=== PATIENT | male | born 1980 | race Caucasian/White ===

== ENCOUNTER 2022-07-20 20:45 | Emergency (ER) | payer OTHER ==
[2022-07-20 20:59] VITALS: RESP 16
[2022-07-20] MEDS ORDERED: MORPHINE SULFATE 4 MG/ML SYRINGE IVP STA (21:15)
--- NOTE | 2022-07-20 22:03 | XR ---
EXAMINATION TYPE: XR clavicle RT, XR shoulder limited RT, XR chest 1V DATE OF EXAM: 07/20/2022 9:46 PM INDICATION: Patient age:Male; 42 years old; Reason for study: Trauma, pain; COMPARISON: None TECHNIQUE: AP and cephalic tilt views were obtained of the right clavicle. Right shoulder frontal and scapular Y Frontal view of the chest FINDINGS: There is a superiorly displaced distal clavicle with respect to the acromion. The distal right clavic le is approximately 1.5 cm above the acromion. No evidence for right shoulder dislocation. No acute fracture visualized. No evidence of pneumothorax, pleural effusion or focal consolidation. The cardiomediastinal silhouett e is intact. IMPRESSION: 1. Right acromioclavicular joint dislocation. 2. Clavicle appears intact.
[2022-07-20 22:10] VITALS: PULSE 82
--- NOTE | 2022-07-20 22:33 | ED ---
General Adult HPI - General Chief complaint: Extremity Injury, Upper Stated complaint: fall, shoulder pain Time Seen by Provider: 07/20/22 20:55 Source: patient Mode of arrival: ambulatory Limitations: no limitations - History of Present Illness Initial comments: This is a 42-year-old male who presents emergency department after a fall and right shoulder pain. The patient stated that he slipped and fell on would stairs at his home, landing on concrete approximately 2 stairs Fahrenheit. The patient stated that he landed on his right shoulder and had immediate pain to the right collarbone. The patient did not his and did not lose consciousness. The patient did state he was treating alcohol earlier today however he was ANO 4 and able to answer all questions appropriate. The patient denied any other acute pain or complaints at this time. The patient did not have any numbness or tingling in the right upper extremity or any radiation of this pain. - Related Data Previous Rx's Medication Instructions Recorded Naproxen [Naprosyn] 500 mg PO BID #28 tab 07/20/22 methocarbamoL [Robaxin-750] 750 mg PO TID #52 tab 07/20/22 Allergies Allergy/AdvReac Type Severity Reaction Status Date / Time No Known Allergies Allergy Verified 07/20/22 20:51 Review of Systems ROS Statement: Those systems with pertinent positive or pertinent negative responses have been documented in the HPI. ROS Other: All systems not noted in ROS Statement are negative. Past Medical History Past Medical History: No Reported History History of Any Multi-Drug Resistant Organisms: None Reported Past Surgical History: No Surgical Hx Reported Past Psychological History: No Psychological Hx Reported Smoking Status: Current every day smoker Past Alcohol Use History: Occasional Past Drug Use History: None Reported General Exam Limitations: no limitations General appearance: alert, in no apparent distress Head exam: Present: atraumatic, normocephalic Eye exam: Present: normal appearance, PERRL Pupils: Present: normal accommodation ENT exam: Present: normal exam, normal oropharynx, mucous membranes moist Neck exam: Present: normal inspection, full ROM Respiratory exam: Present: normal lung sounds bilaterally Cardiovascular Exam: Present: regular rate, normal rhythm, normal heart sounds GI/Abdominal exam: Present: soft, normal bowel sounds Extremities exam: Present: other (Left upper extremity within normal limits, right upper extremity decreased range of motion secondary to pain in the right clavicle, deformities noted to the right clavicle without any neurovascular compromise noted.) Back exam: Present: normal inspection, full ROM Neurological exam: Present: alert, oriented X3, CN II-XII intact Psychiatric exam: Present: normal affect, normal mood Skin exam: Present: warm, dry Course Vital Signs 07/20/22 07/20/22 07/20/22 20:48 20:58 21:44 Temperature 97 F L Pulse Rate 100 104 H 80 Respiratory 20 16 16 Rate Blood Pressure 121/78 121/91 139/90 O2 Sat by Pulse 99 99 100 Oximetry 07/20/22 07/20/22 22:09 22:41 Temperature 98.2 F Pulse Rate 82 82 Respiratory 16 16 Rate Blood Pressure 133/94 126/87 O2 Sat by Pulse 99 100 Oximetry Medical Decision Making - Medical Decision Making The patient was seen and evaluated emergency department. Physical exam, the patient was resting in bed without any acute distress. The patient did have significant distress when the right upper extremity was moved. Vital signs admission were stable. Due to the nature the patient's complaints, an x-ray of the right shoulder, right clavicle and chest x-ray was obtained. X-rays were obtained and interpreted by myself showing right before meals joint dislocation. Due to this, the orthopedic surgeon on-call, Dr. Escoto was consult did and stated that the patient could be discharged home in a sling to follow-up in the office. The patient was given a prescription for naproxen as well as Robaxin to be taken at home and told to continue to monitor his symptoms and to report back to the emergency department if they became acutely worse including any numbness or tingling. The patient was agreeable to this and all his questions were answered. The patient was discharged home in stable condition. Disposition Clinical Impression: AC joint dislocation Disposition: HOME SELF-CARE Condition: Stable Instructions (If sedation given, give patient instructions): Acromioclavicular Separation (ED) Prescriptions: Naproxen [Naprosyn] 500 mg PO BID #28 tab methocarbamoL [Robaxin-750] 750 mg PO TID #52 tab Is patient prescribed a controlled substance at d/c from ED?: No Referrals: None,Stated [Primary Care Provider] - 1-2 days Deion Escoto MD [STAFF PHYSICIAN] - 07/26/22 Time of Disposition: 22:30
[2022-07-20 22:42] VITALS: BP 126/87; TEMP 98.2
== END 2022-07-20 22:45 | disposition home or self-care (01) ==
LOC: EC 20:45
DX: S43.101A Unspecified dislocation of right acromioclavicular joint, initial encounter (principal); F17.200 Nicotine dependence, unspecified, uncomplicated; W10.9XXA Fall (on) (from) unspecified stairs and steps, initial encounter
CPT/HCPCS: 73000; 73020; 71045; 99283; J2270; 96374

== ENCOUNTER 2022-07-24 10:57 | Emergency (ER) | payer OTHER ==
[2022-07-24] MEDS ORDERED: PANTOPRAZOLE 40 MG/10 ML VIAL IVP STA (11:05)
[2022-07-24] MEDS ORDERED: SODIUM CHLORIDE 0.9% 1,000 ML IV STA ×2 (11:05→11:09)
[2022-07-24] MEDS ORDERED: ONDANSETRON 4 MG/2 ML VIAL IVP STA (11:05)
[2022-07-24] MEDS ORDERED: LORazepam 2 MG/ML INJ IV STA (11:09)
[2022-07-24] MEDS ORDERED: OCTREOTIDE 500 MCG in SODIUM CHLORIDE 0.9% 250 ML IV ONE (11:09)
[2022-07-24] MEDS ORDERED: OCTREOTIDE 200 MCG/ML 5 ML VIAL IVP STA (11:09)
[2022-07-24] MEDS ORDERED: cefTRIAXone IN SWFI 1,000 MG/10 ML SYRINGE IVP STA (11:13)
[2022-07-24] MEDS ORDERED: OCTREOTIDE 100 MCG/ML INJ IVP STA (11:14)
--- NOTE | 2022-07-24 11:24 | ED ---
General Adult HPI - General Chief complaint: GI Bleed Stated complaint: GI Bleed Time Seen by Provider: 07/24/22 11:01 Source: patient, EMS, RN notes reviewed Mode of arrival: EMS Limitations: no limitations - History of Present Illness Initial comments: Patient is a pleasant 42-year-old male presenting to the emergency Department with vomiting. Onset of symptoms was last night. Patient states he feels terrible. Patient normally drinks a pint of alcohol daily. Vodka. EMS reported blood clots with emesis. Patient does have emesis at bedside con sistent with this. Patient still complains of nausea. Patient also is concerned he is going through withdrawal. - Related Data Previous Rx's Medication Instructions Recorded Naproxen [Naprosyn] 500 mg PO BID #28 tab 07/20/22 methocarbamoL [Robaxin-750] 750 mg PO TID #52 tab 07/20/22 Allergies Allergy/AdvReac Type Severity Reaction Status Date / Time No Known Allergies Allergy Verified 07/24/22 11:06 Review of Systems ROS Statement: Those systems with pertinent positive or pertinent negative responses have been documented in the HPI. ROS Other: All systems not noted in ROS Statement are negative. Constitutional: Denies: fever Eyes: Denies: eye pain ENT: Denies: ear pain Respiratory: Denies: cough Cardiovascular: Denies: chest pain Endocrine: Denies: fatigue Gastrointestinal: Reports: nausea, vomiting, hematemesis Musculoskeletal: Denies: back pain Skin: Denies: rash Neurological: Denies: weakness Past Medical History Past Medical History: Diabetes Mellitus, Hypertension History of Any Multi-Drug Resistant Organisms: None Reported Past Surgical History: No Surgical Hx Reported Past Psychological History: No Psychological Hx Reported Smoking Status: Current every day smoker Past Alcohol Use History: Abuse Past Drug Use History: None Reported General Exam Limitations: no limitations General appearance: alert Head exam: Present: normocephalic Eye exam: Present: other (Right pupil dilated, patient states chronic from previous injury) ENT exam: Present: normal oropharynx Neck exam: Present: normal inspection Respiratory exam: Present: normal lung sounds bilaterally Cardiovascular Exam: Present: tachycardia GI/Abdominal exam: Present: tenderness (Mild epigastric tenderness) Extremities exam: Present: normal inspection Neurological exam: Present: alert Psychiatric exam: Present: normal affect, normal mood Skin exam: Present: pallor Course Vital Signs 1207/24/22 07/24/22 10:59 11:23 11:30 Temperature 97.6 F Pulse Rate 135 H 124 H 121 H Respiratory 20 18 22 Rate Blood Pressure 91/48 73/42 73/42 O2 Sat by Pulse 100 100 100 Oximetry 07/24/22 07/24/22 11:40 11:50 Temperature Pulse Rate 109 H 118 H Respiratory 26 H 20 Rate Blood Pressure 104/44 103/55 O2 Sat by Pulse 100 100 Oximetry EKG Findings - EKG Results: EKG: interpreted by ERMD (Nonspecific ST-T), sinus rhythm, normal axis EKG shows: tachycardia Medical Decision Making - Medical Decision Making Case was discussed with Dr. Loki brantley at [facility], who will accept transfer. I did previously speak with on-call surgeon, Dr. Colvin who is not handle variceal bleeds and does recommend transfer. We do not have GI available Blood is currently pending and blood bank states around 20 minutes. Patient transfer will be delayed to receive blood prior to transfer. EMS has arty been notified for priority 1 transfer. Patient was reevaluated several times. Patient was updated on plan. Blood pressure has improved with several readings over 100 sbp now. Patient is going to receive the first unit at this time. - Lab Data Result diagrams: 07/24/22 11:19 07/24/22 11:19 Lab Results 07/24/22 07/24/22 07/24/22 Range/Units 11:15 11:19 11:19 WBC 13.4 H (3.8-10.6) k/uL RBC 1.89 L (4.30-5.90) m/uL Hgb 6.3 L* (13.0-17.5) gm/dL Hct 19.8 L* (39.0-53.0) % MCV 104.8 H (80.0-100.0) fL MCH 33.2 (25.0-35.0) pg MCHC 31.7 (31.0-37.0) g/dL RDW 15.8 H (11.5-15.5) % Plt Count 162 (150-450) k/uL MPV 12.8 Neutrophils % 81 % Lymphocytes % 13 % Monocytes % 4 % Eosinophils % 0 % Basophils % 0 % Neutrophils # 10.9 H (1.3-7.7) k/uL Lymphocytes # 1.8 (1.0-4.8) k/uL Monocytes # 0.5 (0-1.0) k/uL Eosinophils # 0.0 (0-0.7) k/uL Basophils # 0.0 (0-0.2) k/uL Manual Slide Review Performed Hypochromasia Slight Macrocytosis Moderate PT (9.0-12.0) sec INR (<1.2) APTT (22.0-30.0) sec Sodium (137-145) mmol/L Potassium (3.5-5.1) mmol/L Chloride (98-107) mmol/L Carbon Dioxide (22-30) mmol/L Anion Gap mmol/L BUN (9-20) mg/dL Creatinine (0.66-1.25) mg/dL Est GFR (CKD-EPI)AfAm (>60 ml/min/1.73 sqM) Est GFR (CKD-EPI)NonAf (>60 ml/min/1.73 sqM) Glucose (74-99) mg/dL Calcium (8.4-10.2) mg/dL Total Bilirubin (0.2-1.3) mg/dL AST (17-59) U/L ALT (4-49) U/L Alkaline Phosphatase (38-126) U/L Total Protein (6.3-8.2) g/dL Albumin (3.5-5.0) g/dL Lipase (23-300) U/L Gastric Occult Blood Positive (Negative) Blood Type Blood Type Confirm A Positive Blood Type Recheck Bld Type Recheck Status Antibody Screen Crossmatch Spec Expiration Date 07/24/22 07/24/22 07/24/22 Range/Units 11:19 11:19 11:19 WBC (3.8-10.6) k/uL RBC (4.30-5.90) m/uL Hgb (13.0-17.5) gm/dL Hct (39.0-53.0) % MCV (80.0-100.0) fL MCH (25.0-35.0) pg MCHC (31.0-37.0) g/dL RDW (11.5-15.5) % Plt Count (150-450) k/uL MPV Neutrophils % % Lymphocytes % % Monocytes % % Eosinophils % % Basophils % % Neutrophils # (1.3-7.7) k/uL Lymphocytes # (1.0-4.8) k/uL Monocytes # (0-1.0) k/uL Eosinophils # (0-0.7) k/uL Basophils # (0-0.2) k/uL Manual Slide Review Hypochromasia Macrocytosis PT 16.2 H (9.0-12.0) sec INR 1.6 H (<1.2) APTT 28.4 (22.0-30.0) sec Sodium 136 L (137-145) mmol/L Potassium 3.9 (3.5-5.1) mmol/L Chloride 98 (98-107) mmol/L Carbon Dioxide 11 L (22-30) mmol/L Anion Gap 27 mmol/L BUN 70 H (9-20) mg/dL Creatinine 1.77 H (0.66-1.25) mg/dL Est GFR (CKD-EPI)AfAm 54 (>60 ml/min/1.73 sqM) Est GFR (CKD-EPI)NonAf 47 (>60 ml/min/1.73 sqM) Glucose 159 H (74-99) mg/dL Calcium 8.0 L (8.4-10.2) mg/dL Total Bilirubin 1.9 H (0.2-1.3) mg/dL AST 150 H (17-59) U/L ALT 51 H (4-49) U/L Alkaline Phosphatase 128 H (38-126) U/L Total Protein 6.7 (6.3-8.2) g/dL Albumin 3.4 L (3.5-5.0) g/dL Lipase 33 (23-300) U/L Gastric Occult Blood (Negative) Blood Type A Positive Blood Type Confirm Blood Type Recheck No Previous Record Bld Type Recheck Status CABO Indicated Antibody Screen NEGATIVE Crossmatch See Detail Spec Expiration Date 07/27/20222318 Critical Care Time Critical Care Time: Yes Total Critical Care Time: 44 Disposition Clinical Impression: Upper gastrointestinal hemorrhage Disposition: OTHER INSTITUTION NOT DEFINED Condition: Critical Is patient prescribed a controlled substance at d/c from ED?: No Referrals: None,Stated [Primary Care Provider] - 1-2 days Time of Disposition: 11:58 - Out of Hospital Transfer - Req. Specs Out of Hospital Transfer - Requested Specifics: Other Emergency Center
[2022-07-24 11:44] LABS: Basophils % (A) 0 %; Eosinophils % (A) 0 %; Hypochromasia Slight; Lymphocytes # (A) 1.8 k/uL (1.0-4.8); Lymphocytes % (A) 13 %; MCH 33.2 pg (25.0-35.0); MCHC 31.7 g/dL (31.0-37.0); MCV 104.8 fL (80.0-100.0); Macrocytosis Moderate; Mean Platelet Volume 12.8; Monocytes # (A) 0.5 k/uL (0-1.0); Monocytes % (A) 4 %; Neutrophils # (A) 10.9 k/uL (1.3-7.7); Neutrophils % (A) 81 %; Platelet Count 162 k/uL (150-450); RBC 1.89 m/uL (4.30-5.90); RDW 15.8 % (11.5-15.5); WBC 13.4 k/uL (3.8-10.6)
[2022-07-24 11:47] LABS: HCT 19.8 % (39.0-53.0); HGB 6.3 gm/dL (13.0-17.5)
[2022-07-24 11:53] LABS: Albumin 3.4 g/dL (3.5-5.0); Potassium 3.9 mmol/L (3.5-5.1); Total Bilirubin 1.9 mg/dL (0.2-1.3); Total Protein 6.7 g/dL (6.3-8.2)
[2022-07-24 12:05] LABS: INR 1.6 (<1.2); Partial Thromboplastin Time 28.4 sec (22.0-30.0); Prothrombin Time 16.2 sec (9.0-12.0)
[2022-07-24 12:36] VITALS: PULSE 120; RESP 18
--- NOTE | 2022-07-24 12:36 | XR ---
EXAMINATION TYPE: XR chest 1V portable DATE OF EXAM: 07/24/2022 Comparison: 07/20/2022 Clinical History: 42-year-old male weakness, pain Findings: Heart upper limits of normal in size. Mild interstitial prominence is unchanged. No consolidation or pleural effusion. There is superior offset at the right AC joint redemonstrated by 1 shaft width. Impression: 1. Chronic changes without acute cardiopulmonary process. 2. Redemonstrated one shaft's width of superior displacement at the right AC joint. Correlate for und erlying AC joint separation.
[2022-07-24 13:05] VITALS: BP 112/65; TEMP 97.6
== END 2022-07-24 12:43 | disposition other institution (70) ==
LOC: EC 10:57
DX: K92.2 Gastrointestinal hemorrhage, unspecified (principal); E11.9 Type 2 diabetes mellitus without complications; I10 Essential (primary) hypertension; F17.200 Nicotine dependence, unspecified, uncomplicated
CPT/HCPCS: 36415; 93005; 86900; 86901; 80053; 83690; 85025; 85610; 85730; 86850; 86920; 82271; 71045; 99291; 96365; 96375 ×5; 36430; P9016; J2060; J2405; J2354 ×2; J0696; C9113

== ENCOUNTER 2022-08-17 09:57 | Emergency (ER) | payer OTHER ==
[2022-08-17] MEDS ORDERED: SODIUM CHLORIDE 0.9% 1,000 ML IV STA ×2 (10:08→12:23)
[2022-08-17] MEDS ORDERED: ONDANSETRON 4 MG/2 ML VIAL IVP STA (10:19)
[2022-08-17] MEDS ORDERED: MORPHINE SULFATE 4 MG/ML SYRINGE IVP STA (10:20)
--- NOTE | 2022-08-17 10:36 | ED ---
GI Bleed HPI - General Chief complaint: GI Bleed Stated complaint: GI Bleed Time Seen by Provider: 08/17/22 09:59 Source: patient, EMS Mode of arrival: EMS Limitations: no limitations - History of Present Illness Initial comments: Patient is a 42-year-old male who presents to the emergency department for GI bleed. Patient states while wiping after a bowel movement yesterday he noticed bright red blood on the toilet paper. This morning he woke up and felt very nauseous. He had 4 episodes blood streaked emesis. He is currently residing at [place]. His blood pressure was low and he was sent to the emergency department. Patient feels very nauseous with upper abdominal pain. He denies fever, chills, chest pain, shortness of breath. Does report lightheadedness. Denies blood thinner use. Of note, [facility]. Hemoglobin was found to be 6.3. He was given a unit of blood. He was transferred to [facility] due to lack of GI services. 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 Does admit to drinking alcohol after discharge up until August 07 when he arrived at [place]. - Related Data Home Medications Medication Instructions Recorded Confirmed Acetaminophen [Tylenol 8 Hour] 650 mg PO Q4H PRN 08/17/22 08/17/22 Calcium/Mag/Zinc/Karin D 1 tab PO TID PRN 08/17/22 08/17/22 Chlorpheniramine Maleate 4 mg PO Q4H PRN 08/17/22 08/17/22 [Chlor-Trimeton] Ferrous Sulfate [Iron] 325 mg PO BID 08/17/22 08/17/22 Folic Acid 1 mg PO DAILY 08/17/22 08/17/22 Furosemide [Lasix] 40 mg PO BID 08/17/22 08/17/22 Ibuprofen [Motrin Ib] 600 mg PO Q6H PRN 08/17/22 08/17/22 Lactulose 20 gm PO TID 08/17/22 08/17/22 Metoprolol Succinate (ER) [Toprol 25 mg PO DAILY 08/17/22 08/17/22 Xl] Multivitamins, Thera [Multivitamin 1 tab PO DAILY 08/17/22 08/17/22 (formulary)] Pantoprazole Sodium [Protonix] 40 mg PO BID 08/17/22 08/17/22 Spironolactone [Aldactone] 50 mg PO DAILY 08/17/22 08/17/22 Tamsulosin HCl [Flomax] 0.4 mg PO DAILY 08/17/22 08/17/22 Thiamine [Vitamin B-1] 100 mg PO DAILY 08/17/22 08/17/22 busPIRone HCl [Buspar] 10 mg PO TID 08/17/22 08/17/22 carvediloL [Coreg] 6.25 mg PO BID 08/17/22 08/17/22 gemfibroziL [Lopid] 600 mg PO BID 08/17/22 08/17/22 metFORMIN HCL [Glucophage] 500 mg PO BID 08/17/22 08/17/22 ondansetron HCL [Ondansetron HCl] 8 mg PO Q6H PRN 08/17/22 08/17/22 prednisoLONE ACETATE 1% OPHTH 1 drops RIGHT EYE QID 08/17/22 08/17/22 [Pred Forte 1%] traZODone HCL [Desyrel] 50 - 150 mg PO HS 08/17/22 08/17/22 Previous Rx's Medication Instructions Recorded Naproxen [Naprosyn] 500 mg PO BID #28 tab 07/20/22 Allergies Allergy/AdvReac Type Severity Reaction Status Date / Time No Known Allergies Allergy Verified 08/17/22 11:54 Review of Systems ROS Statement: Those systems with pertinent positive or pertinent negative responses have been documented in the HPI. ROS Other: All systems not noted in ROS Statement are negative. Past Medical History Past Medical History: Diabetes Mellitus, Hypertension Additional Past Medical History / Comment(s): Cirrohsis of liver History of Any Multi-Drug Resistant Organisms: None Reported Past Surgical History: No Surgical Hx Reported Past Psychological History: No Psychological Hx Reported Smoking Status: Current every day smoker Past Alcohol Use History: Abuse Past Drug Use History: Marijuana General Exam Limitations: no limitations Eye exam: Present: normal appearance, PERRL, EOMI. Absent: scleral icterus, conjunctival injection, periorbital swelling Respiratory exam: Present: normal lung sounds bilaterally. Absent: respiratory distress, wheezes, rales, rhonchi, stridor Cardiovascular Exam: Present: regular rate, normal rhythm, normal heart sounds. Absent: systolic murmur, diastolic murmur, rubs, gallop, clicks GI/Abdominal exam: Present: soft, tenderness (upper), normal bowel sounds. Absent: distended, guarding, rebound, rigid Neurological exam: Present: alert, oriented X3, CN II-XII intact Psychiatric exam: Present: normal affect, normal mood Skin exam: Present: warm, dry, intact, normal color. Absent: rash Course Vital Signs 08/17/22 08/17/22 08/17/22 09:59 11:06 11:31 Temperature 97.6 F Pulse Rate 64 76 Respiratory 18 20 Rate Blood Pressure 98/57 100/66 O2 Sat by Pulse 100 100 Oximetry 08/17/22 08/17/22 11:43 12:10 Temperature 97.8 F Pulse Rate 80 86 Respiratory 17 Rate Blood Pressure 99/62 O2 Sat by Pulse 99 Oximetry Medical Decision Making - Medical Decision Making Was pt. sent in by a medical professional or institution (, PA, FRANCHISE BUSINESS CONSULTANT, urgent care, hospital, or detention...) When possible be specific @ -[No] Did you speak to anyone other than the patient for history (EMS, parent, family, police, friend...)? What history was obtained from this source @ -[No] Did you review nursing and triage notes (agree or disagree)? Why? @ -[I reviewed and agree with nursing and triage notes] Were old charts reviewed (outside hosp., previous admission, EMS record, old EKG, old radiological studies, urgent care reports/EKG's, detention records)? Report findings @ -Yes, see HPI Differential Diagnosis (chest pain, altered mental status, abdominal pain women, abdominal pain men, vaginal bleeding, weakness, fever, dyspnea, syncope, headache, dizziness, GI bleed, back pain, seizure, CVA, palpatations, mental health)? @ -Differential GI Bleed: Esophageal varices, aortoenteric fistula, Digna-Coto, gastritis, peptic ulcer disease, diverticulosis, inflammatory bowel disease, hemorrhoids, fissure, colitis, malignancy, Meckels diverticulum, this is not meant to be an all- inclusive list. EKG interpreted by me (3pts min.). @ -Yes, sinus rhythm without ST segment or T-wave abnormality. Ventricular rate 68, KS interval 196, QRS duration 102, QTc 408 X-rays interpreted by me (1pt min.). @ -[None done] CT interpreted by me (1pt min.). @ -Yes, CT of the abdomen and pelvis without contrast is significant for fat stranding of the pancreatic head, trace retroperitoneal fluid, hepatic steatosis with possible cirrhosis, cholelithiasis U/S interpreted by me (1pt. min.). @ -[None done] What testing was considered but not performed or refused? (CT, X-rays, U/S, labs)? Why? @ -[None] What meds were considered but not given or refused? Why? @ -[None] Did you discuss the management of the patient with other professionals (professionals i.e. , PA, FRANCHISE BUSINESS CONSULTANT, lab, RT, psych nurse, geriatric social work professor, trimming cutter machine, teacher, police commanding officer, family independence case manager)? Give summary @ -[No] Was smoking cessation discussed for >3mins.? @ -[No] Was critical care preformed (if so, how long)? @ -[No] Were there social determinants of health that impacted care today? How? (Homelessness, low income, unemployed, alcoholism, drug addiction, transportation, low edu. Level, literacy, decrease access to med. care, half-way, rehab)? @ -[No] Was there de-escalation of care discussed even if they declined (Discuss DNR or withdrawal of care, Hospice)? DNR status @ -[No] What co-morbidities impacted this encounter? (DM, HTN, Smoking, COPD, CAD, Cancer, CVA, ARF, Chemo, Hep., AIDS, mental health diagnosis, sleep apnea, morbid obesity)? @ -Alcohol use Was patient admitted / discharged? Hospital course, mention meds given and route, prescriptions, significant lab abnormalities, going to OR and other pertinent info. @-This is a 42-year-old male presenting for GI bleed. Patient hypotensive at 98/57. He is resting comfortably in no apparent distress. Fluid bolus and protonix given. Laboratory studies obtained. Hemoglobin at 8.2. Hyperkalemia at 6.7. Patient denies history.. He does not take potassium supplementation however he does take spironolactone, metoprolol, Motrin, and naproxen daily. There is decreased kidney function, creatinine at 2.22, BUN at 88. Lipase within normal limits. Stool occult is positive. Hyperkalemia treatment initiated. CT of the abdomen and pelvis without contrast is significant for fat stranding of the pancreatic head, trace retroperitoneal fluid, hepatic steatosis with possible cirrhosis, cholelithiasis Patient did not have any further episodes of emesis or blood in stool in the ED. Blood pressure improved and remained stable. Results discussed with patient. Unfortunately we do not have GI services. Patient will be transferred to [facility], Dr. Cisneros accepts admission. Patient given octreotride bolus. transferred with IV fluids and octreotride infusion in stable condition. Undiagnosed new problem with uncertain prognosis? @ -[No] Drug Therapy requiring intensive monitoring for toxicity (Heparin, Nitro, Insulin, Cardizem)? @ -[No] Were any procedures done? @ -[No] Diagnosis/symptom? @ -GI bleed Acute, or Chronic, or Acute on Chronic? @ -acute Uncomplicated (without systemic symptoms) or Complicated (systemic symptoms)? @ -[default] Side effects of treatment? @ -[No] Exacerbation, Progression, or Severe Exacerbation? @ -[No] Poses a threat to life or bodily function? How? (Chest pain, USA, MD, pneumonia, PE, COPD, DKA, ARF, appy, cholecystitis, CVA, Diverticulitis, Homicidal, Suicidal, threat to staff... and all critical care pts) @ -[No] Dr. Brunson is my attending. - Lab Data Result diagrams: 08/17/22 10:15 08/17/22 11:20 Lab Results 08/17/22 08/17/22 08/17/22 Range/Units 10:15 10:15 10:15 WBC 6.8 (3.8-10.6) k/uL RBC 2.63 L (4.30-5.90) m/uL Hgb 8.2 L D (13.0-17.5) gm/dL Hct 26.2 L (39.0-53.0) % MCV 99.5 D (80.0-100.0) fL MCH 31.1 (25.0-35.0) pg MCHC 31.3 (31.0-37.0) g/dL RDW 22.7 H (11.5-15.5) % Plt Count 97 L (150-450) k/uL MPV 13.0 Neutrophils % 70 % Lymphocytes % 12 % Monocytes % 12 % Eosinophils % 3 % Basophils % 1 % Neutrophils # 4.8 (1.3-7.7) k/uL Lymphocytes # 0.8 L (1.0-4.8) k/uL Monocytes # 0.8 (0-1.0) k/uL Eosinophils # 0.2 (0-0.7) k/uL Basophils # 0.0 (0-0.2) k/uL Manual Slide Review Performed Hypochromasia Slight Anisocytosis Moderate Macrocytosis Marked A Rouleaux Present PT 11.9 (9.0-12.0) sec INR 1.2 H (<1.2) APTT 29.5 (22.0-30.0) sec Sodium (137-145) mmol/L Potassium (3.5-5.1) mmol/L Chloride (98-107) mmol/L Carbon Dioxide (22-30) mmol/L Anion Gap mmol/L BUN (9-20) mg/dL Creatinine (0.66-1.25) mg/dL Est GFR (CKD-EPI)AfAm (>60 ml/min/1.73 sqM) Est GFR (CKD-EPI)NonAf (>60 ml/min/1.73 sqM) Glucose (74-99) mg/dL POC Glucose (mg/dL) (70-110) mg/dL POC Glu Timber Supervisor ID Calcium (8.4-10.2) mg/dL Magnesium (1.6-2.3) mg/dL Total Bilirubin (0.2-1.3) mg/dL AST (17-59) U/L ALT (4-49) U/L Alkaline Phosphatase (38-126) U/L Total Protein (6.3-8.2) g/dL Albumin (3.5-5.0) g/dL Lipase (23-300) U/L Stool Occult Blood Positive (Negative) Blood Type Blood Type Recheck Bld Type Recheck Status Antibody Screen Spec Expiration Date 08/17/22 08/17/22 08/17/22 Range/Units 10:15 11:20 11:20 WBC (3.8-10.6) k/uL RBC (4.30-5.90) m/uL Hgb (13.0-17.5) gm/dL Hct (39.0-53.0) % MCV (80.0-100.0) fL MCH (25.0-35.0) pg MCHC (31.0-37.0) g/dL RDW (11.5-15.5) % Plt Count (150-450) k/uL MPV Neutrophils % % Lymphocytes % % Monocytes % % Eosinophils % % Basophils % % Neutrophils # (1.3-7.7) k/uL Lymphocytes # (1.0-4.8) k/uL Monocytes # (0-1.0) k/uL Eosinophils # (0-0.7) k/uL Basophils # (0-0.2) k/uL Manual Slide Review Hypochromasia Anisocytosis Macrocytosis Rouleaux PT (9.0-12.0) sec INR (<1.2) APTT (22.0-30.0) sec Sodium 133 L (137-145) mmol/L Potassium 6.7 H* 5.7 H (3.5-5.1) mmol/L Chloride 103 (98-107) mmol/L Carbon Dioxide 22 (22-30) mmol/L Anion Gap 8 mmol/L BUN 58 H (9-20) mg/dL Creatinine 2.22 H (0.66-1.25) mg/dL Est GFR (CKD-EPI)AfAm 41 (>60 ml/min/1.73 sqM) Est GFR (CKD-EPI)NonAf 36 (>60 ml/min/1.73 sqM) Glucose 182 H (74-99) mg/dL POC Glucose (mg/dL) (70-110) mg/dL POC Glu Timber Supervisor ID Calcium 8.8 (8.4-10.2) mg/dL Magnesium 2.4 H (1.6-2.3) mg/dL Total Bilirubin 1.1 (0.2-1.3) mg/dL AST 41 (17-59) U/L ALT 20 (4-49) U/L Alkaline Phosphatase 158 H (38-126) U/L Total Protein 7.4 (6.3-8.2) g/dL Albumin 3.7 (3.5-5.0) g/dL Lipase 156 (23-300) U/L Stool Occult Blood (Negative) Blood Type A Positive Blood Type Recheck A Pos Bld Type Recheck Status No Antibody Screen NEGATIVE Spec Expiration Date 08/20/2022 - 231908/17/22 Range/Units 11:28 WBC (3.8-10.6) k/uL RBC (4.30-5.90) m/uL Hgb (13.0-17.5) gm/dL Hct (39.0-53.0) % MCV (80.0-100.0) fL MCH (25.0-35.0) pg MCHC (31.0-37.0) g/dL RDW (11.5-15.5) % Plt Count (150-450) k/uL MPV Neutrophils % % Lymphocytes % % Monocytes % % Eosinophils % % Basophils % % Neutrophils # (1.3-7.7) k/uL Lymphocytes # (1.0-4.8) k/uL Monocytes # (0-1.0) k/uL Eosinophils # (0-0.7) k/uL Basophils # (0-0.2) k/uL Manual Slide Review Hypochromasia Anisocytosis Macrocytosis Rouleaux PT (9.0-12.0) sec INR (<1.2) APTT (22.0-30.0) sec Sodium (137-145) mmol/L Potassium (3.5-5.1) mmol/L Chloride (98-107) mmol/L Carbon Dioxide (22-30) mmol/L Anion Gap mmol/L BUN (9-20) mg/dL Creatinine (0.66-1.25) mg/dL Est GFR (CKD-EPI)AfAm (>60 ml/min/1.73 sqM) Est GFR (CKD-EPI)NonAf (>60 ml/min/1.73 sqM) Glucose (74-99) mg/dL POC Glucose (mg/dL) 151 H (70-110) mg/dL POC Glu Timber Supervisor ID Edmondson, Ady Calcium (8.4-10.2) mg/dL Magnesium (1.6-2.3) mg/dL Total Bilirubin (0.2-1.3) mg/dL AST (17-59) U/L ALT (4-49) U/L Alkaline Phosphatase (38-126) U/L Total Protein (6.3-8.2) g/dL Albumin (3.5-5.0) g/dL Lipase (23-300) U/L Stool Occult Blood (Negative) Blood Type Blood Type Recheck Bld Type Recheck Status Antibody Screen Spec Expiration Date Disposition Clinical Impression: GI (gastrointestinal bleed), Hyperkalemia Disposition: OTHER INSTITUTION NOT DEFINED Referrals: None,Stated [REFERRING] - 1-2 days - Out of Hospital Transfer - Req. Specs Out of Hospital Transfer - Requested Specifics: Other Emergency [facility] ([facility])
[2022-08-17 10:47] LABS: Albumin 3.7 g/dL (3.5-5.0); Calcium 8.8 mg/dL (8.4-10.2); INR 1.2 (<1.2); Magnesium 2.4 mg/dL (1.6-2.3); Partial Thromboplastin Time 29.5 sec (22.0-30.0); Prothrombin Time 11.9 sec (9.0-12.0); Total Bilirubin 1.1 mg/dL (0.2-1.3); Total Protein 7.4 g/dL (6.3-8.2)
[2022-08-17 10:57] LABS: Anisocytosis Moderate; Basophils % (A) 1 %; Eosinophils # (A) 0.2 k/uL (0-0.7); Eosinophils % (A) 3 %; HCT 26.2 % (39.0-53.0); Hypochromasia Slight; Lymphocytes # (A) 0.8 k/uL (1.0-4.8); Lymphocytes % (A) 12 %; MCH 31.1 pg (25.0-35.0); MCHC 31.3 g/dL (31.0-37.0); Macrocytosis Marked; Monocytes # (A) 0.8 k/uL (0-1.0); Monocytes % (A) 12 %; Neutrophils # (A) 4.8 k/uL (1.3-7.7); Neutrophils % (A) 70 %; RBC 2.63 m/uL (4.30-5.90); RDW 22.7 % (11.5-15.5); WBC 6.8 k/uL (3.8-10.6)
[2022-08-17 10:58] LABS: HGB 8.2 gm/dL (13.0-17.5); MCV 99.5 fL (80.0-100.0); Potassium 6.7 mmol/L (3.5-5.1)
[2022-08-17] MEDS ORDERED: ALBUTEROL NEB (CONC) 2.5 MG/0.5 ML INHALATION ONE (10:59)
[2022-08-17] MEDS ORDERED: SODIUM BICARB 8.4% 50 ML SYR (1 MEQ/ML) IV ONE (10:59)
[2022-08-17] MEDS ORDERED: INSULIN REGULAR 100 UNIT/ML VIAL (IV) IV ONE (10:59)
[2022-08-17] MEDS ORDERED: DEXTROSE 50% SYRINGE 50 ML IVP ONE (10:59)
[2022-08-17] MEDS ORDERED: CALCIUM GLUCONATE IN NACL 1 GM in SALINE 1 100ML.BAG IVPB ONE (11:00)
[2022-08-17 11:14] LABS: Platelet Count 97 k/uL (150-450)
[2022-08-17 11:18] LABS: Rouleaux Present
[2022-08-17 11:29] LABS: Glucose,Whole Blood 151 mg/dL (70-110)
--- NOTE | 2022-08-17 12:14 | CT ---
EXAMINATION TYPE: CT abdomen pelvis wo con CT DLP: 600.1 mGycm, Automated exposure control for dose reduction was used. DATE OF EXAM: 08/17/2022 11:22 AM COMPARISON: None CLINICAL INDICATION:Male, 42 years old with history of pain; abdominal pain TECHNIQUE: Standard CT of the abdomen and pelvis without IV or oral contrast. Lack of IV or oral co ntrast limits evaluation of solid and hollow organ viscera. Coronal and sagittal reformats were perfo rmed. FINDINGS: LOWER CHEST: Unremarkable ABDOMEN LIVER: Diffusely hypoattenuating parenchyma. Questionable subtle nodular contour. GALLBLADDER AND BILE DUCTS: Cholelithiasis without surrounding inflammatory changes. No biliary ducta l dilatation. PANCREAS: Unremarkable. SPLEEN: Mildly enlarged spleen measuring 15.7 cm in craniocaudal dimension. ADRENAL GLANDS: Unremarkable noncontrast appearance. KIDNEYS AND URETERS: No evidence of hydronephrosis. Nonobstructive bilateral renal calculi with large st in the inferior pole the left kidney measuring up to 3 mm. PELVIS BLADDER: Under distended, limiting evaluation. REPRODUCTIVE: Unremarkable. ABDOMEN & PELVIS STOMACH AND BOWEL: Stomach and duodenum are unremarkable. Scattered distal colonic diverticula withou t evidence for acute diverticulitis. No evidence of bowel obstruction. The appendix is within normal limits. PERITONEUM/RETROPERITONEUM: No evidence of pneumoperitoneum. Trace retroperitoneal fluid along the bi lateral paracolic gutters VASCULATURE: Mild atherosclerotic calcifications are present throughout the abdominal aorta and its b ranches. No evidence of aortic aneurysm. MUSCULOSKELETAL: No acute osseous abnormalities. Healing left posterior seventh rib fracture. LYMPH NODES: No gross evidence for lymphadenopathy. SOFT TISSUE/ABDOMINAL WALL: Tiny fat filled umbilical hernia. IMPRESSION: 1. Mild fat stranding involving the pancreatic head. This may represent acute pancreatitis. Correlat e with lipase levels. 2. Trace retroperitoneal fluid. This could be related to #1 or 3. 3. Hepatic steatosis with questionable subtle nodular contour. Correlate with liver function tests f or possibility of cirrhosis. 4. Mild splenomegaly. 5. Cholelithiasis. 6. Nonobstructive bilateral renal calculi. 7. Healing left posterior seventh rib fracture.
[2022-08-17] MEDS ORDERED: PANTOPRAZOLE 40 MG/10 ML VIAL IVP STA (12:23)
[2022-08-17] MEDS ORDERED: OCTREOTIDE 200 MCG/ML 5 ML VIAL IVP STA (13:33)
[2022-08-17] MEDS ORDERED: OCTREOTIDE 500 MCG in SODIUM CHLORIDE 0.9% 250 ML IV ONE (14:00)
[2022-08-17 14:01] VITALS: BP 121/80; PULSE 66; RESP 16; TEMP 98
== END 2022-08-17 14:35 | disposition other institution (70) ==
LOC: EC 09:57
DX: K92.2 Gastrointestinal hemorrhage, unspecified (principal); E87.5 Hyperkalemia; E11.9 Type 2 diabetes mellitus without complications; I10 Essential (primary) hypertension; F17.200 Nicotine dependence, unspecified, uncomplicated; F12.90 Cannabis use, unspecified, uncomplicated; Z79.84 Long term (current) use of oral hypoglycemic drugs; Z79.899 Other long term (current) drug therapy
CPT/HCPCS: 36415; 94640; 93005; 86900; 86901; 80053; 83690; 83735; 84132; 85025; 85610; 85730; 86850; 82272; 74176; 99285; 96365; 96375 ×5; 96376; 96367; 96361 ×3; J2270; J2405; J2354; J0611; C9113

== ENCOUNTER 2024-04-04 22:25 | Emergency (ER) | payer OTHER ==
[2024-04-04 22:30] VITALS: TEMP 98.6
[2024-04-04 22:32] LABS: Glucose,Whole Blood 545 mg/dL (70-110)
--- NOTE | 2024-04-04 22:41 | ED ---
Abdominal Pain HPI - General Source: patient, EMS, RN notes reviewed Mode of arrival: EMS Limitations: no limitations <Jojo Manning - Last Filed: 04/05/24 02:36> - General Source: patient, EMS, RN notes reviewed, old records reviewed Mode of arrival: EMS Limitations: no limitations - History of Present Illness MD Complaint: abdominal pain, other (Vomiting of blood) -: days(s) Location: periumbilical Radiation: epigastric Severity: severe Severity scale (1-10): 10 Quality: stabbing, aching Improves With: nothing Worsens With: nothing Associated Symptoms: nausea, vomiting Treatments Prior to Arrival: other (0) <Corey Jewell - Last Filed: 04/07/24 22:36> - General Chief Complaint: Abdominal Pain Stated Complaint: Abd Pain Time Seen by Provider: 04/04/24 22:40 - History of Present Illness Initial Comments: Quick [id number] male presents urgent department chief complaint of emesis and alcohol withdrawal. Patient states that this is likely focal he is also been experiencing pain emesis. Patient has a history of esophageal varices and states that they were banded in the past. States he is having epigastric abdominal pain. (Jojo Manning) This is a 44-year-old male to ER for evaluation of significant pain painful emesis with history of variceal bleeds, patient is severely intoxicated (Corey Jewell) - Related Data Home Medications Medication Instructions Recorded Confirmed Acetaminophen [Tylenol 8 Hour] 650 mg PO Q4H PRN 08/17/22 08/17/22 Calcium/Mag/Zinc/Karin D 1 tab PO TID PRN 08/17/22 08/17/22 Chlorpheniramine Maleate 4 mg PO Q4H PRN 08/17/22 08/17/22 [Chlor-Trimeton] Ferrous Sulfate [Iron] 325 mg PO BID 08/17/22 08/17/22 Folic Acid 1 mg PO DAILY 08/17/22 08/17/22 Furosemide [Lasix] 40 mg PO BID 08/17/22 08/17/22 Ibuprofen [Motrin Ib] 600 mg PO Q6H PRN 08/17/22 08/17/22 Lactulose 20 gm PO TID 08/17/22 08/17/22 Metoprolol Succinate (ER) [Toprol 25 mg PO DAILY 08/17/22 08/17/22 Xl] Multivitamins, Thera [Multivitamin 1 tab PO DAILY 08/17/22 08/17/22 (formulary)] Pantoprazole Sodium [Protonix] 40 mg PO BID 08/17/22 08/17/22 Spironolactone [Aldactone] 50 mg PO DAILY 08/17/22 08/17/22 Tamsulosin HCl [Flomax] 0.4 mg PO DAILY 08/17/22 08/17/22 Thiamine [Vitamin B-1] 100 mg PO DAILY 08/17/22 08/17/22 busPIRone HCl [Buspar] 10 mg PO TID 08/17/22 08/17/22 carvediloL [Coreg] 6.25 mg PO BID 08/17/22 08/17/22 gemfibroziL [Lopid] 600 mg PO BID 08/17/22 08/17/22 metFORMIN HCL [Glucophage] 500 mg PO BID 08/17/22 08/17/22 ondansetron HCL [Ondansetron HCl] 8 mg PO Q6H PRN 08/17/22 08/17/22 prednisoLONE ACETATE 1% OPHTH 1 drops RIGHT EYE QID 08/17/22 08/17/22 [Pred Forte 1%] traZODone HCL [Desyrel] 50 - 150 mg PO HS 08/17/22 08/17/22 Previous Rx's Medication Instructions Recorded Naproxen [Naprosyn] 500 mg PO BID #28 tab 07/20/22 Allergies Allergy/AdvReac Type Severity Reaction Status Date / Time No Known Allergies Allergy Verified 04/04/24 22:30 Review of Systems ROS Other: All systems not noted in ROS Statement are negative. <Jojo Manning - Last Filed: 04/05/24 02:36> ROS Other: All systems not noted in ROS Statement are negative. <Corey Jewell - Last Filed: 04/07/24 22:36> ROS Statement: Those systems with pertinent positive or pertinent negative responses have been documented in the HPI. Past Medical History Past Medical History: Diabetes Mellitus, Hypertension Additional Past Medical History / Comment(s): Cirrohsis of liver History of Any Multi-Drug Resistant Organisms: None Reported Past Surgical History: No Surgical Hx Reported Past Psychological History: No Psychological Hx Reported Smoking Status: Current every day smoker Past Alcohol Use History: Abuse Past Drug Use History: Marijuana <KerriJojo - Last Filed: 04/05/24 02:36> General Exam Limitations: no limitations <Prasanth Manningoe - Last Filed: 04/05/24 02:36> Limitations: no limitations, altered mental status, physical limitation General appearance: alert, in no apparent distress, anxious, in distress Head exam: Present: atraumatic, normocephalic, normal inspection Eye exam: Present: normal appearance, PERRL, EOMI. Absent: scleral icterus, conjunctival injection, periorbital swelling ENT exam: Present: normal exam, mucous membranes moist Neck exam: Present: normal inspection. Absent: tenderness, meningismus, lymphadenopathy Respiratory exam: Present: normal lung sounds bilaterally. Absent: respiratory distress, wheezes, rales, rhonchi, stridor Cardiovascular Exam: Present: tachycardia, normal heart sounds. Absent: systoli c murmur, diastolic murmur, rubs, gallop, clicks GI/Abdominal exam: Present: soft, normal bowel sounds. Absent: distended, tenderness, guarding, rebound, rigid Extremities exam: Present: normal inspection, full ROM, normal capillary refill. Absent: tenderness, pedal edema, joint swelling, calf tenderness Back exam: Present: normal inspection Neurological exam: Present: alert, oriented X3, CN II-XII intact Psychiatric exam: Present: normal affect, normal mood Skin exam: Present: warm, dry, intact, normal color. Absent: rash <Corey Jewell - Last Filed: 04/07/24 22:36> - General Exam Comments Initial Comments: Visual Physical Exam Vital signs reviewed General: Well-appearing, nontoxic, no acute distress. Head: Normocephalic, atraumatic Eyes: PERRLA, EOMI ENT: Airway patent Chest: Nonlabored breathing Skin: No visual rash, normal skin tone Neuro: Alert and oriented 3 Musculoskeletal: No gross abnormalities (Stieler,Jojo) Course <Corey Jewell - Last Filed: 04/07/24 22:36> Vital Signs 04/04/24 04/04/24 04/05/24 22:28 23:35 00:19 Temperature 98.6 F Pulse Rate 120 H 112 H 96 Respiratory 18 18 18 Rate Blood Pressure 144/87 151/104 156/106 O2 Sat by Pulse 98 100 100 Oximetry 04/05/24 04/05/24 04/05/24 00:31 01:19 01:50 Temperature Pulse Rate 104 H 98 98 Respiratory 18 16 16 Rate Blood Pressure 148/100 140/101 129/93 O2 Sat by Pulse 99 98 98 Oximetry 04/05/24 02:34 Temperature Pulse Rate 98 Respiratory 18 Rate Blood Pressure 123/94 O2 Sat by Pulse 98 Oximetry - Reevaluation(s) Reevaluation #1: 04/05/24 00:06 Medical records reviewed (Corey Jewell) Reevaluation #2: 04/05/24 00:06 Patient has active active upper GI bleeding, vomiting of coffee-ground emesis significant (Corey Jewell) Reevaluation #3: 04/05/24 00:06 Patient informed of results and questions answered (Corey Jewell) Reevaluation #4: Was pt. sent in by a medical professional or institution (, PA, ACUTE CARE NURSING ASSISTANT, urgent care, hospital, or shelter...) When possible be specific @ -no Did you speak to anyone other than the patient for history (EMS, parent, family, police, friend...)? What history was obtained from this source @ -no Did you review nursing and triage notes (agree or disagree)? Why? @ -agree Are old charts reviewed (outside hosp., previous admission, EMS record, old EKG, old radiological studies, urgent care reports/EKG's, shelter records)? Report findings @ -yes Differential Diagnosis (chest pain, altered mental status, abdominal pain women, abdominal pain men, vaginal bleeding, weakness, fever, dyspnea, syncope, headache, dizziness, GI bleed, back pain, seizure, CVA, palpatations, mental health, musculoskeletal)? @ -prior EKG interpreted by me (3pts min.). @ -yes X-rays interpreted by me (1pt min.). @ -no CT interpreted by me (1pt min.). @ -no U/S interpreted by me (1pt. min.). @ -no What testing was considered but not performed or refused? (CT, X-rays, U/S, labs)? Why? @ -none What meds were considered but not given or refused? Why? @ -none Did you discuss the management of the patient with other professionals (professionals i.e. , PA, ACUTE CARE NURSING ASSISTANT, lab, RT, psych nurse, social human services assistants, fermentologist, teacher, custody officer, mattress spring encaser)? Give summary @ -no Was smoking cessation discussed for >3mins.? @ -no Was critical care preformed (if so, how long)? @ -yes31 Were there social determinants of health that impacted care today? How? (Homelessness, low income, unemployed, alcoholism, drug addiction, transportation, low edu. Level, literacy, decrease access to med. care, half-way, re hab)? @ -none Was there de-escalation of care discussed even if they declined (Discuss DNR or withdrawal of care, Hospice)? DNR status @ -no What co-morbidities impacted this encounter? (DM, HTN, Smoking, COPD, CAD, Cancer, CVA, ARF, Chemo, Hep., AIDS, mental health diagnosis, sleep apnea, morbid obesity)? @ -none Was patient admitted / discharged? Hospital course, mention meds given and route, prescriptions, significant lab abnormalities, going to OR and other pertinent info. @ - 44 male to ER with acute and significant severe alcohol intoxication and active upper GI vomiting of blood coffee-ground emesis with history of variceal bleed Transfer to other facility, clear [place] Undiagnosed new problem with uncertain prognosis? @ -no Drug Therapy requiring intensive monitoring for toxicity (Heparin, Nitro, Insulin, Cardizem)? @ -no Were any procedures done? @ -no Diagnosis/symptom? @ -variceal upper GI bleed Acute, or Chronic, or Acute on Chronic? @ -Acute Uncomplicated (without systemic symptoms) or Complicated (systemic symptoms)? @ -Complicated Side effects of treatment? @ -no Exacerbation, Progression, or Severe Exacerbation? @ -exacerbation Poses a threat to life or bodily function? How? (Chest pain, [place], [place], pneumonia, PE, COPD, DKA, ARF, appy, cholecystitis, CVA, Diverticulitis, Homicidal, Suicidal, threat to staff... and all critical care pts) @ -yes bleed (Corey Jewell) Reevaluation #5: = Differential Abdominal Pain Men: Appendicitis, cholecystitis, diverticulosis, ischemic bowel, pancreatitis, hepatitis, UTI, gastroenteritis, AAA, incarcerated hernia, bowel obstruction, constipation, inflammatory bowel, hepatitis, peptic ulcer disease, splenic infarction, perforated viscus, testicular torsion, this is not meant to be an all-inclusive list (Corey Jewell) - Consultations Consultation #1: Spoke with Joan who agrees to admit this. (Corey Jewell) Medical Decision Making - Lab Data Result diagrams: 04/04/24 23:22 04/04/24 23:22 <Jojo Manning - Last Filed: 04/05/24 02:36> - Lab Data Result diagrams: 04/04/24 23:22 04/04/24 23:22 - EKG Data -: EKG Interpreted by Me <Corey Jewell - Last Filed: 04/07/24 22:36> - Medical Decision Making I completed the quick note portion of this chart signed Jojo Manning PA-C (Jojo Manning) 44 male to ER with acute and significant severe alcohol intoxication and active upper GI vomiting of blood coffee-ground emesis with history of variceal bleed (Corey Jewell) - Lab Data Lab Results 04/04/24 04/04/24 04/04/24 Range/Units 22:30 23:22 23:22 WBC 5.3 (3.8-10.6) k/uL RBC 3.96 L (4.30-5.90) m/uL Hgb 11.1 L (13.0-17.5) gm/dL Hct 35.1 L (39.0-53.0) % MCV 88.6 (80.0-100.0) fL MCH 28.0 (25.0-35.0) pg MCHC 31.6 (31.0-37.0) g/dL RDW 20.1 H (11.5-15.5) % Plt Count 154 (150-450) k/uL MPV 10.7 Neutrophils % 67 % Lymphocytes % 22 % Monocytes % 7 % Eosinophils % 1 % Basophils % 1 % Neutrophils # 3.6 (1.3-7.7) k/uL Lymphocytes # 1.2 (1.0-4.8) k/uL Monocytes # 0.4 (0-1.0) k/uL Eosinophils # 0.1 (0-0.7) k/uL Basophils # 0.0 (0-0.2) k/uL Manual Slide Review Performed Hypochromasia Moderate Anisocytosis Moderate PT 11.3 (10.0-12.5) sec INR 1.0 (<1.2) APTT 22.2 (22.0-30.0) sec Sodium (137-145) mmol/L Potassium (3.5-5.1) mmol/L Chloride (98-107) mmol/L Carbon Dioxide (22-30) mmol/L Anion Gap mmol/L BUN (9-20) mg/dL Creatinine (0.66-1.25) mg/dL Est GFR (CKD-EPI)AfAm (>60 ml/min/1.73 sqM) Est GFR (CKD-EPI)NonAf (>60 ml/min/1.73 sqM) Glucose (74-99) mg/dL POC Glucose (mg/dL) 545 H* (70-110) mg/dL POC Glu Drainage Design Coordinator ID Alvarez, Haley Calcium (8.4-10.2) mg/dL Phosphorus (2.5-4.5) mg/dL Magnesium (1.6-2.3) mg/dL Total Bilirubin (0.2-1.3) mg/dL AST (17-59) U/L ALT (4-49) U/L Alkaline Phosphatase (38-126) U/L Total Protein (6.3-8.2) g/dL Albumin (3.5-5.0) g/dL Amylase (30-110) U/L Lipase (23-300) U/L Serum Alcohol mg/dL 04/04/24 Range/Units 23:22 WBC (3.8-10.6) k/uL RBC (4.30-5.90) m/uL Hgb (13.0-17.5) gm/dL Hct (39.0-53.0) % MCV (80.0-100.0) fL MCH (25.0-35.0) pg MCHC (31.0-37.0) g/dL RDW (11.5-15.5) % Plt Count (150-450) k/uL MPV Neutrophils % % Lymphocytes % % Monocytes % % Eosinophils % % Basophils % % Neutrophils # (1.3-7.7) k/uL Lymphocytes # (1.0-4.8) k/uL Monocytes # (0-1.0) k/uL Eosinophils # (0-0.7) k/uL Basophils # (0-0.2) k/uL Manual Slide Review Hypochromasia Anisocytosis PT (10.0-12.5) sec INR (<1.2) APTT (22.0-30.0) sec Sodium 132 L (137-145) mmol/L Potassium 5.4 H (3.5-5.1) mmol/L Chloride 89 L (98-107) mmol/L Carbon Dioxide 16 L (22-30) mmol/L Anion Gap 27 mmol/L BUN 11 (9-20) mg/dL Creatinine 0.51 L (0.66-1.25) mg/dL Est GFR (CKD-EPI)AfAm >90 (>60 ml/min/1.73 sqM) Est GFR (CKD-EPI)NonAf >90 (>60 ml/min/1.73 sqM) Glucose 574 H* (74-99) mg/dL POC Glucose (mg/dL) (70-110) mg/dL POC Glu Drainage Design Coordinator ID Calcium 9.5 (8.4-10.2) mg/dL Phosphorus 3.4 (2.5-4.5) mg/dL Magnesium 1.4 L (1.6-2.3) mg/dL Total Bilirubin 1.5 H (0.2-1.3) mg/dL AST 75 H (17-59) U/L ALT 30 (4-49) U/L Alkaline Phosphatase 286 H (38-126) U/L Total Protein 8.1 (6.3-8.2) g/dL Albumin 5.1 H (3.5-5.0) g/dL Amylase 50 (30-110) U/L Lipase 71 (23-300) U/L Serum Alcohol 246 H* mg/dL Critical Care Time Critical Care Time: Yes Total Critical Care Time: 31 <Corey Jewell - Last Filed: 04/07/24 22:36> Disposition Is patient prescribed a controlled substance at d/c from ED?: No <Jojo Manning Last Filed: 04/05/24 02:36> Is patient prescribed a controlled substance at d/c from ED?: No Time of Disposition: 00:05 - Out of Hospital Transfer - Req. Specs Out of Hospital Transfer - Requested Specifics: Other Emergency Center ([facility]) <Corey Jewell - Last Filed: 04/07/24 22:36> Clinical Impression: Abdominal pain, Alcohol intoxication, Alcoholic ketoacidosis, Upper GI bleed Disposition: OTHER INSTITUTION NOT DEFINED Condition: Critical Referrals: Jessica Booker MD [Primary Care Provider] - 1-2 days
[2024-04-04] MEDS ORDERED: LORazepam 2 MG/ML INJ IV PRN ×3 (23:20)
[2024-04-04] MEDS ORDERED: LORazepam 0.5 MG TAB PO PRN (23:20)
[2024-04-04] MEDS ORDERED: LORazepam 1 MG TAB PO PRN ×4 (23:20)
[2024-04-04] MEDS: SODIUM CHLORIDE 0.9% 1,000 ML IV STA (23:32)
[2024-04-04] MEDS: SODIUM CHLORIDE 0.9% 500 ML 500 ML IV STA (23:33)
[2024-04-04 23:52] LABS: ALT 30 U/L (4-49); AST 75 U/L (17-59); African American GFR (CKD) >90 (>60 ml/min/1.73 sqM); Albumin 5.1 g/dL (3.5-5.0); Alkaline Phosphatase 286 U/L (38-126); Amylase 50 U/L (30-110); Anion Gap 27 mmol/L; Blood Urea Nitrogen 11 mg/dL (9-20); Calcium 9.5 mg/dL (8.4-10.2); Carbon Dioxide 16 mmol/L (22-30); Chloride 89 mmol/L (98-107); Lipase 71 U/L (23-300); Magnesium 1.4 mg/dL (1.6-2.3); Non-African American GFR(CKD) >90 (>60 ml/min/1.73 sqM); Phosphorus 3.4 mg/dL (2.5-4.5); Potassium 5.4 mmol/L (3.5-5.1); Sodium 132 mmol/L (137-145); Total Bilirubin 1.5 mg/dL (0.2-1.3); Total Protein 8.1 g/dL (6.3-8.2)
[2024-04-04 23:58] LABS: Alcohol 246 mg/dL; Anisocytosis Moderate; Basophils % (A) 1 %; Eosinophils # (A) 0.1 k/uL (0-0.7); Eosinophils % (A) 1 %; Glucose 574 mg/dL (74-99); HCT 35.1 % (39.0-53.0); HGB 11.1 gm/dL (13.0-17.5); Hypochromasia Moderate; Lymphocytes # (A) 1.2 k/uL (1.0-4.8); Lymphocytes % (A) 22 %; MCHC 31.6 g/dL (31.0-37.0); MCV 88.6 fL (80.0-100.0); Mean Platelet Volume 10.7; Monocytes # (A) 0.4 k/uL (0-1.0); Monocytes % (A) 7 %; Neutrophils # (A) 3.6 k/uL (1.3-7.7); Neutrophils % (A) 67 %; Platelet Count 154 k/uL (150-450); RBC 3.96 m/uL (4.30-5.90); RDW 20.1 % (11.5-15.5); WBC 5.3 k/uL (3.8-10.6)
[2024-04-05] MEDS: PANTOPRAZOLE 40 MG/10 ML VIAL IVP STA (00:09)
[2024-04-05 00:10] LABS: Partial Thromboplastin Time 22.2 sec (22.0-30.0); Prothrombin Time 11.3 sec (10.0-12.5)
[2024-04-05] MEDS: ONDANSETRON 4 MG/2 ML VIAL IVP STA (00:12)
[2024-04-05] MEDS: MAGNESIUM SULFATE-D5W PMX 1 GM in DEXTROSE/WATER 1 100ML.BAG IVPB SCH (00:13)
[2024-04-05] MEDS: OCTREOTIDE 100 MCG/ML INJ IVP STA (00:16)
[2024-04-05] MEDS: HYDROmorphone 1 MG/ML 1 ML SYRINGE IVP STA (00:24)
[2024-04-05] MEDS: SODIUM CHLORIDE 0.9% 1,000 ML IV SCH (00:28)
[2024-04-05 01:19] VITALS: PULSE 98
[2024-04-05 02:35] VITALS: BP 123/94; RESP 18
[2024-04-05] MEDS ORDERED: MULTIVITAMINS, THERA 1 EACH TAB PO SCH (09:00)
[2024-04-05] MEDS ORDERED: FOLIC ACID 1 MG TAB PO SCH (09:00)
== END 2024-04-05 02:40 | disposition other institution (70) ==
LOC: EC 22:25
CPT/HCPCS: 36415; 80053; 80320; 82150; 83690; 83735; 84100; 85025; 85610; 85730; 96361; 96365; 96366; 96375; 99291

== ENCOUNTER 2024-05-22 15:15 | Observation (INO) | payer OTHER ==
[2024-05-22] MEDS ORDERED: LORazepam 2 MG/ML INJ IV PRN ×2 (16:18)
--- NOTE | 2024-05-22 16:35 | ED ---
Alcohol HPI - General Chief Complaint: Alcohol Stated Complaint: ETOH,Hypoglycemia Time Seen by Provider: 05/22/24 16:33 Source: patient, RN notes reviewed Mode of arrival: ambulatory Limitations: no limitations - History of Present Illness Initial Comments: 44-year-old male presenting to the ER for evaluation of alcohol intoxication and detox. Patient states he typically drinks a 1/5 to a 1/5 and a half a day. States today he drank 1/5 approximately 2 hours prior to arrival. He does report a history of seizures with withdrawal. Denies any other drug use. Patient is complaining of generalized abdominal pain. Patient states he would like to get help with drinking. He denies any fevers, cough, congestion, nausea, vomiting, chest pain, shortness of breath, urinary complaints or peripheral edema. - Related Data Home Medications Medication Instructions Recorded Confirmed Pantoprazole Sodium [Protonix] 40 mg PO BID 08/17/22 05/22/24 Baclofen [Lioresal] 10 mg PO BID 05/22/24 05/22/24 Folic Acid 1 mg PO DAILY 05/22/24 05/22/24 Insulin Glargine,Hum.rec.anlog 35 units SQ HS 05/22/24 05/22/24 [Lantus Solostar Pen] Insulin Lispro [humaLOG Kwikpen] See Protocol SQ AC-TID 05/22/24 05/22/24 Mirtazapine [Remeron] 15 mg PO HS PRN 05/22/24 05/22/24 Nicotine 21Mg/24Hr Patch [Habitrol] 1 patch TRANSDERM DAILY 05/22/24 05/22/24 Pioglitazone [Actos] 15 mg PO DAILY 05/22/24 05/22/24 Propranolol [Inderal] 10 mg PO BID 05/22/24 05/22/24 QUEtiapine [SEROquel] 50 mg PO DAILY 05/22/24 05/22/24 amLODIPine [Norvasc] 2.5 mg PO DAILY 05/22/24 05/22/24 Allergies Allergy/AdvReac Type Severity Reaction Status Date / Time No Known Allergies Allergy Verified 05/22/24 18:08 Review of Systems ROS Statement: Those systems with pertinent positive or pertinent negative responses have been documented in the HPI. ROS Other: All systems not noted in ROS Statement are negative. Past Medical History Past Medical History: Diabetes Mellitus, Hypertension Additional Past Medical History / Comment(s): Cirrohsis of liver History of Any Multi-Drug Resistant Organisms: None Reported Past Surgical History: No Surgical Hx Reported Past Psychological History: No Psychological Hx Reported Smoking Status: Current every day smoker Past Alcohol Use History: Abuse Past Drug Use History: Marijuana General Exam Limitations: no limitations General appearance: alert, appears intoxicated Head exam: Present: atraumatic, normocephalic, normal inspection Eye exam: Present: normal appearance, PERRL, EOMI. Absent: scleral icterus, conjunctival injection, periorbital swelling Pupils: Present: normal accommodation ENT exam: Present: normal exam, mucous membranes moist Respiratory exam: Present: normal lung sounds bilaterally. Absent: respiratory distress, wheezes, rales, rhonchi, stridor Cardiovascular Exam: Present: regular rate, normal rhythm, normal heart sounds. Absent: systolic murmur, diastolic murmur, rubs, gallop, clicks GI/Abdominal exam: Present: soft, tenderness (Epigastric), normal bowel sounds Extremities exam: Present: normal inspection, full ROM, normal capillary refill. Absent: tenderness, pedal edema, joint swelling, calf tenderness Neurological exam: Present: alert Skin exam: Present: warm, dry, intact, normal color. Absent: rash Course Vital Signs 05/22/24 05/22/24 05/22/24 15:24 17:30 18:30 Temperature 98.3 F Pulse Rate 107 H 87 88 Respiratory 20 22 20 Rate Blood Pressure 95/62 96/52 108/77 O2 Sat by Pulse 98 98 98 Oximetry 05/22/24 19:31 Temperature Pulse Rate 93 Respiratory 18 Rate Blood Pressure 104/73 O2 Sat by Pulse 95 Oximetry - Reevaluation(s) Reevaluation #1: 05/22/24 21:01 Case discussed with Paris Rodriguez NP, for admission. Medical Decision Making - Medical Decision Making Was pt. sent in by a medical professional or institution (, [facility], [employer], urgent care, hospital, or long term...) When possible be specific @ -No Did you speak to anyone other than the patient for history (EMS, parent, family, police, friend...)? What history was obtained from this source @ -No Did you review nursing and triage notes (agree or disagree)? Why? @ -I reviewed and agree with nursing and triage notes Were old charts reviewed (outside hosp., previous admission, EMS record, old EKG, old radiological studies, urgent care reports/EKG's, long term records)? Report findings @ -No old charts were reviewed Differential Diagnosis (chest pain, altered mental status, abdominal pain women, abdominal pain men, vaginal bleeding, weakness, fever, dyspnea, syncope, headache, dizziness, GI bleed, back pain, seizure, CVA, palpatations, mental health, musculoskeletal)? @ -EtOH, seizure, intracranial hemorrhage, drug intoxication, electrolyte abnormality... This is not meant to be all-inclusive EKG interpreted by me (3pts min.). @ -None done X-rays interpreted by me (1pt min.). @ -Right shoulder x-ray interpreted by me negative for acute process. CT interpreted by me (1pt min.). @ -CT brain negative for acute intracranial process. There is left-sided scalp edema. U/S interpreted by me (1pt. min.). @ -None done What testing was considered but not performed or refused? (CT, X-rays, U/S, labs)? Why? @ -None What meds were considered but not given or refused? Why? @ -None Did you discuss the management of the patient with other professionals (professionals i.e. , [facility], [employer], lab, RT, psych nurse, criminal justice social worker, mark up designer, teacher, us customs and border officer, skilled nursing case manager)? Give summary @ -Yes, case discussed with Paris Rodriguez NP, for admission. Was smoking cessation discussed for >3mins.? @ -No Was critical care preformed (if so, how long)? @ -No Were there social determinants of health that impacted care today? How? (Homelessness, low income, unemployed, alcoholism, drug addiction, transportation, low edu. Level, literacy, decrease access to med. care, retirement, rehab)? @ -No Was there de-escalation of care discussed even if they declined (Discuss DNR or withdrawal of care, Hospice)? DNR status @ -No What co-morbidities impacted this encounter? (DM, HTN, Smoking, COPD, CAD, Cancer, CVA, ARF, Chemo, Hep., AIDS, mental health diagnosis, sleep apnea, morbid obesity)? @ -Alcoholism, diabetes, hypertension Was patient admitted / discharged? Hospital course, mention meds given and route, prescriptions, significant lab abnormalities, going to OR and other pertinent info. @ -Admitted. 44-year-old male presenting to the ER for evaluation of alcohol intoxication and withdrawal. Patient typically drinks 1/5-1/5 and a half a day. Does report a history of seizures. History and physical exam completed. Vitals upon arrival samuel for temperature 98.3, heart rate 107, respirate 20, blood pressure 95/62, oxygen saturation 98% on room air. Upon rooming, patient had a fall when ambulating from wheelchair to bed. Patient reported right shoulder pain post fall. He is unsure if he hit his head. He denies any other injuries. No acute neurological findings on exam. Patient is intoxicated. GCS 15. Bilateral upper and lower extremities neurovascular intact. Laboratory studies, CT and right shoulder x-ray will be obtained, patient is agreeable. Laboratory studies obtained showing a chronic anemia hemoglobin 9.5, sodium 129, potassium 5.0, chloride 97, carbon dioxide 15. Serum alcohol 464. Patient is diabetic glucose 387. CT brain negative for acute intracranial process. Left scalp edema. No overlying laceration or wound. Right shoulder x-ray negative. Patient started on CIWA and Ativan protocol. Pt given 1L IV fluids in ER. Admission considered and discussed with paris Rodriguez, for alcohol intoxication with impending withdrawal. Patient is agreeable. Case discussed with the attending, Dr. Jewell. Undiagnosed new problem with uncertain prognosis? @ -No Drug Therapy requiring intensive monitoring for toxicity (Heparin, Nitro, Insulin, Cardizem)? @ -No Were any procedures done? @ -No Diagnosis/symptom? @ -Alcohol intoxication/fall Acute, or Chronic, or Acute on Chronic? @ -Acute Uncomplicated (without systemic symptoms) or Complicated (systemic symptoms)? @ -Complicated Side effects of treatment? @ -No Exacerbation, Progression, or Severe Exacerbation? @ -No Poses a threat to life or bodily function? How? (Chest pain, [place], [place], pneumonia, PE, COPD, DKA, ARF, appy, cholecystitis, CVA, Diverticulitis, Homicidal, Suicidal, threat to staff... and all critical care pts) @ -Yes, alcohol withdrawal can lead to seizures. - Lab Data Result diagrams: 05/22/24 16:45 05/22/24 16:45 Lab Results 05/22/24 05/22/24 Range/Units 16:45 16:45 WBC 7.2 (3.8-10.6) k/uL RBC 3.78 L (4.30-5.90) m/uL Hgb 9.5 L D (13.0-17.5) gm/dL Hct 31.5 L (39.0-53.0) % MCV 83.3 D (80.0-100.0) fL MCH 25.1 (25.0-35.0) pg MCHC 30.1 L (31.0-37.0) g/dL RDW 21.4 H (11.5-15.5) % Plt Count 99 L (150-450) k/uL MPV 12.4 Neutrophils % 71 % Lymphocytes % 16 % Monocytes % 8 % Eosinophils % 0 % Basophils % 0 % Neutrophils # 5.1 (1.3-7.7) k/uL Lymphocytes # 1.1 (1.0-4.8) k/uL Monocytes # 0.6 (0-1.0) k/uL Eosinophils # 0.0 (0-0.7) k/uL Basophils # 0.0 (0-0.2) k/uL Manual Slide Review Performed Large Platelets Present Hypochromasia Marked Poikilocytosis Slight Anisocytosis Moderate Microcytosis Slight Sodium 129 L (137-145) mmol/L Potassium 5.0 (3.5-5.1) mmol/L Chloride 97 L (98-107) mmol/L Carbon Dioxide 15 L (22-30) mmol/L Anion Gap 17 mmol/L BUN 18 (9-20) mg/dL Creatinine 0.80 (0.66-1.25) mg/dL Est GFR (CKD-EPI)AfAm >90 (>60 ml/min/1.73 sqM) Est GFR (CKD-EPI)NonAf >90 (>60 ml/min/1.73 sqM) Glucose 387 H (74-99) mg/dL Calcium 8.3 L (8.4-10.2) mg/dL Phosphorus 5.0 H (2.5-4.5) mg/dL Magnesium 1.6 (1.6-2.3) mg/dL Total Bilirubin 1.3 (0.2-1.3) mg/dL AST 86 H (17-59) U/L ALT 23 (4-49) U/L Alkaline Phosphatase 250 H (38-126) U/L Total Protein 7.4 (6.3-8.2) g/dL Albumin 4.2 (3.5-5.0) g/dL Amylase 37 (30-110) U/L Lipase 132 (23-300) U/L Serum Alcohol 464 H* mg/dL - Radiology Data Radiology results: report reviewed, image reviewed Disposition Clinical Impression: Alcohol intoxication, Fall Disposition: ADMITTED IP TO THIS [facility] Condition: Stable Time of Disposition: 21:02
[2024-05-22] MEDS: THIAMINE 100 MG/ML 2 ML VIAL IM STA (16:52)
[2024-05-22] MEDS: SODIUM CHLORIDE 0.9% 1,000 ML IV STA (16:54)
[2024-05-22 17:06] LABS: Anisocytosis Moderate; Basophils % (A) 0 %; Eosinophils % (A) 0 %; HCT 31.5 % (39.0-53.0); Hypochromasia Marked; Lymphocytes # (A) 1.1 k/uL (1.0-4.8); Lymphocytes % (A) 16 %; MCH 25.1 pg (25.0-35.0); MCHC 30.1 g/dL (31.0-37.0); MCV 83.3 fL (80.0-100.0); Mean Platelet Volume 12.4; Microcytosis Slight; Monocytes # (A) 0.6 k/uL (0-1.0); Monocytes % (A) 8 %; Neutrophils # (A) 5.1 k/uL (1.3-7.7); Neutrophils % (A) 71 %; Poikilocytosis Slight; RBC 3.78 m/uL (4.30-5.90); RDW 21.4 % (11.5-15.5); WBC 7.2 k/uL (3.8-10.6)
[2024-05-22 17:17] LABS: ALT 23 U/L (4-49); African American GFR (CKD) >90 (>60 ml/min/1.73 sqM); Amylase 37 U/L (30-110); Anion Gap 17 mmol/L; Blood Urea Nitrogen 18 mg/dL (9-20); Calcium 8.3 mg/dL (8.4-10.2); Carbon Dioxide 15 mmol/L (22-30); Chloride 97 mmol/L (98-107); Glucose 387 mg/dL (74-99); Lipase 132 U/L (23-300); Non-African American GFR(CKD) >90 (>60 ml/min/1.73 sqM); Sodium 129 mmol/L (137-145); Total Bilirubin 1.3 mg/dL (0.2-1.3)
[2024-05-22 17:19] LABS: AST 86 U/L (17-59); Alkaline Phosphatase 250 U/L (38-126)
[2024-05-22 17:20] LABS: Albumin 4.2 g/dL (3.5-5.0); Magnesium 1.6 mg/dL (1.6-2.3); Total Protein 7.4 g/dL (6.3-8.2)
[2024-05-22 17:29] LABS: HGB 9.5 gm/dL (13.0-17.5)
[2024-05-22 17:32] LABS: Alcohol 464 mg/dL
[2024-05-22 17:39] LABS: Platelet Count 99 k/uL (150-450)
[2024-05-22 17:40] LABS: Large Platelets Present
--- NOTE | 2024-05-22 18:01 | XR ---
EXAMINATION TYPE: XR shoulder complete RT DATE OF EXAM: 05/22/2024 5:48 PM CLINICAL INDICATION: Male, 44 years old with history of fall etoh; COMPARISON: 07/20/2022 TECHNIQUE: XR shoulder complete RT; examined in AP, internally rotated and scapular Y projections. FINDINGS: No evidence of acute osseous pathology, joint dislocation, or soft tissue swelling. The remaining po rtions of the visualized chest are unremarkable. The right distal clavicle elevated compared to the a cromion similar to 2021 study. IMPRESSION: 1. No acute osseous pathology. 2. Similar elevated right distal clavicle compared to the acromion correlate for prior AC joint sepa ration.. [facility], , 05/22/2024 5:59 PM
--- NOTE | 2024-05-22 18:05 | CT ---
EXAMINATION TYPE: CT brain wo con CT DLP: 1146.8 mGycm, Automated exposure control for dose reduction was used. DATE OF EXAM: 05/22/2024 5:47 PM COMPARISON: None. CLINICAL INDICATION: Male, 44 years old with history of fall etoh, Fall etoh TECHNIQUE: Brain: Axial CT images of the brain were obtained with coronal and sagittal reformats created and rev iewed. Contrast used: None. Oral contrast used: None. FINDINGS: Brain: Extra-axial spaces: No abnormal extra-axial fluid collections. Ventricular system: Within normal limits Cerebral parenchyma: No acute intraparenchymal hemorrhage or mass effect. The cobb-white junction is well differentiated. Cerebellum: Unremarkable. Mass effect: No evidence of midline shift. Intracranial vasculature: unremarkable Soft tissues: Left posterior streaky edema. Calvarium/osseous structures: No depressed skull fracture. Paranasal sinuses and mastoid air cells: Mild scattered paranasal sinus disease. Visualized orbits: Right aphakia. IMPRESSION: 1. No acute intracranial process. 2. Left posterior scalp edema without evidence of fracture. [facility], , 05/22/2024 6:03 PM
[2024-05-22] MEDS ORDERED: IBUPROFEN 400 MG TAB PO PRN (18:20)
[2024-05-22] MEDS ORDERED: NALOXONE 0.4 MG/ML 1 ML VIAL IV PRN (18:20)
[2024-05-22] MEDS ORDERED: ONDANSETRON 4 MG/2 ML VIAL IVP PRN (18:20)
[2024-05-22] MEDS ORDERED: MIRTAZAPINE 15 MG TAB PO PRN (21:01)
[2024-05-22] MEDS ORDERED: DEXTROSE 50% SYRINGE 50 ML IVP PRN ×2 (21:04)
[2024-05-22] MEDS ORDERED: THIAMINE 100 MG TAB PO SCH (21:15)
--- NOTE | 2024-05-22 21:29 | P.HPIM ---
History of Present Illness H&P Date: 05/22/24 History of present illness; Dayron Tavares 44-year-old male with diabetes mellitus type 2, hypertension, anxiety depression, liver cirrhosis presents for alcohol use disorder with withdrawal. Patient states his last drink was this afternoon. He states he drinks 1/5-1/5+1/2 of vodka daily. He states he has been drinking alcohol regularly for the last 25 years. He also states he has a history of delirium tremens and alcohol withdrawal seizures. Since visiting the ER he states he has had auditory hallucinations of people constantly calling his name. He has not described visual hallucinations today. He also states that everything in his body is hurting, predominantly his abdomen and he is worried he will have another episode of pancreatitis. He states he would like to quit drinking alcohol. Currently, he reports absence of fever, chills, chest pain, palpitations, shortness of breath, nausea, vomiting, weakness, dysuria. Initial lab work done in the ER showed WBC 7.2, hemoglobin 9.5, MCV 83.3, platelets 99, sodium 129, potassium 5.0, chloride 97, bicarb 15, anion gap 17, BUN 18, creatinine 0.80, glucose 387, calcium 8.3, phosphorus 5.0, magnesium 1.6, AST 86, ALT 23, alkaline phosphatase 250, amylase 37, lipase 132, serum alcohol 464. CT head independently interpreted showed no acute intracranial process Shoulder x-ray shows no acute osseous pathology Patient admitted to internal medicine service for treatment of alcoholic use disorder with withdrawal. REVIEW OF SYSTEMS: All Systems reviewed, pertinent positives and negatives noted in HPI. All other symptoms are negative. PHYSICAL EXAMINATION: Vitals reviewed GENERAL: The patient is alert and oriented x3, moderate distress. Well developed, well nourished. HEENT: Pupils are round and equally reacting to light. EOMI. No scleral icterus. No conjunctival pallor. Normocephalic, atraumatic. No pharyngeal erythema. No thyromegaly. CARDIOVASCULAR: S1 and S2 present. No murmurs, rubs, or gallops. PULMONARY: Right lower lung wheezing, otherwise normal ABDOMEN: Soft, generalized tenderness on palpation most prominent in right lower quadrant, nondistended, normoactive bowel sounds. No palpable organomegaly. MUSCULOSKELETAL: No apparent joint swelling and deformities. EXTREMITIES: No apparent cyanosis, clubbing, or pedal edema. NEUROLOGICAL: Gross neurological examination did not reveal any focal deficits. SKIN: Multiple areas of small scabs on lower extremities. Labs reviewed Imaging reviewed Assessment and plan Dayron Tavares 44-year-old male with diabetes mellitus type 2, hypertension, anxiety depression, liver cirrhosis presents for alcohol use disorder with withdrawal. #Alcohol dependence with withdrawal # History of delirium tremens #History of alcohol withdrawal seizures -Alcohol 464, last drink afternoon of 05/22/2024 -[facility] protocol -give Ativan per protocol -Give daily thiamine and folic acid -seizure precautions -monitor daily electrolytes -cardiac monitoring -social work supervisor consult -Start Librium 25 mg PO QID #Hyponatremia with hypochloremia, likely dehydration Begin IV NS 75 mL/h Monitor CMP #Hypocalcemia and hyperphosphatemia IV fluids as above Monitor CMP # Bicytopenia - Likely due to ongoing alcohol abuse No signs of acute bleed Monitor CBC # Isolated elevated alkaline phosphatase Will continue to monitor # Hyperglycemia with diabetes mellitus, type 2 Initial glucose 387 Holding oral medications Begin Accu-Cheks and low-dose sliding scale Initiate Levemir 15 U qhs (patient takes Lantus 35 U qhs at home) for now Pending HbA1c Chronic Medical Conditions # Essential hypertension - Holding home medications, BP WNL # Depression/anxiety Resume home Remeron 15 mg nightly as needed # Chronic muscle pain Resume home baclofen 10 mg p.o. twice daily # Insomnia Resume home Seroquel 50 mg daily F: IV NS 75 mL/h E: Replete as needed N: Consistent carb E: None DVT ppx: Subq Lovenox Code status: Full code Anticipated discharge place: Home Anticipated discharge time: 05/26 Monitor vital signs, CBC, CMP Continue with symptomatic treatment. Dictation was produced using [employer] dictation software. Please excuse any grammatical, word or spelling errors. Past Medical History Past Medical History: Diabetes Mellitus, Hypertension Additional Past Medical History / Comment(s): Cirrohsis of liver History of Any Multi-Drug Resistant Organisms: None Reported Past Surgical History: No Surgical Hx Reported Past Psychological History: No Psychological Hx Reported Smoking Status: Current every day smoker Past Alcohol Use History: Abuse Past Drug Use History: Marijuana Medications and Allergies Home Medications Medication Instructions Recorded Confirmed Type Pantoprazole Sodium [Protonix] 40 mg PO BID 08/17/22 05/22/24 History Baclofen [Lioresal] 10 mg PO BID 05/22/24 05/22/24 History Folic Acid 1 mg PO DAILY 05/22/24 05/22/24 History Insulin Glargine,Hum.rec.anlog 35 units SQ HS 05/22/24 05/22/24 History [Lantus Solostar Pen] Insulin Lispro [humaLOG Kwikpen] See Protocol SQ AC-TID 05/22/24 05/22/24 History Mirtazapine [Remeron] 15 mg PO HS PRN 05/22/24 05/22/24 History Nicotine 21Mg/24Hr Patch [Habitrol] 1 patch TRANSDERM DAILY 05/22/24 05/22/24 History Pioglitazone [Actos] 15 mg PO DAILY 05/22/24 05/22/24 History Propranolol [Inderal] 10 mg PO BID 05/22/24 05/22/24 History QUEtiapine [SEROquel] 50 mg PO DAILY 05/22/24 05/22/24 History amLODIPine [Norvasc] 2.5 mg PO DAILY 05/22/24 05/22/24 History Allergies Allergy/AdvReac Type Severity Reaction Status Date / Time No Known Allergies Allergy Verified 05/22/24 18:08 Physical Exam Vitals: Vital Signs Temp Pulse Resp BP Pulse Ox 05/22/24 19:31 93 18 104/73 95 05/22/24 18:30 88 20 108/77 98 05/22/24 17:30 87 22 96/52 98 05/22/24 15:24 98.3 F 107 H 20 95/62 98 Intake and Output 05/22/24 05/22/24 05/22/24 06:59 14:59 22:59 Other: Weight 81.647 kg Results CBC & Chem 7: 05/22/24 16:45 05/22/24 16:45 Labs: Abnormal Lab Results - Last 24 Hours (Table) 05/22/24 05/22/24 Range/Units 16:45 16:45 RBC 3.78 L (4.30-5.90) m/uL Hgb 9.5 L D (13.0-17.5) gm/dL Hct 31.5 L (39.0-53.0) % MCHC 30.1 L (31.0-37.0) g/dL RDW 21.4 H (11.5-15.5) % Plt Count 99 L (150-450) k/uL Sodium 129 L (137-145) mmol/L Chloride 97 L (98-107) mmol/L Carbon Dioxide 15 L (22-30) mmol/L Glucose 387 H (74-99) mg/dL Calcium 8.3 L (8.4-10.2) mg/dL Phosphorus 5.0 H (2.5-4.5) mg/dL AST 86 H (17-59) U/L Alkaline Phosphatase 250 H (38-126) U/L Serum Alcohol 464 H* mg/dL
[2024-05-22] MEDS: ACETAMINOPHEN TAB 325 MG TAB PO PRN (22:09)
[2024-05-22] MEDS: FOLIC ACID 1 MG TAB PO SCH (22:09)
[2024-05-22] MEDS: PANTOPRAZOLE 40 MG TABLET PO SCH (22:09)
[2024-05-22] MEDS: QUEtiapine 50 MG TAB PO SCH (22:09)
[2024-05-22] MEDS: BACLOFEN 10 MG TAB PO SCH (22:09)
[2024-05-22] MEDS: SODIUM CHLORIDE 0.9% 1,000 ML IV SCH (22:52)
[2024-05-22 23:21] LABS: Glucose,Whole Blood 395 mg/dL (70-110)
[2024-05-22] MEDS: INSULIN DETEMIR (LEVEMIR) 100 UNIT/ML SYR SQ SCH (23:36)
[2024-05-23] MEDS: MELATONIN 3 MG TABLET PO STA (00:21)
[2024-05-23] MEDS: chlordiazePOXIDE 25 MG CAP PO SCH (00:22)
[2024-05-23 01:21] LABS: Amphetamine Screen,Urine Not Detected (NotDetected); Barbiturate Screen,Urine Not Detected (NotDetected); Benzodiazepines Screen,Urine Detected (NotDetected); Cocaine Screen,Urine Not Detected (NotDetected); Methadone Screen, Urine Not Detected (NotDetected); Opiate Screen,Urine Not Detected (NotDetected); Oxycodone Screen, Urine Not Detected (NotDetected); Phencyclidine Screen,Urine Not Detected (NotDetected); Tricyclic Antidepressant,Urine Not Detected (NotDetected); Urn Cannabinoid Scrn Detected (NotDetected)
[2024-05-23 06:04] LABS: Glucose,Whole Blood 304 mg/dL (70-110)
[2024-05-23] MEDS: INSULIN ASPART (NovoLOG) 100 UNIT/ML VIAL SQ SCH (06:11)
[2024-05-23] MEDS: ENOXAPARIN 40 MG/0.4 ML SYRINGE SQ SCH (07:53)
[2024-05-23] MEDS: THIAMINE 100 MG TAB PO SCH (07:53)
[2024-05-23 08:43] LABS: ALT 19 U/L (10-49); AST 42 U/L (14-35); Albumin 3.9 g/dL (3.8-4.9); Albumin/Globulin Ratio 1.34 Ratio (1.60-3.17); Alkaline Phosphatase 293 U/L (41-126); Calcium 8.4 mg/dL (8.7-10.3); Chloride 100 mmol/L (96-109); Globulin 2.9 g/dL (1.6-3.3); Glucose 256 mg/dL (70-110); Potassium 3.4 mmol/L (3.5-5.5); Sodium 135 mmol/L (135-145); Total Bilirubin 0.4 mg/dL (0.3-1.2); Total Protein 6.8 g/dL (6.2-8.2)
[2024-05-23 09:02] LABS: Basophils # (A) 0.04 X 10*3/uL (0.00-0.10); Eosinophils # (A) 0.07 X 10*3/uL (0.04-0.35); Eosinophils % (A) 1.8 %; HCT 28.3 % (39.6-50.0); HGB 8.3 g/dL (13.0-17.0); Immature Platelet Fraction 13.7 % (1.1-6.1); Lymphocytes # (A) 1.07 X 10*3/uL (0.90-5.00); Lymphocytes % (A) 27.7 %; MCH 24.3 pg (27.0-32.0); MCHC 29.3 g/dL (32.0-37.0); Monocytes # (A) 0.49 X 10*3/uL (0.20-1.00); Monocytes % (A) 12.7 %; NRBC Per 100 WBC 0 X 10*3/uL (0.00-0.01); Neutrophils # (A) 2.16 X 10*3/uL (1.80-7.70); Platelet Count 65 X 10*3/uL (140-440); RBC 3.41 X 10*6/uL (4.40-5.60); RDW 22.4 % (11.5-14.5); WBC 3.86 X 10*3/uL (4.50-10.00)
[2024-05-23] MEDS: POTASSIUM CHLORIDE ER 20 MEQ TAB.ER PO STA (10:55)
[2024-05-23 12:22] LABS: INR 1.1 (<1.2); Prothrombin Time 11.5 sec (10.0-12.5)
[2024-05-23 12:28] LABS: Glucose,Whole Blood 365 mg/dL (70-110)
--- NOTE | 2024-05-23 15:18 | US ---
EXAMINATION TYPE: US abdomen limited DATE OF EXAM: 05/23/2024 COMPARISON: CT 08/17/2022 CLINICAL INDICATION: Male, 44 years old with history of Liver cirrhosis eval; Cirrhosis TECHNIQUE: Grayscale and color Doppler imaging of the right upper quadrant. FINDINGS: EXAM MEASUREMENTS: Liver Length: 21.53 cm Gallbladder Wall: 0.28 cm CBD: 0.60 cm Right Kidney: 12.2 x 6.7 x 4.9 cm MARKETING REP NOTES: *Exam is limited due to gas. Pancreas: Most of the pancreas is visualized and shows no gross abnormality. Tail is not visualized Liver: Enlarged but with overall homogeneous appearance. No focal lesion. Gallbladder: *2 hyperechoic foci with posterior shadowing seen within, larger area = 1.5 x 0.8 x 0.5 cm. No abnormal distention, wall thickening, or surrounding fluid. Evidence for sonographic Escoto's sign: No CBD: *Measures upper limits. Right Kidney: No hydronephrosis or masses seen IMPRESSION: 1. Hepatomegaly at 21.5 cm. No sonographic evidence for hepatoma. 2. A couple gallstones, largest measuring 1.5 cm. No gallbladder hydrops or ancillary findings of acu te cholecystitis. 3. Bile duct upper limits of normal in caliber at 6 mm probably chronic for the patient. Correlate wi th alkaline phosphatase and bilirubin levels. [facility], , 05/23/2024 3:16 PM
[2024-05-23 17:07] LABS: Glucose,Whole Blood 258 mg/dL (70-110)
--- NOTE | 2024-05-23 18:20 | P.PN ---
Subjective Progress Note Date: 05/23/24 Hospital course: Dayron Tavares 44-year-old male with diabetes mellitus type 2, hypertension, anxiety depression, liver cirrhosis presents for alcohol use disorder with withdrawal. Initial lab work done in the ER showed WBC 7.2, hemoglobin 9.5, MCV 83.3, platelets 99, sodium 129, potassium 5.0, chloride 97, bicarb 15, anion gap 17, BUN 18, creatinine 0.80, glucose 387, calcium 8.3, phosphorus 5.0, magnesium 1.6, AST 86, ALT 23, alkaline phosphatase 250, amylase 37, lipase 132, serum alcohol 464. CT head showed no acute intracranial process. Shoulder x-ray shows no acute osseous pathology. Subjective: Patient seen and examined at the bedside. Patient was complaining of mild diffuse abdominal pain since treatment specialist. Associated with mild nausea but no vomiting. All Systems reviewed and pertinent positives and negatives noted in HPI, all other symptoms are negative Objective: Vital signs reviewed. GENERAL: The patient is alert and oriented x3, moderate distress. Well develope d, well nourished. HEENT: Pupils are round and equally reacting to light. EOMI. No scleral icterus. No conjunctival pallor. Normocephalic, atraumatic. No pharyngeal erythema. No thyromegaly. CARDIOVASCULAR: S1 and S2 present. No murmurs, rubs, or gallops. PULMONARY: Right lower lung wheezing, otherwise normal ABDOMEN: Soft, generalized tenderness on palpation most prominent in right lower quadrant, nondistended, normoactive bowel sounds. No palpable organomegaly. MUSCULOSKELETAL: No apparent joint swelling and deformities. EXTREMITIES: No apparent cyanosis, clubbing, or pedal edema. NEUROLOGICAL: Gross neurological examination did not reveal any focal deficits. SKIN: Multiple areas of small scabs on lower extremities. Data reviewed today: Labs: WBC 3.86, hemoglobin 8.3, MCV 83.0, platelet count 65, PT 11.5, INR 1.1, sodium 135, potassium 3.4, bicarb 18 chloride 100, BUN 14, creatinine 0.7, glucose 256, HbA1c 8.9, calcium 8.4, AST 42, ALT 19, alkaline phosphatase 293. Images: Abdominal ultrasound shows hepatomegaly and cholelithiasis Assessment and Plan: 44-year-old male with diabetes mellitus type 2, hypertension, anxiety depression, liver cirrhosis presents for alcohol use disorder with withdrawal. #Alcohol dependence with withdrawal #History of delirium tremens #History of alcohol withdrawal seizures -Alcohol 464 on admission, last drink afternoon of 05/22/2024 -[facility] protocol -Ativan per protocol -Continue with daily thiamine and folic acid -seizure precautions -monitor daily electrolytes -cardiac monitoring -social work therapist consult -Discontinue Librium 25 mg PO QID #Anion gap metabolic acidosis Alcohol versus diabetic ketoacidosis versus alcoholic ketoacidosis sodium 135, potassium 3.4, bicarb 18 chloride 100, anion gap 17 Order serum acetone and serum lactate #Hypokalemia Potassium 3.4 Order KCl 40 mEq Continue monitor potassium level #Hyponatremia with hypochloremia, resolved #Hypocalcemia and hyperphosphatemia Monitor CMP # Normocytic anemia and thrombocytopenia, secondary to history of alcohol abuse disorder and hemodilution Hemoglobin 8.3 and platelet count 65 No signs of acute bleed Monitor CBC Order iron studies, reticulocyte count Decrease IV fluids to 30 cc/h # Isolated elevated alkaline phosphatase Will continue to monitor # Hyperglycemia with diabetes mellitus, type 2 Glucose 256 Continue to hold oral medications Accu-Cheks and low-dose sliding scale ACHS, monitor for hypoglycemia Levemir 15 U qhs (patient takes Lantus 35 U qhs at home) for now HbA1c 8.9 Chronic Medical Conditions # Essential hypertension - Holding home medications, BP WNL # Depression/anxiety Resume home Remeron 15 mg nightly as needed # Chronic muscle pain Resume home baclofen 10 mg p.o. twice daily # Insomnia Resume home Seroquel 50 mg daily F: IV NS 30 mL/h E: Replete as needed N: Consistent carb E: None DVT ppx: Subq Lovenox Code status: Full code Anticipated discharge place: Home Anticipated discharge time: Pending clinical course I have seen and evaluated the patient today. Discussed with the resident and agree with the residents finding and plan as documented in the resident's note. Changes highlighted in blue font. Objective - Vital Signs Vital signs: Vital Signs Temp 97.9 F 05/23/24 14:15 Pulse 82 05/23/24 14:15 Resp 17 05/23/24 14:15 BP 158/95 05/23/24 14:15 Pulse Ox 100 05/23/24 14:15 FiO2 Intake & Output 05/22/24 05/23/24 05/23/24 18:59 06:59 18:59 Intake Total 708 Output Total 1000 400 Balance -1000 308 Weight 81.647 kg 81.647 kg Intake: Oral 708 Output: Urine 600 400 Stool 400 - Labs CBC & Chem 7: 05/23/24 04:45 05/23/24 04:45 Labs: Abnormal Lab Results - Last 24 Hours (Table) 05/22/24 05/22/24 05/23/24 Range/Units 23:19 23:50 04:45 WBC (4.50-10.00) X 10*3/uL RBC (4.40-5.60) X 10*6/uL Hgb (13.0-17.0) g/dL Hct (39.6-50.0) % MCH (27.0-32.0) pg MCHC (32.0-37.0) g/dL RDW (11.5-14.5) % Plt Count (140-440) X 10*3/uL Immature Plt Fraction (1.1-6.1) % Potassium (3.5-5.5) mmol/L Carbon Dioxide (21.6-31.8) mmol/L Anion Gap (4.00-12.00) mmol/L Glucose (70-110) mg/dL POC Glucose (mg/dL) 395 H (70-110) mg/dL Hemoglobin A1c 8.9 H (<=6.0) % Calcium (8.7-10.3) mg/dL AST (14-35) U/L Alkaline Phosphatase (41-126) U/L Albumin/Globulin Ratio (1.60-3.17) Ratio U Benzodiazepines Scrn Detected H (NotDetected) U Marijuana (THC) Screen Detected H (NotDetected) 05/23/24 05/23/24 05/23/24 Range/Units 04:45 04:45 05:56 WBC 3.86 L (4.50-10.00) X 10*3/uL RBC 3.41 L (4.40-5.60) X 10*6/uL Hgb 8.3 L (13.0-17.0) g/dL Hct 28.3 L (39.6-50.0) % MCH 24.3 L (27.0-32.0) pg MCHC 29.3 L (32.0-37.0) g/dL RDW 22.4 H (11.5-14.5) % Plt Count 65 L (140-440) X 10*3/uL Immature Plt Fraction 13.7 H (1.1-6.1) % Potassium 3.4 L (3.5-5.5) mmol/L Carbon Dioxide 18.0 L (21.6-31.8) mmol/L Anion Gap 17.00 H (4.00-12.00) mmol/L Glucose 256 H (70-110) mg/dL POC Glucose (mg/dL) 304 H (70-110) mg/dL Hemoglobin A1c (<=6.0) % Calcium 8.4 L (8.7-10.3) mg/dL AST 42 H (14-35) U/L Alkaline Phosphatase 293 H (41-126) U/L Albumin/Globulin Ratio 1.34 L (1.60-3.17) Ratio U Benzodiazepines Scrn (NotDetected) U Marijuana (THC) Screen (NotDetected) 05/23/24 05/23/24 Range/Units 12:26 17:06 WBC (4.50-10.00) X 10*3/uL RBC (4.40-5.60) X 10*6/uL Hgb (13.0-17.0) g/dL Hct (39.6-50.0) % MCH (27.0-32.0) pg MCHC (32.0-37.0) g/dL RDW (11.5-14.5) % Plt Count (140-440) X 10*3/uL Immature Plt Fraction (1.1-6.1) % Potassium (3.5-5.5) mmol/L Carbon Dioxide (21.6-31.8) mmol/L Anion Gap (4.00-12.00) mmol/L Glucose (70-110) mg/dL POC Glucose (mg/dL) 365 H 258 H (70-110) mg/dL Hemoglobin A1c (<=6.0) % Calcium (8.7-10.3) mg/dL AST (14-35) U/L Alkaline Phosphatase (41-126) U/L Albumin/Globulin Ratio (1.60-3.17) Ratio U Benzodiazepines Scrn (NotDetected) U Marijuana (THC) Screen (NotDetected)
[2024-05-23 20:09] LABS: Glucose,Whole Blood 301 mg/dL (70-110)
[2024-05-23] MEDS: MELATONIN 5 MG TABLET PO PRN (21:01)
[2024-05-24 05:55] LABS: Glucose,Whole Blood 279 mg/dL (70-110)
[2024-05-24 07:23] LABS: ALT 24 U/L (4-49); AST 53 U/L (17-59); African American GFR (CKD) >90 (>60 ml/min/1.73 sqM); Albumin 3.9 g/dL (3.5-5.0); Albumin/Globulin Ratio 1.2; Alkaline Phosphatase 292 U/L (38-126); Anion Gap 8 mmol/L; Blood Urea Nitrogen 14 mg/dL (9-20); Calcium 8.7 mg/dL (8.4-10.2); Carbon Dioxide 21 mmol/L (22-30); Chloride 105 mmol/L (98-107); Globulin 3.3 g/dL; Glucose 275 mg/dL (74-99); Magnesium 1.5 mg/dL (1.6-2.3); Non-African American GFR(CKD) >90 (>60 ml/min/1.73 sqM); Potassium 4.2 mmol/L (3.5-5.1); Sodium 134 mmol/L (137-145); Total Bilirubin 0.8 mg/dL (0.2-1.3); Total Protein 7.2 g/dL (6.3-8.2)
[2024-05-24 08:09] LABS: Anisocytosis Moderate; Basophils % (A) 0 %; Eosinophils # (A) 0.1 k/uL (0-0.7); Eosinophils % (A) 4 %; HCT 29.7 % (39.0-53.0); HGB 8.7 gm/dL (13.0-17.5); Hypochromasia Marked; Lymphocytes # (A) 0.7 k/uL (1.0-4.8); Lymphocytes % (A) 22 %; MCH 24.5 pg (25.0-35.0); MCHC 29.3 g/dL (31.0-37.0); MCV 83.7 fL (80.0-100.0); Mean Platelet Volume 11.1; Microcytosis Slight; Monocytes # (A) 0.2 k/uL (0-1.0); Monocytes % (A) 6 %; Neutrophils # (A) 2.1 k/uL (1.3-7.7); Neutrophils % (A) 65 %; Poikilocytosis Slight; RBC 3.55 m/uL (4.30-5.90); RDW 20.8 % (11.5-15.5); Reticulocyte % 2.6 % (0.5-2.0); WBC 3.3 k/uL (3.8-10.6)
[2024-05-24 08:10] LABS: Platelet Count 61 k/uL (150-450)
[2024-05-24] MEDS: LORazepam 2 MG/ML INJ IV PRN (08:17)
[2024-05-24 09:21] VITALS: BP 129/92; PULSE 106; RESP 18; TEMP 97.9
[2024-05-24 10:53] LABS: % Iron Saturation 2.32 (15.00-50.00); Iron 13 UG/DL (65-175); Total Iron Binding Capacity 560 UG/DL (228-460)
[2024-05-24] MEDS: MAGNESIUM OXIDE 400 MG TAB PO STA (11:42)
[2024-05-24 12:00] LABS: Glucose,Whole Blood 321 mg/dL (70-110)
--- NOTE | 2024-05-24 12:37 | P.DS ---
Providers Date of admission: 05/22/24 18:13 Expected date of discharge: 05/24/24 Attending physician: Nancy Gipson MD Primary care physician: Jessica Booker Hospital Course: Discharge Diagnosis: Alcohol intoxication Alcohol dependence #Anion gap metabolic acidosis #Hypokalemia #Hyponatremia with hypochloremia #Hypocalcemia and hyperphosphatemia # Normocytic anemia and thrombocytopenia, secondary to history of alcohol abuse disorder and hemodilution # Isolated elevated alkaline phosphatase # Hyperglycemia with diabetes mellitus, type 2 # Essential hypertension # Depression/anxiety # Chronic muscle pain # Insomnia Hospital Course: Dayron Tavares 44-year-old male with diabetes mellitus type 2, hypertension, anxiety depression, liver cirrhosis presents for alcohol use disorder with withdrawal. Initial lab work done in the ER showed WBC 7.2, hemoglobin 9.5, MCV 83.3, platelets 99, sodium 129, potassium 5.0, chloride 97, bicarb 15, anion gap 17, BUN 18, creatinine 0.80, glucose 387, calcium 8.3, phosphorus 5.0, magnesium 1.6, AST 86, ALT 23, alkaline phosphatase 250, amylase 37, lipase 132, serum alcohol 464. CT head showed no acute intracranial process. Shoulder x-ray shows no acute osseous pathology. Patient also complained about mild abdominal pain and ultrasound was performed which showed mild hepatomegaly and cholelithiasis. Patient has gotten progressively better and has not complaining of dizziness, lightheadedness, shortness of breath or chest pain numbness or tingling in upper or lower extremities. Patient was observed for alcohol intoxication. Patient is medically optimized to be discharged. Patient will be discharged to [facility] for alcoholic rehabitation. Discharge instructions: Patient is advised to follow-up with PCP in 1 to 2 days Patient is provided with instruction/handout for alcohol intoxication and diabetic hyperglycemia Patient is advised to continue with his regular home medications as directed. Additionally prescription sent in for thiamine 100 mg p.o. daily. Vital signs reviewed. Gen: in no apparent distress, resting comfortably in bed Eyes: PERRL, no scleral injection or icterus HENT: normocephalic, atraumatic, good hearing acuity, moist mucous membranes Neck: full range of motion Resp: CTAB, no rales, rhonchi, or wheezes CVS: normal S1 and S2, no murmurs, rubs or gallops, no edema GI: soft, NTTP, ND, no hepatosplenomegaly : no suprapubic tenderness, no CVAT, reza catheter is not present MSK: no clubbing, no cyanosis, no noted contractures of extremities Skin: no noted rashes, petechiae; temperature of skin is appropriate Neuro: moving all extremities without signs of weakness, CN II-XII intact Psych: cooperative, euthymic mood, insight and judgment intact A total of 33 minutes of time were spent preparing this complex discharge summary. Patient was discharged on 05/24/24 at 1000. I have seen and evaluated the patient today. Discussed with the resident and agree with the residents finding and plan as documented in the resident's note. Changes highlighted in blue font. Patient Condition at Discharge: Stable Plan - Discharge Summary New Discharge Prescriptions: New Thiamine [Vitamin B-1] 100 mg PO DAILY #30 tab Continue Mirtazapine [Remeron] 15 mg PO HS PRN PRN Reason: depression/anxiety amLODIPine [Norvasc] 2.5 mg PO DAILY QUEtiapine [SEROquel] 50 mg PO DAILY Pioglitazone [Actos] 15 mg PO DAILY Insulin Lispro [humaLOG Kwikpen] See Protocol SQ AC-TID Insulin Glargine,Hum.rec.anlog [Lantus Solostar Pen] 35 units SQ HS Folic Acid 1 mg PO DAILY Pantoprazole Sodium [Protonix] 40 mg PO BID Propranolol [Inderal] 10 mg PO BID Baclofen [Lioresal] 10 mg PO BID Nicotine 21Mg/24Hr Patch [Habitrol] 1 patch TRANSDERM DAILY Discharge Medication List Pantoprazole Sodium [Protonix] 40 mg PO BID 08/17/22 [History] Baclofen [Lioresal] 10 mg PO BID 05/22/24 [History] Folic Acid 1 mg PO DAILY 05/22/24 [History] Insulin Glargine,Hum.rec.anlog [Lantus Solostar Pen] 35 units SQ HS 05/22/24 [History] Insulin Lispro [humaLOG Kwikpen] See Protocol SQ AC-TID 05/22/24 [History] Mirtazapine [Remeron] 15 mg PO HS PRN 05/22/24 [History] Nicotine 21Mg/24Hr Patch [Habitrol] 1 patch TRANSDERM DAILY 05/22/24 [History] Pioglitazone [Actos] 15 mg PO DAILY 05/22/24 [History] Propranolol [Inderal] 10 mg PO BID 05/22/24 [History] QUEtiapine [SEROquel] 50 mg PO DAILY 05/22/24 [History] amLODIPine [Norvasc] 2.5 mg PO DAILY 05/22/24 [History] Thiamine [Vitamin B-1] 100 mg PO DAILY #30 tab 05/24/24 [Rx] Follow up Appointment(s)/Referral(s): Jessica Booker MD [Primary Care Provider] - 1-2 days Patient Instructions/Handouts: Alcohol Intoxication (DC), Diabetic Hyperglycemia (DC) Discharge/Stand Alone Forms: AA Meetings & - [facility], AA Meetings [place], Who Do I Call?, Community Resources, Outpatient Counseling, Inp Substance Abuse Facilities Discharge Disposition: HOME SELF-CARE
[2024-05-29 22:37] LABS: LD Isoenzymes 1 25 % (18-32); LD Isoenzymes 2 36 % (29-42); LD Isoenzymes 3 15 % (14-30); LD Isoenzymes 4 7 % (6-13); LD Isoenzymes 5 17 % (5-18); Lactacte Dehydrogenase(LD) ISO 140 U/L (100-220)
== END 2024-05-24 13:44 | disposition home or self-care (01) ==
LOC: EC 15:15 → 6NMEDSUR 18:13
PROVIDERS: ADMIT Internal Medicine; ATTEND Internal Medicine
DX: F10.239 Alcohol dependence with withdrawal, unspecified (principal); F10.229 Alcohol dependence with intoxication, unspecified; D64.9 Anemia, unspecified; D69.6 Thrombocytopenia, unspecified; D69.59 Other secondary thrombocytopenia; E11.65 Type 2 diabetes mellitus with hyperglycemia; E83.39 Other disorders of phosphorus metabolism; E83.51 Hypocalcemia; E87.1 Hypo-osmolality and hyponatremia; E87.29 Other acidosis; E87.6 Hypokalemia; E87.8 Other disorders of electrolyte and fluid balance, not elsewhere classified; F17.200 Nicotine dependence, unspecified, uncomplicated; G47.00 Insomnia, unspecified; F32.A Depression, unspecified; F41.9 Anxiety disorder, unspecified; G89.29 Other chronic pain; I10 Essential (primary) hypertension; K74.60 Unspecified cirrhosis of liver; Z79.4 Long term (current) use of insulin; Z79.84 Long term (current) use of oral hypoglycemic drugs; Z79.899 Other long term (current) drug therapy; Y90.8 Blood alcohol level of 240 mg/100 ml or more
CPT/HCPCS: 96372 ×3; 96374; 96361; 99285; 36415; 80053 ×3; 82150; 83540; 83550; 82009; 83625; 83690; 83735 ×2; 84100; 85025 ×3; 85610; 85045; 84466; 80306; 83036; 73030; 76705; 70450; G0378 ×3; G0480; J2060; J3411; J1650 ×2; 80320

== ENCOUNTER 2024-06-12 18:27 | Observation (INO) | payer OTHER ==
[2024-06-12 18:36] LABS: Glucose,Whole Blood 385 mg/dL (70-110)
[2024-06-12 19:04] LABS: Anisocytosis Moderate; Basophils % (A) 1 %; Eosinophils # (A) 0.2 k/uL (0-0.7); Eosinophils % (A) 2 %; HCT 29.1 % (39.0-53.0); HGB 8.6 gm/dL (13.0-17.5); Hypochromasia Marked; Lymphocytes % (A) 13 %; MCH 24.1 pg (25.0-35.0); MCHC 29.7 g/dL (31.0-37.0); MCV 81.3 fL (80.0-100.0); Mean Platelet Volume 10.5; Microcytosis Slight; Monocytes # (A) 0.5 k/uL (0-1.0); Monocytes % (A) 7 %; Neutrophils # (A) 5.7 k/uL (1.3-7.7); Neutrophils % (A) 75 %; RBC 3.58 m/uL (4.30-5.90); RDW 20.2 % (11.5-15.5); WBC 7.6 k/uL (3.8-10.6)
[2024-06-12 19:15] LABS: ALT 28 U/L (4-49); AST 47 U/L (17-59); African American GFR (CKD) >90 (>60 ml/min/1.73 sqM); Albumin 4.1 g/dL (3.5-5.0); Alkaline Phosphatase 320 U/L (38-126); Anion Gap 9 mmol/L; Blood Urea Nitrogen 29 mg/dL (9-20); Carbon Dioxide 18 mmol/L (22-30); Chloride 107 mmol/L (98-107); Glucose 343 mg/dL (74-99); Lipase 170 U/L (23-300); Magnesium 1.8 mg/dL (1.6-2.3); Non-African American GFR(CKD) >90 (>60 ml/min/1.73 sqM); Potassium 4.4 mmol/L (3.5-5.1); Sodium 134 mmol/L (137-145); Total Bilirubin 0.8 mg/dL (0.2-1.3); Total Protein 7.5 g/dL (6.3-8.2)
--- NOTE | 2024-06-12 19:15 | XR ---
EXAMINATION TYPE: XR chest 2V DATE OF EXAM: 06/12/2024 6:59 PM COMPARISON: Chest radiographs from 07/24/2022 CLINICAL INDICATION: Male, 44 years old with history of Chest Pain; TECHNIQUE: XR chest 2V Frontal and lateral views of the chest. FINDINGS: Lungs/Pleura: There is no evidence of pleural effusion, focal consolidation, or pneumothorax. Pulmonary vascularity: Unremarkable. Heart/mediastinum: Cardiomediastinal silhouette is unremarkable. Musculoskeletal: No acute osseous pathology. IMPRESSION: No acute cardiopulmonary disease/process. [facility] Lemus, , 06/12/2024 7:13 PM
[2024-06-12 19:23] LABS: Partial Thromboplastin Time 25.2 sec (22.0-30.0); Prothrombin Time 10.7 sec (10.0-12.5)
[2024-06-12 19:32] LABS: Platelet Count 111 k/uL (150-450)
--- NOTE | 2024-06-12 20:18 | ED ---
General Adult HPI - General Chief complaint: Chest Pain Stated complaint: Chest Pain Time Seen by Provider: 06/12/24 18:35 Source: patient, EMS Mode of arrival: EMS Limitations: no limitations - History of Present Illness Initial comments: 44-year-old male with past medical history of diabetes, high blood pressure, high cholesterol, liver cirrhosis who presents emergency department from [facility]. Patient reports that he has not felt well all day starting at 4 PM. He went up to his room via a flight of stairs and states that when he got to the top he felt extremely winded. He tried to lay down in bed and started having left-sided chest pain. He felt nauseated. No vomiting. States that he tried to wait it out however was not feeling any better. He went to the nurse and found that his glucose was 400. They did give him 10 units of insulin and 2 tablets of Tylenol. They recommended that the patient be transferred to the hospital. He was administered 324 of aspirin and he states that his chest pain resolved after that. He refused nitro. He states that his glucose has been uncontrolled since he has been admitted at [facility] due to poor food choices. He denies history of coronary disease. He does family history of cardiac disease. He denies fevers, chills or cough. No history of DVT or PE. No calf pain or swelling. No other alleviating, precipitating modifying factors - Related Data Home Medications Medication Instructions Recorded Confirmed Pantoprazole Sodium [Protonix] 40 mg PO BID 08/17/22 06/19/24 Folic Acid 1 mg PO DAILY 05/22/24 06/19/24 Insulin Glargine,Hum.rec.anlog 75 units SQ HS 05/22/24 06/19/24 [Lantus Solostar Pen] Mirtazapine [Remeron] 15 mg PO HS 05/22/24 06/19/24 Pioglitazone [Actos] 15 mg PO DAILY 05/22/24 06/19/24 Propranolol [Inderal] 10 mg PO BID 05/22/24 06/19/24 QUEtiapine [SEROquel] 50 mg PO HS 05/22/24 06/19/24 amLODIPine [Norvasc] 2.5 mg PO DAILY 05/22/24 06/19/24 Acetaminophen Tab [Tylenol] 650 mg PO Q4H PRN MDD 2,600mg 06/12/24 06/19/24 Calcium/Magnesium/Zinc/Vitamin D 1 tab PO TID PRN 06/12/24 06/19/24 334/134/5mg Chlorpheniramine Maleate 4 mg PO Q4H PRN 06/12/24 06/19/24 [Chlor-Trimeton] Ibuprofen [Motrin Ib] 600 mg PO Q6H PRN 06/12/24 06/19/24 Insulin Regular, Human [NovoLIN R] See Protocol SQ TID-W/MEALS 06/12/24 06/19/24 Multivitamins, Thera [Multivitamin 1 tab PO DAILY 06/12/24 06/19/24 (formulary)] busPIRone HCl [Buspar] 10 mg PO TID 06/12/24 06/19/24 cloNIDine HCL [Catapres] 0.1 - 0.3 mg PO Q4H PRN 06/12/24 06/19/24 ondansetron HCL [Zofran] 8 mg PO Q6H PRN 06/12/24 06/19/24 Insulin Regular, Human [NovoLIN R] 10 unit SQ TID-W/MEALS 06/19/24 06/19/24 Nicotine 14Mg/24Hr Patch [Habitrol 1 patch TRANSDERM DAILY 06/19/24 06/19/24 14Mg/24Hr Patch] metFORMIN HCL 1,000 mg PO BID 06/19/24 06/19/24 Previous Rx's Medication Instructions Recorded Thiamine [Vitamin B-1] 100 mg PO DAILY #30 tab 05/24/24 Allergies Allergy/AdvReac Type Severity Reaction Status Date / Time No Known Allergies Allergy Verified 06/19/24 15:07 Review of Systems ROS Statement: Those systems with pertinent positive or pertinent negative responses have been documented in the HPI. ROS Other: All systems not noted in ROS Statement are negative. 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 History of Any Multi-Drug Resistant Organisms: None Reported Past Surgical History: No Surgical Hx Reported Additional Past Surgical History / Comment(s): 3 eye surgeries Past Psychological History: Anxiety Smoking Status: Current every day smoker Past Alcohol Use History: Abuse Past Drug Use History: Marijuana - Past Family History Father Family Medical History: Diabetes Mellitus Mother Family Medical History: No Reported History General Exam Limitations: no limitations General appearance: alert, in no apparent distress Head exam: Present: atraumatic, normocephalic, normal inspection Eye exam: Present: normal appearance, PERRL, EOMI. Absent: scleral icterus, conjunctival injection, periorbital swelling ENT exam: Present: normal exam, mucous membranes moist Neck exam: Present: normal inspection. Absent: tenderness, meningismus, lymphadenopathy Respiratory exam: Present: normal lung sounds bilaterally. Absent: respiratory distress, wheezes, rales, rhonchi, stridor Cardiovascular Exam: Present: regular rate, normal rhythm, normal heart sounds. Absent: systolic murmur, diastolic murmur, rubs, gallop, clicks GI/Abdominal exam: Present: soft, normal bowel sounds. Absent: distended, tenderness, guarding, rebound, rigid Extremities exam: Present: normal inspection, full ROM, normal capillary refill. Absent: tenderness, pedal edema, joint swelling, calf tenderness Back exam: Present: normal inspection Neurological exam: Present: alert, oriented X3, CN II-XII intact Psychiatric exam: Present: normal affect, normal mood Skin exam: Present: warm, dry, intact, normal color. Absent: rash Course Vital Signs 06/12/24 06/12/24 06/12/24 18:31 18:52 20:10 Temperature 98.4 F 98.1 F Pulse Rate 84 87 Pulse Rate [ 82 Knot Borer ] Respiratory 16 19 Rate Blood Pressure 136/98 138/95 O2 Sat by Pulse 100 Oximetry 06/12/24 22:18 Temperature 97.8 F Pulse Rate 91 Pulse Rate [ Knot Borer ] Respiratory 18 Rate Blood Pressure 130/77 O2 Sat by Pulse 99 Oximetry Medical Decision Making - Medical Decision Making Was pt. sent in by a medical professional or institution (, PA, SOFTWARE TEST AUTOMATION ENGINEER, urgent care, hospital, or prison...) When possible be specific @ -[facility] Did you speak to anyone other than the patient for history (EMS, parent, family, police, friend...)? What history was obtained from this source @ -EMS Did you review nursing and triage notes (agree or disagree)? Why? @ -I reviewed and agree with nursing and triage notes Were old charts reviewed (outside hosp., previous admission, EMS record, old EKG, old radiological studies, urgent care reports/EKG's, prison records)? Report findings @I reviewed the paperwork that came with the patient from [facility] Differential Diagnosis (chest pain, altered mental status, abdominal pain women, abdominal pain men, vaginal bleeding, weakness, fever, dyspnea, syncope, he adache, dizziness, GI bleed, back pain, seizure, CVA, palpatations, mental health, musculoskeletal)? @ -Differential Chest Pain: Stable Angina, Unstable Angina, STEMI, NSTEMI Aortic Dissection, Pneumothorax, Musculoskeletal, Esophageal Spasm GERD, Cholecystitis, Pancreatitis, Zoster, this is not meant to be an all-inclusive list. EKG interpreted by me (3pts min.). @ -Yes and demonstrates sinus rhythm with a rate of 83. Parable 189. QRS 96. QTc of 406. No acute ST segment elevations. Q wave in lead III X-rays interpreted by me (1pt min.). @ -Yes and demonstrates no acute process CT interpreted by me (1pt min.). @ -None done U/S interpreted by me (1pt. min.). @ -None done What testing was considered but not performed or refused? (CT, X-rays, U/S, labs)? Why? @ -None What meds were considered but not given or refused? Why? @ -None Did you discuss the management of the patient with other professionals (professionals i.e. , PA, SOFTWARE TEST AUTOMATION ENGINEER, lab, RT, psych nurse, delinquency prevention social worker, electric locomotive crane operator, teacher, commissioned police officer, case work aide)? Give summary @ -Spoke with sound for admission Was smoking cessation discussed for >3mins.? @ -No Was critical care preformed (if so, how long)? @ -No Were there social determinants of health that impacted care today? How? (Homelessness, low income, unemployed, alcoholism, drug addiction, transportation, low edu. Level, literacy, decrease access to med. care, skilled nursing, rehab)? @ -Patient is currently in rehab Was there de-escalation of care discussed even if they declined (Discuss DNR or withdrawal of care, Hospice)? DNR status @ -No What co-morbidities impacted this encounter? (DM, HTN, Smoking, COPD, CAD, Cancer, CVA, ARF, Chemo, Hep., AIDS, mental health diagnosis, sleep apnea, morbid obesity)? @ -None Was patient admitted / discharged? Hospital course, mention meds given and route, prescriptions, significant lab abnormalities, going to OR and other pertinent info. @ -Upon arrival patient seen and evaluated in bed 10. Thorough history and physical exam was performed. IV access was established. Laboratory studies are conducted. Chest x-ray was performed. Results are discussed with patient. Recommended admission for which patient was agreeable. Spoke with sound for admission Undiagnosed new problem with uncertain prognosis? @ -No Drug Therapy requiring intensive monitoring for toxicity (Heparin, Nitro, Insulin, Cardizem)? @ -No Were any procedures done? @ -No Diagnosis/symptom? @ -Acute chest pain, possible ACS Acute, or Chronic, or Acute on Chronic? @ -Acute Uncomplicated (without systemic symptoms) or Complicated (systemic symptoms)? @ -Complicated Side effects of treatment? @ -No Exacerbation, Progression, or Severe Exacerbation? @ -No Poses a threat to life or bodily function? How? (Chest pain, USA, IA, pneumonia, PE, COPD, DKA, ARF, appy, cholecystitis, CVA, Diverticulitis, Homicidal, Suicidal, threat to staff... and all critical care pts) @ -No - Lab Data Result diagrams: 06/13/24 04:30 06/13/24 04:30 Lab Results 06/12/24 06/12/24 06/12/24 Range/Units 18:34 18:49 18:49 WBC 7.6 (3.8-10.6) k/uL RBC 3.58 L (4.30-5.90) m/uL Hgb 8.6 L (13.0-17.5) gm/dL Hct 29.1 L (39.0-53.0) % MCV 81.3 (80.0-100.0) fL MCH 24.1 L (25.0-35.0) pg MCHC 29.7 L (31.0-37.0) g/dL RDW 20.2 H (11.5-15.5) % Plt Count 111 L D (150-450) k/uL MPV 10.5 Neutrophils % 75 % Lymphocytes % 13 % Monocytes % 7 % Eosinophils % 2 % Basophils % 1 % Neutrophils # 5.7 (1.3-7.7) k/uL Lymphocytes # 1.0 (1.0-4.8) k/uL Monocytes # 0.5 (0-1.0) k/uL Eosinophils # 0.2 (0-0.7) k/uL Basophils # 0.0 (0-0.2) k/uL Hypochromasia Marked Anisocytosis Moderate Microcytosis Slight PT 10.7 (10.0-12.5) sec INR 1.0 (<1.2) APTT 25.2 (22.0-30.0) sec D-Dimer <0.17 (<0.60) mg/L FEU Sodium (137-145) mmol/L Potassium (3.5-5.1) mmol/L Chloride (98-107) mmol/L Carbon Dioxide (22-30) mmol/L Anion Gap mmol/L BUN (9-20) mg/dL Creatinine (0.66-1.25) mg/dL Est GFR (CKD-EPI)AfAm (>60 ml/min/1.73 sqM) Est GFR (CKD-EPI)NonAf (>60 ml/min/1.73 sqM) Glucose (74-99) mg/dL POC Glucose (mg/dL) 385 H (70-110) mg/dL POC Glu Infection Control Rn ID Chetan Maryam Calcium (8.4-10.2) mg/dL Magnesium (1.6-2.3) mg/dL Total Bilirubin (0.2-1.3) mg/dL AST (17-59) U/L ALT (4-49) U/L Alkaline Phosphatase (38-126) U/L Troponin I (0.000-0.034) ng/mL Total Protein (6.3-8.2) g/dL Albumin (3.5-5.0) g/dL Lipase (23-300) U/L 06/12/24 06/12/24 06/12/24 Range/Units 18:49 18:49 20:21 WBC (3.8-10.6) k/uL RBC (4.30-5.90) m/uL Hgb (13.0-17.5) gm/dL Hct (39.0-53.0) % MCV (80.0-100.0) fL MCH (25.0-35.0) pg MCHC (31.0-37.0) g/dL RDW (11.5-15.5) % Plt Count (150-450) k/uL MPV Neutrophils % % Lymphocytes % % Monocytes % % Eosinophils % % Basophils % % Neutrophils # (1.3-7.7) k/uL Lymphocytes # (1.0-4.8) k/uL Monocytes # (0-1.0) k/uL Eosinophils # (0-0.7) k/uL Basophils # (0-0.2) k/uL Hypochromasia Anisocytosis Microcytosis PT (10.0-12.5) sec INR (<1.2) APTT (22.0-30.0) sec D-Dimer (<0.60) mg/L FEU Sodium 134 L (137-145) mmol/L Potassium 4.4 (3.5-5.1) mmol/L Chloride 107 (98-107) mmol/L Carbon Dioxide 18 L (22-30) mmol/L Anion Gap 9 mmol/L BUN 29 H (9-20) mg/dL Creatinine 0.61 L (0.66-1.25) mg/dL Est GFR (CKD-EPI)AfAm >90 (>60 ml/min/1.73 sqM) Est GFR (CKD-EPI)NonAf >90 (>60 ml/min/1.73 sqM) Glucose 343 H (74-99) mg/dL POC Glucose (mg/dL) 267 H (70-110) mg/dL POC Glu Infection Control Rn ID Adria Longoria Calcium 9.0 (8.4-10.2) mg/dL Magnesium 1.8 (1.6-2.3) mg/dL Total Bilirubin 0.8 (0.2-1.3) mg/dL AST 47 (17-59) U/L ALT 28 (4-49) U/L Alkaline Phosphatase 320 H (38-126) U/L Troponin I <0.012 (0.000-0.034) ng/mL Total Protein 7.5 (6.3-8.2) g/dL Albumin 4.1 (3.5-5.0) g/dL Lipase 170 (23-300) U/L Disposition Clinical Impression: Chest pain Disposition: ADMITTED IP TO THIS HOSP Condition: Stable Is patient prescribed a controlled substance at d/c from ED?: No Time of Disposition: 20:48 Decision to Admit Reason: Admit from EC Decision Date: 06/12/24 Decision Time: 20:49
[2024-06-12 20:23] LABS: Glucose,Whole Blood 267 mg/dL (70-110)
[2024-06-12] MEDS ORDERED: NALOXONE 0.4 MG/ML 1 ML VIAL IV PRN (20:49)
[2024-06-12] MEDS ORDERED: DEXTROSE 50% SYRINGE 50 ML IVP PRN ×2 (20:51)
[2024-06-12 21:00] LABS: Glucose,Whole Blood 302 mg/dL (70-110)
[2024-06-12] MEDS: INSULIN REGULAR 100 UNIT/ML VIAL (IM/SQ) SQ ONE (21:01)
[2024-06-12] MEDS: INSULIN ASPART (NovoLOG) 100 UNIT/ML VIAL SQ SCH (21:09)
[2024-06-12] MEDS: busPIRone HCl 10 MG TAB PO SCH (22:18)
--- NOTE | 2024-06-12 22:32 | P.HPIM ---
History of Present Illness H&P Date: 06/12/24 Chief Complaint: Chest pain History of present illness; 44-year-old man with uncoltrolled diabetes, hypertension and liver cirrhosis presents to the emergency department from [place]. Patient reports that he started to not feel well around 4 PM. He notes that he went up to his bedroom, and when he got to the top of the stairs he felt extrem isai winded. At that time he tried to lie down in bed, and started having left- sided chest pain. He describes the pain as having been sharp that radiated from the left side of his chest across to the right side of his chest and he rates it as a 6/10. Additionally, he notes that he noticed seeing some yellow spots prior to the episode beginning. He notes feeling nauseous, however no vomiting. He states he tried to then waited out, however he noted that he was not feeling any better. He notes that the nurse checked his glucose and at that time it was 400, he was given 10 units of insulin and 2 tablets of Tylenol. He was administered 324 mg aspirin and states that his chest pain resolved following that. Patient refused nitroglycerin. He states that he is glucose has been uncontrolled since being at [facility] due to poor choices of food. He denies any history of coronary artery disease however states he does have a family history of cardiac disease. He denies fever, chills, cough. No history of DVT or PE. He currently has no acute complaints, stating that the pain is not c urrently bothering him. Imaging: -Chest x-ray done in the ER showed no acute cardiopulmonary disease/process. -EKG done in the ER showed heart rate of 83, sinus rhythm. QTc 406. Vitals: -Blood pressure 138/95, heart rate 87, respiratory rate 19, SpO2 100% on room air Patient admitted to internal medicine service REVIEW OF SYSTEMS: CONSTITUTIONAL: No fever, no malaise, no fatigue. HEENT: No recent visual problems or hearing problems. Denied any sore throat. CARDIOVASCULAR: No chest pain, orthopnea, PND, no palpitations, no syncope. PULMONARY: No shortness of breath, no cough, no hemoptysis. GASTROINTESTINAL: No diarrhea, no nausea, no vomiting, no abdominal pain. NEUROLOGICAL: No headaches, no weakness, no numbness. HEMATOLOGICAL: Denies any bleeding or petechiae. GENITOURINARY: Denies any burning micturition, frequency, or urgency. MUSCULOSKELETAL/RHEUMATOLOGICAL: Denies any joint pain, swelling, or any muscle pain. ENDOCRINE: Denies any polyuria or polydipsia. The rest of the 14-point review of systems is negative. PHYSICAL EXAMINATION: GENERAL: The patient is alert and oriented x3, not in any acute distress. Well developed, well nourished. HEENT: No scleral icterus. No conjunctival pallor. Normocephalic, atraumatic. CARDIOVASCULAR: S1 and S2 present. No murmurs, rubs, or gallops. PULMONARY: Chest is clear to auscultation, no wheezing or crackles. ABDOMEN: Soft, nontender, nondistended, normoactive bowel sounds. No palpable organomegaly. MUSCULOSKELETAL: No joint swelling or deformity. EXTREMITIES: No cyanosis, clubbing, or pedal edema. NEUROLOGICAL: Gross neurological examination did not reveal any focal deficits. SKIN: No rashes. Assessment and plan 44-year-old man with PMH of diabetes, hypertension, hyperlipidemia and liver cirrhosis presents to the emergency department from [facility] following an episode of shortness of breath and left sided chest pain. The patient has been admitted for observation and further assesment of his atypical chest pain and cardiology consultation. Anticipated length of stay of 1-2 days. #Atypical chest pain r/o ACS -Trend troponins; first troponin <0.012, second troponin <0.012 -Cardiac monitoring -Started Aspirin 81 mg daily -Started Lipitor 40 mg daily -D-dimer <0.17 -EKG showed: EKG done in the ER showed heart rate of 83, sinus rhythm. QTc 406. -Lipid panel ordered -TSH ordered -Cardiology consulted #Uncontrolled diabetes mellitus -Glucose on admission 302, patient given 4 units of Insulin -Patient started on NovoLog sliding scale -Patient on 40 units Lantus nightly; started on Levemir 20 units HS, will monitor and adjust as needed -Continue pioglitazone 15 mg daily -Blood glucose monitoring ACHS -On carbohydrate consistent diet -Hemoglobin A1c pending #Controlled hypertension -Continue home 2.5 mg daily Norvasc -Continue homr Inderal 10 mg BID -Continue to monitor vital signs #History of Hyperlipidemia -Previously had taken Atorvastatin, not renewed by PCP -Will follow up with PCP upon discharge #Chronic tobacco dependence -Continue 21 mg per 24-hour nicotine patch #Cirrhotic Liver secondary to history of alcohol abuse #Chronic Thrombocytopenia #Chronic anemia -Continue homr Thiamine 100 mg daily -Continue home Folate 1 mg daily -Continue to monitor CBC -Hgb 8.6 on arrival today -Reports no current bleeding/dark stools -If Hgb <7 blood transfusion Code Status: Full Code GI prohylaxis: Continue home Protonix 40 mg twice daily DVT prophylaxis: Lovenox 40 mg sq daily Dictation was produced using [employer] dictation software. please excuse any grammatical, word or spelling errors. I have seen and evaluated the patient today. I Discussed the case with the resident and agree with the resident's findings I edited the assessment and plan as necessary as documented in the resident's note. 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 History of Any Multi-Drug Resistant Organisms: None Reported Past Surgical History: No Surgical Hx Reported Additional Past Surgical History / Comment(s): 3 eye surgeries Past Psychological History: Anxiety Smoking Status: Current every day smoker Past Alcohol Use History: Abuse Past Drug Use History: Marijuana Medications and Allergies Home Medications Medication Instructions Recorded Confirmed Type Pantoprazole Sodium [Protonix] 40 mg PO BID 08/17/22 06/12/24 History Folic Acid 1 mg PO DAILY 05/22/24 06/12/24 History Insulin Glargine,Hum.rec.anlog 40 units SQ HS 05/22/24 06/12/24 History [Lantus Solostar Pen] Mirtazapine [Remeron] 15 mg PO HS 05/22/24 06/12/24 History Nicotine 21Mg/24Hr Patch [Habitrol] 1 patch TRANSDERM DAILY 05/22/24 06/12/24 History Pioglitazone [Actos] 15 mg PO DAILY 05/22/24 06/12/24 History Propranolol [Inderal] 10 mg PO BID 05/22/24 06/12/24 History QUEtiapine [SEROquel] 50 mg PO HS 05/22/24 06/12/24 History amLODIPine [Norvasc] 2.5 mg PO DAILY 05/22/24 06/12/24 History Thiamine [Vitamin B-1] 100 mg PO DAILY #30 tab 05/24/24 06/12/24 Rx Acetaminophen Tab [Tylenol] 650 mg PO Q4H 06/12/24 06/12/24 History Amoxic-Pot Clav 875-125Mg 1 tab PO BID 06/12/24 06/12/24 History [Augmentin 875-125] Calcium/Magnesium/Zinc/Vitamin D 1 tab PO TID PRN 06/12/24 06/12/24 History 334/134/5mg Chlorpheniramine Maleate 4 mg PO Q4H PRN 06/12/24 06/12/24 History [Chlor-Trimeton] Ibuprofen [Motrin Ib] 600 mg PO Q6H PRN 06/12/24 06/12/24 History Insulin Regular, Human [NovoLIN R] See Protocol SQ ACHS 06/12/24 06/12/24 History Multivitamins, Thera [Multivitamin 1 tab PO DAILY 06/12/24 06/12/24 History (formulary)] busPIRone HCl [Buspar] 10 mg PO TID 06/12/24 06/12/24 History cloNIDine HCL [Catapres] 0.1 - 0.3 mg PO Q4H PRN 06/12/24 06/12/24 History ondansetron HCL [Zofran] 8 mg PO Q6H PRN 06/12/24 06/12/24 History Allergies Allergy/AdvReac Type Severity Reaction Status Date / Time No Known Allergies Allergy Verified 06/12/24 20:49 Physical Exam Vitals: Vital Signs Temp Pulse Pulse Resp BP Pulse Ox 06/12/24 20:10 98.1 F 87 19 138/95 06/12/24 18:52 82 06/12/24 18:31 98.4 F 84 16 136/98 100 Intake and Output 06/12/24 06/12/24 06/12/24 06:59 14:59 22:59 Other: Weight 79.379 kg Results CBC & Chem 7: 06/12/24 18:49 06/12/24 18:49 Labs: Abnormal Lab Results - Last 24 Hours (Table) 06/12/24 06/12/24 06/12/24 Range/Units 18:34 18:49 18:49 RBC 3.58 L (4.30-5.90) m/uL Hgb 8.6 L (13.0-17.5) gm/dL Hct 29.1 L (39.0-53.0) % MCH 24.1 L (25.0-35.0) pg MCHC 29.7 L (31.0-37.0) g/dL RDW 20.2 H (11.5-15.5) % Plt Count 111 L D (150-450) k/uL Sodium 134 L (137-145) mmol/L Carbon Dioxide 18 L (22-30) mmol/L BUN 29 H (9-20) mg/dL Creatinine 0.61 L (0.66-1.25) mg/dL Glucose 343 H (74-99) mg/dL POC Glucose (mg/dL) 385 H (70-110) mg/dL Alkaline Phosphatase 320 H (38-126) U/L 06/12/24 06/12/24 Range/Units 20:21 20:56 RBC (4.30-5.90) m/uL Hgb (13.0-17.5) gm/dL Hct (39.0-53.0) % MCH (25.0-35.0) pg MCHC (31.0-37.0) g/dL RDW (11.5-15.5) % Plt Count (150-450) k/uL Sodium (137-145) mmol/L Carbon Dioxide (22-30) mmol/L BUN (9-20) mg/dL Creatinine (0.66-1.25) mg/dL Glucose (74-99) mg/dL POC Glucose (mg/dL) 267 H 302 H (70-110) mg/dL Alkaline Phosphatase (38-126) U/L
[2024-06-12] MEDS: MIRTAZAPINE 15 MG TAB PO SCH (23:46)
[2024-06-12] MEDS: QUEtiapine 50 MG TAB PO SCH (23:46)
[2024-06-12] MEDS: INSULIN DETEMIR (LEVEMIR) 100 UNIT/ML SYR SQ SCH (23:48)
[2024-06-12] MEDS: ATORVASTATIN 40 MG TAB PO SCH (23:49)
[2024-06-13 02:24] LABS: Glucose,Whole Blood 269 mg/dL (70-110)
[2024-06-13 06:01] LABS: Glucose,Whole Blood 260 mg/dL (70-110)
[2024-06-13] MEDS: BENZOCAINE/MENTHOL LOZENG 1 EACH LOZENGE MUCOUS MEM PRN (06:47)
[2024-06-13 08:00] VITALS: RESP 16
--- NOTE | 2024-06-13 08:19 | P.CRDCN ---
History of Present Illness Consult date: 06/13/24 Consult reason: chest pain History of present illness: This is a 44-year-old male with past medical history of diabetes, hypertension, hyperlipidemia, tobacco use and dependence, alcohol abuse. Patient arrived here from [place] due to chest pain and shortness of breath that started yesterday. He states the pain went from his chest and around to his back and he had shortness of breath at the same time. Pain became worse when he lay down on his bed. The pain is also between his shoulder blades. He has no chest pain at this time. His last alcohol intake was on 06/06. He is an active smoker and cut down to less than a pack a day. He is agreeable that he can walk on a treadmill and is normally quite active. EKG: Sinus rhythm with no acute findings Chest x-ray: No acute findings Laboratory studies: Troponin negative x 3. WBC 7.6, hemoglobin 8.6, platelet count 111. Sodium 134, potassium 4.4, CO2 18, BUN 29 creatinine 0.61, blood sugar 343. Alkaline phosphatase 320. Home cardiac medications: Review Of Systems: At the time of my exam: CONSTITUTIONAL: Denies fever or chills. HEENT: Denies blurred vision, vision changes, or eye pain. Denies hemoptysis CARDIOVASCULAR: Denies chest pain. Denies orthopnea. Denies PND. Denies palpitations RESPIRATORY: Denies shortness of breath. GASTROINTESTINAL: Denies abdominal pain. Denies nausea or vomiting. HEMATOLOGIC: Denies bleeding disorders. GENITOURINARY: Denies any blood in urine. SKIN: Denies puritis. Denies rash. Physical examination: Gen: This is a 44-year-old male in no acute distress VS: reviewed HEENT: Head is atraumatic, normocephalic. Pupils equal, round. Sclerae is anicteric. NECK: Supple. No JVD. LUNGS: Clear to auscultation. No wheezes or rhonchi. No intercostal retractions. HEART: Regular rate and rhythm. No murmur. ABDOMEN: Soft No tenderness. EXTREMITIES: No pedal edema. No calf tenderness. NEUROLOGICAL: Patient is awake, alert and oriented x3. Assessment: Atypical chest pain, acute coronary syndrome ruled out Diabetes Hypertension Hyperlipidemia Tobacco use and dependence Alcohol abuse Plan: Resume patient's home cardiac medications Schedule patient for stress echocardiogram today Obtain 2-D echocardiogram and Doppler study to assess cardiac structure and function If testing is unremarkable, patient is cleared for discharge from cardiology and may return to [place]. Thank you kindly for this consultation. Nurse practitioner note has been reviewed, I agree with documented findings and plan of care. Patient was seen and examined. 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 last drink was 06/06/24. currently at [facility] admitted on 06/07/24. will return upon d/c. Then go back to a detention in [place]. Past Drug Use History: Marijuana - Past Family History Father Family Medical History: Diabetes Mellitus Mother Family Medical History: No Reported History Medications and Allergies Home Medications Medication Instructions Recorded Confirmed Type Pantoprazole Sodium [Protonix] 40 mg PO BID 08/17/22 06/12/24 History Folic Acid 1 mg PO DAILY 05/22/24 06/12/24 History Insulin Glargine,Hum.rec.anlog 40 units SQ HS 05/22/24 06/12/24 History [Lantus Solostar Pen] Mirtazapine [Remeron] 15 mg PO HS 05/22/24 06/12/24 History Nicotine 21Mg/24Hr Patch [Habitrol] 1 patch TRANSDERM DAILY 05/22/24 06/12/24 H istory Pioglitazone [Actos] 15 mg PO DAILY 05/22/24 06/12/24 History Propranolol [Inderal] 10 mg PO BID 05/22/24 06/12/24 History QUEtiapine [SEROquel] 50 mg PO HS 05/22/24 06/12/24 History amLODIPine [Norvasc] 2.5 mg PO DAILY 05/22/24 06/12/24 History Thiamine [Vitamin B-1] 100 mg PO DAILY #30 tab 05/24/24 06/12/24 Rx Acetaminophen Tab [Tylenol] 650 mg PO Q4H 06/12/24 06/12/24 History Amoxic-Pot Clav 875-125Mg 1 tab PO BID 06/12/24 06/12/24 History [Augmentin 875-125] Calcium/Magnesium/Zinc/Vitamin D 1 tab PO TID PRN 06/12/24 06/12/24 History 334/134/5mg Chlorpheniramine Maleate 4 mg PO Q4H PRN 06/12/24 06/12/24 History [Chlor-Trimeton] Ibuprofen [Motrin Ib] 600 mg PO Q6H PRN 06/12/24 06/12/24 History Insulin Regular, Human [NovoLIN R] See Protocol SQ ACHS 06/12/24 06/12/24 History Multivitamins, Thera [Multivitamin 1 tab PO DAILY 06/12/24 06/12/24 History (formulary)] busPIRone HCl [Buspar] 10 mg PO TID 06/12/24 06/12/24 History cloNIDine HCL [Catapres] 0.1 - 0.3 mg PO Q4H PRN 06/12/24 06/12/24 History ondansetron HCL [Zofran] 8 mg PO Q6H PRN 06/12/24 06/12/24 History Allergies Allergy/AdvReac Type Severity Reaction Status Date / Time No Known Allergies Allergy Verified 06/12/24 20:49 Physical Exam Vitals: Vital Signs Temp Pulse Pulse Resp BP BP Pulse Ox 06/13/24 02:24 98.0 F 91 18 103/68 99 06/12/24 23:19 98.3 F 86 17 151/95 100 06/12/24 22:18 97.8 F 91 18 130/77 99 06/12/24 20:10 98.1 F 87 19 138/95 06/12/24 18:52 82 06/12/24 18:31 98.4 F 84 16 136/98 100 Intake and Output 06/12/24 06/13/24 06/13/24 22:59 06:59 14:59 Other: # Voids 2 1 Weight 79.379 kg 79.379 kg Results 06/12/24 18:49 06/12/24 18:49 Cardiac Enzymes 06/12/24 06/12/24 06/12/24 Range/Units 18:49 18:49 21:16 AST 47 (17-59) U/L Troponin I <0.012 <0.012 (0.000-0.034) ng/mL 06/12/24 Range/Units 23:35 AST (17-59) U/L Troponin I <0.012 (0.000-0.034) ng/mL Coagulation 06/12/24 Range/Units 18:49 PT 10.7 (10.0-12.5) sec APTT 25.2 (22.0-30.0) sec CBC 06/12/24 Range/Units 18:49 WBC 7.6 (3.8-10.6) k/uL RBC 3.58 L (4.30-5.90) m/uL Hgb 8.6 L (13.0-17.5) gm/dL Hct 29.1 L (39.0-53.0) % Plt Count 111 L D (150-450) k/uL Comprehensive Metabolic Panel 06/12/24 Range/Units 18:49 Sodium 134 L (137-145) mmol/L Potassium 4.4 (3.5-5.1) mmol/L Chloride 107 (98-107) mmol/L Carbon Dioxide 18 L (22-30) mmol/L BUN 29 H (9-20) mg/dL Creatinine 0.61 L (0.66-1.25) mg/dL Glucose 343 H (74-99) mg/dL Calcium 9.0 (8.4-10.2) mg/dL AST 47 (17-59) U/L ALT 28 (4-49) U/L Alkaline Phosphatase 320 H (38-126) U/L Total Protein 7.5 (6.3-8.2) g/dL Albumin 4.1 (3.5-5.0) g/dL Current Medications Generic Name Dose Route Start Last Admin Trade Name Freq PRN Reason Stop Dose Admin Amlodipine Besylate 2.5 mg 06/13/24 09:00 Amlodipine 2.5 Mg Tab PO DAILY [facility] Aspirin 81 mg 06/13/24 09:00 Aspirin 81 Mg PO DAILY [facility] Atorvastatin Calcium 40 mg 06/12/24 23:15 06/12/24 23:49 Atorvastatin 40 Mg Tab PO 40 mg HS MARGUERITE Administration Benzocaine/Menthol 1 each 06/13/24 06:31 06/13/24 06:47 Benzocaine/Menthol Lozeng 1 Each Lozenge MUCOUS MEM 1 each Q4HR PRN Administration Sore Throat Buspirone HCl 10 mg 06/12/24 22:00 06/12/24 22:18 Buspirone Hcl 10 Mg Tab PO 10 mg TID MARGUERITE Administration Dextrose/Water 25 ml 06/12/24 20:51 Dextrose 50% Syringe 50 Ml IVP PER PROTOCOL PRN Hypoglycemia Protocol Dextrose/Water 50 ml 06/12/24 20:51 Dextrose 50% Syringe 50 Ml IVP PER PROTOCOL PRN Hypoglycemia Protocol Enoxaparin Sodium 40 mg 06/13/24 09:00 Enoxaparin 40 Mg/0.4 Ml Syringe SQ DAILY MARGUERITE Folic Acid 1 mg 06/13/24 09:00 Folic Acid 1 Mg Tab PO DAILY MARGUERITE Insulin Aspart 0 unit 06/12/24 21:00 06/13/24 06:18 Insulin Aspart (Novolog) 100 Unit/Ml Vial SQ 9 unit ACHS MARGUERITE Administration Protocol Insulin Detemir 40 unit 06/12/24 23:15 06/12/24 23:48 Insulin Detemir (Levemir) 100 Unit/Ml Syr SQ 40 unit HS MARGUERITE Administration Mirtazapine 15 mg 06/12/24 23:00 06/12/24 23:46 Mirtazapine 15 Mg Tab PO 15 mg HS MARGUERITE Administration Naloxone HCl 0.2 mg 06/12/24 20:49 Naloxone 0.4 Mg/Ml 1 Ml Vial IV Q2M PRN Opioid Reversal Nicotine 1 patch 06/13/24 09:00 Nicotine 21mg/24hr Patch TRANSDERM DAILY MARGUERITE Pantoprazole Sodium 40 mg 06/13/24 09:00 Pantoprazole 40 Mg Tablet PO BID MARGUERITE Pioglitazone HCl 15 mg 06/13/24 09:00 Pioglitazone 15 Mg Tab PO DAILY MARGUERITE Propranolol HCl 10 mg 06/13/24 09:00 Propranolol 10 Mg Tab PO BID MARGUERITE Quetiapine Fumarate 50 mg 06/12/24 23:00 06/12/24 23:46 Quetiapine 50 Mg Tab PO 50 mg HS MARGUERITE Administration Thiamine HCl 100 mg 06/13/24 09:00 Thiamine 100 Mg Tab PO DAILY MARGUERITE Intake and Output 11/12/24 11/13/24 11/13/24 22:59 06:59 14:59 Other: # Voids 2 1 Weight 79.379 kg 79.379 kg 06/12/24 18:49 06/12/24 18:49
[2024-06-13 08:44] LABS: Basophils # (A) 0.07 X 10*3/uL (0.00-0.10); Eosinophils # (A) 0.23 X 10*3/uL (0.04-0.35); Eosinophils % (A) 3.2 %; HCT 30.3 % (39.6-50.0); HGB 8.5 g/dL (13.0-17.0); Lymphocytes # (A) 0.64 X 10*3/uL (0.90-5.00); MCH 22.6 pg (27.0-32.0); MCHC 28.1 g/dL (32.0-37.0); MCV 80.6 FL (80.0-97.0); Monocytes # (A) 0.85 X 10*3/uL (0.20-1.00); NRBC Per 100 WBC 0 X 10*3/uL (0.00-0.01); Neutrophils # (A) 5.28 X 10*3/uL (1.80-7.70); Neutrophils % (A) 74.2 %; Platelet Count 99 X 10*3/uL (140-440); RBC 3.76 X 10*6/uL (4.40-5.60); RDW 21.2 % (11.5-14.5); WBC 7.11 X 10*3/uL (4.50-10.00)
[2024-06-13] MEDS: ENOXAPARIN 40 MG/0.4 ML SYRINGE SQ SCH (08:55)
[2024-06-13] MEDS: amLODIPine 2.5 MG TAB PO SCH (08:55)
[2024-06-13] MEDS: ASPIRIN 81 MG PO SCH (08:55)
[2024-06-13] MEDS: PANTOPRAZOLE 40 MG TABLET PO SCH (08:55)
[2024-06-13] MEDS: NICOTINE 21MG/24HR PATCH TRANSDERM SCH (08:55)
[2024-06-13] MEDS: FOLIC ACID 1 MG TAB PO SCH (08:55)
[2024-06-13 09:00] LABS: BUN/Creat Ratio 31.86 Ratio (12.00-20.00); Blood Urea Nitrogen 22.3 mg/dL (9.0-27.0); Calcium 8.7 mg/dL (8.7-10.3); Carbon Dioxide 20.7 mmol/L (21.6-31.8); Chloride 104 mmol/L (96-109); Chol/HDL Ratio 3.63 Ratio; Glucose 263 mg/dL (70-110); Potassium 4.1 mmol/L (3.5-5.5); Sodium 137 mmol/L (135-145)
--- NOTE | 2024-06-13 11:24 | P.PN ---
Subjective Progress Note Date: 06/13/24 Hospital course: 44-year-old male with uncontrolled IDDM, hypertension and liver cirrhosis presented to the ER from [place] with a chief complaint of chest pain. Initial evaluation in the ER shows WBC 7.6, hemoglobin 8.6, MCV 81.3, platelet count 111, sodium 134, potassium 4.4, chloride 107, bicarb 18, BUN 29, creatinine 0.61, glucose 343, ALP 320, lipase 170, AST 47 and ALT 28. EKG in the ER showed sinus rhythm with heart rate of 83 and QTc of 4 6. Chest x-ray in the ER shows no acute cardiopulmonary process. Cardiac troponin levels have been trending negative. Cardiology was consulted. Patient to undergo stress echocardiogram. Subjective: Patient was seen and examined at the bedside. Patient is not complaining of any more chest pain. Denies any shortness of breath, nausea and vomiting. All Systems reviewed and pertinent positives and negatives noted in HPI, all other symptoms are negative Objective: Vital signs reviewed. General: non toxic, no distress, appears at stated age, normal weight Derm: no unusual rashes/lesions, warm HEENT: NC/AT, PERRLA, normal EOMI, no tracheal deviation. Mouth: no lip lesion, mucus membranes moist Cardiovascular: S1S2 reg, no murmur, positive dorsalis pedis pulse bilateral, no edema Lungs: CTA bilateral, no rhonchi, no rales, no accessory muscle use Abdominal: soft, nontender to palpation, no guarding Ext: muscle strength 5 out of 5 in all 4 extremities grossly, no gross muscle atrophy, no contractures, Psych: Alert, oriented, appropriate affect Data reviewed today: Pertinent Labs: WBC 7.1, hemoglobin 8.5, platelet count 99, sodium 137, potassium 4.1, bicarb 20.7, chloride 104, creatinine 0.7, glucose 160 HbA1c 10.4, triglyceride 158, LDL 106, TSH 1.64 Images: No new imaging Assessment and Plan: 44-year-old man with PMH of diabetes, hypertension, hyperlipidemia and liver cirrhosis presents to the emergency department from [place] following an episode of shortness of breath and left sided chest pain. The patient has been admitted for observation and further assesment of his atypical chest pain and cardiology consultation. Anticipated length of stay of 1-2 days. # Atypical chest pain, ACS ruled out Troponin trend: Negative Continue with aspirin 81 mg p.o. daily and Lipitor 40 mg p.o. daily Cardiology consulted, note reviewed, recs as below Stress echocardiogram this afternoon 2D echocardiogram for cardiac structure evaluation EKG and chest x-ray done in the ER are unremarkable Lipid panel: LDL 106, triglyceride 158 TSH: 1.64 #Uncontrolled IDDM Glucose on admission 302, patient given 4 units of Insulin Accu-Cheks and sliding scale insulin, monitor for hypoglycemia Continue with long-acting Levemir 40 units SQ at bedtime Hold oral glycemic medications Continue with carbohydrate consistent diet HbA1c 10.1 Outpatient diabetes management with PCP #Controlled hypertension -Continue home 2.5 mg daily Norvasc -Continue home Inderal 10 mg BID -Continue to monitor vital signs #Outpatient diagnosis of right periodontal pain/abscess Resume Augmentin 875-125 mg p.o. twice daily Outpatient follow-up with dental #Anion gap metabolic acidosis in the setting of cirrhotic liver disease Sodium 137, potassium 4.1, chloride 104,, bicarb 20.7, anion gap 12.3, Monitor BMP #History of Hyperlipidemia -Continue statin #Chronic tobacco dependence -Continue 21 mg per 24-hour nicotine patch #Cirrhotic Liver secondary to history of alcohol abuse #Chronic Thrombocytopenia #Chronic anemia -Continue home Thiamine 100 mg daily -Continue home Folate 1 mg daily -Continue to monitor CBC -Hgb 8.6 on arrival today -Reports no current bleeding/dark stools -If Hgb <7 blood transfusion F: P.o. E: Replete as needed N: Consistent carbohydrate A: Ambulatory without assist DVT ppx: Lovenox 40 mg subcu daily Code Status: Full code Anticipated discharge place: [place] [facility] Anticipated discharge date: Pending clinical course I have seen and evaluated the patient today. Discussed with the resident and agree with the residents finding and plan as documented in the resident's note. Changes highlighted in blue font. Objective - Vital Signs Vital signs: Vital Signs Temp 98.3 F 06/13/24 07:35 Pulse 91 06/13/24 07:35 Resp 16 06/13/24 07:35 BP 133/84 06/13/24 07:35 Pulse Ox 98 06/13/24 07:35 FiO2 Intake & Output 06/12/24 06/13/24 06/13/24 18:59 06:59 18:59 Weight 79.379 kg 79.379 kg Other: # Voids 1 - Labs CBC & Chem 7: 06/13/24 04:30 06/13/24 04:30 Labs: Abnormal Lab Results - Last 24 Hours (Table) 06/12/24 06/12/24 06/12/24 Range/Units 18:34 18:49 18:49 RBC 3.58 L (4.30-5.90) m/uL Hgb 8.6 L (13.0-17.5) gm/dL Hct 29.1 L (39.0-53.0) % MCH 24.1 L (25.0-35.0) pg MCHC 29.7 L (31.0-37.0) g/dL RDW 20.2 H (11.5-15.5) % Plt Count 111 L D (150-450) k/uL Lymphocytes # (0.90-5.00) X 10*3/uL Sodium 134 L (137-145) mmol/L Carbon Dioxide 18 L (22-30) mmol/L Anion Gap (4.00-12.00) mmol/L BUN 29 H (9-20) mg/dL Creatinine 0.61 L (0.66-1.25) mg/dL BUN/Creatinine Ratio (12.00-20.00) Ratio Glucose 343 H (74-99) mg/dL POC Glucose (mg/dL) 385 H (70-110) mg/dL Hemoglobin A1c (<=6.0) % Alkaline Phosphatase 320 H (38-126) U/L Triglycerides (0.00-149.00) mg/dL 06/12/24 06/12/24 06/13/24 Range/Units 20:21 20:56 02:21 RBC (4.30-5.90) m/uL Hgb (13.0-17.5) gm/dL Hct (39.0-53.0) % MCH (25.0-35.0) pg MCHC (31.0-37.0) g/dL RDW (11.5-15.5) % Plt Count (150-450) k/uL Lymphocytes # (0.90-5.00) X 10*3/uL Sodium (137-145) mmol/L Carbon Dioxide (22-30) mmol/L Anion Gap (4.00-12.00) mmol/L BUN (9-20) mg/dL Creatinine (0.66-1.25) mg/dL BUN/Creatinine Ratio (12.00-20.00) Ratio Glucose (74-99) mg/dL POC Glucose (mg/dL) 267 H 302 H 269 H (70-110) mg/dL Hemoglobin A1c (<=6.0) % Alkaline Phosphatase (38-126) U/L Triglycerides (0.00-149.00) mg/dL 06/13/24 06/13/24 06/13/24 Range/Units 04:30 04:30 04:30 RBC 3.76 L (4.30-5.90) m/uL Hgb 8.5 L (13.0-17.5) gm/dL Hct 30.3 L (39.0-53.0) % MCH 22.6 L (25.0-35.0) pg MCHC 28.1 L (31.0-37.0) g/dL RDW 21.2 H (11.5-15.5) % Plt Count 99 L (150-450) k/uL Lymphocytes # 0.64 L (0.90-5.00) X 10*3/uL Sodium (137-145) mmol/L Carbon Dioxide 20.7 L (22-30) mmol/L Anion Gap 12.30 H (4.00-12.00) mmol/L BUN (9-20) mg/dL Creatinine (0.66-1.25) mg/dL BUN/Creatinine Ratio 31.86 H (12.00-20.00) Ratio Glucose 263 H (74-99) mg/dL POC Glucose (mg/dL) (70-110) mg/dL Hemoglobin A1c 10.4 H (<=6.0) % Alkaline Phosphatase (38-126) U/L Triglycerides 158.00 H (0.00-149.00) mg/dL 06/13/24 Range/Units 06:00 RBC (4.30-5.90) m/uL Hgb (13.0-17.5) gm/dL Hct (39.0-53.0) % MCH (25.0-35.0) pg MCHC (31.0-37.0) g/dL RDW (11.5-15.5) % Plt Count (150-450) k/uL Lymphocytes # (0.90-5.00) X 10*3/uL Sodium (137-145) mmol/L Carbon Dioxide (22-30) mmol/L Anion Gap (4.00-12.00) mmol/L BUN (9-20) mg/dL Creatinine (0.66-1.25) mg/dL BUN/Creatinine Ratio (12.00-20.00) Ratio Glucose (74-99) mg/dL POC Glucose (mg/dL) 260 H (70-110) mg/dL Hemoglobin A1c (<=6.0) % Alkaline Phosphatase (38-126) U/L Triglycerides (0.00-149.00) mg/dL
[2024-06-13 12:28] LABS: Glucose,Whole Blood 147 mg/dL (70-110)
[2024-06-13] MEDS: PROPRANOLOL 10 MG TAB PO SCH (12:58)
[2024-06-13] MEDS: AMOXIC-POT CLAV 875-125MG 1 EACH TAB PO SCH (12:58)
[2024-06-13] MEDS: THIAMINE 100 MG TAB PO SCH (12:58)
[2024-06-13] MEDS: ACETAMINOPHEN TAB 325 MG TAB PO PRN (13:44)
--- NOTE | 2024-06-13 14:03 | CA ---
Stress Echo Report Dayron Tavares Age: 44 Gender: M : 1980 Exam Date: 06/13/2024 12:20 Exam Location: [facility] Ht (in): 67 Wt (lb): 175 Ordering Physician: Chelsea Berry Referring Physician: [id number] Lumber Marker: Emily Baires RDCS Technologist Procedure CPT: Indication: Chest Pain ICD-9 Codes: Rhythm: Patient History: Chest pain and Shortness of breath Cardiac Medications: Medications in past 24 hours: Contrast: Definity Stress Results Protocol: Tito Total dose(mL): 2 Exercise Duration (min:sec): 6:[address] Depression (mm): Angina Score: Burciaga Score: METS: 7.3 Resting HR: 97 Resting BP: 124 / 76 Peak HR: 143 Peak BP: 192 / 75 Max Predicted HR: 177 81 % Max Predicted HR Target HR: 150 Double Product: 32982 Stress Summary: BP Response: Reason for Termination: Maximal effort/unable to continue Cardiac Symptoms: Dyspnea ECG Analysis Resting ECG: Stress ECG: Arrhythmia: Echo Analysis Resting Echo: Peak Echo Analysis: MEASUREMENTS (Male/Female) Normal Values CONCLUSIONS The good exercise tolerance The patient achieved only 81% of maximum predicted heart rate Normal electrocardiogram and echocardiogram in response to exercise up to 81% of maximum predicted heart Dr. Ab Gomez MD (Electronically Signed) Final Date: 13 June 2024 14:02
--- NOTE | 2024-06-13 14:05 | CA ---
Transthoracic Echo Report Name: Dayron Tavares Age: 44 Gender: M : 1980 Exam Date: 06/13/2024 12:48 Exam Location: [facility] Ht (in): 67 Wt (lb): 165 Ordering Physician: Chelsea Berry Attending/Referring Phys: [id number], Kristi Content Architect Emily Baires RDCS Procedure CPT: Indications: LVF Cardiac Hx: Technical Quality: Fair Contrast 1: Total Dose (mL): Contrast 2: Total Dose (mL): MEASUREMENTS (Male / Female) Normal Values 2D ECHO LV Diastolic Diameter PLAX 4.3 cm 4.2 - 5.9 / 3.9 - 5.3 cm LV Systolic Diameter PLAX 3.5 cm IVS Diastolic Thickness 1.2 cm 0.6 - 1.0 / 0.6 - 0.9 cm LVPW Diastolic Thickness 1.2 cm 0.6 - 1.0 / 0.6 - 0.9 cm LV Relative Wall Thickness 0.5 RV Internal Dim ED PLAX 2.1 cm LA Systolic Diameter LX 3.5 cm 3.0 - 4.0 / 2.7 - 3.8 cm LV Diastolic Volume MOD BP 70.6 cm??? 67 - 155 / 56 - 104 cm??? LV Systolic Volume MOD BP 23.4 cm??? 22 - 58 / 19 - 49 cm??? LV Ejection Fraction MOD BP 66.9 % >= 55 % LV Cardiac Index MOD BP 2543.9 cm???/min???m??? LV Diastolic Volume MOD 4C 57.5 cm??? LV Systolic Volume MOD 4C 21.1 cm??? LV Ejection Fraction MOD 4C 63.3 % LV Cardiac Index MOD 4C 1961.2 cm???/min???m??? LV Diastolic Length 4C 7.9 cm LV Systolic Length 4C 6.8 cm LV Diastolic Volume MOD 2C 84.4 cm??? LV Systolic Volume MOD 2C 24.2 cm??? LV Ejection Fraction MOD 2C 71.3 % LV Cardiac Index MOD 2C 3243.3 cm???/min???m??? LV Diastolic Length 2C 7.6 cm LV Systolic Length 2C 6.2 cm LA Volume 43.8 cm??? 18 - 58 / 22 - 52 cm??? LA Volume Index 23.1 cm???/m??? 16 - 28 cm???/m??? M-MODE Aortic Root Diameter MM 3.0 cm LA Systolic Diameter MM 3.5 cm LA Ao Ratio MM 1.2 AV Cusp Separation MM 1.6 cm FINDINGS Left Ventricle Left ventricular ejection fraction is estimated at 60-65 %. Mildly increased septal wall thickness. Normal left ventricular systolic function with no obvious regional wall motion abnormalities. Left ventricular cavity size normal. Right Ventricle Normal right ventricular size and function. Right ventricular systolic pressure within normal limits. Right Atrium Normal right atrial size. Left Atrium Normal left atrial size. Mitral Valve Structurally normal mitral valve. Trace mitral regurgitation. No mitral stenosis. Aortic Valve Trileaflet aortic valve. Focal thickening of the aortic valve cusps. No aortic regurgitation. Tricuspid Valve Structurally normal tricuspid valve. Mild tricuspid regurgitation. No tricuspid stenosis. Pulmonic Valve Structurally normal pulmonic valve. No pulmonic stenosis. Trace pulmonic regurgitation. Pericardium No pericardial or pleural effusion. Aorta Normal size aortic root and proximal ascending aorta. CONCLUSIONS Normal biventricular systolic function No significant valvular abnormalities Normal pulmonary artery systolic pressure No pericardial effusion Previewed by: Dr. Ab Gomez MD (Electronically Signed) Final Date: 13 June 2024 14:04
[2024-06-13] MEDS: PIOGLITAZONE 15 MG TAB PO SCH (14:43)
[2024-06-13 15:50] VITALS: BP 131/80; PULSE 95; TEMP 99.5
--- NOTE | 2024-06-13 16:29 | P.DS ---
Providers Date of admission: 06/12/24 20:50 Expected date of discharge: 06/13/24 Attending physician: Adarsh Dee MD Consults: 06/12/24 20:49 Consult Physician Urgent Consulting Provider: [facility] Consult Reason/Comments: acute chest pain Do you want consulting provider notified?: Yes Primary care physician: Jessica [facility] Course: Discharge Diagnosis: Atypical chest pain Uncontrolled type 2 diabetes Hypertension High anion gap metabolic acidosis Liver cirrhosis Nicotine dependence Chronic thrombocytopenia and anemia Hospital Course: 44-year-old male with uncontrolled IDDM, hypertension and liver cirrhosis presented to the ER from [place] with a chief complaint of chest pain. Initial evaluation in the ER shows WBC 7.6, hemoglobin 8.6, MCV 81.3, platelet count 111, sodium 134, potassium 4.4, chloride 107, bicarb 18, BUN 29, creatinine 0.61, glucose 343, ALP 320, lipase 170, AST 47 and ALT 28. EKG in the ER showed sinus rhythm with heart rate of 83 and QTc of 4 6. Chest x-ray in the ER shows no acute cardiopulmonary process. Cardiac troponin levels have been trending negative. Cardiology was consulted. Stress echocardiogram was negative for ischemia. Normal biventricular systolic function. Patient being discharged back to [place]. Chest pain resolved. Patient seen and examined at bedside. Vital signs reviewed and stable. General: Nontoxic, no distress, appears at stated age Derm: Warm, dry Head: Atraumatic, normocephalic, symmetric Eyes: EOMI, no lid lag, anicteric sclera Mouth: No lip lesion, mucus membranes moist Cardiovascular: S1S2 reg, no murmur Lungs: CTA bilateral, no rhonchi, no rales, no accessory muscle use Abdominal: Soft, nontender to palpation, no guarding, no appreciable organomegaly Ext: No gross muscle atrophy, no edema, no contractures Neuro: CN II-XI grossly intact, no focal neuro deficits Psych: Alert, oriented, appropriate affect A total of 36 minutes of time were spent preparing this complex discharge summary. Patient was discharged on 06/13/2024 at 1626. Patient Condition at Discharge: Stable Plan - Discharge Summary Discharge Rx Participant: No New Discharge Prescriptions: Continue Mirtazapine [Remeron] 15 mg PO HS amLODIPine [Norvasc] 2.5 mg PO DAILY QUEtiapine [SEROquel] 50 mg PO HS Pioglitazone [Actos] 15 mg PO DAILY Insulin Glargine,Hum.rec.anlog [Lantus Solostar Pen] 40 units SQ HS Folic Acid 1 mg PO DAILY Calcium/Magnesium/Zinc/Vitamin D 334/134/5mg 1 tab PO TID PRN PRN Reason: muscle cramps Acetaminophen Tab [Tylenol] 650 mg PO Q4H busPIRone HCl [Buspar] 10 mg PO TID Pantoprazole Sodium [Protonix] 40 mg PO BID Propranolol [Inderal] 10 mg PO BID Nicotine 21Mg/24Hr Patch [Habitrol] 1 patch TRANSDERM DAILY Thiamine [Vitamin B-1] 100 mg PO DAILY #30 tab ondansetron HCL [Zofran] 8 mg PO Q6H PRN PRN Reason: Nausea And Vomiting Amoxic-Pot Clav 875-125Mg [Augmentin 875-125] 1 tab PO BID Insulin Regular, Human [NovoLIN R] See Protocol SQ ACHS Multivitamins, Thera [Multivitamin (formulary)] 1 tab PO DAILY Ibuprofen [Motrin Ib] 600 mg PO Q6H PRN PRN Reason: Pain cloNIDine HCL [Catapres] 0.1 - 0.3 mg PO Q4H PRN PRN Reason: bp greater than 160/100 Chlorpheniramine Maleate [Chlor-Trimeton] 4 mg PO Q4H PRN PRN Reason: Allergy Symptoms Discharge Medication List Pantoprazole Sodium [Protonix] 40 mg PO BID 08/17/22 [History] Folic Acid 1 mg PO DAILY 05/22/24 [History] Insulin Glargine,Hum.rec.anlog [Lantus Solostar Pen] 40 units SQ HS 05/22/24 [History] Mirtazapine [Remeron] 15 mg PO HS 05/22/24 [History] Nicotine 21Mg/24Hr Patch [Habitrol] 1 patch TRANSDERM DAILY 05/22/24 [History] Pioglitazone [Actos] 15 mg PO DAILY 05/22/24 [History] Propranolol [Inderal] 10 mg PO BID 05/22/24 [History] QUEtiapine [SEROquel] 50 mg PO HS 05/22/24 [History] amLODIPine [Norvasc] 2.5 mg PO DAILY 05/22/24 [History] Thiamine [Vitamin B-1] 100 mg PO DAILY #30 tab 05/24/24 [Rx] Acetaminophen Tab [Tylenol] 650 mg PO Q4H 06/12/24 [History] Amoxic-Pot Clav 875-125Mg [Augmentin 875-125] 1 tab PO BID 06/12/24 [History] Calcium/Magnesium/Zinc/Vitamin D 334/134/5mg 1 tab PO TID PRN 06/12/24 [History] Chlorpheniramine Maleate [Chlor-Trimeton] 4 mg PO Q4H PRN 06/12/24 [History] Ibuprofen [Motrin Ib] 600 mg PO Q6H PRN 06/12/24 [History] Insulin Regular, Human [NovoLIN R] See Protocol SQ ACHS 06/12/24 [History] Multivitamins, Thera [Multivitamin (formulary)] 1 tab PO DAILY 06/12/24 [History] busPIRone HCl [Buspar] 10 mg PO TID 06/12/24 [History] cloNIDine HCL [Catapres] 0.1 - 0.3 mg PO Q4H PRN 06/12/24 [History] ondansetron HCL [Zofran] 8 mg PO Q6H PRN 06/12/24 [History] Follow up Appointment(s)/Referral(s): Jessica Booker MD [Primary Care Provider] - 1-2 days Patient Instructions/Handouts: Noncardiac Chest Pain (DC) Discharge Disposition: OTHER INSTITUTION NOT DEFINED
[2024-06-13] MEDS ORDERED: MIRTAZAPINE 15 MG TAB PO SCH (21:00)
[2024-06-13] MEDS ORDERED: QUEtiapine 50 MG TAB PO SCH (21:00)
== END 2024-06-13 17:15 | disposition other institution (70) ==
LOC: SUPCPDRO 18:27 → EC 18:27 → 6NMEDSUR 20:50
PROVIDERS: ADMIT Internal Medicine; ATTEND Internal Medicine
DX: R07.89 Other chest pain (principal); E87.29 Other acidosis; D69.6 Thrombocytopenia, unspecified; D64.9 Anemia, unspecified; F17.210 Nicotine dependence, cigarettes, uncomplicated; E78.5 Hyperlipidemia, unspecified; E11.65 Type 2 diabetes mellitus with hyperglycemia; F10.10 Alcohol abuse, uncomplicated; K05.219 Aggressive periodontitis, localized, unspecified severity; K70.30 Alcoholic cirrhosis of liver without ascites; F41.9 Anxiety disorder, unspecified; H54.61 Unqualified visual loss, right eye, normal vision left eye; I10 Essential (primary) hypertension; Z79.4 Long term (current) use of insulin; Z79.899 Other long term (current) drug therapy; Z79.84 Long term (current) use of oral hypoglycemic drugs; Z82.49 Family history of ischemic heart disease and other diseases of the circulatory system
CPT/HCPCS: 96372; 99285; 36415; 93005; 93306; 85379; 80061; 80053; 80048; 84443; 83690; 83735; 84484; 85025 ×2; 85610; 85730; 83036; 71046; G0378 ×2; C8930; S4990; J1650; Q9957; 93351

== ENCOUNTER 2024-06-19 14:14 | Emergency (ER) | payer OTHER ==
--- NOTE | 2024-06-19 14:28 | ED ---
General Adult HPI - General Stated complaint: Hyperglycemia Time Seen by Provider: 06/19/24 14:16 Source: patient, EMS, RN notes reviewed, old records reviewed Mode of arrival: EMS Limitations: no limitations - History of Present Illness Initial comments: 44-year-old male presents emergency department with chief complaint of hyperglycemia. Patient was sent in from [facility] for hyperglycemia. Patient states that he has been in the 3-500 blood glucose range over the last s everal days states he is at [facility] for alcohol rehab. Patient states he has diabetic on injection does not have current insulin pump. Patient states he believes his blood sugars elevated secondary to dietary reasons. Patient denies any fevers chills cough or cold-like symptoms does mention some nausea he states has been trying to increase his fluid intake. - Related Data Home Medications Medication Instructions Recorded Confirmed Pantoprazole Sodium [Protonix] 40 mg PO BID 08/17/22 06/19/24 Folic Acid 1 mg PO DAILY 05/22/24 06/19/24 Insulin Glargine,Hum.rec.anlog 75 units SQ HS 05/22/24 06/19/24 [Lantus Solostar Pen] Mirtazapine [Remeron] 15 mg PO HS 05/22/24 06/19/24 Pioglitazone [Actos] 15 mg PO DAILY 05/22/24 06/19/24 Propranolol [Inderal] 10 mg PO BID 05/22/24 06/19/24 QUEtiapine [SEROquel] 50 mg PO HS 05/22/24 06/19/24 amLODIPine [Norvasc] 2.5 mg PO DAILY 05/22/24 06/19/24 Acetaminophen Tab [Tylenol] 650 mg PO Q4H PRN MDD 2,600mg 06/12/24 06/19/24 Calcium/Magnesium/Zinc/Vitamin D 1 tab PO TID PRN 06/12/24 06/19/24 334/134/5mg Chlorpheniramine Maleate 4 mg PO Q4H PRN 06/12/24 06/19/24 [Chlor-Trimeton] Ibuprofen [Motrin Ib] 600 mg PO Q6H PRN 06/12/24 06/19/24 Insulin Regular, Human [NovoLIN R] See Protocol SQ TID-W/MEALS 06/12/24 06/19/24 Multivitamins, Thera [Multivitamin 1 tab PO DAILY 06/12/24 06/19/24 (formulary)] busPIRone HCl [Buspar] 10 mg PO TID 06/12/24 06/19/24 cloNIDine HCL [Catapres] 0.1 - 0.3 mg PO Q4H PRN 06/12/24 06/19/24 ondansetron HCL [Zofran] 8 mg PO Q6H PRN 06/12/24 06/19/24 Insulin Regular, Human [NovoLIN R] 10 unit SQ TID-W/MEALS 06/19/24 06/19/24 Nicotine 14Mg/24Hr Patch [Habitrol 1 patch TRANSDERM DAILY 06/19/24 06/19/24 14Mg/24Hr Patch] metFORMIN HCL 1,000 mg PO BID 06/19/24 06/19/24 Previous Rx's Medication Instructions Recorded Thiamine [Vitamin B-1] 100 mg PO DAILY #30 tab 05/24/24 Allergies Allergy/AdvReac Type Severity Reaction Status Date / Time No Known Allergies Allergy Verified 06/19/24 15:07 Review of Systems ROS Statement: Those systems with pertinent positive or pertinent negative responses have been documented in the HPI. ROS Other: All systems not noted in ROS Statement are negative. 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 last drink was 06/06/24. currently at [facility] admitted on 06/07/24. will return upon d/c. Then go back to a detention in [facility]. Past Drug Use History: Marijuana - Past Family History Father Family Medical History: Diabetes Mellitus Mother Family Medical History: No Reported History General Exam Limitations: no limitations General appearance: alert, in no apparent distress Head exam: Present: atraumatic, normocephalic, normal inspection Eye exam: Present: normal appearance, PERRL, EOMI. Absent: scleral icterus, conjunctival injection, periorbital swelling ENT exam: Present: normal exam, normal oropharynx, mucous membranes moist Neck exam: Present: normal inspection, full ROM. Absent: tenderness, meningismus, lymphadenopathy Respiratory exam: Present: normal lung sounds bilaterally. Absent: respiratory distress, wheezes, rales, rhonchi, stridor Cardiovascular Exam: Present: regular rate, normal rhythm, normal heart sounds. Absent: systolic murmur, diastolic murmur, rubs, gallop, clicks GI/Abdominal exam: Present: soft, normal bowel sounds. Absent: distended, tenderness, guarding, rebound, rigid Neurological exam: Present: alert, oriented X3, CN II-XII intact Skin exam: Present: warm, dry, intact, normal color. Absent: rash Course Vital Signs 06/19/24 14:36 Temperature 99.1 F Pulse Rate 90 Respiratory 18 Rate Blood Pressure 149/92 O2 Sat by Pulse 98 Oximetry EKG Findings - EKG Comments: EKG Findings:: EKG performed at 14: 28 sinus rhythm rate of 87 MA 185 QRS 105 QT/QTc 358/4 3 - EKG Results: EKG: interpreted by [facility] Medical Decision Making - Medical Decision Making Was pt. sent in by a medical professional or institution ([facility]AT[facility] Matias, SLIP OPERATOR, urgent care, hospital, or [place] health care facility...) When possible be specific @ -[facility] Did you speak to anyone other than the patient for history (EMS, parent, family, police, friend...)? What history was obtained from this source @ -No Did you review nursing and triage notes (agree or disagree)? Why? @ -I reviewed and agree with nursing and triage notes Were old charts reviewed (outside hosp., previous admission, EMS record, old EKG, old radiological studies, urgent care reports/EKG's, [place] health care facility records)? Report findings @ -No old charts were reviewed Differential Diagnosis (chest pain, altered mental status, abdominal pain women, abdominal pain men, vaginal bleeding, weakness, fever, dyspnea, syncope, headache, dizziness, GI bleed, back pain, seizure, CVA, palpatations, mental health, musculoskeletal)? @ -DKA, HHS, hyperglycemia EKG interpreted by me (3pts min.). @ -As above X-rays interpreted by me (1pt min.). @ -None done CT interpreted by me (1pt min.). @ -None done U/S interpreted by me (1pt. min.). @ -None done What testing was considered but not performed or refused? (CT, X-rays, U/S, labs)? Why? @ -None What meds were considered but not given or refused? Why? @ -None Did you discuss the management of the patient with other professionals (professionals i.e. , PA, SLIP OPERATOR, lab, RT, psych nurse, social service assistant, computer operations analyst, teacher, executive officer special warfare team, supervisor case loading)? Give summary @ -No Was smoking cessation discussed for >3mins.? @ -No Was critical care preformed (if so, how long)? @ -No Were there social determinants of health that impacted care today? How? (Homelessness, low income, unemployed, alcoholism, drug addiction, transportation, low edu. Level, literacy, decrease access to med. care, halfway, rehab)? @ -No Was there de-escalation of care discussed even if they declined (Discuss DNR or withdrawal of care, Hospice)? DNR status @ -No What co-morbidities impacted this encounter? (DM, HTN, Smoking, COPD, CAD, Cancer, CVA, ARF, Chemo, Hep., AIDS, mental health diagnosis, sleep apnea, morbid obesity)? @ -Diabetes Was patient admitted / discharged? Hospital course, mention meds given and route, prescriptions, significant lab abnormalities, going to OR and other pertinent info. @ -Discharge patient laboratory studies not reveal any evidence of DKA. Patient does have hyperglycemia is improved this time was given 2 L of fluid, 10 units of regular insulin. Patient was discharged in stable condition we discussed modifying his diet at [facility]. Undiagnosed new problem with uncertain prognosis? @ -No Drug Therapy requiring intensive monitoring for toxicity (Heparin, Nitro, Insulin, Cardizem)? @ -No Were any procedures done? @ -No Diagnosis/symptom? @ -Hyperglycemia Acute, or Chronic, or Acute on Chronic? @ -Acute Uncomplicated (without systemic symptoms) or Complicated (systemic symptoms)? @ -Uncomplicated Side effects of treatment? @ -No Exacerbation, Progression, or Severe Exacerbation? @ -No Poses a threat to life or bodily function? How? (Chest pain, [place], [place], pneumonia, PE, COPD, DKA, ARF, appy, cholecystitis, CVA, Diverticulitis, Homicidal, Suicidal, threat to staff... and all critical care pts) @ -No - Lab Data Result diagrams: 06/19/24 14:54 06/19/24 14:54 Lab Results 06/19/24 06/19/24 06/19/24 Range/Units 14:54 14:54 14:54 WBC 9.2 (3.8-10.6) k/uL RBC 3.52 L (4.30-5.90) m/uL Hgb 8.5 L (13.0-17.5) gm/dL Hct 28.3 L (39.0-53.0) % MCV 80.4 (80.0-100.0) fL MCH 24.0 L (25.0-35.0) pg MCHC 29.9 L (31.0-37.0) g/dL RDW 20.8 H (11.5-15.5) % Plt Count 145 L (150-450) k/uL MPV 12.0 Neutrophils % 76 % Lymphocytes % 12 % Monocytes % 6 % Eosinophils % 3 % Basophils % 1 % Neutrophils # 7.0 (1.3-7.7) k/uL Lymphocytes # 1.1 (1.0-4.8) k/uL Monocytes # 0.6 (0-1.0) k/uL Eosinophils # 0.2 (0-0.7) k/uL Basophils # 0.1 (0-0.2) k/uL Large Platelets Present Polychromasia Present Hypochromasia Marked Anisocytosis Moderate Anisocytosis (manual) Present Microcytosis Slight Target Cells Present VBG pH (7.31-7.41) VBG pCO2 (37-51) mmHg VBG HCO3 (24-28) mmol/L Sodium 132 L (137-145) mmol/L Potassium 4.6 (3.5-5.1) mmol/L Chloride 102 (98-107) mmol/L Carbon Dioxide 23 (22-30) mmol/L Anion Gap 7 mmol/L BUN 22 H (9-20) mg/dL Creatinine 0.77 (0.66-1.25) mg/dL Est GFR (CKD-EPI)AfAm >90 (>60 ml/min/1.73 sqM) Est GFR (CKD-EPI)NonAf >90 (>60 ml/min/1.73 sqM) Glucose 409 H (74-99) mg/dL POC Glucose (mg/dL) (70-110) mg/dL POC Glu [employer] ID Plasma Lactic Acid Zeferino (0.7-2.0) mmol/L Calcium 8.9 (8.4-10.2) mg/dL Magnesium 1.9 (1.6-2.3) mg/dL Total Bilirubin 0.9 (0.2-1.3) mg/dL AST 42 (17-59) U/L ALT 33 (4-49) U/L Alkaline Phosphatase 432 H (38-126) U/L Total Protein 7.3 (6.3-8.2) g/dL Albumin 3.9 (3.5-5.0) g/dL Urine Color Colorless Urine Appearance Clear (Clear) Urine pH 6.5 (5.0-8.0) Ur Specific [place] 1.020 (1.001-1.035) Urine Protein Negative (Negative) Urine Glucose (UA) 4+ H (Negative) Urine Ketones Negative (Negative) Urine Blood Negative (Negative) Urine Nitrite Negative (Negative) Urine Bilirubin Negative (Negative) Urine Urobilinogen <2.0 (<2.0) mg/dL Ur Leukocyte Esterase Negative (Negative) Serum Alcohol <10 mg/dL 06/19/24 06/19/24 06/19/24 Range/Units 14:54 14:54 16:11 WBC (3.8-10.6) k/uL RBC (4.30-5.90) m/uL Hgb (13.0-17.5) gm/dL Hct (39.0-53.0) % MCV (80.0-100.0) fL MCH (25.0-35.0) pg MCHC (31.0-37.0) g/dL RDW (11.5-15.5) % Plt Count (150-450) k/uL MPV Neutrophils % % Lymphocytes % % Monocytes % % Eosinophils % % Basophils % % Neutrophils # (1.3-7.7) k/uL Lymphocytes # (1.0-4.8) k/uL Monocytes # (0-1.0) k/uL Eosinophils # (0-0.7) k/uL Basophils # (0-0.2) k/uL Large Platelets Polychromasia Hypochromasia Anisocytosis Anisocytosis (manual) Microcytosis Target Cells VBG pH 7.38 (7.31-7.41) VBG pCO2 43 (37-51) mmHg VBG HCO3 25 (24-28) mmol/L Sodium (137-145) mmol/L Potassium (3.5-5.1) mmol/L Chloride (98-107) mmol/L Carbon Dioxide (22-30) mmol/L Anion Gap mmol/L BUN (9-20) mg/dL Creatinine (0.66-1.25) mg/dL Est GFR (CKD-EPI)AfAm (>60 ml/min/1.73 sqM) Est GFR (CKD-EPI)NonAf (>60 ml/min/1.73 sqM) Glucose (74-99) mg/dL POC Glucose (mg/dL) 330 H (70-110) mg/dL POC Glu [employer] ID Genevieve Wong Plasma Lactic Acid Zeferino 1.4 (0.7-2.0) mmol/L Calcium (8.4-10.2) mg/dL Magnesium (1.6-2.3) mg/dL Total Bilirubin (0.2-1.3) mg/dL AST (17-59) U/L ALT (4-49) U/L Alkaline Phosphatase (38-126) U/L Total Protein (6.3-8.2) g/dL Albumin (3.5-5.0) g/dL Urine Color Urine Appearance (Clear) Urine pH (5.0-8.0) Ur Specific [place] (1.001-1.035) Urine Protein (Negative) Urine Glucose (UA) (Negative) Urine Ketones (Negative) Urine Blood (Negative) Urine Nitrite (Negative) Urine Bilirubin (Negative) Urine Urobilinogen (<2.0) mg/dL Ur Leukocyte Esterase (Negative) Serum Alcohol mg/dL Disposition Clinical Impression: Hyperglycemia Disposition: HOME SELF-CARE Condition: Stable Instructions (If sedation given, give patient instructions): Diabetic Hyperglycemia (ED) Additional Instructions: Please return to the Emergency Department if symptoms worsen or any other concerns. Is patient prescribed a controlled substance at d/c from ED?: No Referrals: Jessica Booker MD [Primary Care Provider] - 1-2 days Time of Disposition: 16:14
[2024-06-19 14:44] VITALS: RESP 18
[2024-06-19 15:02] LABS: VBG PH 7.38 (7.31-7.41)
[2024-06-19 15:03] LABS: Anisocytosis Moderate; Basophils # (A) 0.1 k/uL (0-0.2); Basophils % (A) 1 %; Eosinophils # (A) 0.2 k/uL (0-0.7); Eosinophils % (A) 3 %; HCT 28.3 % (39.0-53.0); HGB 8.5 gm/dL (13.0-17.5); Hypochromasia Marked; Lymphocytes # (A) 1.1 k/uL (1.0-4.8); Lymphocytes % (A) 12 %; MCHC 29.9 g/dL (31.0-37.0); MCV 80.4 fL (80.0-100.0); Microcytosis Slight; Monocytes # (A) 0.6 k/uL (0-1.0); Monocytes % (A) 6 %; Neutrophils % (A) 76 %; Platelet Count 145 k/uL (150-450); RBC 3.52 m/uL (4.30-5.90); RDW 20.8 % (11.5-15.5); WBC 9.2 k/uL (3.8-10.6)
[2024-06-19 15:05] LABS: Appearance,Urine Clear (Clear); Bilirubin,Urine Negative (Negative); Blood,Urine Negative (Negative); Color,Urine Colorless; Glucose,Urine (UA) 4+ (Negative); Ketones,Urine Negative (Negative); Leukocyte Esterase,Urine Negative (Negative); Nitrite,Urine Negative (Negative); PH, Urine 6.5 (5.0-8.0); Protein,Urine Negative (Negative); Urobilinogen,Urine <2.0 mg/dL (<2.0)
[2024-06-19] MEDS: SODIUM CHLORIDE 0.9% 2,000 ML IV ONE (15:11)
[2024-06-19 15:32] LABS: ALT 33 U/L (4-49); AST 42 U/L (17-59); African American GFR (CKD) >90 (>60 ml/min/1.73 sqM); Albumin 3.9 g/dL (3.5-5.0); Alcohol <10 mg/dL; Alkaline Phosphatase 432 U/L (38-126); Anion Gap 7 mmol/L; Blood Urea Nitrogen 22 mg/dL (9-20); Calcium 8.9 mg/dL (8.4-10.2); Carbon Dioxide 23 mmol/L (22-30); Chloride 102 mmol/L (98-107); Glucose 409 mg/dL (74-99); Magnesium 1.9 mg/dL (1.6-2.3); Non-African American GFR(CKD) >90 (>60 ml/min/1.73 sqM); Potassium 4.6 mmol/L (3.5-5.1); Sodium 132 mmol/L (137-145); Total Bilirubin 0.9 mg/dL (0.2-1.3); Total Protein 7.3 g/dL (6.3-8.2)
[2024-06-19 15:34] LABS: Anisocytosis (M) Present; Large Platelets Present; Polychromasia Present; Target Cells Present
[2024-06-19 16:14] LABS: Glucose,Whole Blood 330 mg/dL (70-110)
[2024-06-19] MEDS: INSULIN REGULAR 100 UNIT/ML VIAL (IV) IV ONE (16:20)
[2024-06-19 16:43] VITALS: BP 145/84; PULSE 96; TEMP 97.6
== END 2024-06-19 16:43 | disposition home or self-care (01) ==
LOC: EC 14:14
DX: E11.65 Type 2 diabetes mellitus with hyperglycemia (principal); F17.200 Nicotine dependence, unspecified, uncomplicated; Z79.4 Long term (current) use of insulin; Z79.84 Long term (current) use of oral hypoglycemic drugs
CPT/HCPCS: 36415; 93005; 80053; 82803; 83605; 83735; 85025; 81003; 99285; 96360; G0480; 80320

== ENCOUNTER 2024-09-30 23:24 | Inpatient (IN) | payer OTHER ==
[2024-09-30 23:44] LABS: Glucose,Whole Blood 503 mg/dL (70-110)
[2024-09-30] MEDS: ONDANSETRON 4 MG/2 ML VIAL IVP STA (23:46)
[2024-09-30] MEDS: MORPHINE SULFATE 4 MG/ML SYRINGE IV STA (23:46)
[2024-09-30] MEDS: SODIUM CHLORIDE 0.9% 2,000 ML IV ONE (23:49)
[2024-09-30] MEDS: PANTOPRAZOLE 40 MG/10 ML VIAL IVP ONE (23:50)
[2024-10-01] LABS: Anisocytosis Slight; Basophils # (A) 0.1 k/uL (0-0.2); Basophils % (A) 0 %; Eosinophils % (A) 0 %; HCT 45.7 % (39.0-53.0); HGB 12.5 gm/dL (13.0-17.5); Hypochromasia Marked; Lymphocytes # (A) 2.1 k/uL (1.0-4.8); Lymphocytes % (A) 13 %; MCH 26.4 pg (25.0-35.0); MCHC 27.4 g/dL (31.0-37.0); MCV 96.4 fL (80.0-100.0); Macrocytosis Slight; Mean Platelet Volume 9.5; Monocytes # (A) 0.7 k/uL (0-1.0); Monocytes % (A) 4 %; Neutrophils # (A) 13.7 k/uL (1.3-7.7); Neutrophils % (A) 82 %; Platelet Count 269 k/uL (150-450); RBC 4.74 m/uL (4.30-5.90); WBC 16.8 k/uL (3.8-10.6)
--- NOTE | 2024-10-01 00:02 | ED ---
General Adult HPI - General Chief complaint: Chest Pain Stated complaint: Chest Pain Time Seen by Provider: 09/30/24 23:37 Source: patient, EMS Mode of arrival: EMS Limitations: no limitations - History of Present Illness Initial comments: Patient is a 44-year-old male past medical history of alcoholism, diabetes, smoking today presenting today for chest pain. Patient states he was eating dinner and he began having sharp chest pain nausea and emesis. He vomited 4 times. First episode of emesis was clear in the next 3 contained bright red blood. Patient endorses associated shortness of breath. Patient received 324 mg of aspirin and 2 sublingual nitroglycerin from EMS without improvement of his pain. Patient also states that he drinks a pint of vodka a day last drink was Tuesday night. 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 Denies illicit drug use. Patient's father did have heart attack, patient is unsure at what age. Patient has no history of ACS or prior CVA. He denies fevers. Patient denies auditory hallucinations, tactile disturbances or headache. Endorses feeling "uncomfortable". Hx is limited by pain. - Related Data Home Medications Medication Instructions Recorded Confirmed Pantoprazole Sodium [Protonix] 40 mg PO BID 08/17/22 10/01/24 Folic Acid 1 mg PO DAILY 05/22/24 10/01/24 Insulin Glargine,Hum.rec.anlog 65 units SQ HS 05/22/24 10/01/24 [Lantus Solostar Pen] Mirtazapine [Remeron] 15 mg PO HS 05/22/24 10/01/24 Propranolol [Inderal] 10 mg PO BID 05/22/24 10/01/24 amLODIPine [Norvasc] 2.5 mg PO DAILY 05/22/24 10/01/24 Calcium/Magnesium/Zinc/Vitamin D 1 tab PO DAILY 06/12/24 10/01/24 334/134/5mg busPIRone HCl [Buspar] 10 mg PO TID 06/12/24 10/01/24 Ascorbic Acid [Vitamin C] 500 mg PO DAILY 10/01/24 10/01/24 Aspirin EC [Ecotrin Low Dose] 81 mg PO DAILY 10/01/24 10/01/24 Cholecalciferol (Vitamin D3) 1,250 mcg PO WEEKLY 10/01/24 10/01/24 [Vitamin D3 (1250 Mcg = 50,000 Iu)] Ferrous Sulfate [Feosol] 325 mg PO DAILY 10/01/24 10/01/24 Insulin Aspart [NovoLOG Flexpen] See Protocol SQ AC-TID 10/01/24 10/01/24 QUEtiapine [SEROquel] 100 mg PO HS 10/01/24 10/01/24 icosapent ethyL [Icosapent Ethyl] 2 gm PO DIRECTED 10/01/24 10/01/24 lisinopriL [Zestril] 2.5 mg PO DAILY 10/01/24 10/01/24 Previous Rx's Medication Instructions Recorded Thiamine [Vitamin B-1] 100 mg PO DAILY #30 tab 05/24/24 Allergies Allergy/AdvReac Type Severity Reaction Status Date / Time No Known Allergies Allergy Verified 10/01/24 11:09 Review of Systems ROS Statement: Those systems with pertinent positive or pertinent negative responses have been documented in the HPI. ROS Other: All systems not noted in ROS Statement are negative. 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, upper GIB esophageal varices, etoh abuse History of Any Multi-Drug Resistant Organisms: None Reported Past Surgical History: No Surgical Hx Reported Additional Past Surgical History / Comment(s): 3 eye surgeries, esophageal varices banded x3-4 Past Anesthesia/Blood Transfusion Reactions: No Reported Reaction Past Psychological History: Anxiety Smoking Status: Current every day smoker Past Alcohol Use History: Abuse, Heavy Past Drug Use History: None Reported - Past Family History Father Family Medical History: Diabetes Mellitus Mother Family Medical History: No Reported History General Exam - General Exam Comments Initial Comments: PE: CONSTITUTIONAL: In mild distress, ill-appearing, generalized pallor, painful appearing, nontoxic SKIN: Warm, dry, no jaundice, hives or petechiae EYES: Pupils are equally round, extraocular movements intact without nystagmus, clear conjunctiva, non-icteric sclera HENT: Normocephalic, atraumatic, exquisitely dry mucus membranes, oropharynx clear without exudates NECK: , Full range of motion, normal appearance PULMONARY: Clear to auscultation without wheezes, rhonchi, or rales, normal excu rsion, no accessory muscle use and no stridor, though exam is limited as patient moans frequently during exam despite redirection CARDIOVASCULAR: Tachycardia, regular rate, rhythm, normal S1 and S2. No appreciated murmurs, rubs or gallops. Strong radial pulses with intact distal perfusion. No lower extremity edema GASTROINTESTINAL: Soft, active bowel sounds throughout, diffusely tender, especially in the epigastrium, guarding with palpation of the abdomen non- distended, no palpable masses, guarding. No hepatosplenomegaly GENITOURINARY: MUSCULOSKELETAL: Extremities have no gross deformity, no edema, redness, or swelling. No calf swelling NEUROLOGIC:_a/o x 3, GCS 15, normal mentation and speech. Moves all extremities x 4 without motor or sensory deficit,no visible tremors no tongue fasciculations PSYCHIATRIC: Anxious mood and affect, restless, thought process is clear and linear Limitations: no limitations Course Vital Signs 09/30/24 09/30/24 10/01/24 23:27 23:39 00:00 Temperature 97.6 F Pulse Rate 125 H 112 H Pulse Rate [ 120 H Pulse Oximetery ] Respiratory 28 H 24 Rate Blood Pressure 142/109 171/108 O2 Sat by Pulse 100 100 Oximetry 10/01/24 10/01/24 10/01/24 01:00 01:30 02:00 Temperature Pulse Rate 116 H 118 H 122 H Pulse Rate [ Pulse Oximetery ] Respiratory 26 H 18 21 Rate Blood Pressure 163/113 158/130 173/121 O2 Sat by Pulse 100 100 100 Oximetry 10/01/24 10/01/24 10/01/24 02:30 03:00 03:30 Temperature Pulse Rate 125 H 126 H 126 H Pulse Rate [ Pulse Oximetery ] Respiratory 24 24 19 Rate Blood Pressure 168/102 149/110 139/94 O2 Sat by Pulse 100 100 100 Oximetry 10/01/24 10/01/24 10/01/24 04:00 04:30 05:00 Temperature Pulse Rate 125 H 123 H 126 H Pulse Rate [ Pulse Oximetery ] Respiratory 18 16 16 Rate Blood Pressure 143/97 131/91 126/90 O2 Sat by Pulse 100 98 98 Oximetry 10/01/24 10/01/24 10/01/24 05:30 06:00 07:47 Temperature 98.1 F Pulse Rate 123 H 123 H 117 H Pulse Rate [ Pulse Oximetery ] Respiratory 16 24 16 Rate Blood Pressure 128/97 127/92 124/90 O2 Sat by Pulse 99 100 97 Oximetry 10/01/24 10/01/24 10/01/24 08:47 09:34 10:31 Temperature Pulse Rate 114 H 118 H 78 Pulse Rate [ Pulse Oximetery ] Respiratory 16 16 18 Rate Blood Pressure 135/96 133/95 125/59 O2 Sat by Pulse 96 99 96 Oximetry 10/01/24 10/01/24 10/01/24 11:10 12:28 14:18 Temperature 99.0 F Pulse Rate 113 H 115 H 103 H Pulse Rate [ Pulse Oximetery ] Respiratory 16 16 14 Rate Blood Pressure 122/98 114/88 120/88 O2 Sat by Pulse 96 96 Oximetry 10/01/24 16:55 Temperature 98.9 F Pulse Rate 100 Pulse Rate [ Pulse Oximetery ] Respiratory 17 Rate Blood Pressure 113/85 O2 Sat by Pulse 98 Oximetry - Reevaluation(s) Reevaluation #1: We were called regarding critical labs, pH of 6.86,pCO2 24, bicarb 4, potassium 5.8 with slight hemolysis, lipase 3010. Pt will be started on DKA protocol, an amp of bicarb will be given due to severity of acidosis pH < 7. 10/01/24 00:40 10/01/24 00:40 10/01/24 00:40 EKG Findings - EKG Comments: EKG Findings:: Sinus tachycardia with first-degree AV block, SD interval 225 ms, rate 125 ms QT/QTc 352/426 ms, normal axis, peaked T waves present throughout, no clear ST elevations, no STEMI T wave inversions lead aVR. Repeat EKG obtained due to artifact on first EKG, shows sinus tachycardia, rate 111 bpm SD interval 212, prolonged SD interval, QT/QTc 376/442, normal axis, T waves do appear enlarged but less peaked than initial EKG, T wave inversion lead aVR and lead V2, no new ST elevations or depressions no STEMI Medical Decision Making - Medical Decision Making Was pt. sent in by a medical professional or institution (, PA, TINSMITH HELPER, urgent care, hospital, or custodial...) When possible be specific @ -No Did you speak to anyone other than the patient for history (EMS, parent, family, police, friend...)? What history was obtained from this source @ -No Did you review nursing and triage notes (agree or disagree)? Why? @ -I reviewed nursing and triage notes-States that patient presents for sternal chest pain nonradiating x 30 minutes, no alcohol for 48 hours, typically drinks a day insulin-dependent type 2 diabetic I agree with triage note Were old charts reviewed (outside hosp., previous admission, EMS record, old EKG, old radiological studies, urgent care reports/EKG's, custodial records)? Report findings @ -Medical records reviewed-patient was last here for hyperglycemia in June 2024,Stress test performed on 06/13/2024, apparently showed normal EKG changes and normal echo response Differential Diagnosis (chest pain, altered mental status, abdominal pain women, abdominal pain men, vaginal bleeding, weakness, fever, dyspnea, syncope, headache, dizziness, GI bleed, back pain, seizure, CVA, palpatations, mental health, musculoskeletal)? @Differential Chest Pain: Stable Angina, Unstable Angina, STEMI, NSTEMI Aortic Dissection, pericarditis, pleurisy, chostochondirits, Pneumothorax, Musculoskeletal, Esophageal Spasm GERD, Cholecystitis, Pancreatitis, Zoster, this is not meant to be an all- inclusive list. Additionally, and concern for DKA versus HHS, uncontrolled diabetes, Boerhaave syndrome, bleeding esophageal varices, peptic ulcer disease, Digna-Coto tear, and alcohol withdrawal syndrome EKG interpreted by me (3pts min.). @ -As above X-rays interpreted by me (1pt min.). @ -I personally reviewed chest x-ray, I see no evidence of cardiomegaly, consolidations, pleural effusions, pneumothorax, no free air under the diaphragm, no pneumomediastinum CT interpreted by me (1pt min.). @ -I personally reviewed CT chest abdomen pelvis, I do not see free air within the chest to indicate pneumomediastinum or signs of esophageal tear, the stomach does appear fluid-filled but no signs of bowel obstruction, pancreas does appear to have some fat stranding consistent with pancreatitis, I agree with radiologist interpretation U/S interpreted by me (1pt. min.). @ -None done What testing was considered but not performed or refused? (CT, X-rays, U/S, labs)? Why? @ -None What meds were considered but not given or refused? Why? @ -None Did you discuss the management of the patient with other professionals (professionals i.e. , PA, TINSMITH HELPER, lab, RT, psych nurse, social insurance administrator, lead mobile developer, teacher, investigation officer, high risk case manager)? Give summary @ -No Was smoking cessation discussed for >3mins.? @ -No Was critical care preformed (if so, how long)? @Yes, 45 minutes Were there social determinants of health that impacted care today? How? (Homelessness, low income, unemployed, alcoholism, drug addiction, transportation, low edu. Level, literacy, decrease access to med. care, long term, rehab)? @ -Alcohol abuse, decreased access to medical care/difficulty affording medications Was there de-escalation of care discussed even if they declined (Discuss DNR or withdrawal of care, Hospice)? @ -No What co-morbidities impacted this encounter? (DM, HTN, Smoking, COPD, CAD, Cancer, CVA, ARF, Chemo, Hep., AIDS, mental health diagnosis, sleep apnea, morbid obesity)? Alcoholism, smoking, type 2 diabetes Was patient admitted / discharged? Hospital course, mention meds given and route, prescriptions, significant lab abnormalities, going to OR and other pertinent info. Admission-this is a 44-year-old gent with a complicated past medical history, alcoholism, type 2 diabetes, current cigarette smoker presenting today for sharp substernal chest pain as well as 3 episodes of hematemesis. Also of note last drink was Tuesday night so appears to have a component of alcohol drawl to his symptoms as well. Patient seen and assessed on arrival. On my assessment he is ill-appearing, uncomfortable , moaning in pain. Sinus tachycardia on monitor, abdomen is diffusely tender but especially in the epigastrium. He has exquisitely dry mucous membranes. EKG was reviewed and does appear to show peaked T waves. Differential diagnosis as above however top considerations include bleeding esophageal varices, Boerhaave syndrome, Digna-Coto tear, in addition to ACS, alcohol withdrawal, DKA/HHS. Therefore patient will be treated with morphine and Zofran for pain control, Rocephin, liters IV fluids, Protonix, thiamine, 5 mg IV Valium comprehensive labs, stat portable chest x-ray to evaluate for pneumomediastinum and then CT chest abdomen pelvis. Anticipate admission for this patient. Mild leukocytosis white blood count 16.8, acetone positive. Currently pending CMP prior to initiating insulin drip.Hemoglobin is 12.5, on 08/23/2024's was 10.8, previously has been around 8. On reassessment patient's tachycardia has improved, he appears to be resting comfortably. CMP is remarkable for a potassium of 5.8 with slight hemolysis, and undetectable carbon dioxide level, glucose 507, lipase of 3010, troponin undetectable, lactic of 4.4 pH 6.86. DKA protocol was ordered, as well as an additional amp of bicarb given pH of less than 7. Case discussed with Amor White, kindly accepts pt for admission. Case discussed w/ Kaushik, FAIZAN with critical care, due to DKA. Of note while pt boarding in ER pending bed placement was persistently hyperte nsive and tachycardic, his pain appears controlled, and CIWA is rather low (5). Pt does take propranolol, will trial dose 10 mg propranolol and 2 mg additional ativan, as RN noted pt appeared to benefit from ativan. This seemed to marginally help with patient however I was then alerted that patient began hallucinating so 10 mg IV Valium was ordered as well with resultant improvement of symptoms, patient again sleeping comfortably, no longer hypotensive. Undiagnosed new problem with uncertain prognosis? @ -No Drug Therapy requiring intensive monitoring for toxicity (Heparin, Nitro, Insulin, Cardizem)? @ -No Were any procedures done? @ -No Diagnosis/symptom? @Alcohol withdrawal, DKA, pancreatitis Acute, or Chronic, or Acute on Chronic? Acute Uncomplicated (without systemic symptoms) or Complicated (systemic symptoms)? @Complicated Side effects of treatment? @ -No Exacerbation, Progression, or Severe Exacerbation? @ -No Poses a threat to life or bodily function? How? (Chest pain, USA, [place], pneumonia, PE, COPD, DKA, ARF, appy, cholecystitis, CVA, Diverticulitis, Homicidal, Suicidal, threat to staff... and all critical care pts) @Yes, all 3 of the above are potentially life-threatening, it alcohol withdrawal left untreated could lead to delirium tremens which is life-threatening - Lab Data Result diagrams: 10/01/24 12:02 10/01/24 12:02 Lab Results 09/30/24 09/30/24 09/30/24 Range/Units 23:42 23:42 23:42 WBC 16.8 H (3.8-10.6) k/uL RBC 4.74 (4.30-5.90) m/uL Hgb 12.5 L (13.0-17.5) gm/dL Hct 45.7 (39.0-53.0) % MCV 96.4 (80.0-100.0) fL MCH 26.4 (25.0-35.0) pg MCHC 27.4 L (31.0-37.0) g/dL RDW 19.0 H (11.5-15.5) % Plt Count 269 (150-450) k/uL MPV 9.5 Neutrophils % 82 % Lymphocytes % 13 % Monocytes % 4 % Eosinophils % 0 % Basophils % 0 % Neutrophils # 13.7 H (1.3-7.7) k/uL Lymphocytes # 2.1 (1.0-4.8) k/uL Monocytes # 0.7 (0-1.0) k/uL Eosinophils # 0.0 (0-0.7) k/uL Basophils # 0.1 (0-0.2) k/uL Hypochromasia Marked Anisocytosis Slight Macrocytosis Slight PT 11.3 (10.0-12.5) sec INR 1.0 (<1.2) APTT 27.6 (22.0-30.0) sec VBG pH (7.31-7.41) VBG pCO2 (37-51) mmHg VBG HCO3 (24-28) mmol/L Sodium 139 (137-145) mmol/L Potassium 5.8 H (3.5-5.1) mmol/L Chloride 100 (98-107) mmol/L Carbon Dioxide <5 L* (22-30) mmol/L Anion Gap mmol/L BUN 8 L (9-20) mg/dL Creatinine 0.92 (0.66-1.25) mg/dL Est GFR (CKD-EPI)AfAm >90 (>60 ml/min/1.73 sqM) Est GFR (CKD-EPI)NonAf >90 (>60 ml/min/1.73 sqM) Glucose 507 H* (74-99) mg/dL POC Glucose (mg/dL) (70-110) mg/dL POC Glu Paper Spooler ID Plasma Lactic Acid Zeferino (0.7-2.0) mmol/L Calcium 9.5 (8.4-10.2) mg/dL Phosphorus 7.4 H (2.5-4.5) mg/dL Magnesium 1.7 (1.6-2.3) mg/dL Total Bilirubin 1.7 H (0.2-1.3) mg/dL AST 46 (17-59) U/L ALT 30 (4-49) U/L Alkaline Phosphatase 430 H (38-126) U/L Troponin I (0.000-0.034) ng/mL NT-Pro-B Natriuret Pep 119 pg/mL Total Protein 9.7 H (6.3-8.2) g/dL Albumin 5.2 H (3.5-5.0) g/dL Amylase (30-110) U/L Lipase 3010 H (23-300) U/L Urine Color Urine Appearance (Clear) Urine pH (5.0-8.0) Ur Specific Erlanger (1.001-1.035) Urine Protein (Negative) Urine Glucose (UA) (Negative) Urine Ketones (Negative) Urine Blood (Negative) Urine Nitrite (Negative) Urine Bilirubin (Negative) Urine Urobilinogen (<2.0) mg/dL Ur Leukocyte Esterase (Negative) Urine RBC (0-5) /hpf Urine WBC (0-5) /hpf Hyaline Casts (0-2) /lpf Serum Alcohol <10 mg/dL Acetone, Qual (Negative) 09/30/24 09/30/24 09/30/24 Range/Units 23:42 23:42 23:42 WBC (3.8-10.6) k/uL RBC (4.30-5.90) m/uL Hgb (13.0-17.5) gm/dL Hct (39.0-53.0) % MCV (80.0-100.0) fL MCH (25.0-35.0) pg MCHC (31.0-37.0) g/dL RDW (11.5-15.5) % Plt Count (150-450) k/uL MPV Neutrophils % % Lymphocytes % % Monocytes % % Eosinophils % % Basophils % % Neutrophils # (1.3-7.7) k/uL Lymphocytes # (1.0-4.8) k/uL Monocytes # (0-1.0) k/uL Eosinophils # (0-0.7) k/uL Basophils # (0-0.2) k/uL Hypochromasia Anisocytosis Macrocytosis PT (10.0-12.5) sec INR (<1.2) APTT (22.0-30.0) sec VBG pH (7.31-7.41) VBG pCO2 (37-51) mmHg VBG HCO3 (24-28) mmol/L Sodium (137-145) mmol/L Potassium (3.5-5.1) mmol/L Chloride (98-107) mmol/L Carbon Dioxide (22-30) mmol/L Anion Gap mmol/L BUN (9-20) mg/dL Creatinine (0.66-1.25) mg/dL Est GFR (CKD-EPI)AfAm (>60 ml/min/1.73 sqM) Est GFR (CKD-EPI)NonAf (>60 ml/min/1.73 sqM) Glucose (74-99) mg/dL POC Glucose (mg/dL) 503 H* (70-110) mg/dL POC Glu Paper Spooler ID Jose Schwartz Plasma Lactic Acid Zeferino (0.7-2.0) mmol/L Calcium (8.4-10.2) mg/dL Phosphorus (2.5-4.5) mg/dL Magnesium (1.6-2.3) mg/dL Total Bilirubin (0.2-1.3) mg/dL AST (17-59) U/L ALT (4-49) U/L Alkaline Phosphatase (38-126) U/L Troponin I <0.012 (0.000-0.034) ng/mL NT-Pro-B Natriuret Pep pg/mL Total Protein (6.3-8.2) g/dL Albumin (3.5-5.0) g/dL Amylase (30-110) U/L Lipase (23-300) U/L Urine Color Urine Appearance (Clear) Urine pH (5.0-8.0) Ur Specific Erlanger (1.001-1.035) Urine Protein (Negative) Urine Glucose (UA) (Negative) Urine Ketones (Negative) Urine Blood (Negative) Urine Nitrite (Negative) Urine Bilirubin (Negative) Urine Urobilinogen (<2.0) mg/dL Ur Leukocyte Esterase (Negative) Urine RBC (0-5) /hpf Urine WBC (0-5) /hpf Hyaline Casts (0-2) /lpf Serum Alcohol mg/dL Acetone, Qual Positive (Negative) 09/30/24 10/01/24 10/01/24 Range/Units 23:42 00:04 00:15 WBC (3.8-10.6) k/uL RBC (4.30-5.90) m/uL Hgb (13.0-17.5) gm/dL Hct (39.0-53.0) % MCV (80.0-100.0) fL MCH (25.0-35.0) pg MCHC (31.0-37.0) g/dL RDW (11.5-15.5) % Plt Count (150-450) k/uL MPV Neutrophils % % Lymphocytes % % Monocytes % % Eosinophils % % Basophils % % Neutrophils # (1.3-7.7) k/uL Lymphocytes # (1.0-4.8) k/uL Monocytes # (0-1.0) k/uL Eosinophils # (0-0.7) k/uL Basophils # (0-0.2) k/uL Hypochromasia Anisocytosis Macrocytosis PT (10.0-12.5) sec INR (<1.2) APTT (22.0-30.0) sec VBG pH 6.86 L* (7.31-7.41) VBG pCO2 24 L (37-51) mmHg VBG HCO3 4 L* (24-28) mmol/L Sodium (137-145) mmol/L Potassium (3.5-5.1) mmol/L Chloride (98-107) mmol/L Carbon Dioxide (22-30) mmol/L Anion Gap mmol/L BUN (9-20) mg/dL Creatinine (0.66-1.25) mg/dL Est GFR (CKD-EPI)AfAm (>60 ml/min/1.73 sqM) Est GFR (CKD-EPI)NonAf (>60 ml/min/1.73 sqM) Glucose (74-99) mg/dL POC Glucose (mg/dL) (70-110) mg/dL POC Glu Paper Spooler ID Plasma Lactic Acid Zeferino 4.4 H* (0.7-2.0) mmol/L Calcium (8.4-10.2) mg/dL Phosphorus (2.5-4.5) mg/dL Magnesium (1.6-2.3) mg/dL Total Bilirubin (0.2-1.3) mg/dL AST (17-59) U/L ALT (4-49) U/L Alkaline Phosphatase (38-126) U/L Troponin I (0.000-0.034) ng/mL NT-Pro-B Natriuret Pep pg/mL Total Protein (6.3-8.2) g/dL Albumin (3.5-5.0) g/dL Amylase 200 H (30-110) U/L Lipase (23-300) U/L Urine Color Urine Appearance (Clear) Urine pH (5.0-8.0) Ur Specific Erlanger (1.001-1.035) Urine Protein (Negative) Urine Glucose (UA) (Negative) Urine Ketones (Negative) Urine Blood (Negative) Urine Nitrite (Negative) Urine Bilirubin (Negative) Urine Urobilinogen (<2.0) mg/dL Ur Leukocyte Esterase (Negative) Urine RBC (0-5) /hpf Urine WBC (0-5) /hpf Hyaline Casts (0-2) /lpf Serum Alcohol mg/dL Acetone, Qual (Negative) 10/01/24 Range/Units 00:33 WBC (3.8-10.6) k/uL RBC (4.30-5.90) m/uL Hgb (13.0-17.5) gm/dL Hct (39.0-53.0) % MCV (80.0-100.0) fL MCH (25.0-35.0) pg MCHC (31.0-37.0) g/dL RDW (11.5-15.5) % Plt Count (150-450) k/uL MPV Neutrophils % % Lymphocytes % % Monocytes % % Eosinophils % % Basophils % % Neutrophils # (1.3-7.7) k/uL Lymphocytes # (1.0-4.8) k/uL Monocytes # (0-1.0) k/uL Eosinophils # (0-0.7) k/uL Basophils # (0-0.2) k/uL Hypochromasia Anisocytosis Macrocytosis PT (10.0-12.5) sec INR (<1.2) APTT (22.0-30.0) sec VBG pH (7.31-7.41) VBG pCO2 (37-51) mmHg VBG HCO3 (24-28) mmol/L Sodium (137-145) mmol/L Potassium (3.5-5.1) mmol/L Chloride (98-107) mmol/L Carbon Dioxide (22-30) mmol/L Anion Gap mmol/L BUN (9-20) mg/dL Creatinine (0.66-1.25) mg/dL Est GFR (CKD-EPI)AfAm (>60 ml/min/1.73 sqM) Est GFR (CKD-EPI)NonAf (>60 ml/min/1.73 sqM) Glucose (74-99) mg/dL POC Glucose (mg/dL) (70-110) mg/dL POC Glu Paper Spooler ID Plasma Lactic Acid Zeferino (0.7-2.0) mmol/L Calcium (8.4-10.2) mg/dL Phosphorus (2.5-4.5) mg/dL Magnesium (1.6-2.3) mg/dL Total Bilirubin (0.2-1.3) mg/dL AST (17-59) U/L ALT (4-49) U/L Alkaline Phosphatase (38-126) U/L Troponin I (0.000-0.034) ng/mL NT-Pro-B Natriuret Pep pg/mL Total Protein (6.3-8.2) g/dL Albumin (3.5-5.0) g/dL Amylase (30-110) U/L Lipase (23-300) U/L Urine Color Colorless Urine Appearance Clear (Clear) Urine pH 6.0 (5.0-8.0) Ur Specific Erlanger 1.022 (1.001-1.035) Urine Protein 3+ H (Negative) Urine Glucose (UA) 4+ H (Negative) Urine Ketones 4+ H (Negative) Urine Blood Small H (Negative) Urine Nitrite Negative (Negative) Urine Bilirubin Negative (Negative) Urine Urobilinogen <2.0 (<2.0) mg/dL Ur Leukocyte Esterase Negative (Negative) Urine RBC 1 (0-5) /hpf Urine WBC <1 (0-5) /hpf Hyaline Casts 3 H (0-2) /lpf Serum Alcohol mg/dL Acetone, Qual (Negative) Disposition Clinical Impression: Pancreatitis, DKA (diabetic ketoacidosis), Alcohol withdrawal Disposition: ADMITTED IP TO THIS HOSP Condition: Stable
[2024-10-01] MEDS: THIAMINE 100 MG/ML 2 ML VIAL IM STA (00:04)
[2024-10-01] MEDS: cefTRIAXone IN SWFI 1,000 MG/10 ML SYRINGE IVP STA (00:05)
[2024-10-01 00:15] LABS: ALT 30 U/L (4-49); African American GFR (CKD) >90 (>60 ml/min/1.73 sqM); Albumin 5.2 g/dL (3.5-5.0); Alcohol <10 mg/dL; Blood Urea Nitrogen 8 mg/dL (9-20); Calcium 9.5 mg/dL (8.4-10.2); Chloride 100 mmol/L (98-107); Non-African American GFR(CKD) >90 (>60 ml/min/1.73 sqM); Sodium 139 mmol/L (137-145); Total Bilirubin 1.7 mg/dL (0.2-1.3); Total Protein 9.7 g/dL (6.3-8.2)
[2024-10-01 00:23] LABS: NT-Pro-B-Type Natriuretic Pept 119 pg/mL; Partial Thromboplastin Time 27.6 sec (22.0-30.0); Prothrombin Time 11.3 sec (10.0-12.5)
[2024-10-01 00:29] LABS: VBG PH 6.86 (7.31-7.41)
[2024-10-01 00:36] LABS: Glucose 507 mg/dL (74-99)
[2024-10-01 00:37] LABS: AST 46 U/L (17-59); Carbon Dioxide <5 mmol/L (22-30); Magnesium 1.7 mg/dL (1.6-2.3); Phosphorus 7.4 mg/dL (2.5-4.5); Potassium 5.8 mmol/L (3.5-5.1)
[2024-10-01 00:38] LABS: Alkaline Phosphatase 430 U/L (38-126); Lipase 3010 U/L (23-300)
[2024-10-01] MEDS ORDERED: LORazepam 2 MG/ML INJ IV PRN (00:53)
--- NOTE | 2024-10-01 00:53 | XR ---
EXAM: XR Chest, 1 View CLINICAL HISTORY: Sharp chest pain, began after vomit. esoph varices TECHNIQUE: Frontal view of the chest. COMPARISON: 06/12/2024. FINDINGS: Lungs: No infiltrate. No atelectasis. No CHF. Pleural space: No pleural effusion. No pneumothorax. Heart: Unremarkable. No cardiomegaly. Mediastinum: Unremarkable. Normal mediastinal contour. Bones/joints: Unremarkable. No acute fracture. IMPRESSION: No acute abnormality.
[2024-10-01 01:05] LABS: Appearance,Urine Clear (Clear); Bilirubin,Urine Negative (Negative); Blood,Urine Small (Negative); Color,Urine Colorless; Glucose,Urine (UA) 4+ (Negative); Hyaline Casts,Urine 3 /lpf (0-2); Leukocyte Esterase,Urine Negative (Negative); Nitrite,Urine Negative (Negative); Protein,Urine 3+ (Negative); RBC,Urine 1 /hpf (0-5); Specific Gravity,Urine 1.022 (1.001-1.035); Urobilinogen,Urine <2.0 mg/dL (<2.0); WBC,Urine <1 /hpf (0-5)
[2024-10-01] MEDS: INSULIN REGULAR BOLUS (FROM DRIP BAG) IV ONE (01:15)
[2024-10-01] MEDS: SODIUM CHLORIDE 0.9% 1,000 ML IV SCH (01:16)
[2024-10-01] MEDS: SODIUM BICARB 8.4% 50 ML SYR (1 MEQ/ML) IV STA ×3 (01:16→14:46)
[2024-10-01] MEDS: INSULIN REGULAR 100 UNIT in SODIUM CHLORIDE 0.9% 100 ML IV SCH (01:16)
[2024-10-01 01:18] LABS: Glucose,Whole Blood 456 mg/dL (70-110)
[2024-10-01] MEDS: LORazepam 2 MG/ML INJ IV PRN ×2 (01:23→14:58)
[2024-10-01 01:24] LABS: Ketones,Urine 4+ (Negative)
[2024-10-01] MEDS: D5-0.45% NACL WITH KCL 20MEQ/L 1,000 ML IV SCH ×2 (01:26→02:39)
[2024-10-01 02:26] LABS: Glucose,Whole Blood 261 mg/dL (70-110)
[2024-10-01] MEDS: LORazepam 2 MG/ML INJ IV STA (02:34)
[2024-10-01] MEDS: PROPRANOLOL 10 MG TAB PO STA (02:34)
--- NOTE | 2024-10-01 02:35 | CT ---
EXAM: CT Chest With Intravenous Contrast CLINICAL HISTORY: Chest/epigastric ab pain w/ hematemesis TECHNIQUE: Axial computed tomography images of the chest with intravenous contrast. CTDI is 8.5 mGy and DLP is 666 mGy-cm. This CT exam was performed using one or more of the following dose reduction techniques: automated exposure control, adjustment of the mA and/or kV according to patient size, and/or use of iterative reconstruction technique. COMPARISON: No relevant prior studies available. FINDINGS: Lungs: Unremarkable. No mass. No consolidation. Pleural space: Unremarkable. No pneumothorax. No pleural effusion. Heart: Unremarkable. No cardiomegaly. No significant pericardial effusion. Coronary artery calcifications. Bones/joints: Unremarkable. No acute fracture. Soft tissues: Distal thoracic esophageal wall thickening. No identifiable varicosities. Vasculature: Unremarkable. No thoracic aortic aneurysm. Lymph nodes: Unremarkable. No enlarged lymph nodes. IMPRESSION: Nonspecific mild distal thoracic esophageal wall thickening. EXAM: CT Abdomen and Pelvis With Intravenous Contrast CLINICAL HISTORY: Chest/epigastric ab pain w/ hematemesis TECHNIQUE: Axial computed tomography images of the abdomen and pelvis with intravenous contrast. CTDI is 10.1 mGy and DLP is 356.7 mGy-cm. This CT exam was performed using one or more of the following dose reduction techniques: automated exposure control, adjustment of the mA and/or kV according to patient size, and/or use of iterative reconstruction technique. COMPARISON: No relevant prior studies available. FINDINGS: ABDOMEN: Liver: Enlarged 20.7 cm length. Hypodense/fatty perilobular margins consistent with cirrhosis. Recannulated periumbilical vein consistent with portal hypertension. Portal vein appears patent. No mass. Gallbladder and bile ducts: Small gallstones within the partially contracted gallbladder with nonspecific wall thickening. No ductal dilation. Pancreas: Minimal amount of peripancreatic infiltration. Pancreas otherwise unremarkable. No mass. No ductal dilation. Spleen: Unremarkable. No splenomegaly. Adrenals: Unremarkable. No mass. Kidneys and ureters: Punctate nonobstructing calculus in the lower pole of the left kidney. No obstructing renal or ureteral calculi. No hydronephrosis or hydroureter. Stomach and bowel: No obstruction or ileus. Nonspecific diffuse colonic wall thickening greatest from the right through left colon. No evidence for diverticulitis. PELVIS: Appendix: No findings to suggest acute appendicitis. Bladder: Unremarkable. No mass. Reproductive: Unremarkable as visualized. ABDOMEN and PELVIS: Intraperitoneal space: No free air. No free fluid. Bones/joints: No acute fracture. Soft tissues: Unremarkable. Vasculature: Atherosclerotic vascular calcifications. No abdominal aortic aneurysm. Lymph nodes: Unremarkable. No enlarged lymph nodes. IMPRESSION: Cirrhotic appearing liver. Small varicosities consistent with portal hypertension. Small amount of peripancreatic infiltration suggesting pancreatitis. Pancreas is otherwise unremarkable. Cholelithiasis. No evidence for acute cholecystitis or biliary obstruction. Nonspecific diffuse colonic wall thickening/colitis involving the right through left colon.
--- NOTE | 2024-10-01 02:57 | P.CNPUL ---
History of Present Illness Consult date: 10/01/24 Requesting physician: Kimberly Gauthier Reason for consult: other (Diabetic ketoacidosis) Chief complaint: Nausea, vomiting, elevated blood sugars History of present illness: Patient is a 44-year-old male with past medical history significant for diabetes mellitus, hypertension, hyperlipidemia, alcohol abuse, GI bleed and esophageal varices, and everyday tobacco smoker. Patient presented to emergency department late last night, reportedly developed severe epigastric pain followed by nausea and vomiting after eating dinner earlier yesterday evening. Four reported episodes of emesis with bright red blood. Patient does have history of alcohol abuse, drinks approximately 1/5/day. His last drink was on Tuesday. Serum alcohol was less than 10 on arrival. Reportedly, has history of esophageal varices and alcohol withdrawal seizures. Also, reports history of pancreatitis. Lipase was elevated at 3010 and amylase of 200. Workup in the emergency department consistent with diabetic ketoacidosis with a blood glucose of 503, serum bicarb less than 5, anion gap unmeasurable, as well as ketone and acetone positive. Patient states that he has not been taking his diabetic medications for the last several days. Patient was started on DKA protocol in the ED. CBC: WBC count of 16.8, hemoglobin 12.5, hematocrit 45.7, platelets 269. CMP: Sodium 139, potassium 5.8, chloride 100, serum bicarb less than 5, anion gap unmeasurable, BUN 8, creatinine 0.92, g most recent blood glucose 456. Lactic was 4.4. AST 46, ALT 30, ALP 430, total bilirubin 1.7. UA unremarkable for infection. Troponin less than 0.012. NT proBNP 119. EKG: Sinus tachycardia, rate 125 bpm. No obvious acute ischemic pattern. Chest x-ray did not show any acute cardiopulmonary process. Patient currently being evaluated the emergency department. Insulin is currently infusing per protocol. Normal saline continu es at 200 mL/h. Patient also received a 2 L fluid bolus with normal saline earlier. Currently, patient is lethargic, but does wake up and answer questions appropriately. Kussmaul breathing pattern. Continues to have epigastric discomfort. Described as severe and stabbing, rated 10 on a [address] scale[address] A [address] of the chest, abdomen and pelvis is ordered. Has an elevated lipase to amylase ratio. Denies history of gallstones. No further nausea or vomiting or hematemesis. Unclear if the patient has had previous EGD. Patient denies any melena or hematochezia. Unclear if the patient is currently taking any NSAIDs. CIWA scores are being monitored. Current vital signs: Temperature 97.6 F, heart rate 112 bpm, blood pressure 171/108 mmHg, tachypneic, SpO2 is 100% on room air. Review of Systems Constitutional: Reports poor appetite, Reports weakness, Denies chills, Denies fatigue, Denies fever, Denies sweats Ears, nose, mouth and throat: Reports headache, Denies nasal congestion, Denies nasal discharge, Denies post-nasal drip, Denies sinus pressure, Denies sore throat Cardiovascular: Denies chest pain, Denies leg edema, Denies lightheadedness, Denies orthopnea, Denies palpitations, Denies paroxysmal nocturnal dyspnea, Denies shortness of breath Respiratory: Denies congestion, Denies cough, Denies dyspnea, Denies respiratory infections Gastrointestinal: Reports as per HPI Genitourinary: Denies dysuria Musculoskeletal: Denies limitation of motion Integumentary: Denies rash, Denies sores Neurological: Denies seizures, Denies syncope Psychiatric: Denies anxiety, Denies depression 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, upper GIB esophageal varices, etoh abuse History of Any Multi-Drug Resistant Organisms: None Reported Past Surgical History: No Surgical Hx Reported Additional Past Surgical History / Comment(s): 3 eye surgeries, esophageal varices banded x3-4 Past Anesthesia/Blood Transfusion Reactions: No Reported Reaction Past Psychological History: Anxiety Smoking Status: Current every day smoker Past Alcohol Use History: Abuse, Heavy Past Drug Use History: None Reported - Past Family History Father Family Medical History: Diabetes Mellitus Mother Family Medical History: No Reported History Medications and Allergies Home Medications Medication Instructions Recorded Confirmed Type Pantoprazole Sodium [Protonix] 40 mg PO BID 08/17/22 06/19/24 History Folic Acid 1 mg PO DAILY 05/22/24 06/19/24 History Insulin Glargine,Hum.rec.anlog 75 units SQ HS 05/22/24 06/19/24 History [Lantus Solostar Pen] Mirtazapine [Remeron] 15 mg PO HS 05/22/24 06/19/24 History Pioglitazone [Actos] 15 mg PO DAILY 05/22/24 06/19/24 History Propranolol [Inderal] 10 mg PO BID 05/22/24 06/19/24 History QUEtiapine [SEROquel] 50 mg PO HS 05/22/24 06/19/24 History amLODIPine [Norvasc] 2.5 mg PO DAILY 05/22/24 06/19/24 History Thiamine [Vitamin B-1] 100 mg PO DAILY #30 tab 05/24/24 06/19/24 Rx Acetaminophen Tab [Tylenol] 650 mg PO Q4H PRN MDD 2,600mg 06/12/24 06/19/24 History Calcium/Magnesium/Zinc/Vitamin D 1 tab PO TID PRN 06/12/24 06/19/24 History 334/134/5mg Chlorpheniramine Maleate 4 mg PO Q4H PRN 06/12/24 06/19/24 History [Chlor-Trimeton] Ibuprofen [Motrin Ib] 600 mg PO Q6H PRN 06/12/24 06/19/24 History Insulin Regular, Human [NovoLIN R] See Protocol SQ TID-W/MEALS 06/12/24 06/19/24 History Multivitamins, Thera [Multivitamin 1 tab PO DAILY 06/12/24 06/19/24 History (formulary)] busPIRone HCl [Buspar] 10 mg PO TID 06/12/24 06/19/24 History cloNIDine HCL [Catapres] 0.1 - 0.3 mg PO Q4H PRN 06/12/24 06/19/24 History ondansetron HCL [Zofran] 8 mg PO Q6H PRN 06/12/24 06/19/24 History Insulin Regular, Human [NovoLIN R] 10 unit SQ TID-W/MEALS 06/19/24 06/19/24 History Nicotine 14Mg/24Hr Patch [Habitrol 1 patch TRANSDERM DAILY 06/19/24 06/19/24 History 14Mg/24Hr Patch] metFORMIN HCL 1,000 mg PO BID 06/19/24 06/19/24 History Allergies Allergy/AdvReac Type Severity Reaction Status Date / Time No Known Allergies Allergy Verified 09/30/24 23:26 Physical Exam Vitals: Vital Signs Temp Pulse Pulse Resp BP Pulse Ox 10/01/24 02:00 122 H 21 173/121 100 10/01/24 01:30 118 H 18 158/130 100 10/01/24 01:00 116 H 26 H 163/113 100 10/01/24 00:00 112 H 24 171/108 100 09/30/24 23:39 120 H 09/30/24 23:27 97.6 F 125 H 28 H 142/109 100 Intake and Output 09/30/24 09/30/24 10/01/24 14:59 22:59 06:59 Intake Total 2000 Output Total 350 Balance 1650 Intake: IV 2000 Sodium Chloride 0.9% 2, 2000 000 ml @ 999 mls/hr IV . Q2H1M ONE Rx#:[id number] Output: Urine 350 Other: Weight 74.843 kg GENERAL EXAM: Lethargic, 44-year-old male, awakens and answers questions appropriately. HEAD: Normocephalic and atraumatic EYES: Normal reaction of pupils, equal size. NOSE: Clear with pink turbinates. THROAT: No erythema or exudates. Dry mucous membranes. NECK: No masses, no JVD. CHEST: No chest wall deformity. LUNGS: Equal air entry with no crackles, wheeze, rhonchi or dullness. On room air. No conversational dyspnea or accessory muscle use.. CVS: S1 and S2 normal with no audible murmur, regular rhythm. No extra heart sounds. Tachycardic. ABDOMEN: Abdomen is flat, is soft, guarding with palpation of the epigastric area, no hepatosplenomegaly. No periumbilical or flank bruising. No further episodes of emesis so far. SPINE: No scoliosis or deformity SKIN: No rashes CENTRAL NERVOUS SYSTEM: No focal deficits, tone is normal in all 4 extremities. EXTREMITIES: There is no peripheral edema, clubbing, or cyanosis. Peripheral pu lses are intact. Results - Laboratory Findings CBC and BMP: 09/30/24 23:42 09/30/24 23:42 PT/INR, D-dimer PT 11.3 sec (10.0-12.5) 09/30/24 23:42 INR 1.0 (<1.2) 09/30/24 23:42 Abnormal lab findings: Abnormal Labs 09/30/24 09/30/24 09/30/24 23:42 23:42 23:42 WBC 16.8 H Hgb 12.5 L MCHC 27.4 L RDW 19.0 H Neutrophils # 13.7 H VBG pH VBG pCO2 VBG HCO3 Potassium 5.8 H Carbon Dioxide <5 L* BUN 8 L Glucose 507 H* POC Glucose (mg/dL) 503 H* Plasma Lactic Acid Zeferino Phosphorus 7.4 H Total Bilirubin 1.7 H Alkaline Phosphatase 430 H Total Protein 9.7 H Albumin 5.2 H Amylase Lipase 3010 H Urine Protein Urine Glucose (UA) Urine Ketones Urine Blood Hyaline Casts 09/30/24 10/01/24 10/01/24 23:42 00:04 00:15 WBC Hgb MCHC RDW Neutrophils # VBG pH 6.86 L* VBG pCO2 24 L VBG HCO3 4 L* Potassium Carbon Dioxide BUN Glucose POC Glucose (mg/dL) Plasma Lactic Acid Zeferino 4.4 H* Phosphorus Total Bilirubin Alkaline Phosphatase Total Protein Albumin Amylase 200 H Lipase Urine Protein Urine Glucose (UA) Urine Ketones Urine Blood Hyaline Casts 10/01/24 10/01/24 00:33 01:17 WBC Hgb MCHC RDW Neutrophils # VBG pH VBG pCO2 VBG HCO3 Potassium Carbon Dioxide BUN Glucose POC Glucose (mg/dL) 456 H Plasma Lactic Acid Zeferino Phosphorus Total Bilirubin Alkaline Phosphatase Total Protein Albumin Amylase Lipase Urine Protein 3+ H Urine Glucose (UA) 4+ H Urine Ketones 4+ H Urine Blood Small H Hyaline Casts 3 H - Diagnostic Findings Chest x-ray: image reviewed Assessment and Plan Assessment: Acute diabetic ketoacidosis, secondary to medication noncompliance; blood glucose of 503, serum bicarb less than 5, anion gap unmeasurable, as well as, ketone and acetone positive. Severe anion gap metabolic acidosis, secondary to above and lactic acidosis Acute pancreatitis; lipase 3010, amylase 200 Chronic alcohol abuse, reportedly drinks 1/5 of liquor per day, last drink approximately 48-72 hours ago Hematemesis, no further episodes while in the ED Acute leukocytosis, possibly reactive Hyperkalemia, potassium 5.8 mmol/L Hypertension History of hyperlipidemia Current ongoing tobacco dependence Plan: Patient's medications, labs, chest x-ray reviewed Patient continues on DKA protocol Monitor electrolytes every 4 hours Continue aggressive IV fluid resuscitation, currently normal saline infusing at 200 mL/h PRN analgesics ordered Consult GI; CT of the chest/abdomen/pelvis pending Monitor for alcohol withdrawal symptoms and continue with CIWA protocol GI prophylaxis: Protonix Patient will be admitted to the intensive care unit once bed available I have personally seen and examined the patient, performed the documentation and the assessment and plan as written. Number of minutes spent on the visit:20 This dictation was produced using [employer] dictation software please excuse grammatical errors Time with Patient: Greater than 30
[2024-10-01 03:02] LABS: Glucose,Whole Blood 267 mg/dL (70-110)
[2024-10-01 03:36] LABS: Glucose,Whole Blood 272 mg/dL (70-110)
--- NOTE | 2024-10-01 03:49 | P.HPIM ---
History of Present Illness H&P Date: 10/01/24 Chief Complaint: Abdominal pain 44-year-old male with diabetes mellitus on insulin, alcohol abuse, history of esophageal varices Patient provides very limited history due to his clinical status, chart review done in the ED and case discussed with ED doctor Patient reports couple days of not taking his insulin as he ran out he presented to the ED last night due to severe abdominal pain associated with nausea and vomiting with bright red blood. He does admit to history of GI bleed and heavy alcohol consumption No further history is obtainable at this time, it is not clear if the patient is taking any NSAIDs, or blood thinners. Patient is not answering when was his last drink Patient has not had any episodes of GI bleed while in the ED In the ED patient was found hyperglycemic with diabetic ketoacidosis. In addition to elevated lipase suspicious of underlying pancreatitis Patient was initiated on DKA protocol with insulin drip and IV fluid hydration and was admitted to the ICU Review of systems Limited due to patient mental status secondary to underlying DKA on exam Constitutional: Patient is lethargic arousable but drifts back to sleep quickly Eyes: Anicteric sclerae, moist conjunctiva, Pupils unequal with right pupil blown, left pupil round reactive to light, patient explains being blind on the right eye ENMT: NC/AT Oropharynx clear, no erythema, or exudates Lungs: Clear to auscultation Clear to percussion Normal respiratory effort, no accessory muscle use Cardiovascular: Heart regular in rate and rhythm, No murmurs, gallops, or rubs No peripheral edema Abdominal: Soft Tender diffusely and to deep palpation in the epigastric region , no guarding, rebound or rigidity Abdomen moving with respiration Normoactive bowel sounds Extremities: No digital cyanosis No clubbing Pedal pulses intact and symmetrical Radial pulses intact and symmetrical No calf tenderness Psychiatric: Patient lethargic arousable follows simple commands drifts back to sleep quickly oriented to self and place Neuro Limited patient did not cooperate with neuroexam however he is moving all 4 extremities spontaneously and purposefully 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, upper GIB esophageal varices, etoh abuse History of Any Multi-Drug Resistant Organisms: None Reported Past Surgical History: No Surgical Hx Reported Additional Past Surgical History / Comment(s): 3 eye surgeries, esophageal varices banded x3-4 Past Anesthesia/Blood Transfusion Reactions: No Reported Reaction Past Psychological History: Anxiety Smoking Status: Current every day smoker Past Alcohol Use History: Abuse, Heavy Past Drug Use History: None Reported - Past Family History Father Family Medical History: Diabetes Mellitus Mother Family Medical History: No Reported History Medications and Allergies Home Medications Medication Instructions Recorded Confirmed Type Pantoprazole Sodium [Protonix] 40 mg PO BID 08/17/22 06/19/24 History Folic Acid 1 mg PO DAILY 05/22/24 06/19/24 History Insulin Glargine,Hum.rec.anlog 75 units SQ HS 05/22/24 06/19/24 History [Lantus Solostar Pen] Mirtazapine [Remeron] 15 mg PO HS 05/22/24 06/19/24 History Pioglitazone [Actos] 15 mg PO DAILY 05/22/24 06/19/24 History Propranolol [Inderal] 10 mg PO BID 05/22/24 06/19/24 History QUEtiapine [SEROquel] 50 mg PO HS 05/22/24 06/19/24 History amLODIPine [Norvasc] 2.5 mg PO DAILY 05/22/24 06/19/24 History Thiamine [Vitamin B-1] 100 mg PO DAILY #30 tab 05/24/24 06/19/24 Rx Acetaminophen Tab [Tylenol] 650 mg PO Q4H PRN MDD 2,600mg 06/12/24 06/19/24 History Calcium/Magnesium/Zinc/Vitamin D 1 tab PO TID PRN 06/12/24 06/19/24 History 334/134/5mg Chlorpheniramine Maleate 4 mg PO Q4H PRN 06/12/24 06/19/24 History [Chlor-Trimeton] Ibuprofen [Motrin Ib] 600 mg PO Q6H PRN 06/12/24 06/19/24 History Insulin Regular, Human [NovoLIN R] See Protocol SQ TID-W/MEALS 06/12/24 06/19/24 History Multivitamins, Thera [Multivitamin 1 tab PO DAILY 06/12/24 06/19/24 History (formulary)] busPIRone HCl [Buspar] 10 mg PO TID 06/12/24 06/19/24 History cloNIDine HCL [Catapres] 0.1 - 0.3 mg PO Q4H PRN 06/12/24 06/19/24 History ondansetron HCL [Zofran] 8 mg PO Q6H PRN 06/12/24 06/19/24 History Insulin Regular, Human [NovoLIN R] 10 unit SQ TID-W/MEALS 06/19/24 06/19/24 History Nicotine 14Mg/24Hr Patch [Habitrol 1 patch TRANSDERM DAILY 06/19/24 06/19/24 History 14Mg/24Hr Patch] metFORMIN HCL 1,000 mg PO BID 06/19/24 06/19/24 History Allergies Allergy/AdvReac Type Severity Reaction Status Date / Time No Known Allergies Allergy Verified 09/30/24 23:26 Physical Exam Vitals: Vital Signs Temp Pulse Pulse Resp BP Pulse Ox 10/01/24 03:30 126 H 19 139/94 100 10/01/24 03:00 126 H 24 149/110 100 10/01/24 02:30 125 H 24 168/102 100 10/01/24 02:00 122 H 21 173/121 100 10/01/24 01:30 118 H 18 158/130 100 10/01/24 01:00 116 H 26 H 163/113 100 10/01/24 00:00 112 H 24 171/108 100 09/30/24 23:39 120 H 09/30/24 23:27 97.6 F 125 H 28 H 142/109 100 Intake and Output 09/30/24 09/30/24 10/01/24 14:59 22:59 06:59 Intake Total 2150 Output Total 850 Balance 1300 Intake: IV 2150 D5-0.45% NaCl with KCl 150 20Meq/l 1,000 ml @ 150 mls/hr IV .Q6H40M [facility] Rx# :[id number] Sodium Chloride 0.9% 2, 2000 000 ml @ 999 mls/hr IV . Q2H1M ONE Rx#:[id number] Output: Urine 850 Other: Weight 74.843 kg Results CBC & Chem 7: 09/30/24 23:42 09/30/24 23:42 Labs: Abnormal Lab Results - Last 24 Hours (Table) 09/30/24 09/30/24 09/30/24 Range/Units 23:42 23:42 23:42 WBC 16.8 H (3.8-10.6) k/uL Hgb 12.5 L (13.0-17.5) gm/dL MCHC 27.4 L (31.0-37.0) g/dL RDW 19.0 H (11.5-15.5) % Neutrophils # 13.7 H (1.3-7.7) k/uL VBG pH (7.31-7.41) VBG pCO2 (37-51) mmHg VBG HCO3 (24-28) mmol/L Potassium 5.8 H (3.5-5.1) mmol/L Carbon Dioxide <5 L* (22-30) mmol/L BUN 8 L (9-20) mg/dL Glucose 507 H* (74-99) mg/dL POC Glucose (mg/dL) 503 H* (70-110) mg/dL Plasma Lactic Acid Zeferino (0.7-2.0) mmol/L Phosphorus 7.4 H (2.5-4.5) mg/dL Total Bilirubin 1.7 H (0.2-1.3) mg/dL Alkaline Phosphatase 430 H (38-126) U/L Total Protein 9.7 H (6.3-8.2) g/dL Albumin 5.2 H (3.5-5.0) g/dL Amylase (30-110) U/L Lipase 3010 H (23-300) U/L Urine Protein (Negative) Urine Glucose (UA) (Negative) Urine Ketones (Negative) Urine Blood (Negative) Hyaline Casts (0-2) /lpf 09/30/24 10/01/24 10/01/24 Range/Units 23:42 00:04 00:15 WBC (3.8-10.6) k/uL Hgb (13.0-17.5) gm/dL MCHC (31.0-37.0) g/dL RDW (11.5-15.5) % Neutrophils # (1.3-7.7) k/uL VBG pH 6.86 L* (7.31-7.41) VBG pCO2 24 L (37-51) mmHg VBG HCO3 4 L* (24-28) mmol/L Potassium (3.5-5.1) mmol/L Carbon Dioxide (22-30) mmol/L BUN (9-20) mg/dL Glucose (74-99) mg/dL POC Glucose (mg/dL) (70-110) mg/dL Plasma Lactic Acid Zeferino 4.4 H* (0.7-2.0) mmol/L Phosphorus (2.5-4.5) mg/dL Total Bilirubin (0.2-1.3) mg/dL Alkaline Phosphatase (38-126) U/L Total Protein (6.3-8.2) g/dL Albumin (3.5-5.0) g/dL Amylase 200 H (30-110) U/L Lipase (23-300) U/L Urine Protein (Negative) Urine Glucose (UA) (Negative) Urine Ketones (Negative) Urine Blood (Negative) Hyaline Casts (0-2) /lpf 10/01/24 10/01/24 10/01/24 Range/Units 00:33 01:17 02:24 WBC (3.8-10.6) k/uL Hgb (13.0-17.5) gm/dL MCHC (31.0-37.0) g/dL RDW (11.5-15.5) % Neutrophils # (1.3-7.7) k/uL VBG pH (7.31-7.41) VBG pCO2 (37-51) mmHg VBG HCO3 (24-28) mmol/L Potassium (3.5-5.1) mmol/L Carbon Dioxide (22-30) mmol/L BUN (9-20) mg/dL Glucose (74-99) mg/dL POC Glucose (mg/dL) 456 H 261 H (70-110) mg/dL Plasma Lactic Acid Zeferino (0.7-2.0) mmol/L Phosphorus (2.5-4.5) mg/dL Total Bilirubin (0.2-1.3) mg/dL Alkaline Phosphatase (38-126) U/L Total Protein (6.3-8.2) g/dL Albumin (3.5-5.0) g/dL Amylase (30-110) U/L Lipase (23-300) U/L Urine Protein 3+ H (Negative) Urine Glucose (UA) 4+ H (Negative) Urine Ketones 4+ H (Negative) Urine Blood Small H (Negative) Hyaline Casts 3 H (0-2) /lpf 10/01/24 10/01/24 Range/Units 03:00 03:33 WBC (3.8-10.6) k/uL Hgb (13.0-17.5) gm/dL MCHC (31.0-37.0) g/dL RDW (11.5-15.5) % Neutrophils # (1.3-7.7) k/uL VBG pH (7.31-7.41) VBG pCO2 (37-51) mmHg VBG HCO3 (24-28) mmol/L Potassium (3.5-5.1) mmol/L Carbon Dioxide (22-30) mmol/L BUN (9-20) mg/dL Glucose (74-99) mg/dL POC Glucose (mg/dL) 267 H 272 H (70-110) mg/dL Plasma Lactic Acid Zeferino (0.7-2.0) mmol/L Phosphorus (2.5-4.5) mg/dL Total Bilirubin (0.2-1.3) mg/dL Alkaline Phosphatase (38-126) U/L Total Protein (6.3-8.2) g/dL Albumin (3.5-5.0) g/dL Amylase (30-110) U/L Lipase (23-300) U/L Urine Protein (Negative) Urine Glucose (UA) (Negative) Urine Ketones (Negative) Urine Blood (Negative) Hyaline Casts (0-2) /lpf Assessment and Plan Assessment: 44-year-old male with alcohol abuse, diabetes mellitus on insulin, history of GI bleed coming into the ED due to abdominal pain and hematemesis I discussed case with ED doctor and accepted the admission for DKA and pancreatitis with anticipated length of stay more than 2 midnights Plan: Diabetic ketoacidosis secondary to noncompliance with insulin Severe anion gap metabolic acidosis Bicarb less than 5, positive acetone, blood sugar more than 500, anion gap unmeasurable Patient initiated on DKA protocol Aggressive IV fluid hydration status post normal saline bolus 2 L then continue 200 cc/h Insulin drip Monitor glucose hourly Monitor electrolytes every 2 hours Initial potassium 5.8 Monitor urine output Monitor vital signs Cardiac monitoring Admission to the ICU ICU consult Acute pancreatitis Most likely secondary to alcohol abuse Serum lipase more than 3000 Continue with aggressive IV fluid hydration with normal saline Pain control with Dilaudid as needed 1 mg IV push every 3 hours N.p.o. Suspected upper GI bleed History of GI bleed secondary to esophageal varices Protonix IV push 80 mg Continue with Protonix IV push 40 mg twice daily No further episode of bleeding in the ED Current hemoglobin is 12.5 suspected to be some component of hemoconcentration Continue to monitor hemoglobin every 6 hours Consider GI evaluation if hemoglobin starts dropping or patient starts having GI bleed Alcohol abuse pending alcohol withdrawal Benzo per CIWA scale Monitor for alcohol withdrawal Seizure precautions Thiamine daily DVT prophylaxis mechanical secondary to suspected GI bleed Full code
[2024-10-01 04:17] LABS: African American GFR (CKD) >90 (>60 ml/min/1.73 sqM); Blood Urea Nitrogen 8 mg/dL (9-20); Chloride 109 mmol/L (98-107); Glucose 162 mg/dL (74-99); Non-African American GFR(CKD) >90 (>60 ml/min/1.73 sqM); Sodium 144 mmol/L (137-145)
[2024-10-01 04:21] LABS: Carbon Dioxide <5 mmol/L (22-30)
[2024-10-01 04:27] LABS: Anisocytosis Slight; HCT 42.6 % (39.0-53.0); HGB 11.6 gm/dL (13.0-17.5); Hypochromasia Marked; MCH 26.1 pg (25.0-35.0); MCHC 27.3 g/dL (31.0-37.0); MCV 95.5 fL (80.0-100.0); Macrocytosis Slight; Mean Platelet Volume 9.9; RBC 4.46 m/uL (4.30-5.90); WBC 15.2 k/uL (3.8-10.6)
[2024-10-01 04:30] LABS: Platelet Count 131 k/uL (150-450)
[2024-10-01 04:38] LABS: Glucose,Whole Blood 164 mg/dL (70-110)
[2024-10-01 04:52] LABS: Band Neutrophils % 25 %; Eosinophils # (M) 0.15 k/uL (0-0.7); Metamyelocytes # (M) 0.15 k/uL (0); Metamyelocytes % 1 %; Monocytes # (M) 1.37 k/uL (0-1.0); Neutrophils % (M) 62 %; Nucleated Red Blood Cells 0 /100 WBC (0-0); Total Cells Counted 200
[2024-10-01 05:32] LABS: Glucose,Whole Blood 218 mg/dL (70-110)
[2024-10-01 06:20] LABS: Glucose,Whole Blood 167 mg/dL (70-110)
[2024-10-01 07:21] LABS: Glucose,Whole Blood 143 mg/dL (70-110)
[2024-10-01 08:44] LABS: African American GFR (CKD) >90 (>60 ml/min/1.73 sqM); Blood Urea Nitrogen 9 mg/dL (9-20); Chloride 111 mmol/L (98-107); Glucose 130 mg/dL (74-99); Non-African American GFR(CKD) >90 (>60 ml/min/1.73 sqM); Potassium 3.8 mmol/L (3.5-5.1); Sodium 141 mmol/L (137-145)
[2024-10-01 08:53] LABS: Carbon Dioxide <5 mmol/L (22-30)
[2024-10-01 08:56] LABS: Glucose,Whole Blood 181 mg/dL (70-110)
[2024-10-01 09:43] LABS: Glucose,Whole Blood 205 mg/dL (70-110)
[2024-10-01 10:46] LABS: Glucose,Whole Blood 246 mg/dL (70-110)
[2024-10-01] MEDS: PANTOPRAZOLE 40 MG/10 ML VIAL IVP SCH (11:10)
[2024-10-01] MEDS ORDERED: Phosphorus Replacement Protoco 1 EACH MISC MISCELLANE PRN (11:25)
[2024-10-01 11:46] LABS: Glucose,Whole Blood 245 mg/dL (70-110)
--- NOTE | 2024-10-01 11:46 | P.PN ---
Subjective Progress Note Date: 10/01/24 Hospital Course: 44-year-old male with past medical history of insulin-dependent diabetes, HTN, HLD, history of alcohol abuse, tobacco use disorder, history of cirrhotic liver secondary to alcohol abuse, reported history of esophageal varices, who presented to the ER on 09/30 with severe abdominal pain, nausea, vomiting with bright red blood. Patient admits history of GI bleed, heavy alcohol c onsumption, history is very limited as patient is confused on admission. Per chart review, appears that he ran out of his insulin for several days. Patient underwent extensive workup in the ER, was diagnosed with severe anion gap metabolic acidosis secondary to DKA, acute pancreatitis with a lipase of 3010, admitted for further management, ICU, GI consulted for possible GI bleed. CT abdomen showed cirrhotic liver with small varicosities consistent with portal hypertension, signs of pancreatitis, cholelithiasis with no biliary obstruction, nonspecific diffuse colonic wall thickening/colitis Patient required multiple doses of Ativan and Valium in the ER prior to my evaluation, thus, he was not able to participate in 4 hours, although complained of abdominal pain, denied nausea, vomiting. Subjective: Complains of abdominal pain, thirst, no nausea or vomiting Pertinent positives and negatives as discussed above, a complete review of systems was performed and all other systems are negative. Vitals Signs Reviewed. General: Sick appearing, ill-appearing Derm: [warm], [dry] Head: [atraumatic], [normocephalic], [symmetric] Eyes: [EOMI], [no lid lag], [anicteric sclera] Mouth: [no lip lesion], [mucus membranes moist] Cardiovascular: [S1S2 reg], [no murmur] Lungs: [CTA bilateral], [no rhonchi, no rales] , [no accessory muscle use] Abdominal generalized tenderness Ext: [no gross muscle atrophy], [no edema], [no contractures] Neuro: [ CN II-XI grossly intact], [no focal neuro deficits] Psych: [alert Data Reviewed Today: Pertinent Labs: Sodium and potassium normal, bicarb less than 5 and undetectable anion gap still, glucose 130, creatinine normal, phosphorus low 1.4 Assessment and Plan: Severe anion gap metabolic acidosis DKA Insulin noncompliance Insulin-dependent uncontrolled diabetes mellitus hypophosphatemia -Continue DKA protocol -ICU consulted, appreciate recommendations -Serial ABG and BMP -Continue IV fluids, continue -Ordered push of bicarb -Monitor electrolytes, replace as needed -A1c pending -Monitor intake output -Continue telemetry Acute pancreatitis Nonspecific diffuse colonic wall thickening Cirrhotic liver Portal hypertension History of GI bleed reportedly -GI consulted -No signs of GI bleeding since admission -Liver profile ordered -Continue with IV Protonix 40 twice daily -Continue pain management with IV Dilaudid, IV fluids -N.p.o. -Serial CBC Alcohol use disorder Alcohol withdrawal -CIWA with Ativan -Seizure precautions -Continue folic acid and thiamine DVT ppx: SCD Code status full code Anticipated discharge place: Pending clinical stability Anticipated discharge time: Pending clinical stability Objective - Vital Signs Vital signs: Vital Signs Temp 98.1 F 10/01/24 06:00 Pulse 113 H 10/01/24 11:10 Resp 16 10/01/24 11:10 BP 122/98 10/01/24 11:10 Pulse Ox 96 10/01/24 11:10 FiO2 Intake & Output 09/30/24 10/01/24 10/01/24 18:59 06:59 18:59 Intake Total 2791.779 157.846 Output Total 1350 0 Balance 1441.779 157.846 Weight 74.843 kg Intake: IV 2750 150 D5-0.45% NaCl with KCl 750 150 20Meq/l 1,000 ml @ 150 mls/hr IV .[id number] [facility] Rx# :[id number] Sodium Chloride 0.9% 2, 2000 000 ml @ 999 mls/hr IV . Q2H1M [facility] Rx#:[id number] Intake, IV Titration 41.779 7.846 Amount Insulin Regular 100 unit 41.779 7.846 In Sodium Chloride 0.9% 100 ml @ 0.1 UNITS/KG/HR 7.559 mls/hr IV .[id number] [facility] Rx#:[id number] Output: Urine 1350 0 - Labs CBC & Chem 7: 10/01/24 03:49 10/01/24 07:53 Labs: Abnormal Lab Results - Last 24 Hours (Table) 09/30/24 09/30/24 09/30/24 Range/Units 23:42 23:42 23:42 WBC 16.8 H (3.8-10.6) k/uL Hgb 12.5 L (13.0-17.5) gm/dL MCHC 27.4 L (31.0-37.0) g/dL RDW 19.0 H (11.5-15.5) % Plt Count (150-450) k/uL Neutrophils # 13.7 H (1.3-7.7) k/uL Neutrophils # (Manual) (1.3-7.7) k/uL Lymphocytes # (Manual) (1.0-4.8) k/uL Monocytes # (Manual) (0-1.0) k/uL Metamyelocytes # (Man) (0) k/uL VBG pH (7.31-7.41) VBG pCO2 (37-51) mmHg VBG HCO3 (24-28) mmol/L Potassium 5.8 H (3.5-5.1) mmol/L Chloride (98-107) mmol/L Carbon Dioxide <5 L* (22-30) mmol/L BUN 8 L (9-20) mg/dL Glucose 507 H* (74-99) mg/dL POC Glucose (mg/dL) 503 H* (70-110) mg/dL Plasma Lactic Acid Zeferino (0.7-2.0) mmol/L Phosphorus 7.4 H (2.5-4.5) mg/dL Total Bilirubin 1.7 H (0.2-1.3) mg/dL Alkaline Phosphatase 430 H (38-126) U/L Total Protein 9.7 H (6.3-8.2) g/dL Albumin 5.2 H (3.5-5.0) g/dL Amylase (30-110) U/L Lipase 3010 H (23-300) U/L Urine Protein (Negative) Urine Glucose (UA) (Negative) Urine Ketones (Negative) Urine Blood (Negative) Hyaline Casts (0-2) /lpf 09/30/24 10/01/24 10/01/24 Range/Units 23:42 00:04 00:15 WBC (3.8-10.6) k/uL Hgb (13.0-17.5) gm/dL MCHC (31.0-37.0) g/dL RDW (11.5-15.5) % Plt Count (150-450) k/uL Neutrophils # (1.3-7.7) k/uL Neutrophils # (Manual) (1.3-7.7) k/uL Lymphocytes # (Manual) (1.0-4.8) k/uL Monocytes # (Manual) (0-1.0) k/uL Metamyelocytes # (Man) (0) k/uL VBG pH 6.86 L* (7.31-7.41) VBG pCO2 24 L (37-51) mmHg VBG HCO3 4 L* (24-28) mmol/L Potassium (3.5-5.1) mmol/L Chloride (98-107) mmol/L Carbon Dioxide (22-30) mmol/L BUN (9-20) mg/dL Glucose (74-99) mg/dL POC Glucose (mg/dL) (70-110) mg/dL Plasma Lactic Acid Zeferino 4.4 H* (0.7-2.0) mmol/L Phosphorus (2.5-4.5) mg/dL Total Bilirubin (0.2-1.3) mg/dL Alkaline Phosphatase (38-126) U/L Total Protein (6.3-8.2) g/dL Albumin (3.5-5.0) g/dL Amylase 200 H (30-110) U/L Lipase (23-300) U/L Urine Protein (Negative) Urine Glucose (UA) (Negative) Urine Ketones (Negative) Urine Blood (Negative) Hyaline Casts (0-2) /lpf 10/01/24 10/01/24 10/01/24 Range/Units 00:33 01:17 02:24 WBC (3.8-10.6) k/uL Hgb (13.0-17.5) gm/dL MCHC (31.0-37.0) g/dL RDW (11.5-15.5) % Plt Count (150-450) k/uL Neutrophils # (1.3-7.7) k/uL Neutrophils # (Manual) (1.3-7.7) k/uL Lymphocytes # (Manual) (1.0-4.8) k/uL Monocytes # (Manual) (0-1.0) k/uL Metamyelocytes # (Man) (0) k/uL VBG pH (7.31-7.41) VBG pCO2 (37-51) mmHg VBG HCO3 (24-28) mmol/L Potassium (3.5-5.1) mmol/L Chloride (98-107) mmol/L Carbon Dioxide (22-30) mmol/L BUN (9-20) mg/dL Glucose (74-99) mg/dL POC Glucose (mg/dL) 456 H 261 H (70-110) mg/dL Plasma Lactic Acid Zeferino (0.7-2.0) mmol/L Phosphorus (2.5-4.5) mg/dL Total Bilirubin (0.2-1.3) mg/dL Alkaline Phosphatase (38-126) U/L Total Protein (6.3-8.2) g/dL Albumin (3.5-5.0) g/dL Amylase (30-110) U/L Lipase (23-300) U/L Urine Protein 3+ H (Negative) Urine Glucose (UA) 4+ H (Negative) Urine Ketones 4+ H (Negative) Urine Blood Small H (Negative) Hyaline Casts 3 H (0-2) /lpf 10/01/24 10/01/24 10/01/24 Range/Units 03:00 03:33 03:49 WBC (3.8-10.6) k/uL Hgb (13.0-17.5) gm/dL MCHC (31.0-37.0) g/dL RDW (11.5-15.5) % Plt Count (150-450) k/uL Neutrophils # (1.3-7.7) k/uL Neutrophils # (Manual) (1.3-7.7) k/uL Lymphocytes # (Manual) (1.0-4.8) k/uL Monocytes # (Manual) (0-1.0) k/uL Metamyelocytes # (Man) (0) k/uL VBG pH (7.31-7.41) VBG pCO2 (37-51) mmHg VBG HCO3 (24-28) mmol/L Potassium (3.5-5.1) mmol/L Chloride 109 H (98-107) mmol/L Carbon Dioxide <5 L* (22-30) mmol/L BUN 8 L (9-20) mg/dL Glucose 162 H (74-99) mg/dL POC Glucose (mg/dL) 267 H 272 H (70-110) mg/dL Plasma Lactic Acid Zeferino (0.7-2.0) mmol/L Phosphorus (2.5-4.5) mg/dL Total Bilirubin (0.2-1.3) mg/dL Alkaline Phosphatase (38-126) U/L Total Protein (6.3-8.2) g/dL Albumin (3.5-5.0) g/dL Amylase (30-110) U/L Lipase (23-300) U/L Urine Protein (Negative) Urine Glucose (UA) (Negative) Urine Ketones (Negative) Urine Blood (Negative) Hyaline Casts (0-2) /lpf 10/01/24 10/01/24 10/01/24 Range/Units 03:49 04:34 04:34 WBC 15.2 H (3.8-10.6) k/uL Hgb 11.6 L (13.0-17.5) gm/dL MCHC 27.3 L (31.0-37.0) g/dL RDW 19.0 H (11.5-15.5) % Plt Count 131 L D (150-450) k/uL Neutrophils # (1.3-7.7) k/uL Neutrophils # (Manual) 13.20 H (1.3-7.7) k/uL Lymphocytes # (Manual) 0.30 L (1.0-4.8) k/uL Monocytes # (Manual) 1.37 H (0-1.0) k/uL Metamyelocytes # (Man) 0.15 H (0) k/uL VBG pH (7.31-7.41) VBG pCO2 (37-51) mmHg VBG HCO3 (24-28) mmol/L Potassium (3.5-5.1) mmol/L Chloride (98-107) mmol/L Carbon Dioxide (22-30) mmol/L BUN (9-20) mg/dL Glucose (74-99) mg/dL POC Glucose (mg/dL) 164 H (70-110) mg/dL Plasma Lactic Acid Zeferino 2.4 H* (0.7-2.0) mmol/L Phosphorus (2.5-4.5) mg/dL Total Bilirubin (0.2-1.3) mg/dL Alkaline Phosphatase (38-126) U/L Total Protein (6.3-8.2) g/dL Albumin (3.5-5.0) g/dL Amylase (30-110) U/L Lipase (23-300) U/L Urine Protein (Negative) Urine Glucose (UA) (Negative) Urine Ketones (Negative) Urine Blood (Negative) Hyaline Casts (0-2) /lpf 10/01/24 10/01/24 10/01/24 Range/Units 05:30 06:19 07:19 WBC (3.8-10.6) k/uL Hgb (13.0-17.5) gm/dL MCHC (31.0-37.0) g/dL RDW (11.5-15.5) % Plt Count (150-450) k/uL Neutrophils # (1.3-7.7) k/uL Neutrophils # (Manual) (1.3-7.7) k/uL Lymphocytes # (Manual) (1.0-4.8) k/uL Monocytes # (Manual) (0-1.0) k/uL Metamyelocytes # (Man) (0) k/uL VBG pH (7.31-7.41) VBG pCO2 (37-51) mmHg VBG HCO3 (24-28) mmol/L Potassium (3.5-5.1) mmol/L Chloride (98-107) mmol/L Carbon Dioxide (22-30) mmol/L BUN (9-20) mg/dL Glucose (74-99) mg/dL POC Glucose (mg/dL) 218 H 167 H 143 H (70-110) mg/dL Plasma Lactic Acid Zeferino (0.7-2.0) mmol/L Phosphorus (2.5-4.5) mg/dL Total Bilirubin (0.2-1.3) mg/dL Alkaline Phosphatase (38-126) U/L Total Protein (6.3-8.2) g/dL Albumin (3.5-5.0) g/dL Amylase (30-110) U/L Lipase (23-300) U/L Urine Protein (Negative) Urine Glucose (UA) (Negative) Urine Ketones (Negative) Urine Blood (Negative) Hyaline Casts (0-2) /lpf 10/01/24 10/01/24 10/01/24 Range/Units 07:53 07:53 08:51 WBC (3.8-10.6) k/uL Hgb (13.0-17.5) gm/dL MCHC (31.0-37.0) g/dL RDW (11.5-15.5) % Plt Count (150-450) k/uL Neutrophils # (1.3-7.7) k/uL Neutrophils # (Manual) (1.3-7.7) k/uL Lymphocytes # (Manual) (1.0-4.8) k/uL Monocytes # (Manual) (0-1.0) k/uL Metamyelocytes # (Man) (0) k/uL VBG pH (7.31-7.41) VBG pCO2 (37-51) mmHg VBG HCO3 (24-28) mmol/L Potassium (3.5-5.1) mmol/L Chloride 111 H (98-107) mmol/L Carbon Dioxide <5 L* (22-30) mmol/L BUN (9-20) mg/dL Glucose 130 H (74-99) mg/dL POC Glucose (mg/dL) 181 H (70-110) mg/dL Plasma Lactic Acid Zeferino (0.7-2.0) mmol/L Phosphorus 1.4 L (2.5-4.5) mg/dL Total Bilirubin (0.2-1.3) mg/dL Alkaline Phosphatase (38-126) U/L Total Protein (6.3-8.2) g/dL Albumin (3.5-5.0) g/dL Amylase (30-110) U/L Lipase (23-300) U/L Urine Protein (Negative) Urine Glucose (UA) (Negative) Urine Ketones (Negative) Urine Blood (Negative) Hyaline Casts (0-2) /lpf 10/01/24 10/01/24 Range/Units 09:42 10:43 WBC (3.8-10.6) k/uL Hgb (13.0-17.5) gm/dL MCHC (31.0-37.0) g/dL RDW (11.5-15.5) % Plt Count (150-450) k/uL Neutrophils # (1.3-7.7) k/uL Neutrophils # (Manual) (1.3-7.7) k/uL Lymphocytes # (Manual) (1.0-4.8) k/uL Monocytes # (Manual) (0-1.0) k/uL Metamyelocytes # (Man) (0) k/uL VBG pH (7.31-7.41) VBG pCO2 (37-51) mmHg VBG HCO3 (24-28) mmol/L Potassium (3.5-5.1) mmol/L Chloride (98-107) mmol/L Carbon Dioxide (22-30) mmol/L BUN (9-20) mg/dL Glucose (74-99) mg/dL POC Glucose (mg/dL) 205 H 246 H (70-110) mg/dL Plasma Lactic Acid Zeferino (0.7-2.0) mmol/L Phosphorus (2.5-4.5) mg/dL Total Bilirubin (0.2-1.3) mg/dL Alkaline Phosphatase (38-126) U/L Total Protein (6.3-8.2) g/dL Albumin (3.5-5.0) g/dL Amylase (30-110) U/L Lipase (23-300) U/L Urine Protein (Negative) Urine Glucose (UA) (Negative) Urine Ketones (Negative) Urine Blood (Negative) Hyaline Casts (0-2) /lpf
[2024-10-01 12:22] LABS: Anisocytosis Slight; HCT 34.5 % (39.0-53.0); HGB 10.1 gm/dL (13.0-17.5); Hypochromasia Marked; MCH 26.7 pg (25.0-35.0); MCHC 29.2 g/dL (31.0-37.0); MCV 91.6 fL (80.0-100.0); RBC 3.77 m/uL (4.30-5.90); RDW 19.6 % (11.5-15.5)
[2024-10-01 12:25] LABS: VBG PH 7.22 (7.31-7.41)
--- NOTE | 2024-10-01 12:30 | P.CONS ---
History of Present Illness - Reason for Consult Consult date: 10/01/24 Pancreatitis, hematemesis Requesting physician: Kaden Montes - Chief Complaint Chest pain - History of Present Illness HPI is obtained from chart and nursing This is a 44-year-old male with a history of diabetes mellitus alcohol abuse, hypertension, hyperlipidemia and daily smoker who had presented to the emergency department yesterday evening with complaints of chest pain. Apparently patient was having sharp pains in the chest with nausea and vomiting. Apparently he reportedly had bright red blood in his emesis. Reportedly patient drinks a pint of vodka a day. Reportedly has a history of esophageal varices as well. Home meds reviewed and patient is taking a low-dose aspirin, is on iron Inderal 10 mg twice daily, does not appear to be on any anticoagulation. Currently patient has been given multiple medications he is on [facility] protocol for withdrawals. He has not very responsive at this time but does open his eyes to his name. Admitting labs WBC 16.8 hemoglobin 12.5 hematocrit 45 platelet count 269,000 INR 1.0 sodium 139 potassium 5.8 BUN 8 creatinine 0.9 magnesium 1.7 total bilirubin 1.7 AST 46 ALT 30 alkaline phosphatase 430 amylase 200 lipase 3010. Gastroenterology was consulted for pancreatitis and hematemesis. Nursing reports he has not had any hematemesis since being admitted. And states he is pretty sedated from medications at this time. 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, upper GIB esophageal varices, etoh abuse History of Any Multi-Drug Resistant Organisms: None Reported Past Surgical History: No Surgical Hx Reported Additional Past Surgical History / Comment(s): 3 eye surgeries, esophageal varices banded x3-4 Past Anesthesia/Blood Transfusion Reactions: No Reported Reaction Past Psychological History: Anxiety Smoking Status: Current every day smoker Past Alcohol Use History: Abuse, Heavy Past Drug Use History: None Reported - Past Family History Father Family Medical History: Diabetes Mellitus Mother Family Medical History: No Reported History Medications and Allergies Home Medications Medication Instructions Recorded Confirmed Type Pantoprazole Sodium [Protonix] 40 mg PO BID 08/17/22 10/01/24 History Folic Acid 1 mg PO DAILY 05/22/24 10/01/24 History Insulin Glargine,Hum.rec.anlog 65 units SQ HS 05/22/24 10/01/24 History [Lantus Solostar Pen] Mirtazapine [Remeron] 15 mg PO HS 05/22/24 10/01/24 History Propranolol [Inderal] 10 mg PO BID 05/22/24 10/01/24 History amLODIPine [Norvasc] 2.5 mg PO DAILY 05/22/24 10/01/24 History Thiamine [Vitamin B-1] 100 mg PO DAILY #30 tab 05/24/24 10/01/24 Rx Calcium/Magnesium/Zinc/Vitamin D 1 tab PO DAILY 06/12/24 10/01/24 History 334/134/5mg busPIRone HCl [Buspar] 10 mg PO TID 06/12/24 10/01/24 History Ascorbic Acid [Vitamin C] 500 mg PO DAILY 10/01/24 10/01/24 History Aspirin EC [Ecotrin Low Dose] 81 mg PO DAILY 10/01/24 10/01/24 History Cholecalciferol (Vitamin D3) 1,250 mcg PO WEEKLY 10/01/24 10/01/24 History [Vitamin D3 (1250 Mcg = 50,000 Iu)] Ferrous Sulfate [Feosol] 325 mg PO DAILY 10/01/24 10/01/24 History Insulin Aspart [NovoLOG Flexpen] See Protocol SQ AC-TID 10/01/24 10/01/24 History QUEtiapine [SEROquel] 100 mg PO HS 10/01/24 10/01/24 History icosapent ethyL [Icosapent Ethyl] 2 gm PO DIRECTED 10/01/24 10/01/24 History lisinopriL [Zestril] 2.5 mg PO DAILY 10/01/24 10/01/24 History Allergies Allergy/AdvReac Type Severity Reaction Status Date / Time No Known Allergies Allergy Verified 10/01/24 11:09 Physical Exam Vitals: Vital Signs Temp Pulse Pulse Resp BP Pulse Ox 10/01/24 07:47 117 H 16 124/90 97 10/01/24 06:00 98.1 F 123 H 24 127/92 100 10/01/24 05:30 123 H 16 128/97 99 10/01/24 05:00 126 H 16 126/90 98 10/01/24 04:30 123 H 16 131/91 98 10/01/24 04:00 125 H 18 143/97 100 10/01/24 03:30 126 H 19 139/94 100 10/01/24 03:00 126 H 24 149/110 100 10/01/24 02:30 125 H 24 168/102 100 10/01/24 02:00 122 H 21 173/121 100 10/01/24 01:30 118 H 18 158/130 100 10/01/24 01:00 116 H 26 H 163/113 100 10/01/24 00:00 112 H 24 171/108 100 09/30/24 23:39 120 H 09/30/24 23:27 97.6 F 125 H 28 H 142/109 100 Intake and Output 09/30/24 10/01/24 10/01/24 22:59 06:59 14:59 Intake Total 2791.779 157.846 Output Total 1350 0 Balance 1441.779 157.846 Intake: IV 2750 150 D5-0.45% NaCl with KCl 750 150 20Meq/l 1,000 ml @ 150 mls/hr IV .Q6H40M [facility] Rx# :[id number] Sodium Chloride 0.9% 2, 2000 000 ml @ 999 mls/hr IV . Q2H1M ONE Rx#:[id number] Intake, IV Titration 41.779 7.846 Amount Insulin Regular 100 unit 41.779 7.846 In Sodium Chloride 0.9% 100 ml @ 0.1 UNITS/KG/HR 7.559 mls/hr IV .[id number] [facility] Rx#:[id number] Output: Urine 1350 0 Other: Weight 74.843 kg General appearance: The patient is drowsy, awakes with stimuli, appears in no ac maryjane distress. HET: Head is normocephalic and atraumatic. Neck: Supple. Heart: Regular. Lungs: Equal expansion, normal respiratory effort. Abdomen: Soft, right upper quadrant tenderness, nondistended. Extremities: Normal skin color and turgor. Neurological: Sedated with medications but arousable. Results CBC & Chem 7: 10/01/24 03:49 10/01/24 07:53 Labs: Abnormal Lab Results - Last 24 Hours (Table) 03/02/25 03/02/25 03/02/25 Range/Units 23:42 23:42 23:42 WBC 16.8 H (3.8-10.6) k/uL Hgb 12.5 L (13.0-17.5) gm/dL MCHC 27.4 L (31.0-37.0) g/dL RDW 19.0 H (11.5-15.5) % Plt Count (150-450) k/uL Neutrophils # 13.7 H (1.3-7.7) k/uL Neutrophils # (Manual) (1.3-7.7) k/uL Lymphocytes # (Manual) (1.0-4.8) k/uL Monocytes # (Manual) (0-1.0) k/uL Metamyelocytes # (Man) (0) k/uL VBG pH (7.31-7.41) VBG pCO2 (37-51) mmHg VBG HCO3 (24-28) mmol/L Potassium 5.8 H (3.5-5.1) mmol/L Chloride (98-107) mmol/L Carbon Dioxide <5 L* (22-30) mmol/L BUN 8 L (9-20) mg/dL Glucose 507 H* (74-99) mg/dL POC Glucose (mg/dL) 503 H* (70-110) mg/dL Plasma Lactic Acid Zeferino (0.7-2.0) mmol/L Phosphorus 7.4 H (2.5-4.5) mg/dL Total Bilirubin 1.7 H (0.2-1.3) mg/dL Alkaline Phosphatase 430 H (38-126) U/L Total Protein 9.7 H (6.3-8.2) g/dL Albumin 5.2 H (3.5-5.0) g/dL Amylase (30-110) U/L Lipase 3010 H (23-300) U/L Urine Protein (Negative) Urine Glucose (UA) (Negative) Urine Ketones (Negative) Urine Blood (Negative) Hyaline Casts (0-2) /lpf 09/30/24 10/01/24 10/01/24 Range/Units 23:42 00:04 00:15 WBC (3.8-10.6) k/uL Hgb (13.0-17.5) gm/dL MCHC (31.0-37.0) g/dL RDW (11.5-15.5) % Plt Count (150-450) k/uL Neutrophils # (1.3-7.7) k/uL Neutrophils # (Manual) (1.3-7.7) k/uL Lymphocytes # (Manual) (1.0-4.8) k/uL Monocytes # (Manual) (0-1.0) k/uL Metamyelocytes # (Man) (0) k/uL VBG pH 6.86 L* (7.31-7.41) VBG pCO2 24 L (37-51) mmHg VBG HCO3 4 L* (24-28) mmol/L Potassium (3.5-5.1) mmol/L Chloride (98-107) mmol/L Carbon Dioxide (22-30) mmol/L BUN (9-20) mg/dL Glucose (74-99) mg/dL POC Glucose (mg/dL) (70-110) mg/dL Plasma Lactic Acid Zeferino 4.4 H* (0.7-2.0) mmol/L Phosphorus (2.5-4.5) mg/dL Total Bilirubin (0.2-1.3) mg/dL Alkaline Phosphatase (38-126) U/L Total Protein (6.3-8.2) g/dL Albumin (3.5-5.0) g/dL Amylase 200 H (30-110) U/L Lipase (23-300) U/L Urine Protein (Negative) Urine Glucose (UA) (Negative) Urine Ketones (Negative) Urine Blood (Negative) Hyaline Casts (0-2) /lpf 10/01/24 10/01/24 10/01/24 Range/Units 00:33 01:17 02:24 WBC (3.8-10.6) k/uL Hgb (13.0-17.5) gm/dL MCHC (31.0-37.0) g/dL RDW (11.5-15.5) % Plt Count (150-450) k/uL Neutrophils # (1.3-7.7) k/uL Neutrophils # (Manual) (1.3-7.7) k/uL Lymphocytes # (Manual) (1.0-4.8) k/uL Monocytes # (Manual) (0-1.0) k/uL Metamyelocytes # (Man) (0) k/uL VBG pH (7.31-7.41) VBG pCO2 (37-51) mmHg VBG HCO3 (24-28) mmol/L Potassium (3.5-5.1) mmol/L Chloride (98-107) mmol/L Carbon Dioxide (22-30) mmol/L BUN (9-20) mg/dL Glucose (74-99) mg/dL POC Glucose (mg/dL) 456 H 261 H (70-110) mg/dL Plasma Lactic Acid Zeferino (0.7-2.0) mmol/L Phosphorus (2.5-4.5) mg/dL Total Bilirubin (0.2-1.3) mg/dL Alkaline Phosphatase (38-126) U/L Total Protein (6.3-8.2) g/dL Albumin (3.5-5.0) g/dL Amylase (30-110) U/L Lipase (23-300) U/L Urine Protein 3+ H (Negative) Urine Glucose (UA) 4+ H (Negative) Urine Ketones 4+ H (Negative) Urine Blood Small H (Negative) Hyaline Casts 3 H (0-2) /lpf 10/01/24 10/01/24 10/01/24 Range/Units 03:00 03:33 03:49 WBC (3.8-10.6) k/uL Hgb (13.0-17.5) gm/dL MCHC (31.0-37.0) g/dL RDW (11.5-15.5) % Plt Count (150-450) k/uL Neutrophils # (1.3-7.7) k/uL Neutrophils # (Manual) (1.3-7.7) k/uL Lymphocytes # (Manual) (1.0-4.8) k/uL Monocytes # (Manual) (0-1.0) k/uL Metamyelocytes # (Man) (0) k/uL VBG pH (7.31-7.41) VBG pCO2 (37-51) mmHg VBG HCO3 (24-28) mmol/L Potassium (3.5-5.1) mmol/L Chloride 109 H (98-107) mmol/L Carbon Dioxide <5 L* (22-30) mmol/L BUN 8 L (9-20) mg/dL Glucose 162 H (74-99) mg/dL POC Glucose (mg/dL) 267 H 272 H (70-110) mg/dL Plasma Lactic Acid Zeferino (0.7-2.0) mmol/L Phosphorus (2.5-4.5) mg/dL Total Bilirubin (0.2-1.3) mg/dL Alkaline Phosphatase (38-126) U/L Total Protein (6.3-8.2) g/dL Albumin (3.5-5.0) g/dL Amylase (30-110) U/L Lipase (23-300) U/L Urine Protein (Negative) Urine Glucose (UA) (Negative) Urine Ketones (Negative) Urine Blood (Negative) Hyaline Casts (0-2) /lpf 10/01/24 10/01/24 10/01/24 Range/Units 03:49 04:34 04:34 WBC 15.2 H (3.8-10.6) k/uL Hgb 11.6 L (13.0-17.5) gm/dL MCHC 27.3 L (31.0-37.0) g/dL RDW 19.0 H (11.5-15.5) % Plt Count 131 L D (150-450) k/uL Neutrophils # (1.3-7.7) k/uL Neutrophils # (Manual) 13.20 H (1.3-7.7) k/uL Lymphocytes # (Manual) 0.30 L (1.0-4.8) k/uL Monocytes # (Manual) 1.37 H (0-1.0) k/uL Metamyelocytes # (Man) 0.15 H (0) k/uL VBG pH (7.31-7.41) VBG pCO2 (37-51) mmHg VBG HCO3 (24-28) mmol/L Potassium (3.5-5.1) mmol/L Chloride (98-107) mmol/L Carbon Dioxide (22-30) mmol/L BUN (9-20) mg/dL Glucose (74-99) mg/dL POC Glucose (mg/dL) 164 H (70-110) mg/dL Plasma Lactic Acid Zeferino 2.4 H* (0.7-2.0) mmol/L Phosphorus (2.5-4.5) mg/dL Total Bilirubin (0.2-1.3) mg/dL Alkaline Phosphatase (38-126) U/L Total Protein (6.3-8.2) g/dL Albumin (3.5-5.0) g/dL Amylase (30-110) U/L Lipase (23-300) U/L Urine Protein (Negative) Urine Glucose (UA) (Negative) Urine Ketones (Negative) Urine Blood (Negative) Hyaline Casts (0-2) /lpf 10/01/24 10/01/24 10/01/24 Range/Units 05:30 06:19 07:19 WBC (3.8-10.6) k/uL Hgb (13.0-17.5) gm/dL MCHC (31.0-37.0) g/dL RDW (11.5-15.5) % Plt Count (150-450) k/uL Neutrophils # (1.3-7.7) k/uL Neutrophils # (Manual) (1.3-7.7) k/uL Lymphocytes # (Manual) (1.0-4.8) k/uL Monocytes # (Manual) (0-1.0) k/uL Metamyelocytes # (Man) (0) k/uL VBG pH (7.31-7.41) VBG pCO2 (37-51) mmHg VBG HCO3 (24-28) mmol/L Potassium (3.5-5.1) mmol/L Chloride (98-107) mmol/L Carbon Dioxide (22-30) mmol/L BUN (9-20) mg/dL Glucose (74-99) mg/dL POC Glucose (mg/dL) 218 H 167 H 143 H (70-110) mg/dL Plasma Lactic Acid Zeferino (0.7-2.0) mmol/L Phosphorus (2.5-4.5) mg/dL Total Bilirubin (0.2-1.3) mg/dL Alkaline Phosphatase (38-126) U/L Total Protein (6.3-8.2) g/dL Albumin (3.5-5.0) g/dL Amylase (30-110) U/L Lipase (23-300) U/L Urine Protein (Negative) Urine Glucose (UA) (Negative) Urine Ketones (Negative) Urine Blood (Negative) Hyaline Casts (0-2) /lpf Comments: Chest CT abdomen and pelvis with IV contrast report cirrhotic appearing liver. Small varicosities consistent with portal hypertension. Small amount of peripancreatic infiltration suggesting pancreatitis. Pancreas is otherwise unremarkable. Cholelithiasis. No evidence for acute cholecystitis or biliary obstruction. Nonspecific diffuse colonic wall thickening thickening/colitis involving the right through left colon. Assessment and Plan (1) Pancreatitis Narrative/Plan: 44-year-old male with a history of alcohol abuse presented with complaints of chest pain with noted elevation in his amylase and lipase with CT evidence of pancreatitis. Patient admitted on [facility] protocol, currently multiple IV medications and somewhat sedated. Mild elevation of bilirubin and alkaline phosphatase. Likely dealing with acute alcohol pancreatitis. Continue with symptomatic and supportive care Current Visit: Yes Status: Acute Code(s): K85.90 - ACUTE PANCREATITIS WITHOUT NECROSIS OR INFECTION, UNSP SNOMED Code(s): 22668912 (2) Hematemesis Narrative/Plan: Reported emesis with bright red blood according to chart. No further emesis or hematemesis. Patient did have a 1 g drop in his hemoglobin as well as platelets. Suspect patient has history of esophageal varices it and is on Inderal 10 mg twice daily according to home medication list. Will evaluate further when patient is more alert. Possible upper endoscopy when patient is stable. Current Visit: Yes Status: Acute Code(s): K92.0 - HEMATEMESIS SNOMED Code(s): 2015601 (3) Liver cirrhosis, alcoholic Current Visit: Yes Status: Acute Code(s): K70.30 - ALCOHOLIC CIRRHOSIS OF LIVER WITHOUT ASCITES SNOMED Code(s): 095025813 (4) Alcohol withdrawal Current Visit: Yes Status: Acute Code(s): F10.939 - ALCOHOL USE, UNSPECIFIED WITH WITHDRAWAL, UNSPECIFIED SNOMED Code(s): 304653905 (5) DKA (diabetic ketoacidosis) Current Visit: Yes Status: Acute Code(s): E11.10 - TYPE 2 DIABETES MELLITUS WITH KETOACIDOSIS WITHOUT COMA SNOMED Code(s): 302734031 Plan: 1. Continue symptomatic and supportive care 2. Keep n.p.o. except ice chips 3. Aggressive IV hydration 4. Protonix 40 mg daily 5. Continue Inderal 6. Continue with [facility] protocol 7. Avoid NSAIDs 8. Antiemetics as needed 9. Further recommendations forthcoming based on clinical course Thank you for this consultation, we will continue to follow. Dr. José Marshall I agree with the dictator's note, documented as a scribe by Angela Olea.
[2024-10-01 12:31] LABS: Glucose,Whole Blood 242 mg/dL (70-110)
[2024-10-01 12:39] LABS: African American GFR (CKD) >90 (>60 ml/min/1.73 sqM); Anion Gap 17 mmol/L; Blood Urea Nitrogen 11 mg/dL (9-20); Calcium 8.2 mg/dL (8.4-10.2); Carbon Dioxide 11 mmol/L (22-30); Chloride 109 mmol/L (98-107); Glucose 239 mg/dL (74-99); Non-African American GFR(CKD) >90 (>60 ml/min/1.73 sqM); Potassium 3.9 mmol/L (3.5-5.1); Sodium 137 mmol/L (137-145)
[2024-10-01] MEDS: MULTIVITAMINS, THERA 1 EACH TAB PO SCH (12:44)
[2024-10-01] MEDS: FOLIC ACID 1 MG TAB PO SCH (12:44)
[2024-10-01] MEDS: SODIUM PHOSPHATE 30 MMOL in DEXTROSE 5% IN WATER 250 ML IVPB ONE (14:06)
[2024-10-01 14:18] LABS: Glucose,Whole Blood 277 mg/dL (70-110)
[2024-10-01 14:35] LABS: Platelet Count 85 k/uL (150-450)
[2024-10-01 15:09] LABS: Glucose,Whole Blood 284 mg/dL (70-110)
[2024-10-01 16:18] LABS: Glucose,Whole Blood 267 mg/dL (70-110)
[2024-10-01 16:34] LABS: Chol/HDL Ratio 11.24 Ratio
[2024-10-01 17:22] LABS: Glucose,Whole Blood 236 mg/dL (70-110)
[2024-10-01 17:39] LABS: Anisocytosis Slight; HCT 33.4 % (39.0-53.0); HGB 9.6 gm/dL (13.0-17.5); Hypochromasia Marked; MCH 26.2 pg (25.0-35.0); MCHC 28.8 g/dL (31.0-37.0); MCV 90.9 fL (80.0-100.0); Mean Platelet Volume 9.3; RBC 3.68 m/uL (4.30-5.90); RDW 19.7 % (11.5-15.5); WBC 8.2 k/uL (3.8-10.6)
[2024-10-01 17:41] LABS: VBG PH 7.31 (7.31-7.41)
[2024-10-01 17:50] LABS: African American GFR (CKD) >90 (>60 ml/min/1.73 sqM); Anion Gap 15 mmol/L; Blood Urea Nitrogen 11 mg/dL (9-20); Calcium 8.1 mg/dL (8.4-10.2); Carbon Dioxide 15 mmol/L (22-30); Chloride 106 mmol/L (98-107); Glucose 240 mg/dL (74-99); Non-African American GFR(CKD) >90 (>60 ml/min/1.73 sqM); Potassium 3.3 mmol/L (3.5-5.1); Sodium 136 mmol/L (137-145)
[2024-10-01 17:54] LABS: Platelet Count 85 k/uL (150-450)
[2024-10-01 18:27] LABS: Glucose,Whole Blood 369 mg/dL (70-110)
[2024-10-01] MEDS: MORPHINE SULFATE 2 MG/ML SYRINGE IVP PRN (18:32)
[2024-10-01 18:59] LABS: Glucose,Whole Blood 451 mg/dL (70-110)
[2024-10-01 20:06] LABS: Glucose,Whole Blood 243 mg/dL (70-110)
[2024-10-01 20:16] LABS: VBG PH 7.36 (7.31-7.41)
[2024-10-01 20:28] LABS: African American GFR (CKD) >90 (>60 ml/min/1.73 sqM); Anion Gap 11 mmol/L; Blood Urea Nitrogen 10 mg/dL (9-20); Calcium 7.8 mg/dL (8.4-10.2); Carbon Dioxide 19 mmol/L (22-30); Chloride 105 mmol/L (98-107); Glucose 230 mg/dL (74-99); Non-African American GFR(CKD) >90 (>60 ml/min/1.73 sqM); Potassium 2.9 mmol/L (3.5-5.1); Sodium 135 mmol/L (137-145)
[2024-10-01 21:04] LABS: Glucose,Whole Blood 208 mg/dL (70-110)
[2024-10-01] MEDS: POTASSIUM CHLORIDE ER 20 MEQ TAB.ER PO SCH (22:13)
[2024-10-01 22:20] LABS: Glucose,Whole Blood 205 mg/dL (70-110)
[2024-10-01 23:16] LABS: Glucose,Whole Blood 137 mg/dL (70-110)
[2024-10-02 00:15] LABS: Glucose,Whole Blood 112 mg/dL (70-110)
[2024-10-02 01:08] LABS: Glucose,Whole Blood 190 mg/dL (70-110)
[2024-10-02 01:11] LABS: Anisocytosis Slight; HCT 32.8 % (39.0-53.0); HGB 9.8 gm/dL (13.0-17.5); Hypochromasia Marked; MCH 26.8 pg (25.0-35.0); MCHC 29.9 g/dL (31.0-37.0); MCV 89.7 fL (80.0-100.0); Mean Platelet Volume 9.7; RBC 3.66 m/uL (4.30-5.90); WBC 4.5 k/uL (3.8-10.6)
[2024-10-02 01:12] LABS: Platelet Count 77 k/uL (150-450)
[2024-10-02 01:23] LABS: African American GFR (CKD) >90 (>60 ml/min/1.73 sqM); Anion Gap 12 mmol/L; Blood Urea Nitrogen 9 mg/dL (9-20); Calcium 8.2 mg/dL (8.4-10.2); Carbon Dioxide 17 mmol/L (22-30); Chloride 106 mmol/L (98-107); Glucose 107 mg/dL (74-99); Non-African American GFR(CKD) >90 (>60 ml/min/1.73 sqM); Potassium 3.1 mmol/L (3.5-5.1); Sodium 135 mmol/L (137-145)
[2024-10-02 02:00] LABS: Glucose,Whole Blood 167 mg/dL (70-110)
[2024-10-02 03:16] LABS: Glucose,Whole Blood 179 mg/dL (70-110)
[2024-10-02 04:05] LABS: ALT 23 U/L (4-49); AST 48 U/L (17-59); African American GFR (CKD) >90 (>60 ml/min/1.73 sqM); Albumin 3.1 g/dL (3.5-5.0); Alkaline Phosphatase 314 U/L (38-126); Anion Gap 13 mmol/L; Blood Urea Nitrogen 9 mg/dL (9-20); Calcium 8.2 mg/dL (8.4-10.2); Carbon Dioxide 14 mmol/L (22-30); Chloride 106 mmol/L (98-107); Glucose 184 mg/dL (74-99); Lipase 1020 U/L (23-300); Non-African American GFR(CKD) >90 (>60 ml/min/1.73 sqM); Potassium 3.5 mmol/L (3.5-5.1); Sodium 133 mmol/L (137-145); Total Bilirubin 0.8 mg/dL (0.2-1.3); Total Protein 6.2 g/dL (6.3-8.2)
[2024-10-02 04:07] LABS: Glucose,Whole Blood 261 mg/dL (70-110)
[2024-10-02 04:21] LABS: Phosphorus 0.9 mg/dL (2.5-4.5)
[2024-10-02] MEDS: POTASSIUM CHLORIDE ER 20 MEQ TAB.ER PO SCH ×3 (04:56→14:49)
[2024-10-02] MEDS: POTAS-SOD-PHOS 280-160-250 MG 1 EACH PACKET PO SCH (04:56)
[2024-10-02 05:06] LABS: Glucose,Whole Blood 219 mg/dL (70-110)
[2024-10-02 06:17] LABS: Glucose,Whole Blood 198 mg/dL (70-110)
[2024-10-02 07:02] LABS: Glucose,Whole Blood 243 mg/dL (70-110)
[2024-10-02 07:06] LABS: Anisocytosis Slight; HCT 31.2 % (39.0-53.0); HGB 9.2 gm/dL (13.0-17.5); Hypochromasia Marked; MCH 26.2 pg (25.0-35.0); MCHC 29.4 g/dL (31.0-37.0); MCV 89.1 fL (80.0-100.0); Mean Platelet Volume 9.6; RDW 19.9 % (11.5-15.5); WBC 4.7 k/uL (3.8-10.6)
[2024-10-02 07:13] LABS: Platelet Count 73 k/uL (150-450)
[2024-10-02 08:02] LABS: Nucleated Red Blood Cells 1 /100 WBC (0-0)
[2024-10-02 08:05] LABS: Anisocytosis (M) Present; Eosinophils # (M) 0.14 k/uL (0-0.7); Hypochromasia (M) Present; Lymphocytes # (M) 0.33 k/uL (1.0-4.8); Monocytes # (M) 0.09 k/uL (0-1.0); Neutrophils # (M) 4.18 k/uL (1.3-7.7); Neutrophils % (M) 89 %; Total Cells Counted 200
[2024-10-02 08:24] LABS: Glucose,Whole Blood 236 mg/dL (70-110)
[2024-10-02] MEDS: LORazepam 2 MG/ML INJ IV PRN (08:33)
[2024-10-02 09:16] LABS: Glucose,Whole Blood 210 mg/dL (70-110)
[2024-10-02 09:36] LABS: Potassium 3.8 mmol/L (3.5-5.1)
[2024-10-02] MEDS: SODIUM PHOSPHATE 15 MMOL in DEXTROSE 5% IN WATER 250 ML IVPB ONE (09:38)
[2024-10-02 10:19] LABS: Glucose,Whole Blood 261 mg/dL (70-110)
[2024-10-02] MEDS ORDERED: Potassium Replacement Protocol 1 EACH MISC MISCELLANE PRN (10:36)
[2024-10-02 11:12] LABS: Glucose,Whole Blood 274 mg/dL (70-110)
[2024-10-02] MEDS: THIAMINE 100 MG TAB PO SCH (11:21)
[2024-10-02 11:29] VITALS: BMI 25.8
--- NOTE | 2024-10-02 11:31 | P.PN ---
Subjective Progress Note Date: 10/02/24 Patient is a 44-year-old male with past medical history significant for diabetes mellitus, hypertension, hyperlipidemia, alcohol abuse, GI bleed and esophageal varices, and everyday tobacco smoker. Patient presented to emergency department late last night, reportedly developed severe epigastric pain followed by nausea and vomiting after eating dinner earlier yesterday evening. Four reported episodes of emesis with bright red blood. Patient does have history of alcohol abuse, drinks approximately 1/5/day. His last drink was on Tuesday. Serum alcohol was less than 10 on arrival. Reportedly, has history of esophageal varices and alcohol withdrawal seizures. Also, reports history of pancreatitis. Lipase was elevated at 3010 and amylase of 200. Workup in the emergency department consistent with diabetic ketoacidosis with a blood glucose of 503, serum bicarb less than 5, anion gap unmeasurable, as well as ketone and acetone positive. Patient states that he has not been taking his diabetic medications for the last several days. Patient was started on DKA protocol in the ED. CBC: WBC count of 16.8, hemoglobin 12.5, hematocrit 45.7, platelets 269. CMP: Sodium 139, potassium 5.8, chloride 100, serum bicarb less than 5, anion gap unmeasurable, BUN 8, creatinine 0.92, g most recent blood glucose 456. Lactic was 4.4. AST 46, ALT 30, ALP 430, total bilirubin 1.7. UA unremarkable for infection. Troponin less than 0.012. NT proBNP 119. EKG: Sinus tachycardia, rate 125 bpm. No obvious acute ischemic pattern. Chest x-ray did not show any acute cardiopulmonary process. Patient currently being evaluated the emergency department. Insulin is currently infusing per protocol. Normal saline continues at 200 mL/h. Patient also received a 2 L fluid bolus with normal saline earlier. Currently, patient is lethargic, but does wake up and answer questions appropriately. Kussmaul breathing pattern. Continues to have epigastric discomfort. Described as severe and stabbing, rated 10 on a 10 point numerical scale[address] A CT of the chest, abdomen and pelvis is ordered. Has an elevated lipase to amylase ratio. Denies history of gallstones. No further nausea or vomiting or hematemesis. Unclear if the patient has had previous EGD. Patient denies any melena or hematochezia. Unclear if the patient is currently taking any NSAIDs. CIWA scores are being monitored. Current vital signs: Temperature 97.6 F, heart rate 112 bpm, blood pressure 171/108 mmHg, tachypneic, SpO2 is 100% on room air. The patient is seen today October 02, 2024 in follow-up in the intensive care unit. He is currently sitting up in bed. Awake and alert in no acute distress. He is maintaining good O2 saturations in the 90s on room air. He remains on insulin drip at 3.125 units/h. D5 and half-normal saline with 20 of KCl at 150 mL/h. White count 4.7. Hemoglobin 9.2. Platelets 73,000. Sodium 131. Potassium 3.8. Bicarb 16. Anion gap is 8. BUN 9. Creatinine 0.45. Glucose 184. Lipase 1020. He remains on the CIWA protocol. He did receive Ativan this morning. He is currently calm and cooperative. The patient was seen by GI service regarding emesis with bright red blood. Plan is for EGD tomorrow. He remains n.p.o. today. Objective - Vital Signs Vital signs: Vital Signs Temp 97.9 F 10/02/24 08:00 Pulse 95 10/02/24 11:00 Resp 13 10/02/24 11:00 BP 86/68 10/02/24 11:00 Pulse Ox 98 10/02/24 11:00 FiO2 Intake & Output 10/01/24 10/02/24 10/02/24 18:59 06:59 18:59 Intake Total 092.869 5214.671 620.077 Output Total 0 900 300 Balance 215.265 952.671 320.077 Weight 74.8 kg Intake: IV 150 1800 600 D5-0.45% NaCl with KCl 150 1500 20Meq/l 1,000 ml @ 150 mls/hr IV .[id number] [facility] Rx# :[id number] D5-0.45% NaCl with KCl 300 600 20Meq/l 1,000 ml @ 150 mls/hr IV .Q6H40M [facility] Rx# :[id number] Intake, IV Titration 65.265 52.671 20.077 Amount Insulin Regular 100 unit 65.265 52.671 20.077 In Sodium Chloride 0.9% 100 ml @ 0.1 UNITS/KG/HR 7.559 mls/hr IV .[id number] [facility] Rx#:[id number] Output: Urine 0 900 300 Other: Voiding Method Urinal - Exam GENERAL EXAM: Awake, alert, 44-year-old male, on room air, resting in bed, no acute distress. HEAD: Normocephalic and atraumatic EYES: Normal reaction of pupils, equal size. NOSE: Clear with pink turbinates. THROAT: No erythema or exudates. Dry mucous membranes. NECK: No masses, no JVD. CHEST: No chest wall deformity. LUNGS: Equal air entry with no crackles, wheeze, rhonchi or dullness. No conversational dyspnea or accessory muscle use.. CVS: S1 and S2 normal with no audible murmur, regular rhythm. No extra heart sounds. Tachycardic. ABDOMEN: Abdomen is flat, is soft, guarding with palpation of the epigastric area, no hepatosplenomegaly. No periumbilical or flank bruising. No further episodes of emesis so far. SPINE: No scoliosis or deformity SKIN: No rashes CENTRAL NERVOUS SYSTEM: No focal deficits, tone is normal in all 4 extremities. EXTREMITIES: There is no peripheral edema, clubbing, or cyanosis. Peripheral pulses are intact. - Labs CBC & Chem 7: 10/02/24 06:04 10/02/24 08:52 Labs: Abnormal Lab Results - Last 24 Hours (Table) 10/01/24 10/01/24 10/01/24 Range/Units 07:53 11:44 12:02 RBC 3.77 L (4.30-5.90) m/uL Hgb 10.1 L (13.0-17.5) gm/dL Hct 34.5 L (39.0-53.0) % MCHC 29.2 L (31.0-37.0) g/dL RDW 19.6 H (11.5-15.5) % Plt Count 85 L (150-450) k/uL Lymphocytes # (Manual) (1.0-4.8) k/uL Nucleated RBCs (0-0) /100 WBC VBG pH (7.31-7.41) VBG pCO2 (37-51) mmHg VBG HCO3 (24-28) mmol/L Sodium (137-145) mmol/L Potassium (3.5-5.1) mmol/L Chloride 111 H (98-107) mmol/L Carbon Dioxide <5 L* (22-30) mmol/L Creatinine (0.66-1.25) mg/dL Glucose 130 H (74-99) mg/dL POC Glucose (mg/dL) 245 H (70-110) mg/dL Hemoglobin A1c (<=6.0) % Calcium (8.4-10.2) mg/dL Phosphorus (2.5-4.5) mg/dL Alkaline Phosphatase (38-126) U/L Total Protein (6.3-8.2) g/dL Albumin (3.5-5.0) g/dL Triglycerides 1126.00 H (0.00-149.00) mg/dL Cholesterol 327.00 H (0.00-200.00) mg/dL VLDL Cholesterol, Calc 225.20 H (5.00-40.00) mg/dL HDL Cholesterol 29.10 L (40.00-60.00) mg/dL Lipase (23-300) U/L 10/01/24 10/01/24 10/01/24 Range/Units 12:02 12:02 12:29 RBC (4.30-5.90) m/uL Hgb (13.0-17.5) gm/dL Hct (39.0-53.0) % MCHC (31.0-37.0) g/dL RDW (11.5-15.5) % Plt Count (150-450) k/uL Lymphocytes # (Manual) (1.0-4.8) k/uL Nucleated RBCs (0-0) /100 WBC VBG pH 7.22 L (7.31-7.41) VBG pCO2 29 L (37-51) mmHg VBG HCO3 12 L (24-28) mmol/L Sodium (137-145) mmol/L Potassium (3.5-5.1) mmol/L Chloride 109 H (98-107) mmol/L Carbon Dioxide 11 L (22-30) mmol/L Creatinine 0.63 L (0.66-1.25) mg/dL Glucose 239 H (74-99) mg/dL POC Glucose (mg/dL) 242 H (70-110) mg/dL Hemoglobin A1c (<=6.0) % Calcium 8.2 L (8.4-10.2) mg/dL Phosphorus (2.5-4.5) mg/dL Alkaline Phosphatase (38-126) U/L Total Protein (6.3-8.2) g/dL Albumin (3.5-5.0) g/dL Triglycerides (0.00-149.00) mg/dL Cholesterol (0.00-200.00) mg/dL VLDL Cholesterol, Calc (5.00-40.00) mg/dL HDL Cholesterol (40.00-60.00) mg/dL Lipase (23-300) U/L 10/01/24 10/01/24 10/01/24 Range/Units 14:16 15:07 16:16 RBC (4.30-5.90) m/uL Hgb (13.0-17.5) gm/dL Hct (39.0-53.0) % MCHC (31.0-37.0) g/dL RDW (11.5-15.5) % Plt Count (150-450) k/uL Lymphocytes # (Manual) (1.0-4.8) k/uL Nucleated RBCs (0-0) /100 WBC VBG pH (7.31-7.41) VBG pCO2 (37-51) mmHg VBG HCO3 (24-28) mmol/L Sodium (137-145) mmol/L Potassium (3.5-5.1) mmol/L Chloride (98-107) mmol/L Carbon Dioxide (22-30) mmol/L Creatinine (0.66-1.25) mg/dL Glucose (74-99) mg/dL POC Glucose (mg/dL) 277 H 284 H 267 H (70-110) mg/dL Hemoglobin A1c (<=6.0) % Calcium (8.4-10.2) mg/dL Phosphorus (2.5-4.5) mg/dL Alkaline Phosphatase (38-126) U/L Total Protein (6.3-8.2) g/dL Albumin (3.5-5.0) g/dL Triglycerides (0.00-149.00) mg/dL Cholesterol (0.00-200.00) mg/dL VLDL Cholesterol, Calc (5.00-40.00) mg/dL HDL Cholesterol (40.00-60.00) mg/dL Lipase (23-300) U/L 10/01/24 10/01/24 10/01/24 Range/Units 16:21 16:21 16:21 RBC 3.68 L (4.30-5.90) m/uL Hgb 9.6 L (13.0-17.5) gm/dL Hct 33.4 L (39.0-53.0) % MCHC 28.8 L (31.0-37.0) g/dL RDW 19.7 H (11.5-15.5) % Plt Count 85 L (150-450) k/uL Lymphocytes # (Manual) (1.0-4.8) k/uL Nucleated RBCs (0-0) /100 WBC VBG pH (7.31-7.41) VBG pCO2 35 L (37-51) mmHg VBG HCO3 17 L (24-28) mmol/L Sodium 136 L (137-145) mmol/L Potassium 3.3 L (3.5-5.1) mmol/L Chloride (98-107) mmol/L Carbon Dioxide 15 L (22-30) mmol/L Creatinine 0.47 L (0.66-1.25) mg/dL Glucose 240 H (74-99) mg/dL POC Glucose (mg/dL) (70-110) mg/dL Hemoglobin A1c (<=6.0) % Calcium 8.1 L (8.4-10.2) mg/dL Phosphorus (2.5-4.5) mg/dL Alkaline Phosphatase (38-126) U/L Total Protein (6.3-8.2) g/dL Albumin (3.5-5.0) g/dL Triglycerides (0.00-149.00) mg/dL Cholesterol (0.00-200.00) mg/dL VLDL Cholesterol, Calc (5.00-40.00) mg/dL HDL Cholesterol (40.00-60.00) mg/dL Lipase (23-300) U/L 10/01/24 10/01/24 10/01/24 Range/Units 17:20 18:25 18:58 RBC (4.30-5.90) m/uL Hgb (13.0-17.5) gm/dL Hct (39.0-53.0) % MCHC (31.0-37.0) g/dL RDW (11.5-15.5) % Plt Count (150-450) k/uL Lymphocytes # (Manual) (1.0-4.8) k/uL Nucleated RBCs (0-0) /100 WBC VBG pH (7.31-7.41) VBG pCO2 (37-51) mmHg VBG HCO3 (24-28) mmol/L Sodium (137-145) mmol/L Potassium (3.5-5.1) mmol/L Chloride (98-107) mmol/L Carbon Dioxide (22-30) mmol/L Creatinine (0.66-1.25) mg/dL Glucose (74-99) mg/dL POC Glucose (mg/dL) 236 H 369 H 451 H (70-110) mg/dL Hemoglobin A1c (<=6.0) % Calcium (8.4-10.2) mg/dL Phosphorus (2.5-4.5) mg/dL Alkaline Phosphatase (38-126) U/L Total Protein (6.3-8.2) g/dL Albumin (3.5-5.0) g/dL Triglycerides (0.00-149.00) mg/dL Cholesterol (0.00-200.00) mg/dL VLDL Cholesterol, Calc (5.00-40.00) mg/dL HDL Cholesterol (40.00-60.00) mg/dL Lipase (23-300) U/L 10/01/24 10/01/24 10/01/24 Range/Units 19:50 19:50 20:05 RBC (4.30-5.90) m/uL Hgb (13.0-17.5) gm/dL Hct (39.0-53.0) % MCHC (31.0-37.0) g/dL RDW (11.5-15.5) % Plt Count (150-450) k/uL Lymphocytes # (Manual) (1.0-4.8) k/uL Nucleated RBCs (0-0) /100 WBC VBG pH (7.31-7.41) VBG pCO2 35 L (37-51) mmHg VBG HCO3 20 L (24-28) mmol/L Sodium 135 L (137-145) mmol/L Potassium 2.9 L (3.5-5.1) mmol/L Chloride (98-107) mmol/L Carbon Dioxide 19 L (22-30) mmol/L Creatinine 0.46 L (0.66-1.25) mg/dL Glucose 230 H (74-99) mg/dL POC Glucose (mg/dL) 243 H (70-110) mg/dL Hemoglobin A1c (<=6.0) % Calcium 7.8 L (8.4-10.2) mg/dL Phosphorus (2.5-4.5) mg/dL Alkaline Phosphatase (38-126) U/L Total Protein (6.3-8.2) g/dL Albumin (3.5-5.0) g/dL Triglycerides (0.00-149.00) mg/dL Cholesterol (0.00-200.00) mg/dL VLDL Cholesterol, Calc (5.00-40.00) mg/dL HDL Cholesterol (40.00-60.00) mg/dL Lipase (23-300) U/L 10/01/24 10/01/24 10/01/24 Range/Units 21:03 22:19 23:05 RBC (4.30-5.90) m/uL Hgb (13.0-17.5) gm/dL Hct (39.0-53.0) % MCHC (31.0-37.0) g/dL RDW (11.5-15.5) % Plt Count (150-450) k/uL Lymphocytes # (Manual) (1.0-4.8) k/uL Nucleated RBCs (0-0) /100 WBC VBG pH (7.31-7.41) VBG pCO2 (37-51) mmHg VBG HCO3 (24-28) mmol/L Sodium (137-145) mmol/L Potassium (3.5-5.1) mmol/L Chloride (98-107) mmol/L Carbon Dioxide (22-30) mmol/L Creatinine (0.66-1.25) mg/dL Glucose (74-99) mg/dL POC Glucose (mg/dL) 208 H 205 H 137 H (70-110) mg/dL Hemoglobin A1c (<=6.0) % Calcium (8.4-10.2) mg/dL Phosphorus (2.5-4.5) mg/dL Alkaline Phosphatase (38-126) U/L Total Protein (6.3-8.2) g/dL Albumin (3.5-5.0) g/dL Triglycerides (0.00-149.00) mg/dL Cholesterol (0.00-200.00) mg/dL VLDL Cholesterol, Calc (5.00-40.00) mg/dL HDL Cholesterol (40.00-60.00) mg/dL Lipase (23-300) U/L 10/02/24 10/02/24 10/02/24 Range/Units 00:05 00:05 00:14 RBC 3.66 L (4.30-5.90) m/uL Hgb 9.8 L (13.0-17.5) gm/dL Hct 32.8 L (39.0-53.0) % MCHC 29.9 L (31.0-37.0) g/dL RDW 20.0 H (11.5-15.5) % Plt Count 77 L (150-450) k/uL Lymphocytes # (Manual) (1.0-4.8) k/uL Nucleated RBCs (0-0) /100 WBC VBG pH (7.31-7.41) VBG pCO2 (37-51) mmHg VBG HCO3 (24-28) mmol/L Sodium 135 L (137-145) mmol/L Potassium 3.1 L (3.5-5.1) mmol/L Chloride (98-107) mmol/L Carbon Dioxide 17 L (22-30) mmol/L Creatinine 0.48 L (0.66-1.25) mg/dL Glucose 107 H (74-99) mg/dL POC Glucose (mg/dL) 112 H (70-110) mg/dL Hemoglobin A1c (<=6.0) % Calcium 8.2 L (8.4-10.2) mg/dL Phosphorus (2.5-4.5) mg/dL Alkaline Phosphatase (38-126) U/L Total Protein (6.3-8.2) g/dL Albumin (3.5-5.0) g/dL Triglycerides (0.00-149.00) mg/dL Cholesterol (0.00-200.00) mg/dL VLDL Cholesterol, Calc (5.00-40.00) mg/dL HDL Cholesterol (40.00-60.00) mg/dL Lipase (23-300) U/L 10/02/24 10/02/24 10/02/24 Range/Units 01:06 01:59 02:00 RBC (4.30-5.90) m/uL Hgb (13.0-17.5) gm/dL Hct (39.0-53.0) % MCHC (31.0-37.0) g/dL RDW (11.5-15.5) % Plt Count (150-450) k/uL Lymphocytes # (Manual) (1.0-4.8) k/uL Nucleated RBCs (0-0) /100 WBC VBG pH (7.31-7.41) VBG pCO2 (37-51) mmHg VBG HCO3 (24-28) mmol/L Sodium (137-145) mmol/L Potassium 5.9 H (3.5-5.1) mmol/L Chloride (98-107) mmol/L Carbon Dioxide (22-30) mmol/L Creatinine (0.66-1.25) mg/dL Glucose (74-99) mg/dL POC Glucose (mg/dL) 190 H 167 H (70-110) mg/dL Hemoglobin A1c (<=6.0) % Calcium (8.4-10.2) mg/dL Phosphorus (2.5-4.5) mg/dL Alkaline Phosphatase (38-126) U/L Total Protein (6.3-8.2) g/dL Albumin (3.5-5.0) g/dL Triglycerides (0.00-149.00) mg/dL Cholesterol (0.00-200.00) mg/dL VLDL Cholesterol, Calc (5.00-40.00) mg/dL HDL Cholesterol (40.00-60.00) mg/dL Lipase (23-300) U/L 10/02/24 10/02/24 10/02/24 Range/Units 03:12 03:14 03:14 RBC (4.30-5.90) m/uL Hgb (13.0-17.5) gm/dL Hct (39.0-53.0) % MCHC (31.0-37.0) g/dL RDW (11.5-15.5) % Plt Count (150-450) k/uL Lymphocytes # (Manual) (1.0-4.8) k/uL Nucleated RBCs (0-0) /100 WBC VBG pH (7.31-7.41) VBG pCO2 (37-51) mmHg VBG HCO3 (24-28) mmol/L Sodium 133 L (137-145) mmol/L Potassium (3.5-5.1) mmol/L Chloride (98-107) mmol/L Carbon Dioxide 14 L (22-30) mmol/L Creatinine 0.45 L (0.66-1.25) mg/dL Glucose 184 H (74-99) mg/dL POC Glucose (mg/dL) 179 H (70-110) mg/dL Hemoglobin A1c 12.6 H (<=6.0) % Calcium 8.2 L (8.4-10.2) mg/dL Phosphorus 0.9 L* (2.5-4.5) mg/dL Alkaline Phosphatase 314 H (38-126) U/L Total Protein 6.2 L (6.3-8.2) g/dL Albumin 3.1 L (3.5-5.0) g/dL Triglycerides (0.00-149.00) mg/dL Cholesterol (0.00-200.00) mg/dL VLDL Cholesterol, Calc (5.00-40.00) mg/dL HDL Cholesterol (40.00-60.00) mg/dL Lipase 1020 H (23-300) U/L 10/02/24 10/02/24 10/02/24 Range/Units 04:06 05:04 06:04 RBC 3.50 L (4.30-5.90) m/uL Hgb 9.2 L (13.0-17.5) gm/dL Hct 31.2 L (39.0-53.0) % MCHC 29.4 L (31.0-37.0) g/dL RDW 19.9 H (11.5-15.5) % Plt Count 73 L (150-450) k/uL Lymphocytes # (Manual) 0.33 L (1.0-4.8) k/uL Nucleated RBCs 1 H (0-0) /100 WBC VBG pH (7.31-7.41) VBG pCO2 (37-51) mmHg VBG HCO3 (24-28) mmol/L Sodium (137-145) mmol/L Potassium (3.5-5.1) mmol/L Chloride (98-107) mmol/L Carbon Dioxide (22-30) mmol/L Creatinine (0.66-1.25) mg/dL Glucose (74-99) mg/dL POC Glucose (mg/dL) 261 H 219 H (70-110) mg/dL Hemoglobin A1c (<=6.0) % Calcium (8.4-10.2) mg/dL Phosphorus (2.5-4.5) mg/dL Alkaline Phosphatase (38-126) U/L Total Protein (6.3-8.2) g/dL Albumin (3.5-5.0) g/dL Triglycerides (0.00-149.00) mg/dL Cholesterol (0.00-200.00) mg/dL VLDL Cholesterol, Calc (5.00-40.00) mg/dL HDL Cholesterol (40.00-60.00) mg/dL Lipase (23-300) U/L 10/02/24 10/02/24 10/02/24 Range/Units 06:16 07:01 08:22 RBC (4.30-5.90) m/uL Hgb (13.0-17.5) gm/dL Hct (39.0-53.0) % MCHC (31.0-37.0) g/dL RDW (11.5-15.5) % Plt Count (150-450) k/uL Lymphocytes # (Manual) (1.0-4.8) k/uL Nucleated RBCs (0-0) /100 WBC VBG pH (7.31-7.41) VBG pCO2 (37-51) mmHg VBG HCO3 (24-28) mmol/L Sodium (137-145) mmol/L Potassium (3.5-5.1) mmol/L Chloride (98-107) mmol/L Carbon Dioxide (22-30) mmol/L Creatinine (0.66-1.25) mg/dL Glucose (74-99) mg/dL POC Glucose (mg/dL) 198 H 243 H 236 H (70-110) mg/dL Hemoglobin A1c (<=6.0) % Calcium (8.4-10.2) mg/dL Phosphorus (2.5-4.5) mg/dL Alkaline Phosphatase (38-126) U/L Total Protein (6.3-8.2) g/dL Albumin (3.5-5.0) g/dL Triglycerides (0.00-149.00) mg/dL Cholesterol (0.00-200.00) mg/dL VLDL Cholesterol, Calc (5.00-40.00) mg/dL HDL Cholesterol (40.00-60.00) mg/dL Lipase (23-300) U/L 10/02/24 10/02/24 10/02/24 Range/Units 08:52 09:15 10:17 RBC (4.30-5.90) m/uL Hgb (13.0-17.5) gm/dL Hct (39.0-53.0) % MCHC (31.0-37.0) g/dL RDW (11.5-15.5) % Plt Count (150-450) k/uL Lymphocytes # (Manual) (1.0-4.8) k/uL Nucleated RBCs (0-0) /100 WBC VBG pH (7.31-7.41) VBG pCO2 (37-51) mmHg VBG HCO3 (24-28) mmol/L Sodium 131 L (137-145) mmol/L Potassium (3.5-5.1) mmol/L Chloride (98-107) mmol/L Carbon Dioxide 16 L (22-30) mmol/L Creatinine (0.66-1.25) mg/dL Glucose (74-99) mg/dL POC Glucose (mg/dL) 210 H 261 H (70-110) mg/dL Hemoglobin A1c (<=6.0) % Calcium (8.4-10.2) mg/dL Phosphorus (2.5-4.5) mg/dL Alkaline Phosphatase (38-126) U/L Total Protein (6.3-8.2) g/dL Albumin (3.5-5.0) g/dL Triglycerides (0.00-149.00) mg/dL Cholesterol (0.00-200.00) mg/dL VLDL Cholesterol, Calc (5.00-40.00) mg/dL HDL Cholesterol (40.00-60.00) mg/dL Lipase (23-300) U/L 10/02/24 Range/Units 11:10 RBC (4.30-5.90) m/uL Hgb (13.0-17.5) gm/dL Hct (39.0-53.0) % MCHC (31.0-37.0) g/dL RDW (11.5-15.5) % Plt Count (150-450) k/uL Lymphocytes # (Manual) (1.0-4.8) k/uL Nucleated RBCs (0-0) /100 WBC VBG pH (7.31-7.41) VBG pCO2 (37-51) mmHg VBG HCO3 (24-28) mmol/L Sodium (137-145) mmol/L Potassium (3.5-5.1) mmol/L Chloride (98-107) mmol/L Carbon Dioxide (22-30) mmol/L Creatinine (0.66-1.25) mg/dL Glucose (74-99) mg/dL POC Glucose (mg/dL) 274 H (70-110) mg/dL Hemoglobin A1c (<=6.0) % Calcium (8.4-10.2) mg/dL Phosphorus (2.5-4.5) mg/dL Alkaline Phosphatase (38-126) U/L Total Protein (6.3-8.2) g/dL Albumin (3.5-5.0) g/dL Triglycerides (0.00-149.00) mg/dL Cholesterol (0.00-200.00) mg/dL VLDL Cholesterol, Calc (5.00-40.00) mg/dL HDL Cholesterol (40.00-60.00) mg/dL Lipase (23-300) U/L Assessment and Plan Assessment: Acute diabetic ketoacidosis, secondary to medication noncompliance Severe anion gap metabolic acidosis, secondary to above and lactic acidosis, improving Acute pancreatitis; lipase 3010, being down, current lipase 1020 Chronic alcohol abuse, reportedly drinks 1/5 of liquor per day, last drink approximately 48-72 hours ago Hematemesis, no further episodes while in the ED Acute leukocytosis, possibly reactive Hyperkalemia, improved potassium 3.8 mmol/L Hypertension History of hyperlipidemia Current ongoing tobacco dependence Plan: The patient was seen and evaluated Labs and medications reviewed Remains on an insulin drip To be transitioned once labs improve Remains on D5 and a half with 20 KCl at 150 mL/h No further hematemesis Plan is for EGD tomorrow Remains on the CIWA protocol We will continue to follow I have personally seen and examined the patient, performed the documentation and the assessment and plan as written. Number of minutes spent on the visit: 10 Dictation was produced using [employer] dictation software. Please excuse any grammatical, word or spelling errors.
[2024-10-02] MEDS: MORPHINE SULFATE 2 MG/ML SYRINGE IVP PRN (11:46)
[2024-10-02 12:05] LABS: Glucose,Whole Blood 272 mg/dL (70-110)
--- NOTE | 2024-10-02 12:18 | P.PN ---
Subjective Progress Note Date: 10/02/24 Principal diagnosis: Pancreatitis, hematemesis HPI is obtained from chart and nursing This is a 44-year-old male with a history of diabetes mellitus alcohol abuse, hypertension, hyperlipidemia and daily smoker who had presented to the emergency department yesterday evening with complaints of chest pain. Apparently patient was having sharp pains in the chest with nausea and vomiting. Apparently he reportedly had bright red blood in his emesis. Reportedly patient drinks a pint of vodka a day. Reportedly has a history of esophageal varices as well. Home meds reviewed and patient is taking a low-dose aspirin, is on iron Inderal 10 mg twice daily, does not appear to be on any anticoagulation. Currently patient has been given multiple medications he is on [facility] protocol for withdrawals. He has not very responsive at this time but does open his eyes to his name. Adm itting labs WBC 16.8 hemoglobin 12.5 hematocrit 45 platelet count 269,000 INR 1.0 sodium 139 potassium 5.8 BUN 8 creatinine 0.9 magnesium 1.7 total bilirubin 1.7 AST 46 ALT 30 alkaline phosphatase 430 amylase 200 lipase 3010. Gastroenterology was consulted for pancreatitis and hematemesis. Nursing reports he has not had any hematemesis since being admitted. And states he is pretty sedated from medications at this time. 10/02/2024 Patient seen and examined today in the ICU. Patient is still being medicated and treated per [facility] protocol however he is more alert today. He states prior to coming in he had 2 episodes of bright red bloody emesis as well as black tarry stool. He continues to have no emesis or bowel movements while in the hospital. States he has a known history of liver cirrhosis secondary to alcohol abuse, history of esophageal varices with previous GI bleed and banding states he believes last upper endoscopy was about 9 months ago. States he usually is transferred to [facility] and has been seen and evaluated there. States he does have some upper abdominal discomfort. No nausea or vomiting. Today's hemoglobin 9.2 platelet count 73,000 INR 1.0 lipase 1020 total bilirubin 0.8 AST 48 ALT 23 alkaline phosphatase 314. Patient states he has been compliant with taking his medication and has been taking his Inderal. 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 Objective - Vital Signs Vital signs: Vital Signs Temp 98.7 F 10/01/24 20:00 Pulse 97 10/02/24 07:00 Resp 18 10/02/24 07:00 BP 114/87 10/02/24 07:00 Pulse Ox 96 10/02/24 07:00 FiO2 Intake & Output 10/01/24 10/02/24 10/02/24 18:59 06:59 18:59 Intake Total 127.790 6149.671 150 Output Total 0 900 0 Balance 215.265 952.671 150 Weight 74.8 kg Intake: IV 150 1800 150 D5-0.45% NaCl with KCl 150 1500 20Meq/l 1,000 ml @ 150 mls/hr IV .Q6H40M [facility] Rx# :[id number] D5-0.45% NaCl with KCl 300 150 20Meq/l 1,000 ml @ 150 mls/hr IV .[id number] [facility] Rx# :[id number] Intake, IV Titration 65.265 52.671 Amount Insulin Regular 100 unit 65.265 52.671 In Sodium Chloride 0.9% 100 ml @ 0.1 UNITS/KG/HR 7.559 mls/hr IV .[id number] [facility] Rx#:[id number] Output: Urine 0 900 0 Other: Voiding Method Urinal - Exam General appearance: The patient is drowsy but alert, oriented, appears in no acute distress. HET: Head is normocephalic and atraumatic. Conjunctiva pink. Sclera anicteric. Neck: Supple without lymphadenopathy. Abdomen: Soft, epigastric right upper quadrant tenderness, nondistended. Extremities: Normal skin color and turgor. No pedal edema Skin: No rashes, no jaundice Neurological: No focal deficits. Alert and oriented. - Labs CBC & Chem 7: 10/02/24 06:04 10/02/24 08:52 Labs: Abnormal Lab Results - Last 24 Hours (Table) 10/01/24 10/01/24 10/01/24 Range/Units 07:53 09:42 10:43 RBC (4.30-5.90) m/uL Hgb (13.0-17.5) gm/dL Hct (39.0-53.0) % MCHC (31.0-37.0) g/dL RDW (11.5-15.5) % Plt Count (150-450) k/uL Lymphocytes # (Manual) (1.0-4.8) k/uL Nucleated RBCs (0-0) /100 WBC VBG pH (7.31-7.41) VBG pCO2 (37-51) mmHg VBG HCO3 (24-28) mmol/L Sodium (137-145) mmol/L Potassium (3.5-5.1) mmol/L Chloride 111 H (98-107) mmol/L Carbon Dioxide <5 L* (22-30) mmol/L Creatinine (0.66-1.25) mg/dL Glucose 130 H (74-99) mg/dL POC Glucose (mg/dL) 205 H 246 H (70-110) mg/dL Hemoglobin A1c (<=6.0) % Calcium (8.4-10.2) mg/dL Phosphorus (2.5-4.5) mg/dL Alkaline Phosphatase (38-126) U/L Total Protein (6.3-8.2) g/dL Albumin (3.5-5.0) g/dL Triglycerides 1126.00 H (0.00-149.00) mg/dL Cholesterol 327.00 H (0.00-200.00) mg/dL VLDL Cholesterol, Calc 225.20 H (5.00-40.00) mg/dL HDL Cholesterol 29.10 L (40.00-60.00) mg/dL Lipase (23-300) U/L 10/01/24 10/01/24 10/01/24 Range/Units 11:44 12:02 12:02 RBC 3.77 L (4.30-5.90) m/uL Hgb 10.1 L (13.0-17.5) gm/dL Hct 34.5 L (39.0-53.0) % MCHC 29.2 L (31.0-37.0) g/dL RDW 19.6 H (11.5-15.5) % Plt Count 85 L (150-450) k/uL Lymphocytes # (Manual) (1.0-4.8) k/uL Nucleated RBCs (0-0) /100 WBC VBG pH 7.22 L (7.31-7.41) VBG pCO2 29 L (37-51) mmHg VBG HCO3 12 L (24-28) mmol/L Sodium (137-145) mmol/L Potassium (3.5-5.1) mmol/L Chloride (98-107) mmol/L Carbon Dioxide (22-30) mmol/L Creatinine (0.66-1.25) mg/dL Glucose (74-99) mg/dL POC Glucose (mg/dL) 245 H (70-110) mg/dL Hemoglobin A1c (<=6.0) % Calcium (8.4-10.2) mg/dL Phosphorus (2.5-4.5) mg/dL Alkaline Phosphatase (38-126) U/L Total Protein (6.3-8.2) g/dL Albumin (3.5-5.0) g/dL Triglycerides (0.00-149.00) mg/dL Cholesterol (0.00-200.00) mg/dL VLDL Cholesterol, Calc (5.00-40.00) mg/dL HDL Cholesterol (40.00-60.00) mg/dL Lipase (23-300) U/L 10/01/24 10/01/24 10/01/24 Range/Units 12:02 12:29 14:16 RBC (4.30-5.90) m/uL Hgb (13.0-17.5) gm/dL Hct (39.0-53.0) % MCHC (31.0-37.0) g/dL RDW (11.5-15.5) % Plt Count (150-450) k/uL Lymphocytes # (Manual) (1.0-4.8) k/uL Nucleated RBCs (0-0) /100 WBC VBG pH (7.31-7.41) VBG pCO2 (37-51) mmHg VBG HCO3 (24-28) mmol/L Sodium (137-145) mmol/L Potassium (3.5-5.1) mmol/L Chloride 109 H (98-107) mmol/L Carbon Dioxide 11 L (22-30) mmol/L Creatinine 0.63 L (0.66-1.25) mg/dL Glucose 239 H (74-99) mg/dL POC Glucose (mg/dL) 242 H 277 H (70-110) mg/dL Hemoglobin A1c (<=6.0) % Calcium 8.2 L (8.4-10.2) mg/dL Phosphorus (2.5-4.5) mg/dL Alkaline Phosphatase (38-126) U/L Total Protein (6.3-8.2) g/dL Albumin (3.5-5.0) g/dL Triglycerides (0.00-149.00) mg/dL Cholesterol (0.00-200.00) mg/dL VLDL Cholesterol, Calc (5.00-40.00) mg/dL HDL Cholesterol (40.00-60.00) mg/dL Lipase (23-300) U/L 10/01/24 10/01/24 10/01/24 Range/Units 15:07 16:16 16:21 RBC 3.68 L (4.30-5.90) m/uL Hgb 9.6 L (13.0-17.5) gm/dL Hct 33.4 L (39.0-53.0) % MCHC 28.8 L (31.0-37.0) g/dL RDW 19.7 H (11.5-15.5) % Plt Count 85 L (150-450) k/uL Lymphocytes # (Manual) (1.0-4.8) k/uL Nucleated RBCs (0-0) /100 WBC VBG pH (7.31-7.41) VBG pCO2 (37-51) mmHg VBG HCO3 (24-28) mmol/L Sodium (137-145) mmol/L Potassium (3.5-5.1) mmol/L Chloride (98-107) mmol/L Carbon Dioxide (22-30) mmol/L Creatinine (0.66-1.25) mg/dL Glucose (74-99) mg/dL POC Glucose (mg/dL) 284 H 267 H (70-110) mg/dL Hemoglobin A1c (<=6.0) % Calcium (8.4-10.2) mg/dL Phosphorus (2.5-4.5) mg/dL Alkaline Phosphatase (38-126) U/L Total Protein (6.3-8.2) g/dL Albumin (3.5-5.0) g/dL Triglycerides (0.00-149.00) mg/dL Cholesterol (0.00-200.00) mg/dL VLDL Cholesterol, Calc (5.00-40.00) mg/dL HDL Cholesterol (40.00-60.00) mg/dL Lipase (23-300) U/L 10/01/24 10/01/24 10/01/24 Range/Units 16:21 16:21 17:20 RBC (4.30-5.90) m/uL Hgb (13.0-17.5) gm/dL Hct (39.0-53.0) % MCHC (31.0-37.0) g/dL RDW (11.5-15.5) % Plt Count (150-450) k/uL Lymphocytes # (Manual) (1.0-4.8) k/uL Nucleated RBCs (0-0) /100 WBC VBG pH (7.31-7.41) VBG pCO2 35 L (37-51) mmHg VBG HCO3 17 L (24-28) mmol/L Sodium 136 L (137-145) mmol/L Potassium 3.3 L (3.5-5.1) mmol/L Chloride (98-107) mmol/L Carbon Dioxide 15 L (22-30) mmol/L Creatinine 0.47 L (0.66-1.25) mg/dL Glucose 240 H (74-99) mg/dL POC Glucose (mg/dL) 236 H (70-110) mg/dL Hemoglobin A1c (<=6.0) % Calcium 8.1 L (8.4-10.2) mg/dL Phosphorus (2.5-4.5) mg/dL Alkaline Phosphatase (38-126) U/L Total Protein (6.3-8.2) g/dL Albumin (3.5-5.0) g/dL Triglycerides (0.00-149.00) mg/dL Cholesterol (0.00-200.00) mg/dL VLDL Cholesterol, Calc (5.00-40.00) mg/dL HDL Cholesterol (40.00-60.00) mg/dL Lipase (23-300) U/L 10/01/24 10/01/24 10/01/24 Range/Units 18:25 18:58 19:50 RBC (4.30-5.90) m/uL Hgb (13.0-17.5) gm/dL Hct (39.0-53.0) % MCHC (31.0-37.0) g/dL RDW (11.5-15.5) % Plt Count (150-450) k/uL Lymphocytes # (Manual) (1.0-4.8) k/uL Nucleated RBCs (0-0) /100 WBC VBG pH (7.31-7.41) VBG pCO2 35 L (37-51) mmHg VBG HCO3 20 L (24-28) mmol/L Sodium (137-145) mmol/L Potassium (3.5-5.1) mmol/L Chloride (98-107) mmol/L Carbon Dioxide (22-30) mmol/L Creatinine (0.66-1.25) mg/dL Glucose (74-99) mg/dL POC Glucose (mg/dL) 369 H 451 H (70-110) mg/dL Hemoglobin A1c (<=6.0) % Calcium (8.4-10.2) mg/dL Phosphorus (2.5-4.5) mg/dL Alkaline Phosphatase (38-126) U/L Total Protein (6.3-8.2) g/dL Albumin (3.5-5.0) g/dL Triglycerides (0.00-149.00) mg/dL Cholesterol (0.00-200.00) mg/dL VLDL Cholesterol, Calc (5.00-40.00) mg/dL HDL Cholesterol (40.00-60.00) mg/dL Lipase (23-300) U/L 10/01/24 10/01/24 10/01/24 Range/Units 19:50 20:05 21:03 RBC (4.30-5.90) m/uL Hgb (13.0-17.5) gm/dL Hct (39.0-53.0) % MCHC (31.0-37.0) g/dL RDW (11.5-15.5) % Plt Count (150-450) k/uL Lymphocytes # (Manual) (1.0-4.8) k/uL Nucleated RBCs (0-0) /100 WBC VBG pH (7.31-7.41) VBG pCO2 (37-51) mmHg VBG HCO3 (24-28) mmol/L Sodium 135 L (137-145) mmol/L Potassium 2.9 L (3.5-5.1) mmol/L Chloride (98-107) mmol/L Carbon Dioxide 19 L (22-30) mmol/L Creatinine 0.46 L (0.66-1.25) mg/dL Glucose 230 H (74-99) mg/dL POC Glucose (mg/dL) 243 H 208 H (70-110) mg/dL Hemoglobin A1c (<=6.0) % Calcium 7.8 L (8.4-10.2) mg/dL Phosphorus (2.5-4.5) mg/dL Alkaline Phosphatase (38-126) U/L Total Protein (6.3-8.2) g/dL Albumin (3.5-5.0) g/dL Triglycerides (0.00-149.00) mg/dL Cholesterol (0.00-200.00) mg/dL VLDL Cholesterol, Calc (5.00-40.00) mg/dL HDL Cholesterol (40.00-60.00) mg/dL Lipase (23-300) U/L 10/01/24 10/01/24 10/02/24 Range/Units 22:19 23:05 00:05 RBC 3.66 L (4.30-5.90) m/uL Hgb 9.8 L (13.0-17.5) gm/dL Hct 32.8 L (39.0-53.0) % MCHC 29.9 L (31.0-37.0) g/dL RDW 20.0 H (11.5-15.5) % Plt Count 77 L (150-450) k/uL Lymphocytes # (Manual) (1.0-4.8) k/uL Nucleated RBCs (0-0) /100 WBC VBG pH (7.31-7.41) VBG pCO2 (37-51) mmHg VBG HCO3 (24-28) mmol/L Sodium (137-145) mmol/L Potassium (3.5-5.1) mmol/L Chloride (98-107) mmol/L Carbon Dioxide (22-30) mmol/L Creatinine (0.66-1.25) mg/dL Glucose (74-99) mg/dL POC Glucose (mg/dL) 205 H 137 H (70-110) mg/dL Hemoglobin A1c (<=6.0) % Calcium (8.4-10.2) mg/dL Phosphorus (2.5-4.5) mg/dL Alkaline Phosphatase (38-126) U/L Total Protein (6.3-8.2) g/dL Albumin (3.5-5.0) g/dL Triglycerides (0.00-149.00) mg/dL Cholesterol (0.00-200.00) mg/dL VLDL Cholesterol, Calc (5.00-40.00) mg/dL HDL Cholesterol (40.00-60.00) mg/dL Lipase (23-300) U/L 10/02/24 10/02/24 10/02/24 Range/Units 00:05 00:14 01:06 RBC (4.30-5.90) m/uL Hgb (13.0-17.5) gm/dL Hct (39.0-53.0) % MCHC (31.0-37.0) g/dL RDW (11.5-15.5) % Plt Count (150-450) k/uL Lymphocytes # (Manual) (1.0-4.8) k/uL Nucleated RBCs (0-0) /100 WBC VBG pH (7.31-7.41) VBG pCO2 (37-51) mmHg VBG HCO3 (24-28) mmol/L Sodium 135 L (137-145) mmol/L Potassium 3.1 L (3.5-5.1) mmol/L Chloride (98-107) mmol/L Carbon Dioxide 17 L (22-30) mmol/L Creatinine 0.48 L (0.66-1.25) mg/dL Glucose 107 H (74-99) mg/dL POC Glucose (mg/dL) 112 H 190 H (70-110) mg/dL Hemoglobin A1c (<=6.0) % Calcium 8.2 L (8.4-10.2) mg/dL Phosphorus (2.5-4.5) mg/dL Alkaline Phosphatase (38-126) U/L Total Protein (6.3-8.2) g/dL Albumin (3.5-5.0) g/dL Triglycerides (0.00-149.00) mg/dL Cholesterol (0.00-200.00) mg/dL VLDL Cholesterol, Calc (5.00-40.00) mg/dL HDL Cholesterol (40.00-60.00) mg/dL Lipase (23-300) U/L 0310/02/24 10/02/24 Range/Units 01:59 02:00 03:12 RBC (4.30-5.90) m/uL Hgb (13.0-17.5) gm/dL Hct (39.0-53.0) % MCHC (31.0-37.0) g/dL RDW (11.5-15.5) % Plt Count (150-450) k/uL Lymphocytes # (Manual) (1.0-4.8) k/uL Nucleated RBCs (0-0) /100 WBC VBG pH (7.31-7.41) VBG pCO2 (37-51) mmHg VBG HCO3 (24-28) mmol/L Sodium (137-145) mmol/L Potassium 5.9 H (3.5-5.1) mmol/L Chloride (98-107) mmol/L Carbon Dioxide (22-30) mmol/L Creatinine (0.66-1.25) mg/dL Glucose (74-99) mg/dL POC Glucose (mg/dL) 167 H 179 H (70-110) mg/dL Hemoglobin A1c (<=6.0) % Calcium (8.4-10.2) mg/dL Phosphorus (2.5-4.5) mg/dL Alkaline Phosphatase (38-126) U/L Total Protein (6.3-8.2) g/dL Albumin (3.5-5.0) g/dL Triglycerides (0.00-149.00) mg/dL Cholesterol (0.00-200.00) mg/dL VLDL Cholesterol, Calc (5.00-40.00) mg/dL HDL Cholesterol (40.00-60.00) mg/dL Lipase (23-300) U/L 10/02/24 10/02/24 10/02/24 Range/Units 03:14 03:14 04:06 RBC (4.30-5.90) m/uL Hgb (13.0-17.5) gm/dL Hct (39.0-53.0) % MCHC (31.0-37.0) g/dL RDW (11.5-15.5) % Plt Count (150-450) k/uL Lymphocytes # (Manual) (1.0-4.8) k/uL Nucleated RBCs (0-0) /100 WBC VBG pH (7.31-7.41) VBG pCO2 (37-51) mmHg VBG HCO3 (24-28) mmol/L Sodium 133 L (137-145) mmol/L Potassium (3.5-5.1) mmol/L Chloride (98-107) mmol/L Carbon Dioxide 14 L (22-30) mmol/L Creatinine 0.45 L (0.66-1.25) mg/dL Glucose 184 H (74-99) mg/dL POC Glucose (mg/dL) 261 H (70-110) mg/dL Hemoglobin A1c 12.6 H (<=6.0) % Calcium 8.2 L (8.4-10.2) mg/dL Phosphorus 0.9 L* (2.5-4.5) mg/dL Alkaline Phosphatase 314 H (38-126) U/L Total Protein 6.2 L (6.3-8.2) g/dL Albumin 3.1 L (3.5-5.0) g/dL Triglycerides (0.00-149.00) mg/dL Cholesterol (0.00-200.00) mg/dL VLDL Cholesterol, Calc (5.00-40.00) mg/dL HDL Cholesterol (40.00-60.00) mg/dL Lipase 1020 H (23-300) U/L 10/02/24 10/02/24 10/02/24 Range/Units 05:04 06:04 06:16 RBC 3.50 L (4.30-5.90) m/uL Hgb 9.2 L (13.0-17.5) gm/dL Hct 31.2 L (39.0-53.0) % MCHC 29.4 L (31.0-37.0) g/dL RDW 19.9 H (11.5-15.5) % Plt Count 73 L (150-450) k/uL Lymphocytes # (Manual) 0.33 L (1.0-4.8) k/uL Nucleated RBCs 1 H (0-0) /100 WBC VBG pH (7.31-7.41) VBG pCO2 (37-51) mmHg VBG HCO3 (24-28) mmol/L Sodium (137-145) mmol/L Potassium (3.5-5.1) mmol/L Chloride (98-107) mmol/L Carbon Dioxide (22-30) mmol/L Creatinine (0.66-1.25) mg/dL Glucose (74-99) mg/dL POC Glucose (mg/dL) 219 H 198 H (70-110) mg/dL Hemoglobin A1c (<=6.0) % Calcium (8.4-10.2) mg/dL Phosphorus (2.5-4.5) mg/dL Alkaline Phosphatase (38-126) U/L Total Protein (6.3-8.2) g/dL Albumin (3.5-5.0) g/dL Triglycerides (0.00-149.00) mg/dL Cholesterol (0.00-200.00) mg/dL VLDL Cholesterol, Calc (5.00-40.00) mg/dL HDL Cholesterol (40.00-60.00) mg/dL Lipase (23-300) U/L 10/02/24 10/02/24 Range/Units 07:01 08:22 RBC (4.30-5.90) m/uL Hgb (13.0-17.5) gm/dL Hct (39.0-53.0) % MCHC (31.0-37.0) g/dL RDW (11.5-15.5) % Plt Count (150-450) k/uL Lymphocytes # (Manual) (1.0-4.8) k/uL Nucleated RBCs (0-0) /100 WBC VBG pH (7.31-7.41) VBG pCO2 (37-51) mmHg VBG HCO3 (24-28) mmol/L Sodium (137-145) mmol/L Potassium (3.5-5.1) mmol/L Chloride (98-107) mmol/L Carbon Dioxide (22-30) mmol/L Creatinine (0.66-1.25) mg/dL Glucose (74-99) mg/dL POC Glucose (mg/dL) 243 H 236 H (70-110) mg/dL Hemoglobin A1c (<=6.0) % Calcium (8.4-10.2) mg/dL Phosphorus (2.5-4.5) mg/dL Alkaline Phosphatase (38-126) U/L Total Protein (6.3-8.2) g/dL Albumin (3.5-5.0) g/dL Triglycerides (0.00-149.00) mg/dL Cholesterol (0.00-200.00) mg/dL VLDL Cholesterol, Calc (5.00-40.00) mg/dL HDL Cholesterol (40.00-60.00) mg/dL Lipase (23-300) U/L Assessment and Plan (1) Pancreatitis Narrative/Plan: 44-year-old male with a history of alcohol abuse presented with complaints of chest pain with noted elevation in his amylase and lipase with CT evidence of pancreatitis. Patient admitted on CIWA protocol, currently multiple IV medications and somewhat sedated. Mild elevation of bilirubin and alkaline phosphatase. Likely dealing with acute alcohol pancreatitis. Continue with symptomatic and supportive care Current Visit: Yes Status: Acute Code(s): K85.90 - ACUTE PANCREATITIS WITHOUT NECROSIS OR INFECTION, UNSP SNOMED Code(s): 97342961 (2) Hematemesis Narrative/Plan: Patient reports history of upper GI bleed secondary to esophageal varices with banding. Believes last upper endoscopy was at [facility] about 9 months ago. Will obtain records.. Current Visit: Yes Status: Acute Code(s): K92.0 - HEMATEMESIS SNOMED Code(s): 6278869 (3) Liver cirrhosis, alcoholic Current Visit: Yes Status: Acute Code(s): K70.30 - ALCOHOLIC CIRRHOSIS OF LIVER WITHOUT ASCITES SNOMED Code(s): 018415054 (4) Alcohol withdrawal Current Visit: Yes Status: Acute Code(s): F10.939 - ALCOHOL USE, UNSPECIFIED WITH WITHDRAWAL, UNSPECIFIED SNOMED Code(s): 917897918 (5) DKA (diabetic ketoacidosis) Current Visit: Yes Status: Acute Code(s): E11.10 - TYPE 2 DIABETES MELLITUS WITH KETOACIDOSIS WITHOUT COMA SNOMED Code(s): 457300498 (6) History of esophageal varices Current Visit: Yes Status: Acute Code(s): Z87.19 - PERSONAL HISTORY OF OTHER DISEASES OF THE DIGESTIVE SYSTEM SNOMED Code(s): 63989761831884639 Plan: 1. Continue symptomatic and supportive care 2. Clear liquid diet, n.p.o. after midnight 3. Daily CBC, transfuse for hemoglobin less than 7 4. Protonix 40 mg daily 5. Continue Inderal 6. Continue with CIWA protocol 7. Avoid NSAIDs 8. Antiemetics as needed 9. Plan for upper endoscopy tomorrow 10. Please obtain records of endoscopic evaluations and GI notes from [facility] 11. Rest of medical management per primary medical team and ICU team Thank you for this consultation, we will continue to follow. Dr. José Marshall I agree with the dictator's note, documented as a scribe by Angela Olea.
[2024-10-02 13:04] LABS: Anisocytosis Moderate; HCT 30.1 % (39.0-53.0); Hypochromasia Marked; MCH 26.7 pg (25.0-35.0); MCHC 29.8 g/dL (31.0-37.0); MCV 89.6 fL (80.0-100.0); Mean Platelet Volume 10.9; RBC 3.36 m/uL (4.30-5.90); RDW 20.4 % (11.5-15.5)
[2024-10-02 13:16] LABS: African American GFR (CKD) >90 (>60 ml/min/1.73 sqM); Anion Gap 9 mmol/L; Blood Urea Nitrogen 6 mg/dL (9-20); Calcium 7.5 mg/dL (8.4-10.2); Carbon Dioxide 17 mmol/L (22-30); Chloride 105 mmol/L (98-107); Glucose 250 mg/dL (74-99); Non-African American GFR(CKD) >90 (>60 ml/min/1.73 sqM); Potassium 3.4 mmol/L (3.5-5.1); Sodium 131 mmol/L (137-145)
[2024-10-02 13:19] LABS: Glucose,Whole Blood 254 mg/dL (70-110)
[2024-10-02 13:34] LABS: Platelet Count 64 k/uL (150-450)
--- NOTE | 2024-10-02 13:48 | P.PN ---
Subjective Progress Note Date: 10/02/24 44 year old M with PMH of DM, HTN, HLD, EtOH abuse, cirrhosis, esophageal varicies presents to the ED for abdominal pain and hematemesis. In the ED he underwent extensive evaluation. BP 142/109, HR 125, RR 28, T 97.6F, 100% on RA. CBC, Coag panel, CMP significant for WBC 16.8, Hg 12.5, K 5.8, bicarb < 5, BUN 8, glu 507, T. Bili 1.7, alk phos 430, alb 5.2. Phos 7.4. Mag 1.7. Trop < 0.012. BNP 119. Amylase 200. Lipiase 3010. UA neg LE or nitrite. Acetone positive. EtOH < 10. CXR neg. EKG sinus tachycardia. CT chest abd pelvis confirmed cirrhosis of the liver, portal hypertension, peripancreatic infiltration, cholelithiasis, diffuse colonic wall thickening. Patient was admitted for DKA and pancreatitis along with upper GI bleed. Started on insulin drip/IVF and CIWA protocol. GI consulted for UGIB with plans for EGD on 10/03. 10/02 Patient was seen and examined. Continued abdominal pain with nausea. CBC, CMP significant for RBC 3.5, Hg 9.2, Hct 31.2, Plt 73, Na 131, K 3.4, bicarb 17, BUN 6, Cr 0.49, glu 250, Ca 7.5, alk phos 314, alb 3.1. A1c 12.6. Phos 0.9. Insulin drip at 0.09 units/kg/hr. D5 1/2 NS with 20 meq KCl at 150 cc/hr. 4 mg of Ativan per CIWA protocol over the past 24H. General: non toxic, moderate distress, appears at stated age Derm: warm, dry Head: atraumatic, normocephalic, symmetric Eyes: EOMI, no lid lag, anicteric sclera Mouth: no lip lesion, mucus membranes moist Cardiovascular: S1S2 tachy, no murmur Lungs: CTA bilateral, no rhonchi, no rales , no accessory muscle use Ext: no gross muscle atrophy, no edema, no contractures Neuro: no focal neuro deficits Psych: Alert and oriented. Based on my assessment of this patient, this patient meets a high complexity level of care. Diabetic ketoacidosis: A1c 12.6. Continue insulin drip. Continue D5 1/2 NS with 20 meq KCl at 150 cc/hr. Transition to SQ insulin when bicarb normalizes. Electrolytes Q4H. Accuchecks Q1H. Acute pancreatitis: Morphine 2 mg IV Q6 to Q4H PRN. IV hydration as above. Upper GI bleed: Likely esophageal varicies. Protonix 40 mg IV BID. Monitor Hg. Plans for EGD 3/5 with GI. Hypokalemia: Replace via protocol. Hyponatremia: Likely due to cirrhosis. Alcohol withdrawal: CIWA protocol with Ativan PRN. Liver cirrhosis: Would benefit from Propranolol, Lasix and Aldactone prior to discharge. Outpatient GI follow up. Thrombocytopenia likely due to EtOH abuse Diffuse colonic wall thickening: Likely due to pancreatitis. Outpatient C-scope to rule out colon CA. Dyslipidemia with hypertriglyceridemia: Consider fibrate + statin prior to discharge. CODE STATUS: FULL CODE. DVT Prophylaxis: SCD GI Prophylaxis: Protonix IV Designated medical POA if patient is not able to make medical decisions for themselves: I have reviewed the following managed services consultant notes: Pulmonary, GI. I have reviewed the results of the following tests: As above. I have ordered the following tests: Electrolutes Q4H. Accuchecks Q1H. CBC and CMP in the AM. I have discussed the care of this patient with the following independent historian: MARCUS. I have independently interpreted the following test below: I have discussed the management of this patient with the following physician: Objective - Vital Signs Vital signs: Vital Signs Temp 98.0 F 10/02/24 12:00 Pulse 91 10/02/24 13:00 Resp 14 10/02/24 13:00 BP 94/71 10/02/24 13:00 Pulse Ox 97 10/02/24 13:00 FiO2 Intake & Output 10/01/24 10/02/24 10/02/24 18:59 06:59 18:59 Intake Total 065.056 3530.671 782.346 Output Total 0 900 300 Balance 215.265 952.671 482.346 Weight 74.8 kg 74.8 kg Intake: IV 150 1800 750 D5-0.45% NaCl with KCl 150 1500 20Meq/l 1,000 ml @ 150 mls/hr IV .[id number] [facility] Rx# :[id number] D5-0.45% NaCl with KCl 300 750 20Meq/l 1,000 ml @ 150 mls/hr IV .[id number] [facility] Rx# :[id number] Intake, IV Titration 65.265 52.671 32.346 Amount Insulin Regular 100 unit 65.265 52.671 32.346 In Sodium Chloride 0.9% 100 ml @ 0.1 UNITS/KG/HR 7.559 mls/hr IV .[id number] [facility] Rx#:[id number] Output: Urine 0 900 300 Other: Voiding Method Urinal Urinal - Labs CBC & Chem 7: 10/02/24 06:04 10/02/24 12:21 Labs: Abnormal Lab Results - Last 24 Hours (Table) 10/01/24 10/01/24 10/01/24 Range/Units 07:53 12:02 14:16 RBC 3.77 L (4.30-5.90) m/uL Hgb 10.1 L (13.0-17.5) gm/dL Hct 34.5 L (39.0-53.0) % MCHC 29.2 L (31.0-37.0) g/dL RDW 19.6 H (11.5-15.5) % Plt Count 85 L (150-450) k/uL Lymphocytes # (Manual) (1.0-4.8) k/uL Nucleated RBCs (0-0) /100 WBC VBG pCO2 (37-51) mmHg VBG HCO3 (24-28) mmol/L Sodium (137-145) mmol/L Potassium (3.5-5.1) mmol/L Chloride 111 H (98-107) mmol/L Carbon Dioxide <5 L* (22-30) mmol/L BUN (9-20) mg/dL Creatinine (0.66-1.25) mg/dL Glucose 130 H (74-99) mg/dL POC Glucose (mg/dL) 277 H (70-110) mg/dL Hemoglobin A1c (<=6.0) % Calcium (8.4-10.2) mg/dL Phosphorus (2.5-4.5) mg/dL Alkaline Phosphatase (38-126) U/L Total Protein (6.3-8.2) g/dL Albumin (3.5-5.0) g/dL Triglycerides 1126.00 H (0.00-149.00) mg/dL Cholesterol 327.00 H (0.00-200.00) mg/dL VLDL Cholesterol, Calc 225.20 H (5.00-40.00) mg/dL HDL Cholesterol 29.10 L (40.00-60.00) mg/dL Lipase (23-300) U/L 10/01/24 10/01/24 10/01/24 Range/Units 15:07 16:16 16:21 RBC 3.68 L (4.30-5.90) m/uL Hgb 9.6 L (13.0-17.5) gm/dL Hct 33.4 L (39.0-53.0) % MCHC 28.8 L (31.0-37.0) g/dL RDW 19.7 H (11.5-15.5) % Plt Count 85 L (150-450) k/uL Lymphocytes # (Manual) (1.0-4.8) k/uL Nucleated RBCs (0-0) /100 WBC VBG pCO2 (37-51) mmHg VBG HCO3 (24-28) mmol/L Sodium (137-145) mmol/L Potassium (3.5-5.1) mmol/L Chloride (98-107) mmol/L Carbon Dioxide (22-30) mmol/L BUN (9-20) mg/dL Creatinine (0.66-1.25) mg/dL Glucose (74-99) mg/dL POC Glucose (mg/dL) 284 H 267 H (70-110) mg/dL Hemoglobin A1c (<=6.0) % Calcium (8.4-10.2) mg/dL Phosphorus (2.5-4.5) mg/dL Alkaline Phosphatase (38-126) U/L Total Protein (6.3-8.2) g/dL Albumin (3.5-5.0) g/dL Triglycerides (0.00-149.00) mg/dL Cholesterol (0.00-200.00) mg/dL VLDL Cholesterol, Calc (5.00-40.00) mg/dL HDL Cholesterol (40.00-60.00) mg/dL Lipase (23-300) U/L 10/01/24 10/01/24 10/01/24 Range/Units 16:21 16:21 17:20 RBC (4.30-5.90) m/uL Hgb (13.0-17.5) gm/dL Hct (39.0-53.0) % MCHC (31.0-37.0) g/dL RDW (11.5-15.5) % Plt Count (150-450) k/uL Lymphocytes # (Manual) (1.0-4.8) k/uL Nucleated RBCs (0-0) /100 WBC VBG pCO2 35 L (37-51) mmHg VBG HCO3 17 L (24-28) mmol/L Sodium 136 L (137-145) mmol/L Potassium 3.3 L (3.5-5.1) mmol/L Chloride (98-107) mmol/L Carbon Dioxide 15 L (22-30) mmol/L BUN (9-20) mg/dL Creatinine 0.47 L (0.66-1.25) mg/dL Glucose 240 H (74-99) mg/dL POC Glucose (mg/dL) 236 H (70-110) mg/dL Hemoglobin A1c (<=6.0) % Calcium 8.1 L (8.4-10.2) mg/dL Phosphorus (2.5-4.5) mg/dL Alkaline Phosphatase (38-126) U/L Total Protein (6.3-8.2) g/dL Albumin (3.5-5.0) g/dL Triglycerides (0.00-149.00) mg/dL Cholesterol (0.00-200.00) mg/dL VLDL Cholesterol, Calc (5.00-40.00) mg/dL HDL Cholesterol (40.00-60.00) mg/dL Lipase (23-300) U/L 10/01/24 10/01/24 10/01/24 Range/Units 18:25 18:58 19:50 RBC (4.30-5.90) m/uL Hgb (13.0-17.5) gm/dL Hct (39.0-53.0) % MCHC (31.0-37.0) g/dL RDW (11.5-15.5) % Plt Count (150-450) k/uL Lymphocytes # (Manual) (1.0-4.8) k/uL Nucleated RBCs (0-0) /100 WBC VBG pCO2 35 L (37-51) mmHg VBG HCO3 20 L (24-28) mmol/L Sodium (137-145) mmol/L Potassium (3.5-5.1) mmol/L Chloride (98-107) mmol/L Carbon Dioxide (22-30) mmol/L BUN (9-20) mg/dL Creatinine (0.66-1.25) mg/dL Glucose (74-99) mg/dL POC Glucose (mg/dL) 369 H 451 H (70-110) mg/dL Hemoglobin A1c (<=6.0) % Calcium (8.4-10.2) mg/dL Phosphorus (2.5-4.5) mg/dL Alkaline Phosphatase (38-126) U/L Total Protein (6.3-8.2) g/dL Albumin (3.5-5.0) g/dL Triglycerides (0.00-149.00) mg/dL Cholesterol (0.00-200.00) mg/dL VLDL Cholesterol, Calc (5.00-40.00) mg/dL HDL Cholesterol (40.00-60.00) mg/dL Lipase (23-300) U/L 10/01/24 10/01/24 10/01/24 Range/Units 19:50 20:05 21:03 RBC (4.30-5.90) m/uL Hgb (13.0-17.5) gm/dL Hct (39.0-53.0) % MCHC (31.0-37.0) g/dL RDW (11.5-15.5) % Plt Count (150-450) k/uL Lymphocytes # (Manual) (1.0-4.8) k/uL Nucleated RBCs (0-0) /100 WBC VBG pCO2 (37-51) mmHg VBG HCO3 (24-28) mmol/L Sodium 135 L (137-145) mmol/L Potassium 2.9 L (3.5-5.1) mmol/L Chloride (98-107) mmol/L Carbon Dioxide 19 L (22-30) mmol/L BUN (9-20) mg/dL Creatinine 0.46 L (0.66-1.25) mg/dL Glucose 230 H (74-99) mg/dL POC Glucose (mg/dL) 243 H 208 H (70-110) mg/dL Hemoglobin A1c (<=6.0) % Calcium 7.8 L (8.4-10.2) mg/dL Phosphorus (2.5-4.5) mg/dL Alkaline Phosphatase (38-126) U/L Total Protein (6.3-8.2) g/dL Albumin (3.5-5.0) g/dL Triglycerides (0.00-149.00) mg/dL Cholesterol (0.00-200.00) mg/dL VLDL Cholesterol, Calc (5.00-40.00) mg/dL HDL Cholesterol (40.00-60.00) mg/dL Lipase (23-300) U/L 10/01/24 10/01/24 10/02/24 Range/Units 22:19 23:05 00:05 RBC 3.66 L (4.30-5.90) m/uL Hgb 9.8 L (13.0-17.5) gm/dL Hct 32.8 L (39.0-53.0) % MCHC 29.9 L (31.0-37.0) g/dL RDW 20.0 H (11.5-15.5) % Plt Count 77 L (150-450) k/uL Lymphocytes # (Manual) (1.0-4.8) k/uL Nucleated RBCs (0-0) /100 WBC VBG pCO2 (37-51) mmHg VBG HCO3 (24-28) mmol/L Sodium (137-145) mmol/L Potassium (3.5-5.1) mmol/L Chloride (98-107) mmol/L Carbon Dioxide (22-30) mmol/L BUN (9-20) mg/dL Creatinine (0.66-1.25) mg/dL Glucose (74-99) mg/dL POC Glucose (mg/dL) 205 H 137 H (70-110) mg/dL Hemoglobin A1c (<=6.0) % Calcium (8.4-10.2) mg/dL Phosphorus (2.5-4.5) mg/dL Alkaline Phosphatase (38-126) U/L Total Protein (6.3-8.2) g/dL Albumin (3.5-5.0) g/dL Triglycerides (0.00-149.00) mg/dL Cholesterol (0.00-200.00) mg/dL VLDL Cholesterol, Calc (5.00-40.00) mg/dL HDL Cholesterol (40.00-60.00) mg/dL Lipase (23-300) U/L 10/02/24 10/02/24 10/02/24 Range/Units 00:05 00:14 01:06 RBC (4.30-5.90) m/uL Hgb (13.0-17.5) gm/dL Hct (39.0-53.0) % MCHC (31.0-37.0) g/dL RDW (11.5-15.5) % Plt Count (150-450) k/uL Lymphocytes # (Manual) (1.0-4.8) k/uL Nucleated RBCs (0-0) /100 WBC VBG pCO2 (37-51) mmHg VBG HCO3 (24-28) mmol/L Sodium 135 L (137-145) mmol/L Potassium 3.1 L (3.5-5.1) mmol/L Chloride (98-107) mmol/L Carbon Dioxide 17 L (22-30) mmol/L BUN (9-20) mg/dL Creatinine 0.48 L (0.66-1.25) mg/dL Glucose 107 H (74-99) mg/dL POC Glucose (mg/dL) 112 H 190 H (70-110) mg/dL Hemoglobin A1c (<=6.0) % Calcium 8.2 L (8.4-10.2) mg/dL Phosphorus (2.5-4.5) mg/dL Alkaline Phosphatase (38-126) U/L Total Protein (6.3-8.2) g/dL Albumin (3.5-5.0) g/dL Triglycerides (0.00-149.00) mg/dL Cholesterol (0.00-200.00) mg/dL VLDL Cholesterol, Calc (5.00-40.00) mg/dL HDL Cholesterol (40.00-60.00) mg/dL Lipase (23-300) U/L 10/02/24 10/02/24 10/02/24 Range/Units 01:59 02:00 03:12 RBC (4.30-5.90) m/uL Hgb (13.0-17.5) gm/dL Hct (39.0-53.0) % MCHC (31.0-37.0) g/dL RDW (11.5-15.5) % Plt Count (150-450) k/uL Lymphocytes # (Manual) (1.0-4.8) k/uL Nucleated RBCs (0-0) /100 WBC VBG pCO2 (37-51) mmHg VBG HCO3 (24-28) mmol/L Sodium (137-145) mmol/L Potassium 5.9 H (3.5-5.1) mmol/L Chloride (98-107) mmol/L Carbon Dioxide (22-30) mmol/L BUN (9-20) mg/dL Creatinine (0.66-1.25) mg/dL Glucose (74-99) mg/dL POC Glucose (mg/dL) 167 H 179 H (70-110) mg/dL Hemoglobin A1c (<=6.0) % Calcium (8.4-10.2) mg/dL Phosphorus (2.5-4.5) mg/dL Alkaline Phosphatase (38-126) U/L Total Protein (6.3-8.2) g/dL Albumin (3.5-5.0) g/dL Triglycerides (0.00-149.00) mg/dL Cholesterol (0.00-200.00) mg/dL VLDL Cholesterol, Calc (5.00-40.00) mg/dL HDL Cholesterol (40.00-60.00) mg/dL Lipase (23-300) U/L 10/02/24 10/02/24 10/02/24 Range/Units 03:14 03:14 04:06 RBC (4.30-5.90) m/uL Hgb (13.0-17.5) gm/dL Hct (39.0-53.0) % MCHC (31.0-37.0) g/dL RDW (11.5-15.5) % Plt Count (150-450) k/uL Lymphocytes # (Manual) (1.0-4.8) k/uL Nucleated RBCs (0-0) /100 WBC VBG pCO2 (37-51) mmHg VBG HCO3 (24-28) mmol/L Sodium 133 L (137-145) mmol/L Potassium (3.5-5.1) mmol/L Chloride (98-107) mmol/L Carbon Dioxide 14 L (22-30) mmol/L BUN (9-20) mg/dL Creatinine 0.45 L (0.66-1.25) mg/dL Glucose 184 H (74-99) mg/dL POC Glucose (mg/dL) 261 H (70-110) mg/dL Hemoglobin A1c 12.6 H (<=6.0) % Calcium 8.2 L (8.4-10.2) mg/dL Phosphorus 0.9 L* (2.5-4.5) mg/dL Alkaline Phosphatase 314 H (38-126) U/L Total Protein 6.2 L (6.3-8.2) g/dL Albumin 3.1 L (3.5-5.0) g/dL Triglycerides (0.00-149.00) mg/dL Cholesterol (0.00-200.00) mg/dL VLDL Cholesterol, Calc (5.00-40.00) mg/dL HDL Cholesterol (40.00-60.00) mg/dL Lipase 1020 H (23-300) U/L 10/02/24 10/02/24 10/02/24 Range/Units 05:04 06:04 06:16 RBC 3.50 L (4.30-5.90) m/uL Hgb 9.2 L (13.0-17.5) gm/dL Hct 31.2 L (39.0-53.0) % MCHC 29.4 L (31.0-37.0) g/dL RDW 19.9 H (11.5-15.5) % Plt Count 73 L (150-450) k/uL Lymphocytes # (Manual) 0.33 L (1.0-4.8) k/uL Nucleated RBCs 1 H (0-0) /100 WBC VBG pCO2 (37-51) mmHg VBG HCO3 (24-28) mmol/L Sodium (137-145) mmol/L Potassium (3.5-5.1) mmol/L Chloride (98-107) mmol/L Carbon Dioxide (22-30) mmol/L BUN (9-20) mg/dL Creatinine (0.66-1.25) mg/dL Glucose (74-99) mg/dL POC Glucose (mg/dL) 219 H 198 H (70-110) mg/dL Hemoglobin A1c (<=6.0) % Calcium (8.4-10.2) mg/dL Phosphorus (2.5-4.5) mg/dL Alkaline Phosphatase (38-126) U/L Total Protein (6.3-8.2) g/dL Albumin (3.5-5.0) g/dL Triglycerides (0.00-149.00) mg/dL Cholesterol (0.00-200.00) mg/dL VLDL Cholesterol, Calc (5.00-40.00) mg/dL HDL Cholesterol (40.00-60.00) mg/dL Lipase (23-300) U/L 10/02/24 10/02/24 10/02/24 Range/Units 07:01 08:22 08:52 RBC (4.30-5.90) m/uL Hgb (13.0-17.5) gm/dL Hct (39.0-53.0) % MCHC (31.0-37.0) g/dL RDW (11.5-15.5) % Plt Count (150-450) k/uL Lymphocytes # (Manual) (1.0-4.8) k/uL Nucleated RBCs (0-0) /100 WBC VBG pCO2 (37-51) mmHg VBG HCO3 (24-28) mmol/L Sodium 131 L (137-145) mmol/L Potassium (3.5-5.1) mmol/L Chloride (98-107) mmol/L Carbon Dioxide 16 L (22-30) mmol/L BUN (9-20) mg/dL Creatinine (0.66-1.25) mg/dL Glucose (74-99) mg/dL POC Glucose (mg/dL) 243 H 236 H (70-110) mg/dL Hemoglobin A1c (<=6.0) % Calcium (8.4-10.2) mg/dL Phosphorus (2.5-4.5) mg/dL Alkaline Phosphatase (38-126) U/L Total Protein (6.3-8.2) g/dL Albumin (3.5-5.0) g/dL Triglycerides (0.00-149.00) mg/dL Cholesterol (0.00-200.00) mg/dL VLDL Cholesterol, Calc (5.00-40.00) mg/dL HDL Cholesterol (40.00-60.00) mg/dL Lipase (23-300) U/L 10/02/24 10/02/24 10/02/24 Range/Units 09:15 10:17 11:10 RBC (4.30-5.90) m/uL Hgb (13.0-17.5) gm/dL Hct (39.0-53.0) % MCHC (31.0-37.0) g/dL RDW (11.5-15.5) % Plt Count (150-450) k/uL Lymphocytes # (Manual) (1.0-4.8) k/uL Nucleated RBCs (0-0) /100 WBC VBG pCO2 (37-51) mmHg VBG HCO3 (24-28) mmol/L Sodium (137-145) mmol/L Potassium (3.5-5.1) mmol/L Chloride (98-107) mmol/L Carbon Dioxide (22-30) mmol/L BUN (9-20) mg/dL Creatinine (0.66-1.25) mg/dL Glucose (74-99) mg/dL POC Glucose (mg/dL) 210 H 261 H 274 H (70-110) mg/dL Hemoglobin A1c (<=6.0) % Calcium (8.4-10.2) mg/dL Phosphorus (2.5-4.5) mg/dL Alkaline Phosphatase (38-126) U/L Total Protein (6.3-8.2) g/dL Albumin (3.5-5.0) g/dL Triglycerides (0.00-149.00) mg/dL Cholesterol (0.00-200.00) mg/dL VLDL Cholesterol, Calc (5.00-40.00) mg/dL HDL Cholesterol (40.00-60.00) mg/dL Lipase (23-300) U/L 10/02/24 10/02/24 10/02/24 Range/Units 12:03 12:21 13:18 RBC (4.30-5.90) m/uL Hgb (13.0-17.5) gm/dL Hct (39.0-53.0) % MCHC (31.0-37.0) g/dL RDW (11.5-15.5) % Plt Count (150-450) k/uL Lymphocytes # (Manual) (1.0-4.8) k/uL Nucleated RBCs (0-0) /100 WBC VBG pCO2 (37-51) mmHg VBG HCO3 (24-28) mmol/L Sodium 131 L (137-145) mmol/L Potassium 3.4 L (3.5-5.1) mmol/L Chloride (98-107) mmol/L Carbon Dioxide 17 L (22-30) mmol/L BUN 6 L (9-20) mg/dL Creatinine 0.49 L (0.66-1.25) mg/dL Glucose 250 H (74-99) mg/dL POC Glucose (mg/dL) 272 H 254 H (70-110) mg/dL Hemoglobin A1c (<=6.0) % Calcium 7.5 L (8.4-10.2) mg/dL Phosphorus (2.5-4.5) mg/dL Alkaline Phosphatase (38-126) U/L Total Protein (6.3-8.2) g/dL Albumin (3.5-5.0) g/dL Triglycerides (0.00-149.00) mg/dL Cholesterol (0.00-200.00) mg/dL VLDL Cholesterol, Calc (5.00-40.00) mg/dL HDL Cholesterol (40.00-60.00) mg/dL Lipase (23-300) U/L Microbiology - Last 24 Hours (Table) 10/01/24 00:04 Blood Culture - Preliminary Blood
[2024-10-02 14:06] LABS: Neutrophils % (M) 76 %; Nucleated Red Blood Cells 2 /100 WBC (0-0); Total Cells Counted 200
[2024-10-02 14:07] LABS: Anisocytosis (M) Present; Eosinophils # (M) 0.06 k/uL (0-0.7); Lymphocytes # (M) 0.54 k/uL (1.0-4.8); Monocytes # (M) 0.19 k/uL (0-1.0); Neutrophils # (M) 2.43 k/uL (1.3-7.7); WBC 3.2 k/uL (3.8-10.6)
[2024-10-02 14:34] LABS: Glucose,Whole Blood 228 mg/dL (70-110)
[2024-10-02 16:30] LABS: Glucose,Whole Blood 186 mg/dL (70-110)
[2024-10-02 16:32] LABS: Anisocytosis Moderate; Basophils % (A) 0 %; Eosinophils # (A) 0.1 k/uL (0-0.7); Eosinophils % (A) 3 %; HCT 30.1 % (39.0-53.0); HGB 7.8 gm/dL (13.0-17.5); Hypochromasia Marked; Lymphocytes # (A) 0.8 k/uL (1.0-4.8); Lymphocytes % (A) 23 %; MCH 23.5 pg (25.0-35.0); MCV 90.3 fL (80.0-100.0); Mean Platelet Volume 10.7; Monocytes # (A) 0.1 k/uL (0-1.0); Monocytes % (A) 4 %; Neutrophils # (A) 2.6 k/uL (1.3-7.7); Neutrophils % (A) 69 %; RBC 3.33 m/uL (4.30-5.90); RDW 20.2 % (11.5-15.5); WBC 3.7 k/uL (3.8-10.6)
[2024-10-02 16:44] LABS: Potassium 3.4 mmol/L (3.5-5.1)
[2024-10-02 17:09] LABS: Platelet Count 62 k/uL (150-450)
[2024-10-02 18:17] LABS: Glucose,Whole Blood 135 mg/dL (70-110)
[2024-10-02] MEDS ORDERED: INSULIN NPH 100 UNIT/ML 10 ML VIAL SQ ONE (19:05)
[2024-10-02] MEDS: SODIUM PHOSPHATE 30 MMOL in DEXTROSE 5% IN WATER 250 ML IVPB ONE (19:59)
[2024-10-02 20:06] LABS: Glucose,Whole Blood 281 mg/dL (70-110)
[2024-10-02] MEDS: INSULIN LISPRO (HumaLOG) 100 UNIT/ML 10 mL VL SQ SCH (20:10)
[2024-10-02] MEDS: INSULIN GLARGINE (LANTUS) 100 UNIT/ML SYR SQ SCH (20:43)
[2024-10-02 21:32] LABS: Potassium 5.5 mmol/L (3.5-5.1)
[2024-10-02 21:37] LABS: Anisocytosis Moderate; Basophils % (A) 1 %; Eosinophils # (A) 0.1 k/uL (0-0.7); Eosinophils % (A) 2 %; HCT 33.3 % (39.0-53.0); Hypochromasia Marked; Lymphocytes # (A) 1.2 k/uL (1.0-4.8); Lymphocytes % (A) 24 %; MCH 26.8 pg (25.0-35.0); MCHC 29.4 g/dL (31.0-37.0); MCV 91.2 fL (80.0-100.0); Mean Platelet Volume 10.2; Monocytes # (A) 0.4 k/uL (0-1.0); Monocytes % (A) 7 %; Neutrophils # (A) 3.2 k/uL (1.3-7.7); Neutrophils % (A) 65 %; RBC 3.65 m/uL (4.30-5.90); RDW 20.2 % (11.5-15.5)
[2024-10-02 21:38] LABS: HGB 9.8 gm/dL (13.0-17.5)
[2024-10-02 21:47] LABS: Platelet Count 79 k/uL (150-450)
[2024-10-03 00:44] LABS: Glucose,Whole Blood 263 mg/dL (70-110)
[2024-10-03 06:40] LABS: Glucose,Whole Blood 187 mg/dL (70-110)
[2024-10-03] MEDS: INSULIN LISPRO (HumaLOG) 100 UNIT/ML 10 mL VL SQ SCH (06:45)
[2024-10-03 07:03] LABS: Anisocytosis Moderate; Basophils % (A) 0 %; Eosinophils # (A) 0.1 k/uL (0-0.7); Eosinophils % (A) 2 %; HCT 31.5 % (39.0-53.0); HGB 9.3 gm/dL (13.0-17.5); Hypochromasia Marked; Lymphocytes # (A) 0.7 k/uL (1.0-4.8); Lymphocytes % (A) 24 %; MCH 26.4 pg (25.0-35.0); MCHC 29.6 g/dL (31.0-37.0); Mean Platelet Volume 9.8; Monocytes # (A) 0.1 k/uL (0-1.0); Monocytes % (A) 4 %; Neutrophils % (A) 68 %; RBC 3.53 m/uL (4.30-5.90); RDW 20.4 % (11.5-15.5)
[2024-10-03 07:19] LABS: ALT 34 U/L (4-49); AST 71 U/L (17-59); African American GFR (CKD) >90 (>60 ml/min/1.73 sqM); Albumin 3.1 g/dL (3.5-5.0); Alkaline Phosphatase 372 U/L (38-126); Anion Gap 10 mmol/L; Blood Urea Nitrogen 3 mg/dL (9-20); Calcium 7.9 mg/dL (8.4-10.2); Carbon Dioxide 19 mmol/L (22-30); Chloride 105 mmol/L (98-107); Glucose 197 mg/dL (74-99); Non-African American GFR(CKD) >90 (>60 ml/min/1.73 sqM); Phosphorus 2.6 mg/dL (2.5-4.5); Platelet Count 69 k/uL (150-450); Potassium 3.4 mmol/L (3.5-5.1); Sodium 134 mmol/L (137-145); Total Bilirubin 1.2 mg/dL (0.2-1.3); Total Protein 6.1 g/dL (6.3-8.2)
[2024-10-03] MEDS ORDERED: Magnesium Replacement Protocol 1 EACH MISC MISCELLANE PRN (10:55)
[2024-10-03] MEDS: MAGNESIUM SULFATE-D5W PMX 1 GM in DEXTROSE/WATER 1 100ML.BAG IVPB SCH (11:02)
--- NOTE | 2024-10-03 11:27 | P.PN ---
Subjective Progress Note Date: 10/03/24 Patient is a 44-year-old male with past medical history significant for diabetes mellitus, hypertension, hyperlipidemia, alcohol abuse, GI bleed and esophageal varices, and everyday tobacco smoker. Patient presented to emergency department late last night, reportedly developed severe epigastric pain followed by nausea and vomiting after eating dinner earlier yesterday evening. Four reported episodes of emesis with bright red blood. Patient does have history of alcohol abuse, drinks approximately 1/5/day. His last drink was on Tuesday. Serum alcohol was less than 10 on arrival. Reportedly, has history of esophageal varices and alcohol withdrawal seizures. Also, reports history of pancreatitis. Lipase was elevated at 3010 and amylase of 200. Workup in the emergency department consistent with diabetic ketoacidosis with a blood glucose of 503, serum bicarb less than 5, anion gap unmeasurable, as well as ketone and acetone positive. Patient states that he has not been taking his diabetic medications for the last several days. Patient was started on DKA protocol in the ED. CBC: WBC count of 16.8, hemoglobin 12.5, hematocrit 45.7, platelets 269. CMP: Sodium 139, potassium 5.8, chloride 100, serum bicarb less than 5, anion gap unmeasurable, BUN 8, creatinine 0.92, g most recent blood glucose 456. Lactic was 4.4. AST 46, ALT 30, ALP 430, total bilirubin 1.7. UA unremarkable for infection. Troponin less than 0.012. NT proBNP 119. EKG: Sinus tachycardia, rate 125 bpm. No obvious acute ischemic pattern. Chest x-ray did not show any acute cardiopulmonary process. Patient currently being evaluated the emergency department. Insulin is currently infusing per protocol. Normal saline continues at 200 mL/h. Patient also received a 2 L fluid bolus with normal saline earlier. Currently, patient is lethargic, but does wake up and answer questions appropriately. Kussmaul breathing pattern. Continues to have epigastric discomfort. Described as severe and stabbing, rated 10 on a 10 point numerical scale[address] A [address] of the chest, abdomen and pelvis is ordered. Has an elevated lipase to amylase ratio. Denies history of gallstones. No further nausea or vomiting or hematemesis. Unclear if the patient has had previous EGD. Patient denies any melena or hematochezia. Unclear if the patient is currently taking any NSAIDs. CIWA scores are being monitored. Current vital signs: Temperature 97.6 F, heart rate 112 bpm, blood pressure 171/108 mmHg, tachypneic, SpO2 is 100% on room air. The patient is seen today October 02, 2024 in follow-up in the intensive care unit. He is currently sitting up in bed. Awake and alert in no acute distress. He is maintaining good O2 saturations in the 90s on room air. He remains on insulin drip at 3.125 units/h. D5 and half-normal saline with 20 of KCl at 150 mL/h. White count 4.7. Hemoglobin 9.2. Platelets 73,000. Sodium 131. Potassium 3.8. Bicarb 16. Anion gap is 8. BUN 9. Creatinine 0.45. Glucose 184. Lipase 1020. He remains on the CIWA protocol. He did receive Ativan this morning. He is currently calm and cooperative. The patient was seen by GI service regarding emesis with bright red blood. Plan is for EGD tomorrow. He remains n.p.o. today. The patient is seen today October 03, 2024 in follow-up in the intensive care unit. He is awake and alert in no acute distress. He is quite weak. He denies any worsening shortness of breath, cough or congestion. He is maintaining O2 saturations in the 90s on room air. He has D5 and half-normal saline with 20 of KCl at 50 mL/h. The plan is for EGD today. Blood culture reveals no growth to date. White count 3.0. Hemoglobin 9.3. Platelets 69,000. Sodium 134. Potassium 3.4. Bicarb 19. BUN 3. Creatinine 0.45. Glucose 197. AST 71. ALT 34. He remains on Lantus and Humalog. Remains on the CIWA protocol. Objective - Vital Signs Vital signs: Vital Signs Temp 97.5 F L 10/03/24 10:30 Pulse 90 10/03/24 10:30 Resp 18 10/03/24 10:30 BP 98/67 10/03/24 10:30 Pulse Ox 99 10/03/24 10:30 FiO2 Intake & Output 10/02/24 10/03/24 10/03/24 18:59 06:59 18:59 Intake Total 2082.346 1200 100 Output Total 1000 2200 Balance 1082.346 -1000 100 Weight 74.8 kg 74.5 kg Intake: IV 1800 1000 100 D5-0.45% NaCl with KCl 1800 750 100 20Meq/l 1,000 ml @ 50 mls /hr IV .Q20H [facility] Rx#: [id number] Sodium Phosphate 30 mmol 250 In Dextrose 5% in Water 250 ml @ 65 mls/hr IVPB ONCE ONE Rx#:[id number] Intake, IV Titration 32.346 Amount Insulin Regular 100 unit 32.346 In Sodium Chloride 0.9% 100 ml @ 0.1 UNITS/KG/HR 7.559 mls/hr IV .[id number] [facility] Rx#:[id number] Oral 250 200 Output: Urine 1000 2200 Other: Voiding Method Urinal Urinal Urinal # Voids 1 - Exam GENERAL EXAM: Awake, cooperative 44-year-old male, on room air, resting in bed, no acute distress. HEAD: Normocephalic and atraumatic EYES: Normal reaction of pupils, equal size. NOSE: Clear with pink turbinates. THROAT: No erythema or exudates. Dry mucous membranes. NECK: No masses, no JVD. CHEST: No chest wall deformity. LUNGS: Equal air entry with no crackles, wheeze, rhonchi or dullness. No conversational dyspnea or accessory muscle use.. CVS: S1 and S2 normal with no audible murmur, regular rhythm. No extra heart sounds. Tachycardic. ABDOMEN: Abdomen is flat, is soft, guarding with palpation of the epigastric area, no hepatosplenomegaly. No further episodes of emesis so far. SPINE: No scoliosis or deformity SKIN: No rashes CENTRAL NERVOUS SYSTEM: No focal deficits, tone is normal in all 4 extremities. EXTREMITIES: There is no peripheral edema, clubbing, or cyanosis. Peripheral pulses are intact. - Labs CBC & Chem 7: 10/03/24 06:16 10/03/24 06:16 Labs: Abnormal Lab Results - Last 24 Hours (Table) 10/02/24 10/02/24 10/02/24 Range/Units 12:03 12:20 12:21 WBC 3.2 L (3.8-10.6) k/uL RBC 3.36 L (4.30-5.90) m/uL Hgb 9.0 L (13.0-17.5) gm/dL Hct 30.1 L (39.0-53.0) % MCH (25.0-35.0) pg MCHC 29.8 L (31.0-37.0) g/dL RDW 20.4 H (11.5-15.5) % Plt Count 64 L (150-450) k/uL Lymphocytes # (1.0-4.8) k/uL Lymphocytes # (Manual) 0.54 L (1.0-4.8) k/uL Nucleated RBCs 2 H (0-0) /100 WBC Sodium 131 L (137-145) mmol/L Potassium 3.4 L (3.5-5.1) mmol/L Carbon Dioxide 17 L (22-30) mmol/L BUN 6 L (9-20) mg/dL Creatinine 0.49 L (0.66-1.25) mg/dL Glucose 250 H (74-99) mg/dL POC Glucose (mg/dL) 272 H (70-110) mg/dL Calcium 7.5 L (8.4-10.2) mg/dL Phosphorus (2.5-4.5) mg/dL Magnesium (1.6-2.3) mg/dL AST (17-59) U/L Alkaline Phosphatase (38-126) U/L Total Protein (6.3-8.2) g/dL Albumin (3.5-5.0) g/dL 10/02/24 10/02/24 10/02/24 Range/Units 13:18 14:32 16:20 WBC 3.7 L (3.8-10.6) k/uL RBC 3.33 L (4.30-5.90) m/uL Hgb 7.8 L (13.0-17.5) gm/dL Hct 30.1 L (39.0-53.0) % MCH 23.5 L (25.0-35.0) pg MCHC 26.0 L (31.0-37.0) g/dL RDW 20.2 H (11.5-15.5) % Plt Count 62 L (150-450) k/uL Lymphocytes # 0.8 L (1.0-4.8) k/uL Lymphocytes # (Manual) (1.0-4.8) k/uL Nucleated RBCs (0-0) /100 WBC Sodium (137-145) mmol/L Potassium (3.5-5.1) mmol/L Carbon Dioxide (22-30) mmol/L BUN (9-20) mg/dL Creatinine (0.66-1.25) mg/dL Glucose (74-99) mg/dL POC Glucose (mg/dL) 254 H 228 H (70-110) mg/dL Calcium (8.4-10.2) mg/dL Phosphorus (2.5-4.5) mg/dL Magnesium (1.6-2.3) mg/dL AST (17-59) U/L Alkaline Phosphatase (38-126) U/L Total Protein (6.3-8.2) g/dL Albumin (3.5-5.0) g/dL 10/02/24 10/02/24 10/02/24 Range/Units 16:20 16:20 16:29 WBC (3.8-10.6) k/uL RBC (4.30-5.90) m/uL Hgb (13.0-17.5) gm/dL Hct (39.0-53.0) % MCH (25.0-35.0) pg MCHC (31.0-37.0) g/dL RDW (11.5-15.5) % Plt Count (150-450) k/uL Lymphocytes # (1.0-4.8) k/uL Lymphocytes # (Manual) (1.0-4.8) k/uL Nucleated RBCs (0-0) /100 WBC Sodium 133 L (137-145) mmol/L Potassium 3.4 L (3.5-5.1) mmol/L Carbon Dioxide 18 L (22-30) mmol/L BUN (9-20) mg/dL Creatinine (0.66-1.25) mg/dL Glucose (74-99) mg/dL POC Glucose (mg/dL) 186 H (70-110) mg/dL Calcium (8.4-10.2) mg/dL Phosphorus 1.2 L (2.5-4.5) mg/dL Magnesium (1.6-2.3) mg/dL AST (17-59) U/L Alkaline Phosphatase (38-126) U/L Total Protein (6.3-8.2) g/dL Albumin (3.5-5.0) g/dL 10/02/24 10/02/24 10/02/24 Range/Units 18:15 20:04 20:59 WBC (3.8-10.6) k/uL RBC 3.65 L (4.30-5.90) m/uL Hgb 9.8 L D (13.0-17.5) gm/dL Hct 33.3 L (39.0-53.0) % MCH (25.0-35.0) pg MCHC 29.4 L (31.0-37.0) g/dL RDW 20.2 H (11.5-15.5) % Plt Count 79 L (150-450) k/uL Lymphocytes # (1.0-4.8) k/uL Lymphocytes # (Manual) (1.0-4.8) k/uL Nucleated RBCs (0-0) /100 WBC Sodium (137-145) mmol/L Potassium (3.5-5.1) mmol/L Carbon Dioxide (22-30) mmol/L BUN (9-20) mg/dL Creatinine (0.66-1.25) mg/dL Glucose (74-99) mg/dL POC Glucose (mg/dL) 135 H 281 H (70-110) mg/dL Calcium (8.4-10.2) mg/dL Phosphorus (2.5-4.5) mg/dL Magnesium (1.6-2.3) mg/dL AST (17-59) U/L Alkaline Phosphatase (38-126) U/L Total Protein (6.3-8.2) g/dL Albumin (3.5-5.0) g/dL 10/02/24 10/03/24 10/03/24 Range/Units 20:59 00:42 06:16 WBC (3.8-10.6) k/uL RBC (4.30-5.90) m/uL Hgb (13.0-17.5) gm/dL Hct (39.0-53.0) % MCH (25.0-35.0) pg MCHC (31.0-37.0) g/dL RDW (11.5-15.5) % Plt Count (150-450) k/uL Lymphocytes # (1.0-4.8) k/uL Lymphocytes # (Manual) (1.0-4.8) k/uL Nucleated RBCs (0-0) /100 WBC Sodium 131 L 134 L (137-145) mmol/L Potassium 5.5 H 3.4 L (3.5-5.1) mmol/L Carbon Dioxide 12 L 19 L (22-30) mmol/L BUN 3 L (9-20) mg/dL Creatinine 0.45 L (0.66-1.25) mg/dL Glucose 197 H (74-99) mg/dL POC Glucose (mg/dL) 263 H (70-110) mg/dL Calcium 7.9 L (8.4-10.2) mg/dL Phosphorus (2.5-4.5) mg/dL Magnesium (1.6-2.3) mg/dL AST 71 H (17-59) U/L Alkaline Phosphatase 372 H (38-126) U/L Total Protein 6.1 L (6.3-8.2) g/dL Albumin 3.1 L (3.5-5.0) g/dL 10/03/24 10/03/24 10/03/24 Range/Units 06:16 06:16 06:38 WBC 3.0 L (3.8-10.6) k/uL RBC 3.53 L (4.30-5.90) m/uL Hgb 9.3 L (13.0-17.5) gm/dL Hct 31.5 L (39.0-53.0) % MCH (25.0-35.0) pg MCHC 29.6 L (31.0-37.0) g/dL RDW 20.4 H (11.5-15.5) % Plt Count 69 L (150-450) k/uL Lymphocytes # 0.7 L (1.0-4.8) k/uL Lymphocytes # (Manual) (1.0-4.8) k/uL Nucleated RBCs (0-0) /100 WBC Sodium (137-145) mmol/L Potassium (3.5-5.1) mmol/L Carbon Dioxide (22-30) mmol/L BUN (9-20) mg/dL Creatinine (0.66-1.25) mg/dL Glucose (74-99) mg/dL POC Glucose (mg/dL) 187 H (70-110) mg/dL Calcium (8.4-10.2) mg/dL Phosphorus (2.5-4.5) mg/dL Magnesium 0.9 L* (1.6-2.3) mg/dL AST (17-59) U/L Alkaline Phosphatase (38-126) U/L Total Protein (6.3-8.2) g/dL Albumin (3.5-5.0) g/dL Microbiology - Last 24 Hours (Table) 10/01/24 00:04 Blood Culture - Preliminary Blood Assessment and Plan Assessment: Acute diabetic ketoacidosis, secondary to medication noncompliance Severe anion gap metabolic acidosis, secondary to above and lactic acidosis, improving Acute pancreatitis; lipase 3010, being down, current lipase 1020 Chronic alcohol abuse, reportedly drinks 1/5 of liquor per day, last drink approximately September 29, 2024 Hematemesis, no further episodes while in the ED Acute leukocytosis, possibly reactive Hyperkalemia, improved potassium 3.8 mmol/L Hypertension History of hyperlipidemia Current ongoing tobacco dependence Plan: The patient was seen and evaluated Labs and medications reviewed Transitioned to Lantus and Humalog Remains on D5 and a half with 20 KCl at 50 mL/h No further hematemesis Plan is for EGD today Remains on the [facility] protocol Transfer to the regular medical floor today We will continue to follow I have personally seen and examined the patient, performed the documentation and the assessment and plan as written. Number of minutes spent on the visit: 10 Dictation was produced using [employer] dictation software. Please excuse any grammatical, word or spelling errors.
[2024-10-03 12:07] LABS: Glucose,Whole Blood 175 mg/dL (70-110)
[2024-10-03] MEDS ORDERED: LIDOCAINE 1% INJ 10MG/ML (20 ML MDV) ONE (14:06)
[2024-10-03] MEDS ORDERED: PROPOFOL 10 MG/ML 20 ML VIAL IV ONE (14:06)
[2024-10-03] MEDS: IV FLUID CONTINUATION 1,000 ML IV ONE ×2 (14:13→14:16)
--- NOTE | 2024-10-03 14:18 | P.PCN ---
Date of Procedure: 10/03/24 Procedure(s) Performed: BRIEF HISTORY: Patient is a 44-year-old, pleasant, white male admitted to hospital with acute DKA and altered mental status. Apparently he had 2 episodes of hematemesis while at home. History of heavy alcohol abuse and possible liver cirrhosis diagnosed a year ago. While in the hospital he did not have any further active bleeding. He dropped hemoglobin from 12 to 9 g/dL. He scheduled for an upper endoscopy to evaluate further. PROCEDURE PERFORMED: Esophagogastroduodenoscopy with biopsy. PREOPERATIVE DIAGNOSIS: Acute upper GI bleed. IV sedation per anesthesia. PROCEDURE: After informed consent was obtained, the patient was brought into the endoscopy unit. IV sedation was administered by Anesthesia under continuous monitoring. Initially the Olympus GIF-140 video endoscope was inserted into the mouth. Esophagus intubated without any difficulty. It was gradually advanced into the stomach and duodenum and carefully examined. The bulb and the second part of the duodenum appeared normal. The scope at this time was withdrawn to the stomach, adequately insufflated with air, and upon careful examination, mucosa of the antrum, gastritis and biopsies were done from this area. Mucosa of the body, cardia and the fundus had congested appearing mucosa consistent wit h full hypertensive gastropathy. No gastric varices seen.. The scope was then withdrawn into the esophagus. The GE junction was located at 39 cm from the incisors. There were linear erosions of the distal esophagus consistent with LA grade B reflux esophagitis. Very small distal esophageal varices with no stigmata of recent bleed. The rest of the esophagus appeared normal and the patient tolerated the procedure well. IMPRESSION: 1. Very small distal esophageal varices with no stigmata of recent bleed. 2. Mild diffuse gastritis 3. Portal hypertensive gastropathy. 4. Headache grade B reflux esophagitis. RECOMMENDATIONS: The findings of this examination were discussed with the patient. Continue with Protonix 40 mg daily. Advance diet as tolerated.
[2024-10-03 17:11] LABS: Glucose,Whole Blood 314 mg/dL (70-110)
--- NOTE | 2024-10-03 17:39 | P.PN ---
Subjective Progress Note Date: 10/03/24 44 year old M with PMH of DM, HTN, HLD, EtOH abuse, cirrhosis, esophageal varicies presents to the ED for abdominal pain and hematemesis. In the ED he underwent extensive evaluation. BP 142/109, HR 125, RR 28, T 97.6F, 100% on RA. CBC, Coag panel, CMP significant for WBC 16.8, Hg 12.5, K 5.8, bicarb < 5, BUN 8, glu 507, T. Bili 1.7, alk phos 430, alb 5.2. Phos 7.4. Mag 1.7. Trop < 0.012. BNP 119. Amylase 200. Lipiase 3010. UA neg LE or nitrite. Acetone positive. EtOH < 10. CXR neg. EKG sinus tachycardia. CT chest abd pelvis confirmed cirrhosis of the liver, portal hypertension, peripancreatic infiltration, cholelithiasis, diffuse colonic wall thickening. Patient was admitted for DKA and pancreatitis along with upper GI bleed. Started on insulin drip/IVF and CIWA protocol. GI consulted for UGIB with plans for EGD on 10/03. 10/02 Patient was seen and examined. Continued abdominal pain with nausea. CBC, CMP significant for RBC 3.5, Hg 9.2, Hct 31.2, Plt 73, Na 131, K 3.4, bicarb 17, BUN 6, Cr 0.49, glu 250, Ca 7.5, alk phos 314, alb 3.1. A1c 12.6. Phos 0.9. Insulin drip at 0.09 units/kg/hr. D5 1/2 NS with 20 meq KCl at 150 cc/hr. 4 mg of Ativan per CIWA protocol over the past 24H. 10/03 Patient was seen and examined. Improved abdominal pain. Nausea but no vomiting. CBC, CMP significant for WBC 3, RBC 3.53, Hg 9.3, Hct 31.5, Plt 69, Na 134, K 3.4, bicarb 19, BUN 3, Cr 0.45, glu 197, Ca 7.9, AST 71, alk phos 372, alb 3.1. Mag 0.9. Insulin drip switched to SQ yesterday (Lispro 7 units TID, L antus 22 units QHS with ISS). 3 mg of Ativan per CIWA protocol over the past 24H. Underwent EGD showing esophageal varicies, gastritis and esophagitis. General: non toxic, moderate distress, appears at stated age Derm: warm, dry Head: atraumatic, normocephalic, symmetric Eyes: EOMI, no lid lag, anicteric sclera Mouth: no lip lesion, mucus membranes moist Cardiovascular: S1S2 reg, no murmur Lungs: CTA bilateral, no rhonchi, no rales , no accessory muscle use Ext: no gross muscle atrophy, no edema, no contractures Neuro: no focal neuro deficits Psych: Alert and oriented. Based on my assessment of this patient, this patient meets a high complexity level of care. Diabetes mellitus with hyperglycemia, ketoacidosis resolved: A1c 12.6. Lispro 7 units TID, Lantus 22 units QHS with ISS ACHS. Hypoglycemic precautions. Acute pancreatitis: Morphine 2 mg IV Q6 to Q4H PRN. LR at 75 cc/hr. Protonix 40 mg IV BID. Esophagitis, Gastritis and esophageal varicies: Likely esophageal varicies. Protonix 40 mg IV BID. Monitor Hg. EGD results as above. Hypokalemia: Replace via protocol. Hypomagnesemia: Replace via protocol. Alcohol withdrawal: [facility] protocol with Ativan PRN. Liver cirrhosis: Would benefit from Propranolol, Lasix and Aldactone prior to discharge. Outpatient GI follow up. Thrombocytopenia likely due to EtOH abuse Diffuse colonic wall thickening: Likely due to pancreatitis. Outpatient C-scope to rule out colon CA. Dyslipidemia with hypertriglyceridemia: Consider fibrate + statin prior to discharge. CODE STATUS: FULL CODE. DVT Prophylaxis: SCD GI Prophylaxis: Protonix IV Designated medical POA if patient is not able to make medical decisions for themselves: I have reviewed the following solar energy consultant and designer notes: Pulmonary, GI. I have reviewed the results of the following tests: As above. I have ordered the following tests: CBC, BMP, Mag. I have discussed the care of this patient with the following independent historian: MARCUS. I have independently interpreted the following test below: I have discussed the management of this patient with the following physician: Objective - Vital Signs Vital signs: Vital Signs Temp 97.9 F 10/03/24 14:55 Pulse 93 10/03/24 14:55 Resp 18 10/03/24 14:55 BP 111/79 10/03/24 14:55 Pulse Ox 100 10/03/24 14:55 FiO2 Intake & Output 10/02/24 10/03/24 10/03/24 18:59 06:59 18:59 Intake Total 2082.346 1200 300 Output Total 1000 2200 Balance 1082.346 -1000 300 Weight 74.8 kg 74.5 kg Intake: IV 1800 1000 300 D5-0.45% NaCl with KCl 1800 750 100 20Meq/l 1,000 ml @ 50 mls /hr IV .Q20H [facility] Rx#: [id number] Sodium Phosphate 30 mmol 250 In Dextrose 5% in Water 250 ml @ 65 mls/hr IVPB ONCE ONE Rx#:[id number] Intake, IV Titration 32.346 Amount Insulin Regular 100 unit 32.346 In Sodium Chloride 0.9% 100 ml @ 0.1 UNITS/KG/HR 7.559 mls/hr IV .[id number] [facility] Rx#:[id number] Oral 250 200 Output: Urine 1000 2200 Other: Voiding Method Urinal Urinal Urinal # Voids 1 - Labs CBC & Chem 7: 10/03/24 06:16 10/03/24 06:16 Labs: Abnormal Lab Results - Last 24 Hours (Table) 10/02/24 10/02/24 10/02/24 Range/Units 18:15 20:04 20:59 WBC (3.8-10.6) k/uL RBC 3.65 L (4.30-5.90) m/uL Hgb 9.8 L D (13.0-17.5) gm/dL Hct 33.3 L (39.0-53.0) % MCHC 29.4 L (31.0-37.0) g/dL RDW 20.2 H (11.5-15.5) % Plt Count 79 L (150-450) k/uL Lymphocytes # (1.0-4.8) k/uL Sodium (137-145) mmol/L Potassium (3.5-5.1) mmol/L Carbon Dioxide (22-30) mmol/L BUN (9-20) mg/dL Creatinine (0.66-1.25) mg/dL Glucose (74-99) mg/dL POC Glucose (mg/dL) 135 H 281 H (70-110) mg/dL Calcium (8.4-10.2) mg/dL Magnesium (1.6-2.3) mg/dL AST (17-59) U/L Alkaline Phosphatase (38-126) U/L Total Protein (6.3-8.2) g/dL Albumin (3.5-5.0) g/dL 10/02/24 10/03/24 10/03/24 Range/Units 20:59 00:42 06:16 WBC (3.8-10.6) k/uL RBC (4.30-5.90) m/uL Hgb (13.0-17.5) gm/dL Hct (39.0-53.0) % MCHC (31.0-37.0) g/dL RDW (11.5-15.5) % Plt Count (150-450) k/uL Lymphocytes # (1.0-4.8) k/uL Sodium 131 L 134 L (137-145) mmol/L Potassium 5.5 H 3.4 L (3.5-5.1) mmol/L Carbon Dioxide 12 L 19 L (22-30) mmol/L BUN 3 L (9-20) mg/dL Creatinine 0.45 L (0.66-1.25) mg/dL Glucose 197 H (74-99) mg/dL POC Glucose (mg/dL) 263 H (70-110) mg/dL Calcium 7.9 L (8.4-10.2) mg/dL Magnesium (1.6-2.3) mg/dL AST 71 H (17-59) U/L Alkaline Phosphatase 372 H (38-126) U/L Total Protein 6.1 L (6.3-8.2) g/dL Albumin 3.1 L (3.5-5.0) g/dL 10/03/24 10/03/24 10/03/24 Range/Units 06:16 06:16 06:38 WBC 3.0 L (3.8-10.6) k/uL RBC 3.53 L (4.30-5.90) m/uL Hgb 9.3 L (13.0-17.5) gm/dL Hct 31.5 L (39.0-53.0) % MCHC 29.6 L (31.0-37.0) g/dL RDW 20.4 H (11.5-15.5) % Plt Count 69 L (150-450) k/uL Lymphocytes # 0.7 L (1.0-4.8) k/uL Sodium (137-145) mmol/L Potassium (3.5-5.1) mmol/L Carbon Dioxide (22-30) mmol/L BUN (9-20) mg/dL Creatinine (0.66-1.25) mg/dL Glucose (74-99) mg/dL POC Glucose (mg/dL) 187 H (70-110) mg/dL Calcium (8.4-10.2) mg/dL Magnesium 0.9 L* (1.6-2.3) mg/dL AST (17-59) U/L Alkaline Phosphatase (38-126) U/L Total Protein (6.3-8.2) g/dL Albumin (3.5-5.0) g/dL 10/03/24 10/03/24 Range/Units 12:06 17:09 WBC (3.8-10.6) k/uL RBC (4.30-5.90) m/uL Hgb (13.0-17.5) gm/dL Hct (39.0-53.0) % MCHC (31.0-37.0) g/dL RDW (11.5-15.5) % Plt Count (150-450) k/uL Lymphocytes # (1.0-4.8) k/uL Sodium (137-145) mmol/L Potassium (3.5-5.1) mmol/L Carbon Dioxide (22-30) mmol/L BUN (9-20) mg/dL Creatinine (0.66-1.25) mg/dL Glucose (74-99) mg/dL POC Glucose (mg/dL) 175 H 314 H (70-110) mg/dL Calcium (8.4-10.2) mg/dL Magnesium (1.6-2.3) mg/dL AST (17-59) U/L Alkaline Phosphatase (38-126) U/L Total Protein (6.3-8.2) g/dL Albumin (3.5-5.0) g/dL Microbiology - Last 24 Hours (Table) 10/01/24 00:04 Blood Culture - Preliminary Blood
[2024-10-03] MEDS: LACTATED RINGERS 1,000 ML IV SCH (17:59)
[2024-10-03 20:47] LABS: Glucose,Whole Blood 255 mg/dL (70-110)
[2024-10-04 02:05] LABS: Glucose,Whole Blood 316 mg/dL (70-110)
[2024-10-04 04:47] LABS: Anisocytosis Moderate; HGB 9.1 gm/dL (13.0-17.5); Hypochromasia Marked; MCH 26.5 pg (25.0-35.0); MCHC 29.4 g/dL (31.0-37.0); MCV 90.1 fL (80.0-100.0); Mean Platelet Volume 10.7; RBC 3.44 m/uL (4.30-5.90); RDW 20.8 % (11.5-15.5); WBC 2.8 k/uL (3.8-10.6)
[2024-10-04 04:48] LABS: Platelet Count 65 k/uL (150-450)
[2024-10-04 05:02] LABS: African American GFR (CKD) >90 (>60 ml/min/1.73 sqM); Anion Gap 8 mmol/L; Blood Urea Nitrogen 3 mg/dL (9-20); Calcium 8.2 mg/dL (8.4-10.2); Carbon Dioxide 23 mmol/L (22-30); Chloride 103 mmol/L (98-107); Glucose 206 mg/dL (74-99); Magnesium 1.9 mg/dL (1.6-2.3); Non-African American GFR(CKD) >90 (>60 ml/min/1.73 sqM); Phosphorus 2.9 mg/dL (2.5-4.5); Potassium 3.5 mmol/L (3.5-5.1); Sodium 134 mmol/L (137-145)
[2024-10-04 07:12] LABS: Glucose,Whole Blood 158 mg/dL (70-110)
[2024-10-04 07:35] VITALS: RESP 20
[2024-10-04] MEDS ORDERED: LORazepam 1 MG/0.5 ML VIAL IV PRN ×3 (11:04→11:05)
[2024-10-04 12:13] LABS: Glucose,Whole Blood 221 mg/dL (70-110)
[2024-10-04 12:36] VITALS: BP 126/83; PULSE 99; TEMP 98.6
--- NOTE | 2024-10-04 13:46 | P.PN ---
Subjective Progress Note Date: 10/04/24 Patient is a 44-year-old male with past medical history significant for diabetes mellitus, hypertension, hyperlipidemia, alcohol abuse, GI bleed and esophageal varices, and everyday tobacco smoker. Patient presented to emergency department late last night, reportedly developed severe epigastric pain followed by nausea and vomiting after eating dinner earlier yesterday evening. Four reported episodes of emesis with bright red blood. Patient does have history of alcohol abuse, drinks approximately 1/5/day. His last drink was on Tuesday. Serum alcohol was less than 10 on arrival. Reportedly, has history of esophageal varices and alcohol withdrawal seizures. Also, reports history of pancreatitis. Lipase was elevated at 3010 and amylase of 200. Workup in the emergency department consistent with diabetic ketoacidosis with a blood glucose of 503, serum bicarb less than 5, anion gap unmeasurable, as well as ketone and acetone positive. Patient states that he has not been taking his diabetic medications for the last several days. Patient was started on DKA protocol in the ED. CBC: WBC count of 16.8, hemoglobin 12.5, hematocrit 45.7, platelets 269. CMP: Sodium 139, potassium 5.8, chloride 100, serum bicarb less than 5, anion gap unmeasurable, BUN 8, creatinine 0.92, g most recent blood glucose 456. Lactic was 4.4. AST 46, ALT 30, ALP 430, total bilirubin 1.7. UA unremarkable for infection. Troponin less than 0.012. NT proBNP 119. EKG: Sinus tachycardia, rate 125 bpm. No obvious acute ischemic pattern. Chest x-ray did not show any acute cardiopulmonary process. Patient currently being evaluated the emergency department. Insulin is currently infusing per protocol. Normal saline continues at 200 mL/h. Patient also received a 2 L fluid bolus with normal saline earlier. Currently, patient is lethargic, but does wake up and answer questions appropriately. Kussmaul breathing pattern. Continues to have epigastric discomfort. Described as severe and stabbing, rated 10 on a [address] scale[address] A [address] of the chest, abdomen and pelvis is ordered. Has an elevated lipase to amylase ratio. Denies history of gallstones. No further nausea or vomiting or hematemesis. Unclear if the patient has had previous EGD. Patient denies any melena or hematochezia. Unclear if the patient is currently taking any NSAIDs. CIWA scores are being monitored. Current vital signs: Temperature 97.6 F, heart rate 112 bpm, blood pressure 171/108 mmHg, tachypneic, SpO2 is 100% on room air. The patient is seen today October 02, 2024 in follow-up in the intensive care unit. He is currently sitting up in bed. Awake and alert in no acute distress. He is maintaining good O2 saturations in the 90s on room air. He remains on insulin drip at 3.125 units/h. D5 and half-normal saline with 20 of KCl at 150 mL/h. White count 4.7. Hemoglobin 9.2. Platelets 73,000. Sodium 131. Potassium 3.8. Bicarb 16. Anion gap is 8. BUN 9. Creatinine 0.45. Glucose 184. Lipase 1020. He remains on the CIWA protocol. He did receive Ativan this morning. He is currently calm and cooperative. The patient was seen by GI service regarding emesis with bright red blood. Plan is for EGD tomorrow. He remains n.p.o. today. The patient is seen today October 03, 2024 in follow-up in the intensive care unit. He is awake and alert in no acute distress. He is quite weak. He denies any worsening shortness of breath, cough or congestion. He is maintaining O2 saturations in the 90s on room air. He has D5 and half-normal saline with 20 of KCl at 50 mL/h. The plan is for EGD today. Blood culture reveals no growth to date. White count 3.0. Hemoglobin 9.3. Platelets 69,000. Sodium 134. Potassium 3.4. Bicarb 19. BUN 3. Creatinine 0.45. Glucose 197. AST 71. ALT 34. He remains on Lantus and Humalog. Remains on the CIWA protocol. The patient is seen today October 04, 2024 in follow-up on the regular medical floor. He is awake and alert in no acute distress. Sitting up at the bedside. He is maintaining good O2 saturations in the 90s on room air. He has lactated Ringer's at 75 mL/h. Blood culture revealed no growth. White count 2.8. Hemoglobin 9.1. Platelets 65,000. Sodium 134. Potassium 3.5. Bicarb 23. BUN 3. Creatinine 0.58. Glucose 206. He is on Lantus 22 units nightly. Remains on Humalog units AC 3 times daily. He has not required any Ativan. He has remained calm and cooperative. EGD performed yesterday revealed very small distal esophageal varices with no stigmata of recent bleed. Mild diffuse gastritis. Portal hypertensive gastropathy. Grade B reflux esophagitis. No further episodes of hematemesis. Objective - Vital Signs Vital signs: Vital Signs Temp 98.6 F 10/04/24 12:06 Pulse 99 10/04/24 12:06 Resp 20 10/04/24 12:06 BP 126/83 10/04/24 12:06 Pulse Ox 99 10/04/24 12:06 FiO2 Intake & Output 10/03/24 10/04/24 10/04/24 18:59 06:59 18:59 Intake Total 300 900 Balance 300 900 Intake: IV 300 900 D5-0.45% NaCl with KCl 100 20Meq/l 1,000 ml @ 50 mls /hr IV .Q20H [facility] Rx#: [id number] Lactated Ringers 1,000 ml 900 @ 75 mls/hr IV .[id number] [facility] Rx#:[id number] Other: Voiding Method Urinal Toilet Toilet Urinal Urinal Diaper Incontinent # Voids 1 2 - Exam GENERAL EXAM: Awake, cooperative 44-year-old male, on room air, sitting up at the bedside, no acute distress. HEAD: Normocephalic and atraumatic EYES: Normal reaction of pupils, equal size. NOSE: Clear with pink turbinates. THROAT: No erythema or exudates. Dry mucous membranes. NECK: No masses, no JVD. CHEST: No chest wall deformity. LUNGS: Equal air entry with no crackles, wheeze, rhonchi or dullness. No conversational dyspnea or accessory muscle use. CVS: S1 and S2 normal with no audible murmur, regular rhythm. No extra heart sounds. ABDOMEN: Abdomen is flat, is soft, guarding with palpation of the epigastric area, no hepatosplenomegaly. SPINE: No scoliosis or deformity SKIN: No rashes CENTRAL NERVOUS SYSTEM: No focal deficits, tone is normal in all 4 extremities. EXTREMITIES: There is no peripheral edema, clubbing, or cyanosis. Peripheral pulses are intact. - Labs CBC & Chem 7: 10/04/24 04:00 10/04/24 04:00 Labs: Abnormal Lab Results - Last 24 Hours (Table) 10/03/24 10/03/24 10/04/24 Range/Units 17:09 20:46 02:04 WBC (3.8-10.6) k/uL RBC (4.30-5.90) m/uL Hgb (13.0-17.5) gm/dL Hct (39.0-53.0) % MCHC (31.0-37.0) g/dL RDW (11.5-15.5) % Plt Count (150-450) k/uL Sodium (137-145) mmol/L BUN (9-20) mg/dL Creatinine (0.66-1.25) mg/dL Glucose (74-99) mg/dL POC Glucose (mg/dL) 314 H 255 H 316 H (70-110) mg/dL Calcium (8.4-10.2) mg/dL 10/04/24 10/04/24 10/04/24 Range/Units 04:00 04:00 07:10 WBC 2.8 L (3.8-10.6) k/uL RBC 3.44 L (4.30-5.90) m/uL Hgb 9.1 L (13.0-17.5) gm/dL Hct 31.0 L (39.0-53.0) % MCHC 29.4 L (31.0-37.0) g/dL RDW 20.8 H (11.5-15.5) % Plt Count 65 L (150-450) k/uL Sodium 134 L (137-145) mmol/L BUN 3 L (9-20) mg/dL Creatinine 0.58 L (0.66-1.25) mg/dL Glucose 206 H (74-99) mg/dL POC Glucose (mg/dL) 158 H (70-110) mg/dL Calcium 8.2 L (8.4-10.2) mg/dL 10/04/24 Range/Units 12:12 WBC (3.8-10.6) k/uL RBC (4.30-5.90) m/uL Hgb (13.0-17.5) gm/dL Hct (39.0-53.0) % MCHC (31.0-37.0) g/dL RDW (11.5-15.5) % Plt Count (150-450) k/uL Sodium (137-145) mmol/L BUN (9-20) mg/dL Creatinine (0.66-1.25) mg/dL Glucose (74-99) mg/dL POC Glucose (mg/dL) 221 H (70-110) mg/dL Calcium (8.4-10.2) mg/dL Microbiology - Last 24 Hours (Table) 10/01/24 00:04 Blood Culture - Preliminary Blood Assessment and Plan Assessment: Acute diabetic ketoacidosis, secondary to medication noncompliance Severe anion gap metabolic acidosis, secondary to above and lactic acidosis, improving Acute pancreatitis; lipase 3010, being down, current lipase 1020 Chronic alcohol abuse, reportedly drinks 1/5 of liquor per day, last drink September 29, 2024 Hematemesis, no further episodes while in the ED. distal esophageal varices with no stigmata of recent blood. Mild diffuse gastritis. Portal hypertensive gastropathy. Grade B reflux esophagitis. Acute leukocytosis, possibly reactive, recovered Hyperkalemia, improved potassium 3.5 mmol/L Hypertension History of hyperlipidemia Current ongoing tobacco dependence Plan: The patient was seen and evaluated Labs and medications reviewed EGD results reviewed Continued on Lantus and Humalog Remains on lactated Ringer's at 75 mL/h Remains on the CIWA protocol Cleared for discharge from the pulmonary standpoint This patient was seen by the pulmonary nurse practitioner addressing pulmonary/critical care needs I have personally seen and examined the patient, performed the documentation and the assessment and plan as written. Number of minutes spent on the visit: 24 Dictation was produced using [employer] dictation software. Please excuse any grammatical, word or spelling errors.
--- NOTE | 2024-10-04 14:36 | P.DS ---
Providers Date of admission: 10/01/24 00:50 Expected date of discharge: 10/04/24 Attending physician: Adarsh Dee MD Consults: 10/01/24 00:52 Consult Physician Routine Consulting Provider: Missael Arauz Consult Reason/Comments: DKA Do you want consulting provider notified?: Already Contacted 10/01/24 02:50 Consult Physician Stat Consulting Provider: Yanique Marshall Consult Reason/Comments: Pancreatitis; hematemesis Do you want consulting provider notified?: Yes Primary care physician: [facility] Course: 44 year old M with PMH of DM, HTN, HLD, EtOH abuse, cirrhosis, esophageal varicies presents to the ED for abdominal pain and hematemesis. In the ED he underwent extensive evaluation. BP 142/109, HR 125, RR 28, T 97.6F, 100% on RA. CBC, Coag panel, CMP significant for WBC 16.8, Hg 12.5, K 5.8, bicarb < 5, BUN 8, glu 507, T. Bili 1.7, alk phos 430, alb 5.2. Phos 7.4. Mag 1.7. Trop < 0.012. BNP 119. Amylase 200. Lipiase 3010. UA neg LE or nitrite. Acetone positive. EtOH < 10. CXR neg. EKG sinus tachycardia. CT chest abd pelvis confirmed cirrhosis of the liver, portal hypertension, peripancreatic infiltration, cholelithiasis, diffuse colonic wall thickening. Patient was admitted for DKA and pancreatitis along with upper GI bleed. Started on insulin drip/IVF and CIWA protocol. GI consulted for UGIB with plans for EGD on 10/03. 10/02 Patient was seen and examined. Continued abdominal pain with nausea. CBC, CMP significant for RBC 3.5, Hg 9.2, Hct 31.2, Plt 73, Na 131, K 3.4, bicarb 17, BUN 6, Cr 0.49, glu 250, Ca 7.5, alk phos 314, alb 3.1. A1c 12.6. Phos 0.9. Insulin drip at 0.09 units/kg/hr. D5 1/2 NS with 20 meq KCl at 150 cc/hr. 4 mg of Ativan per CIWA protocol over the past 24H. 10/03 Patient was seen and examined. Improved abdominal pain. Nausea but no vomiting. CBC, CMP significant for WBC 3, RBC 3.53, Hg 9.3, Hct 31.5, Plt 69, Na 134, K 3.4, bicarb 19, BUN 3, Cr 0.45, glu 197, Ca 7.9, AST 71, alk phos 372, alb 3.1. Mag 0.9. Insulin drip switched to SQ yesterday (Lispro 7 units TID, Lantus 22 units QHS with ISS). 3 mg of Ativan per CIWA protocol over the past 24H. Underwent EGD showing esophageal varicies, gastritis and esophagitis. 10/04 Patient was seen and examined. Abdominal pain better. Tolerating PO intake. CBC, CMP significant for WBC 2.8, RBC 3.44, Hg 9.1, Hct 31, Plt 65, Na 134, BUN 3, Cr 0.58, glu 206, Ca 8.2. Mag 1.9. Discharge Plan: Restart home dose of insulin. Reports having insulin and supplies at home. [place] PRN for pain. Abstain from alcohol. Follow up with PCP within 1-2 days of discharge and Dr. Marshall within 1 week of discharge for biopsy results. General: non toxic, moderate distress, appears at stated age Derm: warm, dry Head: atraumatic, normocephalic, symmetric Eyes: EOMI, no lid lag, anicteric sclera Mouth: no lip lesion, mucus membranes moist Cardiovascular: S1S2 reg, no murmur Lungs: CTA bilateral, no rhonchi, no rales , no accessory muscle use Ext: no gross muscle atrophy, no edema, no contractures Neuro: no focal neuro deficits Psych: Alert and oriented. Discharge Diagnosis: Diabetes mellitus with hyperglycemia, ketoacidosis resolved Acute pancreatitis Esophagitis, Gastritis and esophageal varicies Hypokalemia Hypomagnesemia Alcohol withdrawal Liver cirrhosis Thrombocytopenia likely due to EtOH abuse Diffuse colonic wall thickening Dyslipidemia with hypertriglyceridemia This complex discharge took 35 minutes to complete. Patient Condition at Discharge: Stable Plan - Discharge Summary New Discharge Prescriptions: New HYDROcodone/APAP 5-325MG [[place] 5-325] 1 tab PO Q6HR PRN 3 Days #12 tab PRN Reason: Breakthrough Pain Continue Mirtazapine [Remeron] 15 mg PO HS amLODIPine [Norvasc] 2.5 mg PO DAILY Insulin Glargine,Hum.rec.anlog [Lantus Solostar Pen] 65 units SQ HS Folic Acid 1 mg PO DAILY Calcium/Magnesium/Zinc/Vitamin D 334/134/5mg 1 tab PO DAILY busPIRone HCl [Buspar] 10 mg PO TID Ferrous Sulfate [Iron (65 MG Elemental)] 325 mg PO DAILY icosapent ethyL [Icosapent Ethyl] 2 gm PO DIRECTED lisinopriL [Zestril] 2.5 mg PO DAILY QUEtiapine [SEROquel] 100 mg PO HS Propranolol [Inderal] 10 mg PO BID Thiamine [Vitamin B-1] 100 mg PO DAILY #30 tab Aspirin EC [Ecotrin Low Dose] 81 mg PO DAILY Cholecalciferol (Vitamin D3) [Vitamin D3 (1250 Mcg = 50,000 Iu)] 1,250 mcg PO WEEKLY Insulin Aspart [NovoLOG Flexpen] See Protocol SQ AC-TID Ascorbic Acid [Vitamin C] 500 mg PO DAILY Pantoprazole Sodium [Protonix] 40 mg PO BID #60 tab Discharge Medication List Folic Acid 1 mg PO DAILY 05/22/24 [History] Insulin Glargine,Hum.rec.anlog [Lantus Solostar Pen] 65 units SQ HS 05/22/24 [History] Mirtazapine [Remeron] 15 mg PO HS 05/22/24 [History] Propranolol [Inderal] 10 mg PO BID 05/22/24 [History] amLODIPine [Norvasc] 2.5 mg PO DAILY 05/22/24 [History] Thiamine [Vitamin B-1] 100 mg PO DAILY #30 tab 05/24/24 [Rx] Calcium/Magnesium/Zinc/Vitamin D 334/134/5mg 1 tab PO DAILY 06/12/24 [History] busPIRone HCl [Buspar] 10 mg PO TID 06/12/24 [History] Ascorbic Acid [Vitamin C] 500 mg PO DAILY 10/01/24 [History] Aspirin EC [Ecotrin Low Dose] 81 mg PO DAILY 10/01/24 [History] Cholecalciferol (Vitamin D3) [Vitamin D3 (1250 Mcg = 50,000 Iu)] 1,250 mcg PO WEEKLY 10/01/24 [History] Ferrous Sulfate [Iron (65 MG Elemental)] 325 mg PO DAILY 10/01/24 [History] Insulin Aspart [NovoLOG Flexpen] See Protocol SQ AC-TID 10/01/24 [History] QUEtiapine [SEROquel] 100 mg PO HS 10/01/24 [History] icosapent ethyL [Icosapent Ethyl] 2 gm PO DIRECTED 10/01/24 [History] lisinopriL [Zestril] 2.5 mg PO DAILY 10/01/24 [History] HYDROcodone/APAP 5-325MG [[place] 5-325] 1 tab PO Q6HR PRN 3 Days #12 tab 10/04/24 [Rx] Pantoprazole Sodium [Protonix] 40 mg PO BID #60 tab 10/04/24 [Rx] Follow up Appointment(s)/Referral(s): Yanique Marshall MD [STAFF PHYSICIAN] - 2 Weeks Jessica Booker MD [Primary Care Provider] - 1-2 days Patient Instructions/Handouts: Pancreatitis (DC), Diabetic Ketoacidosis (DC), Alcohol Withdrawal (DC) Discharge/Stand Alone Forms: AA [facility]ice Lemus, Outpatient Counseling, In Substance Abuse Facilities Discharge Disposition: HOME SELF-CARE
[2024-10-05] MEDS ORDERED: PANTOPRAZOLE 40 MG TABLET PO SCH (07:30)
--- NOTE | 2024-10-07 19:13 | CDI ---
Documentation Clarification Form Date: 10/07/24 From: PASTORA Schwarz Admit Date: 10/01/2024 12:50:00 AM Patient Name: Dayron Tavares Visit Number: [id number] Discharge Date: 10/04/2024 01:44:00 PM ATTENTION: The Clinical Documentation Specialists (CDI) and [facility] Coding Staff appreciate your assistance in clarifying documentation. Please respond to the clarification below the line at the bottom and electronically sign. The CDI & [facility] Coding staff will review the response and follow-up if needed. Please note: Queries are made part of the Legal Health Record. If you have any questions, please contact the author of this message via ITS. Doctor/Provider: Adarsh Dee GI bleed is documented throughout the chart. Additional clarification regarding the etiology of the GI bleed is requested. History/risk factors: Patient presented with severe abdominal pain associated with nausea and vomiting with bright red blood. He does admit to a history of GI bleed and heavy alcohol comsumption. History of esophageal varices banding as well as liver cirrhosis. EGD performed on 10/03 and findings of: Very small distal esophageal varices with no stigmata of recent bleed, mild diffuse gastritis, portal hypertensive gastropathy and grade B reflux esophagitis. Labs: Hgb 09/30 12.5, 10/02 9.2, 10/02 7.8 Medication: Protonix Please clarify the etiology of the GI bleed, if known: [ ] GIB due to esophageal varices [ ] GIB due to gastritis [ ] GIB due to portal hypertensive gastropathy [ ] GIB due to esophagitis [ x ] GIB, etiology unknown [ ] Other, please specify [ ] Unable to determine [ x ] GIB, etiology unknown MTDD
== END 2024-10-04 13:44 | disposition home or self-care (01) | DRG 282 ==
LOC: EC 23:24 → 2SICU 10-01 00:50 → 5NMEDONC 10-03 10:28
PROVIDERS: ADMIT Internal Medicine; ATTEND Internal Medicine
PROC: 0DB78ZX Excision of Stomach, Pylorus, Via Natural or Artificial Opening Endoscopic, Diagnostic (ICD-10-PCS; principal; 2024-10-03 12:25)
DX: K85.20 Alcohol induced acute pancreatitis without necrosis or infection (principal); E11.10 Type 2 diabetes mellitus with ketoacidosis without coma; E78.1 Pure hyperglyceridemia; E83.39 Other disorders of phosphorus metabolism; E87.5 Hyperkalemia; E87.1 Hypo-osmolality and hyponatremia; E87.6 Hypokalemia; E83.42 Hypomagnesemia; F41.9 Anxiety disorder, unspecified; I10 Essential (primary) hypertension; K21.00 Gastro-esophageal reflux disease with esophagitis, without bleeding; K70.30 Alcoholic cirrhosis of liver without ascites; D69.59 Other secondary thrombocytopenia; F17.200 Nicotine dependence, unspecified, uncomplicated; K29.70 Gastritis, unspecified, without bleeding; K31.89 Other diseases of stomach and duodenum; K76.6 Portal hypertension; F10.239 Alcohol dependence with withdrawal, unspecified; H54.61 Unqualified visual loss, right eye, normal vision left eye; K80.20 Calculus of gallbladder without cholecystitis without obstruction; K92.0 Hematemesis; T38.3X6A Underdosing of insulin and oral hypoglycemic [antidiabetic] drugs, initial encounter; Z79.4 Long term (current) use of insulin; Z79.82 Long term (current) use of aspirin; Z79.899 Other long term (current) drug therapy; Z82.49 Family history of ischemic heart disease and other diseases of the circulatory system; Z91.128 Patient's intentional underdosing of medication regimen for other reason; Z91.148 Patient's other noncompliance with medication regimen for other reason
CPT/HCPCS: 36415; 43239; 71045; 71260; 74177; 80048; 80051; 80053; 80061; 80320; 81001; 82009; 82140; 82150; 82565; 82803; 82947; 83036; 83605; 83690; 83721; 83735; 83880; 84100; 84132; 84484; 84520; 85025; 85027; 85610; 85730; 86850; 86900; 86901; 87040; 88305; 93005; 96361; 96365; 96366; 96368; 96372; 96375; 96376; 99291

== ENCOUNTER 2025-02-17 08:30 | Inpatient (IN) | payer OTHER ==
[2025-02-17] MEDS ORDERED: LORazepam 1 MG/0.5 ML VIAL IV PRN ×3 (09:18)
[2025-02-17 09:32] LABS: Glucose,Whole Blood 326 mg/dL (70-110)
[2025-02-17] MEDS: SODIUM CHLORIDE 0.9% 1,000 ML IV SCH ×2 (09:37→12:51)
[2025-02-17] MEDS: ONDANSETRON 4 MG/2 ML VIAL IVP STA (09:39)
[2025-02-17] MEDS: PANTOPRAZOLE 40 MG/10 ML VIAL IVP STA (09:39)
[2025-02-17 09:45] LABS: HCT 38.0 % (39.6-50.0); HGB 11.8 g/dL (13.0-17.0); Lymphocytes % (A) 29.8 %; MCH 26.8 pg (27.0-32.0); MCHC 31.1 g/dL (32.0-37.0); MCV 86.2 fL (80.0-97.0); Monocytes % (A) 9.7 %; Neutrophils % (A) 57.2 %; Platelet Count 154 10*3/uL (140-440); RBC 4.41 10*6/uL (4.40-5.60); RDW 15.2 % (11.5-14.5); WBC 4.33 10*3/uL (4.50-10.00)
[2025-02-17 09:46] LABS: Basophils # (A) 0.06 10*3/uL (0.00-0.10); Basophils % (A) 1.4 %; Eosinophils # (A) 0.06 10*3/uL (0.04-0.35); Eosinophils % (A) 1.4 %; Lymphocytes # (A) 1.29 10*3/uL (0.90-5.00); Monocytes # (A) 0.42 10*3/uL (0.20-1.00); Neutrophils # (A) 2.48 10*3/uL (1.80-7.70)
[2025-02-17 10:13] LABS: ALT 53 U/L (4-49); AST 124 U/L (17-59); African American GFR (CKD) >90 (>60 ml/min/1.73 sqM); Albumin 4.6 g/dL (3.5-5.0); Alkaline Phosphatase 397 U/L (38-126); Amylase 70 U/L (30-110); Anion Gap 20 mmol/L; Blood Urea Nitrogen 14 mg/dL (9-20); Calcium 8.4 mg/dL (8.4-10.2); Carbon Dioxide 18 mmol/L (22-30); Chloride 106 mmol/L (98-107); Glucose 329 mg/dL (74-99); Lipase 52 U/L (23-300); Non-African American GFR(CKD) >90 (>60 ml/min/1.73 sqM); Potassium 3.9 mmol/L (3.5-5.1); Sodium 144 mmol/L (137-145); Total Protein 7.9 g/dL (6.3-8.2)
--- NOTE | 2025-02-17 12:05 | CT ---
EXAMINATION TYPE: CT brain cspine wo con, CT facial bones wo con CT DLP: Combined DLP of 1102.7 mGycm, Automated exposure control for dose reduction was used. DATE OF EXAM: 02/17/2025 11:02 AM COMPARISON: CT brain 05/22/2024 CLINICAL INDICATION:Male, 44 years old with history of fall, abrasions to forehead; Fall, abrasions t o forehead. ETOH. Pain. TECHNIQUE: Brain: Multiple axial CT images of the brain were obtained without IV contrast. Cspine: Axial CT images from the skull base to the inferior aspect of T2 we obtained without intraven ous contrast. Coronal and sagittal reformatted images were also reviewed. Facial bones; axial CT images of the facial bones were obtained without contrast and soft tissue and bone windows. Coronal and sagittal reformatted images were also reviewed. FINDINGS: Brain: Extra-axial spaces: No abnormal extra-axial fluid collections. Ventricular system: Within normal limits Cerebral parenchyma: No acute intraparenchymal hemorrhage or mass effect. The cobb-white junction is well differentiated. Cerebellum: Unremarkable. Mass effect: No evidence of midline shift. Intracranial vasculature: unremarkable Soft tissues: Normal. Calvarium: No depressed skull fracture. Paranasal sinuses and mastoid air cells: Clear. Visualized orbits: Right aphakia Cervical spine: Fracture: None. Osseous structures: Unremarkable Vertebral alignment: Within normal limits. Spinal canal/Neural Foramina: No evidence of significant spinal canal narrowing. No evidence for sign ificant neural foraminal stenosis. Neck soft tissues: Prevertebral soft tissues are within normal limits. Other: The airway is patent. The lung apices are clear. Mild bilateral carotid bifurcation calcificat ions. Facial Bones: There is no evidence of fracture, subluxation, dislocation, or significant soft tissue swelling. Righ t aphakia. No acute traumatic process to the orbits. The temporal-mandibular joints appear symmetric. The visualized portion of the paranasal sinuses appear clear. IMPRESSION: 1. No acute intracranial process. 2. No acute facial bone fracture. 3. No evidence of cervical spine fracture. [facility], , 02/17/2025 12:03 PM
[2025-02-17] MEDS ORDERED: DEXTROSE 50% SYRINGE 50 ML IVP PRN ×2 (12:13)
[2025-02-17 12:20] LABS: Bilirubin,Urine Negative (Negative); Blood,Urine Trace (Negative); Color,Urine Light Yellow; Glucose,Urine (UA) 4+ (Negative); Ketones,Urine 1+ (Negative); Leukocyte Esterase,Urine Negative (Negative); Nitrite,Urine Negative (Negative); PH, Urine 6.0 (5.0-8.0); Protein,Urine 2+ (Negative); RBC,Urine 1 /hpf (0-5); Specific Gravity,Urine 1.017 (1.001-1.035); Urobilinogen,Urine <2.0 mg/dL (<2.0); WBC,Urine 13 /hpf (0-5)
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
[2025-02-17 12:46] LABS: Glucose,Whole Blood 210 mg/dL (70-110)
[2025-02-17] MEDS: INSULIN LISPRO (HumaLOG) 100 UNIT/ML 10 mL VL SQ SCH (12:51)
[2025-02-17] MEDS ORDERED: NALOXONE 0.4 MG/ML 1 ML VIAL IV PRN (12:51)
--- NOTE | 2025-02-17 14:10 | ED ---
General Adult HPI - General Chief complaint: Alcohol Stated complaint: ETOH Time Seen by Provider: 02/17/25 09:06 Source: patient, RN notes reviewed, old records reviewed Mode of arrival: EMS Limitations: no limitations - History of Present Illness Initial comments: 44-year-old male presents emergency department after suffering a fall 1 to 2 d ays ago but also is complaining of alcohol abuse and feeling unwell. Does have a history of alcohol drawl's. Also history of diabetes. Has been admitted for DKA in the past. Endorses mild nausea but no emesis. Denies any diarrhea. Has some abrasions on his forehead. States he is up-to-date on tetanus. His blood sugar was high at home. Concern for possible DKA. Presents for further evalua tion at this time. - Related Data Home Medications Medication Instructions Recorded Confirmed Insulin Glargine,Hum.rec.anlog 60 units SQ HS 05/22/24 02/17/25 [Lantus Solostar Pen] Insulin Aspart [NovoLOG Flexpen] See Protocol SQ AC-TID 10/01/24 02/17/25 metFORMIN HCL 1,000 mg PO DAILY 02/17/25 02/17/25 Allergies Allergy/AdvReac Type Severity Reaction Status Date / Time No Known Allergies Allergy Verified 02/17/25 14:04 Review of Systems ROS Statement: Those systems with pertinent positive or pertinent negative responses have been documented in the HPI. Review of Systems: CONST: Denies fever EYES: Denies blurry vision ENT: Denies nasal congestion C/V: Denies Chest pain RESP: Denies shortness of breath GI: Endorses mild nausea but no significant abdominal pain. : Denies dysuria SKIN: Denies rash. MSK: Denies joint pain. NEURO: Denies headache ROS Other: All systems not noted in ROS Statement are negative. 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, upper GIB esophageal varices, etoh abuse History of Any Multi-Drug Resistant Organisms: None Reported Past Surgical History: No Surgical Hx Reported Additional Past Surgical History / Comment(s): 3 eye surgeries, esophageal varices banded x3-4 Past Anesthesia/Blood Transfusion Reactions: No Reported Reaction Past Psychological History: Anxiety Smoking Status: Current every day smoker Past Alcohol Use History: Abuse, Heavy Past Drug Use History: None Reported - Past Family History Father Family Medical History: Diabetes Mellitus Mother Family Medical History: No Reported History General Exam - General Exam Comments Initial Comments: General: Appears intoxicated with alcohol. No signs of alcohol withdrawal. HEAD: Normal with no signs of head trauma. EYES: Right pupil chronically enlarged secondary to blindness. Left pupil is 3 mm and reactive to light. ENT: Hearing grossly intact, normal oropharynx. RESPIRATORY: Clear breath sounds bilaterally. No wheezes, rales, or rhonchi. C/V: Regular rate and rhythm. S1 and S2 auscultated, no edema, peripheral pulses 2+ and intact throughout ABD: Abd is soft, nontender, nondistended EXT: Normal range of motion, no obvious deformity SKIN: No rashes or lesions observed on exposed skin. NEURO: Alert and orient x 4. GCS 15. Limitations: no limitations Course Vital Signs 02/17/25 02/17/25 02/17/25 08:40 09:32 10:30 Temperature 97.7 F Pulse Rate 98 95 92 Respiratory 20 14 12 Rate Blood Pressure 119/93 117/85 120/90 O2 Sat by Pulse 96 93 L 93 L Oximetry 02/17/25 02/17/25 02/17/25 11:00 11:30 12:00 Temperature Pulse Rate 100 92 92 Respiratory 14 14 14 Rate Blood Pressure 133/92 128/93 124/90 O2 Sat by Pulse 93 L 96 97 Oximetry 02/17/25 02/17/25 12:30 13:55 Temperature 97.6 F Pulse Rate 93 87 Respiratory 14 14 Rate Blood Pressure 125/86 128/98 O2 Sat by Pulse 98 98 Oximetry Procedures - [place] Protocol (Time Out) Nurse: Amanda Cleveland Medical Decision Making - Medical Decision Making Was pt. sent in by a medical professional or institution (, PA, PREFORM MACHINE OPERATOR, urgent care, hospital, or group home...) When possible be specific @ -No Did you speak to anyone other than the patient for history (EMS, parent, family, police, friend...)? What history was obtained from this source @ -No Did you review nursing and triage notes (agree or disagree)? Why? @ -I reviewed and agree with nursing and triage notes Were old charts reviewed (outside hosp., previous admission, EMS record, old EKG, old radiological studies, urgent care reports/EKG's, group home records)? Report findings @ -All charts reviewed from September 2024 when patient was admitted for alcohol intoxication and DKA. Differential Diagnosis (chest pain, altered mental status, abdominal pain women, abdominal pain men, vaginal bleeding, weakness, fever, dyspnea, syncope, headache, dizziness, GI bleed, back pain, seizure, CVA, palpatations, mental health, musculoskeletal)? @ -Alcohol intoxication, alcohol withdrawals, DKA, electrode abnormalities, intracranial trauma. This list is not all inclusive. EKG interpreted by me (3pts min.). @ -As above X-rays interpreted by me (1pt min.). @ -None done CT interpreted by me (1pt min.). @ -CT brain, C-spine, facial bones negative for any obvious acute traumatic injury. U/S interpreted by me (1pt. min.). @ -None done What testing was considered but not performed or refused? (CT, X-rays, U/S, labs)? Why? @ -None What meds were considered but not given or refused? Why? @ -None Did you discuss the management of the patient with other professionals (lukas umana i.e. , PA, PREFORM MACHINE OPERATOR, lab, RT, psych nurse, bilingual social worker, office machine installer, teacher, digital controls technical officer, lining caser)? Give summary @ -Discussed with admitting provider, Dr. Jama who accepted the admission. Was smoking cessation discussed for >3mins.? @ -No Was critical care preformed (if so, how long)? @ -No Were there social determinants of health that impacted care today? How? (Homelessness, low income, unemployed, alcoholism, drug addiction, transportation, low edu. Level, literacy, decrease access to med. care, correction, rehab)? @ -No Was there de-escalation of care discussed even if they declined (Discuss DNR or withdrawal of care, Hospice)? DNR status @ -No What co-morbidities impacted this encounter? (DM, HTN, Smoking, COPD, CAD, Cancer, CVA, ARF, Chemo, Hep., AIDS, mental health diagnosis, sleep apnea, morbid obesity)? @ -Heavy alcohol abuse Was patient admitted / discharged? Hospital course, mention meds given and route, prescriptions, significant lab abnormalities, going to OR and other pertinent info. @ -Patient presents in toxic with alcohol. History of diabetes and is curre ntly hyperglycemic as well. History of DKA. Having some nausea and is currently texting with alcohol. He did fall over a day ago. Does not meet trauma criteria activation. However we will obtain CT brain, C-spine, facial bones as well as general labs. Patient was in agreement this plan. Vital signs are within acceptable limits. He will be hydrated with IV fluids, and given GI medications to help with his mild nausea and GERD like symptoms. Patient placed on CIWA. EKG shows no signs of acute ischemia. Imaging unremarkable. Labs are remarkable for a hyperglycemia 329, mild lactic acidosis 2.5 which is likely secondary to dehydration. Patient has chronically elevated LFTs and alk phos which are within baseline. Alcohol level is 274. No evidence of DKA. On reevaluation, I update the patient. He will be admitted for alcohol intoxication and monitored for withdrawal symptoms. He was in agreement this plan. I spoke with the admitting provider, Dr. Jama who accepted the admission. Undiagnosed new problem with uncertain prognosis? @ -No Drug Therapy requiring intensive monitoring for toxicity (Heparin, Nitro, Insulin, Cardizem)? @ -No Were any procedures done? @ -No Diagnosis/symptom? @ -Alcohol intoxication, hyperglycemia Acute, or Chronic, or Acute on Chronic? @ -Acute Uncomplicated (without systemic symptoms) or Complicated (systemic symptoms)? @ -Complicated Side effects of treatment? @ -No Exacerbation, Progression, or Severe Exacerbation? @ -No Poses a threat to life or bodily function? How? (Chest pain, [place], [place], pneumonia, PE, COPD, DKA, ARF, appy, cholecystitis, CVA, Diverticulitis, Homicidal, Suicidal, threat to staff... and all critical care pts) @ -Potentially, yes - Lab Data Result diagrams: 02/17/25 09:40 02/17/25 09:40 Lab Results 02/17/25 02/17/25 02/17/25 Range/Units 09:27 09:40 09:40 WBC 4.33 L (4.50-10.00) 10*3/uL RBC 4.41 (4.40-5.60) 10*6/uL Hgb 11.8 L (13.0-17.0) g/dL Hct 38.0 L (39.6-50.0) % MCV 86.2 (80.0-97.0) fL MCH 26.8 L (27.0-32.0) pg MCHC 31.1 L (32.0-37.0) g/dL Plt Count 154 (140-440) 10*3/uL MPV 10.1 (9.5-12.2) fL Immature Gran % (Auto) 0.5 % Neutrophils % 57.2 % Lymphocytes % 29.8 % Monocytes % 9.7 % Eosinophils % 1.4 % Basophils % 1.4 % Immature Gran # 0.02 (0.00-0.04) 10*3/uL Neutrophils # 2.48 (1.80-7.70) 10*3/uL Lymphocytes # 1.29 (0.90-5.00) 10*3/uL Monocytes # 0.42 (0.20-1.00) 10*3/uL Eosinophils # 0.06 (0.04-0.35) 10*3/uL Basophils # 0.06 (0.00-0.10) 10*3/uL Sodium 144 (137-145) mmol/L Potassium 3.9 (3.5-5.1) mmol/L Chloride 106 (98-107) mmol/L Carbon Dioxide 18 L (22-30) mmol/L Anion Gap 20 mmol/L BUN 14 (9-20) mg/dL Creatinine 0.60 L (0.66-1.25) mg/dL Est GFR (CKD-EPI)AfAm >90 (>60 ml/min/1.73 sqM) Est GFR (CKD-EPI)NonAf >90 (>60 ml/min/1.73 sqM) Glucose 329 H (74-99) mg/dL POC Glucose (mg/dL) 326 H (70-110) mg/dL POC Glu Workers Compensation Administrator ID Lisa Murillo Lactic Ac Sepsis Rflx Plasma Lactic Acid Zeferino (0.7-2.0) mmol/L Calcium 8.4 (8.4-10.2) mg/dL Total Bilirubin 0.8 (0.2-1.3) mg/dL AST 124 H (17-59) U/L ALT 53 H (4-49) U/L Alkaline Phosphatase 397 H (38-126) U/L Total Protein 7.9 (6.3-8.2) g/dL Albumin 4.6 (3.5-5.0) g/dL Amylase 70 (30-110) U/L Lipase 52 (23-300) U/L Urine Color Urine Appearance (Clear) Urine pH (5.0-8.0) Ur Specific [place] (1.001-1.035) Urine Protein (Negative) Urine Glucose (UA) (Negative) Urine Ketones (Negative) Urine Blood (Negative) Urine Nitrite (Negative) Urine Bilirubin (Negative) Urine Urobilinogen (<2.0) mg/dL Ur Leukocyte Esterase (Negative) Urine RBC (0-5) /hpf Urine WBC (0-5) /hpf Serum Alcohol 274 H* mg/dL Acetone, Qual Negative (Negative) 02/17/25 02/17/25 02/17/25 Range/Units 09:40 10:12 12:04 WBC (4.50-10.00) 10*3/uL RBC (4.40-5.60) 10*6/uL Hgb (13.0-17.0) g/dL Hct (39.6-50.0) % MCV (80.0-97.0) fL MCH (27.0-32.0) pg MCHC (32.0-37.0) g/dL Plt Count (140-440) 10*3/uL MPV (9.5-12.2) fL Immature Gran % (Auto) % Neutrophils % % Lymphocytes % % Monocytes % % Eosinophils % % Basophils % % Immature Gran # (0.00-0.04) 10*3/uL Neutrophils # (1.80-7.70) 10*3/uL Lymphocytes # (0.90-5.00) 10*3/uL Monocytes # (0.20-1.00) 10*3/uL Eosinophils # (0.04-0.35) 10*3/uL Basophils # (0.00-0.10) 10*3/uL Sodium (137-145) mmol/L Potassium (3.5-5.1) mmol/L Chloride (98-107) mmol/L Carbon Dioxide (22-30) mmol/L Anion Gap mmol/L BUN (9-20) mg/dL Creatinine (0.66-1.25) mg/dL Est GFR (CKD-EPI)AfAm (>60 ml/min/1.73 sqM) Est GFR (CKD-EPI)NonAf (>60 ml/min/1.73 sqM) Glucose (74-99) mg/dL POC Glucose (mg/dL) (70-110) mg/dL POC Glu Workers Compensation Administrator ID Lactic Ac Sepsis Rflx Y Plasma Lactic Acid Zeferino 2.5 H* (0.7-2.0) mmol/L Calcium (8.4-10.2) mg/dL Total Bilirubin (0.2-1.3) mg/dL AST (17-59) U/L ALT (4-49) U/L Alkaline Phosphatase (38-126) U/L Total Protein (6.3-8.2) g/dL Albumin (3.5-5.0) g/dL Amylase (30-110) U/L Lipase (23-300) U/L Urine Color Light Yellow Urine Appearance Clear (Clear) Urine pH 6.0 (5.0-8.0) Ur Specific [place] 1.017 (1.001-1.035) Urine Protein 2+ H (Negative) Urine Glucose (UA) 4+ H (Negative) Urine Ketones 1+ H (Negative) Urine Blood Trace H (Negative) Urine Nitrite Negative (Negative) Urine Bilirubin Negative (Negative) Urine Urobilinogen <2.0 (<2.0) mg/dL Ur Leukocyte Esterase Negative (Negative) Urine RBC 1 (0-5) /hpf Urine WBC 13 H (0-5) /hpf Serum Alcohol mg/dL Acetone, Qual (Negative) 02/17/25 02/17/25 Range/Units 12:25 12:44 WBC (4.50-10.00) 10*3/uL RBC (4.40-5.60) 10*6/uL Hgb (13.0-17.0) g/dL Hct (39.6-50.0) % MCV (80.0-97.0) fL MCH (27.0-32.0) pg MCHC (32.0-37.0) g/dL Plt Count (140-440) 10*3/uL MPV (9.5-12.2) fL Immature Gran % (Auto) % Neutrophils % % Lymphocytes % % Monocytes % % Eosinophils % % Basophils % % Immature Gran # (0.00-0.04) 10*3/uL Neutrophils # (1.80-7.70) 10*3/uL Lymphocytes # (0.90-5.00) 10*3/uL Monocytes # (0.20-1.00) 10*3/uL Eosinophils # (0.04-0.35) 10*3/uL Basophils # (0.00-0.10) 10*3/uL Sodium (137-145) mmol/L Potassium (3.5-5.1) mmol/L Chloride (98-107) mmol/L Carbon Dioxide (22-30) mmol/L Anion Gap mmol/L BUN (9-20) mg/dL Creatinine (0.66-1.25) mg/dL Est GFR (CKD-EPI)AfAm (>60 ml/min/1.73 sqM) Est GFR (CKD-EPI)NonAf (>60 ml/min/1.73 sqM) Glucose (74-99) mg/dL POC Glucose (mg/dL) 210 H (70-110) mg/dL POC Glu Workers Compensation Administrator ID Fetterly Amanad Lactic Ac Sepsis Rflx Plasma Lactic Acid Zeferino 1.7 (0.7-2.0) mmol/L Calcium (8.4-10.2) mg/dL Total Bilirubin (0.2-1.3) mg/dL AST (17-59) U/L ALT (4-49) U/L Alkaline Phosphatase (38-126) U/L Total Protein (6.3-8.2) g/dL Albumin (3.5-5.0) g/dL Amylase (30-110) U/L Lipase (23-300) U/L Urine Color Urine Appearance (Clear) Urine pH (5.0-8.0) Ur Specific [place] (1.001-1.035) Urine Protein (Negative) Urine Glucose (UA) (Negative) Urine Ketones (Negative) Urine Blood (Negative) Urine Nitrite (Negative) Urine Bilirubin (Negative) Urine Urobilinogen (<2.0) mg/dL Ur Leukocyte Esterase (Negative) Urine RBC (0-5) /hpf Urine WBC (0-5) /hpf Serum Alcohol mg/dL Acetone, Qual (Negative) - EKG Data -: EKG Interpreted by Me EKG Comments: 12-lead Electrocardiogram Interpretation Note EKG was reviewed and interpreted by myself. 12-lead ECG performed at 0931 is interpreted by me as revealing normal sinus rhythm at a rate of 90 beats per minute. [place] is normal. CO interval is 180 ms, QRS durations 113 ms, QTc is 442 ms.. There were no ST or T wave abnormalities to suggest myocardial ischemia or injury. R wave progression across the precordium was delayed. By my interpretation this EKG is non-diagnostic for acute ischemia. Disposition Clinical Impression: Alcohol intoxication, Hyperglycemia Disposition: ADMITTED IP TO THIS HOSP Condition: Stable Time of Disposition: 12:10
[2025-02-17 17:07] LABS: Glucose,Whole Blood 134 mg/dL (70-110)
[2025-02-17] MEDS: PANTOPRAZOLE 40 MG TABLET PO SCH (17:47)
[2025-02-17 20:23] LABS: Glucose,Whole Blood 189 mg/dL (70-110)
[2025-02-17] MEDS: INSULIN GLARGINE (LANTUS) 100 UNIT/ML SYR SQ SCH (20:43)
[2025-02-17] MEDS: PROPRANOLOL 10 MG TAB PO SCH (20:43)
[2025-02-18 07:16] LABS: Glucose,Whole Blood 207 mg/dL (70-110)
[2025-02-18 07:50] LABS: Basophils # (A) 0.07 X 10*3/uL (0.00-0.10); Basophils % (A) 1.7 %; Eosinophils # (A) 0.08 X 10*3/uL (0.04-0.35); Eosinophils % (A) 1.9 %; HCT 35.5 % (39.6-50.0); HGB 10.6 g/dL (13.0-17.0); Immature Grans, Automated 0.20 %; Lymphocytes # (A) 0.83 X 10*3/uL (0.90-5.00); Lymphocytes % (A) 19.7 %; MCH 26.2 pg (27.0-32.0); MCHC 29.9 g/dL (32.0-37.0); MCV 87.7 FL (80.0-97.0); Monocytes # (A) 0.57 X 10*3/uL (0.20-1.00); Monocytes % (A) 13.5 %; NRBC Per 100 WBC 0 X 10*3/uL (0.00-0.01); Neutrophils # (A) 2.65 X 10*3/uL (1.80-7.70); Neutrophils % (A) 63.0 %; Platelet Count 109 X 10*3/uL (140-440); RBC 4.05 X 10*6/uL (4.40-5.60); RDW 14.8 % (11.5-14.5); WBC 4.21 X 10*3/uL (4.50-10.00)
[2025-02-18 08:02] LABS: ALT 43 U/L (10-49); AST 85 U/L (14-35); Albumin 3.9 g/dL (3.8-4.9); Albumin/Globulin Ratio 1.44 Ratio (1.60-3.17); Alkaline Phosphatase 469 U/L (41-126); Anion Gap 12.40 mmol/L (4.00-12.00); BUN/Creat Ratio 12.50 Ratio (12.00-20.00); Blood Urea Nitrogen 7.5 mg/dL (9.0-27.0); Calcium 7.7 mg/dL (8.7-10.3); Carbon Dioxide 25.6 mmol/L (21.6-31.8); Chloride 100 mmol/L (96-109); Globulin 2.7 g/dL (1.6-3.3); Glucose 183 mg/dL (70-110); Potassium 3.8 mmol/L (3.5-5.5); Sodium 138 mmol/L (135-145); Total Protein 6.6 g/dL (6.2-8.2)
[2025-02-18] MEDS: FOLIC ACID 1 MG TAB PO SCH (08:14)
[2025-02-18] MEDS: THIAMINE 100 MG TAB PO SCH (08:16)
[2025-02-18] MEDS: ONDANSETRON 4 MG/2 ML VIAL IVP PRN (09:09)
[2025-02-18] MEDS ORDERED: LORazepam 1 MG TAB PO PRN ×3 (10:18)
[2025-02-18] MEDS ORDERED: LORazepam 0.5 MG TAB PO PRN (10:18)
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
[2025-02-18 12:25] LABS: Glucose,Whole Blood 177 mg/dL (70-110)
[2025-02-18] MEDS: chlordiazePOXIDE 25 MG CAP PO SCH (12:37)
[2025-02-18 17:04] LABS: Glucose,Whole Blood 284 mg/dL (70-110)
[2025-02-18 19:59] LABS: Glucose,Whole Blood 214 mg/dL (70-110)
[2025-02-19 07:15] LABS: Glucose,Whole Blood 245 mg/dL (70-110)
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
[2025-02-19 12:30] LABS: Glucose,Whole Blood 229 mg/dL (70-110)
[2025-02-19] MEDS: HYDROcodone/APAP 5-325MG 1 EACH TAB PO PRN (16:58)
[2025-02-19 17:00] LABS: Glucose,Whole Blood 304 mg/dL (70-110)
[2025-02-19 20:06] LABS: Glucose,Whole Blood 345 mg/dL (70-110)
[2025-02-20 07:12] LABS: Glucose,Whole Blood 269 mg/dL (70-110)
[2025-02-20 12:16] LABS: Glucose,Whole Blood 192 mg/dL (70-110)
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
[2025-02-20 17:08] LABS: Glucose,Whole Blood 237 mg/dL (70-110)
[2025-02-20 20:26] LABS: Glucose,Whole Blood 167 mg/dL (70-110)
[2025-02-21 07:22] LABS: Glucose,Whole Blood 343 mg/dL (70-110)
[2025-02-21 08:20] VITALS: BP 152/98; PULSE 70; RESP 20; TEMP 97.5
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
== END 2025-02-21 09:48 | disposition other institution (70) | DRG 775 ==
LOC: EC 08:30 → 5NMEDONC 12:52
PROVIDERS: ADMIT Student in an Organized Health Care Education/Training Program; ATTEND Student in an Organized Health Care Education/Training Program
DX: F10.129 Alcohol abuse with intoxication, unspecified (principal); F10.139 Alcohol abuse with withdrawal, unspecified; F17.200 Nicotine dependence, unspecified, uncomplicated; E78.5 Hyperlipidemia, unspecified; D61.818 Other pancytopenia; E11.65 Type 2 diabetes mellitus with hyperglycemia; F32.A Depression, unspecified; F41.9 Anxiety disorder, unspecified; G47.00 Insomnia, unspecified; H54.61 Unqualified visual loss, right eye, normal vision left eye; I10 Essential (primary) hypertension; I85.10 Secondary esophageal varices without bleeding; K74.60 Unspecified cirrhosis of liver; S01.91XA Laceration without foreign body of unspecified part of head, initial encounter; Y90.8 Blood alcohol level of 240 mg/100 ml or more; Z79.4 Long term (current) use of insulin; Z79.82 Long term (current) use of aspirin; Z79.84 Long term (current) use of oral hypoglycemic drugs; Z79.899 Other long term (current) drug therapy; D50.9 Iron deficiency anemia, unspecified; W19.XXXA Unspecified fall, initial encounter
CPT/HCPCS: 36415; 70450; 70486; 72125; 80053; 80320; 81001; 82009; 82150; 83605; 83690; 85025; 93005; 96361; 96374; 96375; 99285

== ENCOUNTER 2025-02-22 16:29 | Emergency (ER) | payer OTHER ==
[2025-02-22 16:41] VITALS: TEMP 98.1
[2025-02-22 16:59] LABS: Glucose,Whole Blood 285 mg/dL (70-110)
--- NOTE | 2025-02-22 17:26 | ED ---
Recheck HPI - General Chief Complaint: Recheck/Abnormal Lab/Rx Stated Complaint: Hyperglycemia Time Seen by Provider: 02/22/25 16:44 Source: patient, EMS, RN notes reviewed Mode of arrival: EMS Limitations: no limitations - History of Present Illness Initial Comments: This is a 44-year-old male with history including DM, cirrhosis, GI bleed, e sophageal varices and alcohol abuse presenting from [place] via EMS for hypoglycemia. Patient was given 29 units of insulin and 1 L normal saline prior to arrival, stating he was in the "380s". Patient endorses associated dizziness/lightheadedness, frontal pressure headache and nausea. Denies fever, chills, chest pain, dyspnea, vomiting/diarrhea, urinary symptoms. Onset/Timin -: days(s) Treatments Prior to Arrival: other (insulin, normal saline) - Related Data Home Medications Medication Instructions Recorded Confirmed Insulin Aspart [NovoLOG Flexpen] See Protocol SQ AC-TID 10/01/24 02/17/25 metFORMIN HCL 1,000 mg PO DAILY 02/17/25 02/17/25 Previous Rx's Medication Instructions Recorded Folic Acid 1 mg PO DAILY tab 02/21/25 Insulin Glargine (Lantus) [Lantus 10 unit SQ HS each 02/21/25 Vial] Propranolol [Inderal] 10 mg PO BID tab 02/21/25 Thiamine [Vitamin B-1] 100 mg PO DAILY tab 02/21/25 Allergies Allergy/AdvReac Type Severity Reaction Status Date / Time No Known Allergies Allergy Verified 02/22/25 16:41 Review of Systems ROS Statement: Those systems with pertinent positive or pertinent negative responses have been documented in the HPI. ROS Other: All systems not noted in ROS Statement are negative. 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, upper GIB esophageal varices, etoh abuse History of Any Multi-Drug Resistant Organisms: None Reported Past Surgical History: No Surgical Hx Reported Additional Past Surgical History / Comment(s): 3 eye surgeries, esophageal varices banded x3-4 Past Anesthesia/Blood Transfusion Reactions: No Reported Reaction Past Psychological History: Anxiety Smoking Status: Current every day smoker Past Alcohol Use History: Abuse Past Drug Use History: Marijuana - Past Family History Father Family Medical History: Diabetes Mellitus Mother Family Medical History: No Reported History General Exam General appearance: alert, in no apparent distress, lethargic Head exam: Present: atraumatic, normocephalic, normal inspection Eye exam: Present: normal appearance, PERRL, EOMI. Absent: scleral icterus, conjunctival injection, periorbital swelling ENT exam: Present: normal exam, mucous membranes moist Neck exam: Present: normal inspection. Absent: tenderness, meningismus, lymphadenopathy Respiratory exam: Present: normal lung sounds bilaterally. Absent: respiratory distress, wheezes, rales, rhonchi, stridor, accessory muscle use, decreased breath sounds, prolonged expiratory Cardiovascular Exam: Present: regular rate, normal rhythm, normal heart sounds. Absent: systolic murmur, diastolic murmur, rubs, gallop, clicks GI/Abdominal exam: Present: soft, tenderness (Positive RUQ TTP, history of cirrhosis), normal bowel sounds. Absent: distended, guarding, rebound, rigid Extremities exam: Present: normal inspection, full ROM, normal capillary refill. Absent: tenderness, pedal edema, joint swelling, calf tenderness Back exam: Present: normal inspection Neurological exam: Present: alert, oriented X3, CN II-XII intact Psychiatric exam: Present: normal affect, normal mood Skin exam: Present: warm, dry, intact, normal color. Absent: rash Course Vital Signs 02/22/25 02/22/25 02/22/25 16:35 18:36 20:45 Temperature 98.1 F Pulse Rate 82 82 90 Respiratory 18 16 18 Rate Blood Pressure 157/110 176/113 153/98 O2 Sat by Pulse 100 99 100 Oximetry 02/22/25 21:20 Temperature Pulse Rate 79 Respiratory 20 Rate Blood Pressure 169/103 O2 Sat by Pulse 100 Oximetry Medical Decision Making - Medical Decision Making Was pt. sent in by a medical professional or institution (, PA, CLINICAL ASSESSMENT MANAGER, urgent care, hospital, or senior living...) When possible be specific @ -No Did you speak to anyone other than the patient for history (EMS, parent, family, police, friend...)? What history was obtained from this source @ -No Did you review nursing and triage notes (agree or disagree)? Why? @ -I reviewed and agree with nursing and triage notes Were old charts reviewed (outside hosp., previous admission, EMS record, old EKG, old radiological studies, urgent care reports/EKG's, senior living records)? Report findings @ -No old charts were reviewed Differential Diagnosis (chest pain, altered mental status, abdominal pain women, abdominal pain men, vaginal bleeding, weakness, fever, dyspnea, syncope, headache, dizziness, GI bleed, back pain, seizure, CVA, palpatations, mental health, musculoskeletal)? @ -Differential Weakness: Hypoglycemia, shock, sepsis, hyponatremia, anemia, infection, HI, ETOH, adverse medicine reaction, overdose, stroke, this is not meant to be an all-inclusive list. EKG interpreted by me (3pts min.). @ -Sinus rhythm with first-degree AV block and Q waves noted in inferior leads. No ST deviation or T wave inversion. Ventricular rate 80 bpm, MARCEL 210 ms, QRS 99 ms, QTc 419 ms. X-rays interpreted by me (1pt min.). @ -None done CT interpreted by me (1pt min.). @ -None done U/S interpreted by me (1pt. min.). @ -None done What testing was considered but not performed or refused? (CT, X-rays, U/S, labs)? Why? @ -None What meds were considered but not given or refused? Why? @ -None Did you discuss the management of the patient with other professionals (professionals i.e. , PA, CLINICAL ASSESSMENT MANAGER, lab, RT, psych nurse, social and human services assistant, sectional belt mold assembler, teacher, employee service officer, piano case and bench assembler)? Give summary @ -No Was smoking cessation discussed for >3mins.? @ -No Was critical care preformed (if so, how long)? @ -No Were there social determinants of health that impacted care today? How? (Homelessness, low income, unemployed, alcoholism, drug addiction, transportation, low edu. Level, literacy, decrease access to med. care, residential, rehab)? @ -No Was there de-escalation of care discussed even if they declined (Discuss DNR or withdrawal of care, Hospice)? DNR status @ -No What co-morbidities impacted this encounter? (DM, HTN, Smoking, COPD, CAD, Canc er, CVA, ARF, Chemo, Hep., AIDS, mental health diagnosis, sleep apnea, morbid obesity)? @ -DM2 Was patient admitted / discharged? Hospital course, mention meds given and route, prescriptions, significant lab abnormalities, going to OR and other pertinent info. @ -Patient initially provided IV normal saline, Toradol, Reglan, Benadryl. Lab work notable for stable hemoglobin 10.1, platelet 108, glucose 280, phosphorus 5.1, magnesium 1.3 and stable alkaline phosphatase 382. UA positive for glucose, negative acetone, normal kidney function and transaminase. WBC 4.76. Patient provided p.o. magnesium. P.o. labetalol given for hypertension with BP before discharge 169/103 mmHg. Glucose prior to discharge 188 mg/dL. Advised patient to follow-up with PCP in the next 24-48 hours for further management of diabetes and hypertension. Discussed patient with Dr. Dukes. Undiagnosed new problem with uncertain prognosis? @ -No Drug Therapy requiring intensive monitoring for toxicity (Heparin, Nitro, Insulin, Cardizem)? @ -No Were any procedures done? @ -No Diagnosis/symptom? @ -Hypertensive urgency, hyperglycemia, hypomagnesemia Acute, or Chronic, or Acute on Chronic? @ -Acute Uncomplicated (without systemic symptoms) or Complicated (systemic symptoms)? @ -Complicated Side effects of treatment? @ -No Exacerbation, Progression, or Severe Exacerbation? @ -No Poses a threat to life or bodily function? How? (Chest pain, USA, HI, pneumonia, PE, COPD, DKA, ARF, appy, cholecystitis, CVA, Diverticulitis, Homicidal, Suicidal, threat to staff... and all critical care pts) @ -No - Lab Data Result diagrams: 02/22/25 17:22 02/22/25 17:22 Lab Results 02/22/25 02/22/25 02/22/25 Range/Units 16:58 17:06 17:22 WBC 4.76 (4.50-10.00) 10*3/uL RBC 3.74 L (4.40-5.60) 10*6/uL Hgb 10.1 L (13.0-17.0) g/dL Hct 31.8 L (39.6-50.0) % MCV 85.0 (80.0-97.0) fL MCH 27.0 (27.0-32.0) pg MCHC 31.8 L (32.0-37.0) g/dL Plt Count 108 L (140-440) 10*3/uL MPV 11.4 (9.5-12.2) fL Immature Gran % (Auto) 0.4 % Neutrophils % 67.9 % Lymphocytes % 17.0 % Monocytes % 11.8 % Eosinophils % 2.3 % Basophils % 0.6 % Immature Gran # 0.02 (0.00-0.04) 10*3/uL Neutrophils # 3.23 (1.80-7.70) 10*3/uL Lymphocytes # 0.81 L (0.90-5.00) 10*3/uL Monocytes # 0.56 (0.20-1.00) 10*3/uL Eosinophils # 0.11 (0.04-0.35) 10*3/uL Basophils # 0.03 (0.00-0.10) 10*3/uL Manual Slide Review Performed Anisocytosis (manual) Present VBG pH (7.31-7.41) VBG pCO2 (37-51) mmHg VBG HCO3 (24-28) mmol/L Sodium (137-145) mmol/L Potassium (3.5-5.1) mmol/L Chloride (98-107) mmol/L Carbon Dioxide (22-30) mmol/L Anion Gap mmol/L BUN (9-20) mg/dL Creatinine (0.66-1.25) mg/dL Est GFR (CKD-EPI)AfAm (>60 ml/min/1.73 sqM) Est GFR (CKD-EPI)NonAf (>60 ml/min/1.73 sqM) Glucose (74-99) mg/dL POC Glucose (mg/dL) 285 H (70-110) mg/dL POC Glu Stone Paver ID Marvin Nargis Plasma Lactic Acid Zeferino (0.7-2.0) mmol/L Calcium (8.4-10.2) mg/dL Phosphorus (2.5-4.5) mg/dL Magnesium (1.6-2.3) mg/dL Total Bilirubin (0.2-1.3) mg/dL AST (17-59) U/L ALT (4-49) U/L Alkaline Phosphatase (38-126) U/L Total Protein (6.3-8.2) g/dL Albumin (3.5-5.0) g/dL Urine Color Colorless Urine Appearance Clear (Clear) Urine pH 6.5 (5.0-8.0) Ur Specific [place] 1.012 (1.001-1.035) Urine Protein Negative (Negative) Urine Glucose (UA) 4+ H (Negative) Urine Ketones Negative (Negative) Urine Blood Negative (Negative) Urine Nitrite Negative (Negative) Urine Bilirubin Negative (Negative) Urine Urobilinogen <2.0 (<2.0) mg/dL Ur Leukocyte Esterase Negative (Negative) Acetone, Qual (Negative) 02/22/25 02/22/25 02/22/25 Range/Units 17:22 17:22 17:22 WBC (4.50-10.00) 10*3/uL RBC (4.40-5.60) 10*6/uL Hgb (13.0-17.0) g/dL Hct (39.6-50.0) % MCV (80.0-97.0) fL MCH (27.0-32.0) pg MCHC (32.0-37.0) g/dL Plt Count (140-440) 10*3/uL MPV (9.5-12.2) fL Immature Gran % (Auto) % Neutrophils % % Lymphocytes % % Monocytes % % Eosinophils % % Basophils % % Immature Gran # (0.00-0.04) 10*3/uL Neutrophils # (1.80-7.70) 10*3/uL Lymphocytes # (0.90-5.00) 10*3/uL Monocytes # (0.20-1.00) 10*3/uL Eosinophils # (0.04-0.35) 10*3/uL Basophils # (0.00-0.10) 10*3/uL Manual Slide Review Anisocytosis (manual) VBG pH 7.40 (7.31-7.41) VBG pCO2 40 (37-51) mmHg VBG HCO3 25 (24-28) mmol/L Sodium 137 (137-145) mmol/L Potassium 4.3 (3.5-5.1) mmol/L Chloride 104 (98-107) mmol/L Carbon Dioxide 21 L (22-30) mmol/L Anion Gap 12 mmol/L BUN 20 (9-20) mg/dL Creatinine 0.62 L (0.66-1.25) mg/dL Est GFR (CKD-EPI)AfAm >90 (>60 ml/min/1.73 sqM) Est GFR (CKD-EPI)NonAf >90 (>60 ml/min/1.73 sqM) Glucose 280 H (74-99) mg/dL POC Glucose (mg/dL) (70-110) mg/dL POC Glu Stone Paver ID Plasma Lactic Acid Zeferino 1.8 (0.7-2.0) mmol/L Calcium 9.8 (8.4-10.2) mg/dL Phosphorus 5.1 H (2.5-4.5) mg/dL Magnesium 1.3 L (1.6-2.3) mg/dL Total Bilirubin 1.0 (0.2-1.3) mg/dL AST 53 (17-59) U/L ALT 42 (4-49) U/L Alkaline Phosphatase 382 H (38-126) U/L Total Protein 7.0 (6.3-8.2) g/dL Albumin 4.0 (3.5-5.0) g/dL Urine Color Urine Appearance (Clear) Urine pH (5.0-8.0) Ur Specific [place] (1.001-1.035) Urine Protein (Negative) Urine Glucose (UA) (Negative) Urine Ketones (Negative) Urine Blood (Negative) Urine Nitrite (Negative) Urine Bilirubin (Negative) Urine Urobilinogen (<2.0) mg/dL Ur Leukocyte Esterase (Negative) Acetone, Qual Negative (Negative) 25/25 Range/Units 20:42 WBC (4.50-10.00) 10*3/uL RBC (4.40-5.60) 10*6/uL Hgb (13.0-17.0) g/dL Hct (39.6-50.0) % MCV (80.0-97.0) fL MCH (27.0-32.0) pg MCHC (32.0-37.0) g/dL Plt Count (140-440) 10*3/uL MPV (9.5-12.2) fL Immature Gran % (Auto) % Neutrophils % % Lymphocytes % % Monocytes % % Eosinophils % % Basophils % % Immature Gran # (0.00-0.04) 10*3/uL Neutrophils # (1.80-7.70) 10*3/uL Lymphocytes # (0.90-5.00) 10*3/uL Monocytes # (0.20-1.00) 10*3/uL Eosinophils # (0.04-0.35) 10*3/uL Basophils # (0.00-0.10) 10*3/uL Manual Slide Review Anisocytosis (manual) VBG pH (7.31-7.41) VBG pCO2 (37-51) mmHg VBG HCO3 (24-28) mmol/L Sodium (137-145) mmol/L Potassium (3.5-5.1) mmol/L Chloride (98-107) mmol/L Carbon Dioxide (22-30) mmol/L Anion Gap mmol/L BUN (9-20) mg/dL Creatinine (0.66-1.25) mg/dL Est GFR (CKD-EPI)AfAm (>60 ml/min/1.73 sqM) Est GFR (CKD-EPI)NonAf (>60 ml/min/1.73 sqM) Glucose (74-99) mg/dL POC Glucose (mg/dL) 188 H (70-110) mg/dL POC Glu Stone Paver ID AIDE SCIANDRA Plasma Lactic Acid Zeferino (0.7-2.0) mmol/L Calcium (8.4-10.2) mg/dL Phosphorus (2.5-4.5) mg/dL Magnesium (1.6-2.3) mg/dL Total Bilirubin (0.2-1.3) mg/dL AST (17-59) U/L ALT (4-49) U/L Alkaline Phosphatase (38-126) U/L Total Protein (6.3-8.2) g/dL Albumin (3.5-5.0) g/dL Urine Color Urine Appearance (Clear) Urine pH (5.0-8.0) Ur Specific [place] (1.001-1.035) Urine Protein (Negative) Urine Glucose (UA) (Negative) Urine Ketones (Negative) Urine Blood (Negative) Urine Nitrite (Negative) Urine Bilirubin (Negative) Urine Urobilinogen (<2.0) mg/dL Ur Leukocyte Esterase (Negative) Acetone, Qual (Negative) Disposition Clinical Impression: Hyperglycemia, Hypertensive urgency, Migraine, Hypomagnesemia Disposition: HOME SELF-CARE Condition: Fair Instructions (If sedation given, give patient instructions): Diabetes and Nutrition (ED), Type 2 Diabetes Management for Adults (ED) Additional Instructions: Follow-up with PCP in the next 24-48 hours for further management of diabetes. Return to ER if experiencing ongoing dizziness/lightheadedness, altered mental status, altered level consciousness. Is patient prescribed a controlled substance at d/c from ED?: No Referrals: Xavi Mendez MD [Primary Care Provider] - 1-2 days Time of Disposition: 19:16
[2025-02-22 17:41] LABS: Bilirubin,Urine Negative (Negative); Blood,Urine Negative (Negative); Color,Urine Colorless; Glucose,Urine (UA) 4+ (Negative); Ketones,Urine Negative (Negative); Leukocyte Esterase,Urine Negative (Negative); Nitrite,Urine Negative (Negative); PH, Urine 6.5 (5.0-8.0); Protein,Urine Negative (Negative); Specific Gravity,Urine 1.012 (1.001-1.035); Urobilinogen,Urine <2.0 mg/dL (<2.0)
[2025-02-22 17:41] LABS: Basophils # (A) 0.03 10*3/uL (0.00-0.10); Basophils % (A) 0.6 %; Eosinophils # (A) 0.11 10*3/uL (0.04-0.35); Eosinophils % (A) 2.3 %; HCT 31.8 % (39.6-50.0); HGB 10.1 g/dL (13.0-17.0); Lymphocytes # (A) 0.81 10*3/uL (0.90-5.00); Lymphocytes % (A) 17.0 %; MCH 27.0 pg (27.0-32.0); MCHC 31.8 g/dL (32.0-37.0); MCV 85.0 fL (80.0-97.0); Monocytes # (A) 0.56 10*3/uL (0.20-1.00); Monocytes % (A) 11.8 %; Neutrophils # (A) 3.23 10*3/uL (1.80-7.70); Neutrophils % (A) 67.9 %; Platelet Count 108 10*3/uL (140-440); RBC 3.74 10*6/uL (4.40-5.60); RDW 16.0 % (11.5-14.5); WBC 4.76 10*3/uL (4.50-10.00)
[2025-02-22] MEDS: SODIUM CHLORIDE 0.9% 1,000 ML IV STA ×2 (17:57→18:31)
[2025-02-22] MEDS: KETOROLAC 15 MG/ML 1 ML VIAL IVP STA (17:57)
[2025-02-22] MEDS: METOCLOPRAMIDE 5 MG/ML 2 ML VIAL IVP STA (17:58)
[2025-02-22] MEDS: diphenhydrAMINE 50 MG/ML 1 ML VIAL IVP STA (17:59)
[2025-02-22 18:05] LABS: ALT 42 U/L (4-49); AST 53 U/L (17-59); African American GFR (CKD) >90 (>60 ml/min/1.73 sqM); Albumin 4.0 g/dL (3.5-5.0); Alkaline Phosphatase 382 U/L (38-126); Anion Gap 12 mmol/L; Blood Urea Nitrogen 20 mg/dL (9-20); Calcium 9.8 mg/dL (8.4-10.2); Carbon Dioxide 21 mmol/L (22-30); Chloride 104 mmol/L (98-107); Glucose 280 mg/dL (74-99); Magnesium 1.3 mg/dL (1.6-2.3); Non-African American GFR(CKD) >90 (>60 ml/min/1.73 sqM); Potassium 4.3 mmol/L (3.5-5.1); Sodium 137 mmol/L (137-145); Total Protein 7.0 g/dL (6.3-8.2)
[2025-02-22 18:16] LABS: VBG HCO3 25.0 mmol/L (24-28); VBG PCO2 40.0 mmHg (37-51); VBG PH 7.4 (7.31-7.41)
[2025-02-22] MEDS: MAGNESIUM OXIDE 400 MG TAB PO STA (18:33)
[2025-02-22 18:55] LABS: Anisocytosis (M) Present
[2025-02-22] MEDS: LABETALOL 5 MG/ML VIAL MDV IVP STA (19:53)
[2025-02-22 20:43] LABS: Glucose,Whole Blood 188 mg/dL (70-110)
[2025-02-22 21:35] VITALS: BP 169/103; PULSE 79; RESP 20
== END 2025-02-22 21:35 | disposition home or self-care (01) ==
LOC: EC 16:29
DX: E11.65 Type 2 diabetes mellitus with hyperglycemia (principal); E83.42 Hypomagnesemia; G43.909 Migraine, unspecified, not intractable, without status migrainosus; F17.200 Nicotine dependence, unspecified, uncomplicated
CPT/HCPCS: 36415; 93005; 80053; 82803; 82009; 83605; 83735; 84100; 85025; 81003; 99285; 96374; 96375; 96361 ×2; J1200; J2765; J1885; J1920